=== PATIENT | female | born 1985 | race Caucasian/White ===

== ENCOUNTER 2023-08-01 20:43 | Outpatient (OUT) | payer OTHER, SELFPAY | END 2023-08-01 20:44 | disposition home or self-care (01) | LOC: SLEEP 20:43 | PROVIDERS: PCP Nurse Practitioner Family; Visit Provider Nurse Practitioner Family | DX: G47.33 Obstructive sleep apnea (adult) (pediatric) (principal) | CPT/HCPCS: 95810 ==

== ENCOUNTER 2023-09-03 19:52 | Outpatient (OUT) | payer OTHER, SELFPAY | END 2023-09-03 19:53 | disposition home or self-care (01) | LOC: SLEEP 19:52 | PROVIDERS: PCP Nurse Practitioner Family; Visit Provider Nurse Practitioner Family | DX: G47.33 Obstructive sleep apnea (adult) (pediatric) (principal) | CPT/HCPCS: 95811 ==

== ENCOUNTER 2024-02-16 07:45 | Emergency (ER) | payer OTHER, SELFPAY ==
[2024-02-16 07:53] VITALS: BP 163/98; PULSE 95; TEMP 36.7; O2SAT 97; BMI 65.2
--- OUTSIDE RECORDS SUMMARY | 2024-02-16 08:05 | XMS_ITS | CCD ---
Author Organization [facility] Care Team Providers Care Adult Education Manager Name Role Phone Unknown, Referring Provider Unavailable Unav ailable Unavailable Unavailable Emmie Lenz Unavailable EMMIE LENZ Primary Care Physician Didi Mendoza Unavailable FELY ECHEVARRIA Consulting Unavailab EMMIE Dugan Primary Care Unavailable JUMANA HORAN Attending Unavailable JUMANA HORAN Admitting Unavailable MD BRAD WALTER Attending Unavailable Ms. Emmie Lenz Referring Unavailable SHERI THEODORE Attending Unavailable SHERI THEODORE Attending Unavailable SHERI THEODORE Attending Unavailable Rahat DUCKWORTH Attending Unavailable SHERI THEODORE Attending Unavailable SHERI THEODORE Attending Unavailable Brad Walter Attending Unavailable Brad Walter Attending Unavailable Emmie Fernandez Primary Care Provider Allergies Allergy Classification Reported Allergen(s) Allergy Type Date of Onset Reaction(s) Facility Penicillins (antibiotic) (3 sources) Amoxicillin; Translations: [amoxicillin] Drug Allergy Anaphylaxis [facility]-Endocrinolog [facility] [address] Work Phone: Sulfonamides (antibiotic) (3 sources) Sulfonamides (Antibiotic); Translations: [Sulfa Drugs] Drug Allergy Other [facility]-Endocrinolog [facility] [address] Work Phone: Unclassified (12 sources) Nystatin POWD; Translations: [Nystatin POWD] Allergy to drug (finding) Other -Endocrinolog [facility] [address] [address] Work Phone: (11 sources) Amoxicillin; Translations: [amoxicillin] Drug Allergy 3 Anaphylaxis, Angioedema [facility] (9 sources) Sulfonamides (Antibiotic); Translations: [Sulfa Drugs] Allergy to drug (finding) Other MG-[facility] Work Phone: (2 sources) Substance with sulfonamide structure and antibacterial mechanism of action (substance) Drug allergy 3 Other, Unknown shopa Other (1 source) Amoxicillin Drug Allergy [address] [facility] (1 source) Sulfonamides (Antibiotic) Drug allergy (disorder) [address] [facility] (1 source) Nystatin Drug Allergy 3 Other [facility] Work Phone: Medications Current Medications Medication Drug Class(es) Dates Sig (Normalized) Sig (Original) ciprofloxacin 3 mg/ml ophthalmic solution (1 source) Quinolone Antimicrobial Start: 03-03-2023 take 1-2 drop(s) into the eye(s) every hour Ciprofloxacin HCl 0.3 % 1-2 drops into affected eye Ophthalmic every4 hours for 7 days Feb, Active clotrimazole 10 mg/ml topical cream (6 sources) Azole Antifungal Start: 05-11-2020 clotrimazole (Lotrimin) 1 % cream APPLY SPARINGLY TO AFFECTED AREA(S) TWICE DAILY as needed 0 05/11/2020 Active Start: 05-11-2020 Clotrimazole 1 % External Cream APPLY SPARINGLY TO AFFECTED AREA(S) TWICE DAILY as needed Quantity: 1 Refills: 1 Ordered: 20-Sep-2020 DO Start : 11-May-2020 Active sertraline 50 mg oral tablet (11 sources) Serotonin Reuptake Inhibitor Start: 06-02-2021 take 1 tablet by mouth once daily sertraline (Zoloft) 50 mg tablet Take 1 tablet (50 mg) by mouth once daily. 0 06/02/2021 Active Start: 06-02-2021 Zoloft 50 MG O ral Tablet Quantity: 0 Refills: 0 Ordered: 02-Jun-2021 DO Start : 02-Jun-2021 Active Zoloft Active Problems Active Problems Problem Classification Problem Date Documented Date Episodic/Chronic Adjustment disorders (10 sources) Adjustment disorder; Translations: [Adjustment disorder with other symptoms] Onset: 05-18-2022 Chronic Administrative/socia l admission (2 sources) Follow-up status; Translations: [Person consulting for explanation of examination or test findings] Onset: 08-13-2023 08-13-2023 Episodic Conditions associated with dizziness or vertigo (7 sources) Dizziness; Translations: [Dizziness and giddiness] Episodic Conduction disorders (8 sources) Incomplete left bundle branch block; Translations: [Left bundle branch hemiblock] Onset: 08-08-2023 08-08-2023 Chronic E Codes: Natural/environment (1 source) Exposure to other specified factors, initial encounter; Translations: [EXPOSURE OTHER SPEC FACTORS INITIAL] Onset: 03-21-2023 Episodic Inflammation; infection of eye (except that caused by tuberculosis or sexually transmitteddisease) (1 source) Unspecified acute conjunctivitis, left eye Episodic Mycoses (13 sources) Histoplasmosis; Translations: [Histoplasmosis, unspecified, without mention of manifestation] Onset: 08-08-2023 08-08-2023 Episodic Nonspecific chest pain (9 sources) Chest pain; Translations: [Chest pain, unspecified] Onset: 07-31-2023 08-08-2023 Episodic Other aftercare (1 source) Other mcfp (current) drug therapy; Translations: [OTH HALFWAY CURRENT DRUG THERAPY] Onset: 03-21-2023 Episodic Other diseases of veins and lymphatics (13 sources) Occlusion of superior vena cava; 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] Onset: 08-08-2023 08-08-2023 Episodic Other lower respiratory disease (13 sources) Nodule of lung; Translations: [Solitary pulmonary nodule] Onset: 08-08-2023 08-08-2023 Episodic Other lower respiratory disease (3 sources) Pleurodynia; Translations: [PLEURODYNIA] Onset: 03-19-2023 Episodic Other lower respiratory disease (7 sources) Dyspnea; Translations: [Shortness of breath] Episodic Other lower respiratory disease (1 source) Shortness of breath; Translations: [Shortness of breath] Onset: 07-31-2023 Episodic Other nutritional; endocrine; and metabolic disorders (7 sources) Morbid obesity; Translations: [Morbid obesity] Onset: 08-08-2023 08-13-2023 Chronic Other nutritional; endocrine; and metabolic disorders (7 sources) Body mass index 40+ - severely obese; Translations: [Morbid obesity] Chronic Other screening for suspected conditions (not mental disorders or infectious disease) (9 sources) Electrocardiogram abnormal; Translations: [Nonspecific abnormal electrocardiogram [ECG] [EKG]] Onset: 07-31-2023 08-08-2023 Episodic Other skin disorders (13 sources) Mass of thoracic structure; Translations: [Swelling, mass, or lump in chest] Onset: 08-08-2023 08-08-2023 Episodic Residual codes; unclassified (2 sources) Sleep apnea; Translations: [Sleep apnea, unspecified] Onset: 08-13-2023 08-13-2023 Chronic Screening and history of mental health and substance abuse codes (8 sources) Personal history of nicotine dependence; Translations: [Ex-smoker] Onset: 03-21-2023 Episodic Sprains and strains (1 source) Strain of muscle and tendon of front wall of thorax, initial encounter; Translations: [STRN MSC TENDON FRNT WALL THOR INIT] Onset: 03-21-2023 Episodic Unclassified (1 source) COUGH, UNSPECIFIED; Translations: [COUGH, UNSPECIFIED] Onset: 03-21-2023 Past or Other Problems Problem Classification Problem Date Documented Da te Episodic/Chronic Unclassified (7 sources) Patient status finding; Translations: [Patient new to provider] Unclassified (1 source) Onset: 08-13-2023 08-13-2023 Results Test Name Value Interpretation Reference Range Facility Cardiac Stress Teston 2022 Cardiac Stress Test [address], [address] [place] [address] Exercise Stress Test Patient Name: DINESH AVILALELLAN Ordering Physician: [id number] Brad Walter MD Study Date: 07/31/2023 Reading Physician: [id number] Galo MD, [facility] MRN/PID: [id number] Supervising Physician: [id number] Galo MD, [facility] Accession/Order#: [id number] Referring Physician: BRAD WALTER Date of : 1985 PCP: Gender: F Fellow: Height: 162.56 cm Nurse: Jhon Vaughn RN Weight: 171.01 kg Power Plant Technician: TJ BSA: 2.56 m2 Technologist: BMI: 64.71 kg/m2 Additional Staff: Age: 38 years cc report to: Patient Location: cc report to: [id number] Brad Walter MD Study Type: Cardiac Stress Test Diagnosis/ICD: R07.1-Chest pain on breathing (pleuritic chest pain); R06.02-Shortness of breath Indication: Chest Pain Procedure/CPT: Stress Test Interpretation-25558; Stress Test Supervision-[id number] Falls Risk: Low: Patient has low risk for sustaining a fall; environmental safety interventions in place. Study Details: Correct procedure and correct patient verified verbally. Patient Performance: The patient exercised to stage I on a Dominic protocol for 2 minutes and 41 seconds, achieving 4.60 METS. The peak heart rate achieved was 166 bpm, which was 92 % of the age predicted target heart rate of 181 bpm. The resting blood pressure was 118/80 mmHg with a heart rate of 84 bpm. The standing blood pressure was 116/82 mmHg with a heart rate of 91 bpm. The patient's functional capacity was below average. The patient developed shortness of breath during the stress exam. The symptoms resolved with rest. The blood pressure response was normal. The test was terminated due to: dyspnea. Baseline ECG: Resting ECG showed normal sinus rhythm. Stress Stage Data: + +--- +------+-------+ HR Sys BP Ackerman BP + +--- +------+-------+ Baseline Resting 84 118 80 + +--- +------+-------+ Baseline Standing 91 116 82 + +--- +------+-------+ Stage I 166 138 84 + +--- +------+-------+ Recovery ECG: The heart rate recovery was normal. + +---+---- --+-------+ HR Sys BP Ackerman BP + +---+---- --+-------+ Recovery I 164 128 84 + +---+---- --+-------+ Recovery II 151 128 86 + +---+---- --+-------+ Recovery III 111 124 82 + +---+---- --+-------+ Recovery IV 98 122 84 + +---+---- --+-------+ Summary: 1. 1_patient was exercised on a Dominic protocol for 2 minutes and 41 seconds achieving maximum heart rate of 166 bpm which represented 91% of predicted maximal heart rate and workload of 4.6 METS. Blood pressure payal to 128/86 mmHg. The test ended due to dyspnea 2_no ischemic EKG changes, chest pain or cardiac arrhythmias at a very low workload which could reduce the sensitivity of the treadmill stress test in detecting myocardial ischemia. 2. Submaximal level of stress achieved. [id number] Beltran Galo MD, [facility] Electronically signed on 08/01/2023 at 5:29:58 PM Final Normal [facility] Cardiac Stress Test Please click on the link to view the study images [facility] Work Phone: Cardiac Stress Test [facility] [place] [id number] DO Work Phone: Echocardiogramon 07-31-[address], [place] [address] TRANSTHORACIC ECHOCARDIOGRAM REPORT Patient Name: DINESH AVILALELLAN Jg Physician: [id number] Beltran Galo MD, FAC Study Date: 07/31/2023 Referring Physician: BRAD WALTER MRN/PID: [id number] PCP: [id number] Tay Lenz DO Accession/Order#: [id number] Department Location: [facility] Mónica Neil Date of : 1985 Fellow: Gender: F Nurse: Jhon Vaughn scratch finisher Date: Power Plant Technician: Kathy Quinones RDCS, RT(R), RDMS, RVT Height: 162.56 cm CC Report to: Weight: 171.01 kg Study Type: Echocardiogram BSA: 2.56 m2 Diagnosis/ICD: Z01.818-Encounter for other preprocedural examination; R07.9-Chest pain, unspecified; R94.31-Abnormal electrocardiogram [ECG] [EKG] Indication: INcomplete RBBB Chest pain SOB Pre-op for Bariatric Surgery Procedure/CPT: Echo Complete w Full Doppler-[id number] Patient History: Pertinent History: Histoplasmosis. Study Detail: The following Echo studies were performed: 2D, M-Mode, Doppler and color flow. Optison used as a contrast agent for endocardial border definition. Total contrast used for this procedure was 0.7 mL via IV push. PHYSICIAN INTERPRETATION: Left Ventricle: Left ventricular systolic function is normal, with an estimated ejection fraction of 60%. There are no regional wall motion abnormalities. The left ventricular cavity size is normal. Spectral Doppler shows a normal pattern of left ventricular diastolic filling. Left Atrium: The left atrium is normal in size. Right Ventricle: The right ventricle is normal in size. There is normal right ventricular global systolic function. Right Atrium: The right atrium is normal in size. Aortic Valve: The aortic valve was not well visualized. There is no evidence of aortic valve regurgitation. The peak instantaneous gradient of the aortic valve is 9.5 mmHg. The mean gradient of the aortic valve is 6.0 mmHg. Mitral Valve: The mitral valve was not well visualized. There is no evidence of mitral valve regurgitation. Tricuspid Valve: The tricuspid valve was not well visualized. No evidence of tricuspid regurgitation. Pulmonic Valve: The pulmonic valve is not well visualized. There is no indication of pulmonic valve regurgitation. Pericardium: There is no pericardial effusion noted. Aorta: The aortic root is normal. Systemic Veins: The inferior vena cava was not well visualized. CONCLUSIONS: 1. Left ventricular systolic function is normal with a 60% estimated ejection fraction. QUANTITATIVE DATA SUMMARY: 2D MEASUREMENTS: Normal Ranges: Ao Root d: 2.50 cm (2.0-3.7cm) LAs: 3.30 cm (2.7-4.0cm) RVIDd: 3.00 cm (0.9-3.6cm) IVSd: 0.90 cm (0.6-1.1cm) LVPWd: 1.30 cm (0.6-1.1cm) LVIDd: 4.70 cm (3.9-5.9cm) LVIDs: 3.50 cm LV Mass Index: 73.2 g/m2 LV % FS 25.5 % LA VOLUME: Normal Ranges: LA Volume Index: 14.0 ml/m2 AORTA MEASUREMENTS: Normal Ranges: Asc Ao, d: 2.70 cm (2.1-3.4cm) LV SYSTOLIC FUNCTION BY 2D PLANIMETRY (MOD): Normal Ranges: EF-A4C View: 63.9 % (>=55%) EF-A2C View: 74.4 % EF-Biplane: 70.1 % LV DIASTOLIC FUNCTION: Normal Ranges: MV Peak E: 1.24 m/s (0.7-1.2 m/s) MV Peak A: 0.99 m/s (0.42-0.7 m/s) E/A Ratio: 1.26 (1.0-2.2) MV lateral e' 0.14 m/s MV medial e' 0.14 m/s E/e' Ratio: 8.60 (<8.0) MITRAL VALVE: Normal Ranges: MV Vmax: 1.56 m/s (<=1.3m/s) MV peak P.7 mmHg (<5mmHg) MV mean P.0 mmHg (<48mmHg) MV DT: 127 msec (150-240msec) AORTIC VALVE: Normal Ranges: AoV Vmax: 1.54 m/s (<=1.7m/s) AoV Peak P.5 mmHg (<20mmHg) AoV Mean P.0 mmHg (1.7-11.5mmHg) LVOT Max Carlos: 1.26 m/s (<=1.1m/s) AoV VTI: 35.80 cm (18-25cm) LVOT VTI: 28.70 cm LVOT Diameter: 2.10 cm (1.8-2.4cm) AoV Area, VTI: 2.78 cm2 (2.5-5.5cm2) AoV Area,Vmax: 2.83 cm2 (2.5-4.5cm2) AoV Dimensionless Index: 0.80 PULMONIC VALVE: Normal Ranges: PV Max Carlos: 1.0 m/s (0.6-0.9m/s) PV Max P.7 mmHg [id number] Beltran Galo MD, [facility] Electronically signed on 08/01/2023 at 5:52:23 PM Final Normal [facility] Echocardiography Please click on the link to view the study images [facility] Work Phone: Consenton 05-21-2023 Consent [id number] 0CD:127 Normal [facility] Registrationon 05-21-2023 Registration [id number] 11 [id number] 0CD:127 [facility] Office Visit (Cardiology)on 05-07-2023 Follow-up visit Diagnoses/Problems Assessed Preoperative cardiovascular examination (V72.81) (Z01.810) Patient new to provider Morbid obesity with BMI of 60.0-69.9, adult (278.01,V85.44) (E66.01,Z68.44) Abnormal EKG (794.31) (R94.31) Chest pain (786.50) (R07.9) Shortness of breath (786.05) (R06.02) Incomplete left bundle branch block (426.2) (I44.7) Dizziness (780.4) (R42) Former smoker (V15.82) (Z87.891) Orders Abnormal EKG, Chest pain, Incomplete left bundle branch block, Preoperative cardiovascular examination, Shortness of breath Echocardiogram; Status:Hold For - Scheduling,Retrospecti ve By Protocol Authorization; Requested for:07May2023; NM Cardiac Stress/Rest Nuclear Med Order; Status:Hold For - Scheduling,Retrospecti ve By Protocol Authorization; Requested for:07May2023; Radiologist to Determine Optimal Study : Y What are the patient's signs and symptoms? : CHEST PAIN, SOB , POC Morbid obesity with BMI of 60.0-69.9, adult Healthy Weight Tips; Status:Complete - Retrospective Authorization; Done: 07May2023 Some eating tips that can help you lose weight.; Status:Complete - Retrospective Authorization; Done: 07May2023 Preoperative cardiovascular examination IO EKG Electrocardiogram- 12 Lead; Status:Complete; Done: 07May2023 Patient Instructions Please bring all medicines, vitamins, and herbal supplements with you when you come to the office. Prescriptions will not be filled unless you are compliant with your follow up appointments or have a follow up appointment scheduled as per instruction of your physician. Refills should be requested at the time of your visit. POC FOR DR. SONG PRUITT FOR GASTRIC BYPASS @ [facility], PENDING TESTING Follow up after testing Chief Complaint DINESH SELBY is being seen for pre-operative clearance. History of Present Illness 38-year-old without documented coronary artery disease or valvular heart disease is being seen in cardiology consultation at the request of Dr. Pruitt or for preoperative cardiac risk assessment prior to bariatric surgery, nature of surgery unclear at this time. 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 She does complain of chest discomfort a pressure sensation that lasts a few minutes, usually brought on by activity. She also has shortness of breath with activity her symptoms are not new and they are not accelerating. Does not have nocturnal chest discomfort, denies orthopnea PND lower extremity edema GERD symptoms palpitations lightheadedness presyncope syncope or falls. Her EKG is abnormal and that there is abnormal R wave progression. Rate is 91 MN interval 140 ms QRS duration 94 ms 2 pack/day smoker for 25 years quit 2 years ago. 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 She reports occasional lightheadedness, no presyncope or syncope. Blood pressure is at target. Laboratory data February 2022-hemoglobin 11.8 hematocrit 36 platelets 316, sodium 139 potassium 3.9 GFR greater than 90 Assessment: 1. Patient is here for preoperative cardiac risk assessment prior to bariatric surgery details of surgery not available procedure to be done at [facility] in [place] by Dr. Sagastume. 2. Chest discomfort-etiology unclear 3. Abnormal R wave progression on EKG no prior EKG for comparison 4. Shortness of breath with activity 5. Not clinically volume overloaded 6. Patient denies symptoms of obstructive sleep apnea or a diagnosis of that 7. Hilar adenopathy, underwent biopsy, patient reports that her diagnosis is histoplasmosis. 8. 19-fjek-xvdc history of smoking, quit 2020. 9. History of anxiety/panic attacks characterized by elevations in heart rate sweaty palms shortness of breath and chest discomfort-significant improvement on Zoloft. Recommendations: We talked about lifestyle modification. She says she is very frustrated, she gained weight after she quit smoking, she has had prior efforts at weight loss, and she had made progress but then she had setbacks, this is quite frustrating for her. She says she does not eat anything till late morning, I suggested intermittent fasting, which might work for her. Prior to completely assessing her cardiac risk for bariatric surgery, we will proceed with an echocardiogram and a treadmill perfusion imaging study. Patient says she can walk on a treadmill. If however treadmill stress test does not give us diagnostic information, it is okay to switch to [employer]. Follow-up after testing Patient is encouraged to abstain from cigarettes. Echocardiogram Thank you (more content not included)... Normal 2C2P Tobacco Screening.on 023 Adult depression screening assessment No [facility] 250 DO Work Phone: Fall risk assessment a) No falls within the last year [facility] 250 DO Work Phone: Tobacco use status [facility] b) No [facility] 250 DO Work Phone: Video Visit - Telehealtho n 08-04-2022 Video Visit - Telehealth Start Time 2pm Stop Time 2:54pm Patient Reported Issues No qualifying data available. CSSRS Risk Assessment No qualifying data available. CSSRS Frequent Screener No qualifying data available. CSSRS Screen No qualifying data available. Mini Mental State Examination No qualifying data available. Diagnosis/Assessment/T reatment Plan 1. Adjustment disorder with mixed emotional features (F43.29: Adjustment disorder with other symptoms) Assessment and Plan No qualifying data available. Follow-up No qualifying data available Other Information This visit was conducted via video communications from my office due to the restrictions of the COVID-19 pandemic. Video communication was performed with the patient located at [ Patient Address ], If it is determined that the patient should be evaluated in person, the patient will be directed to the appropriate clinic or venue. The patient or their guardian verbally consented to this visit. Video time was spent discussing health issues with counseling and coordination of care. PARTICIPANT(S) IN THERAPY SESSION: Patient Only MSE: ATTITUDE ABOUT THERAPY: Cooperative MOOD: Positive AFFECT: Full range, Congruent with topic., Upbeat THOUGHT CONTENT/PERCEPTIONS: Hallucinations: No hallucinations in any modality. Delusions: No delusions, paranoia. Compulsions: No obsessions, compulsions, or phobias. THOUGHT PROCESSES: Oriented x3 SUBSTANCE USE: No smoking since December 2021 RISK ASSESSMENT: Suicidality: No suicidal ideation/intent or plans. Homicidality: No homicidal ideation/intent or plans. INTERVENTIONS TECHNIQUES USED: Review patient's progress since last session. Educated about relationship issues Discussed Medical Issues Discussed work issues Monitored smoking cessation Explored family dynamics THEME OF SESSION/TOPIC/TREATMEN T GOALS: Exploration of Thoughts/Feelings Smoking cessation Medical Issues Relationship issues Work issues Family dynamics NOTES/SUMMARY OF SESSION: Patient reported that her yovcnc-nk-vec today. Her son was close to his grandmother and is taking the loss hard. She is trying to be supportive of her ex-, Otoniel. This is complicated by the fact that, though they lived together, he told her that he wants to talk to other people. In fact, he is interested in a woman named Terry. Initially hurt by this, the patient has come to terms with that and has been talking to a 33-year-old man online (also named Otoniel) who lives in [place]. This man has 6-year-old twin boys. They have not met in person, yet. She is taking things slowly. Patient remains smoke-free since December. She met with her dietitian and was encouraged to lose 15 to 20 pounds before her bariatric surgery. She has been trying to get more exercise. She continues to work at [employer] in [place], and will be promoted to [employer], with a pay increase up to $16 per hour. TREATMENT PLAN: GOAL: Patient will resolve past trauma issues, leading to less anxiety and depression, and greater self-esteem and confidence. OBJECTIVES: Patient will: > Learn to articulate and express feelings in a constructive manner. > Decrease feelings of guilt/shame by being able to verbally affirm self as not responsible for the trauma. > Learn and practice emotional regulation skills. > Learn and implement skills for managing relationships with friends, family, and others. > Identify, challenge, and replace fearful self-talk with reality based, positive self-talk. THERAPEUTIC INTERVENTIONS: Therapist will: > Teach patient the principles of CBT/RET as coping strategy for emotional regulation. > Help the patient to identify and articulate feelings and/or thoughts that contribute to poor self-esteem. > Educate the patient on the use of emotional regulation skills. > Teach the patient interpersonal communication skills such as assertive communication, problem solving, and conflict resolution skills. > Work with the patient toward the development of improved self-esteem_ HOMEWORK/ASSIGNMENT FOR NEXT SESSION: Maintain stability RESPONSE TO INTERVENTION: Level of Trust/Counseling Relationship: Good Level of Effort/Participation: Good Level of Overall Progress: Stable Please Note: Portions of this chart may have been created with voice recognition software. Occasionally wrong word or sound alike substitutions may have occurred due to limitations of the voice recognition software. Please read the chart carefully and recognize, using context, where the substitutions have occurred. Problem List/Past Medical History Ongoing Adjustment disorder with mixed emotional features Historical No qualifying data Medications No active medications Allergies No active allergies Normal [facility] Comment on above: Result Comment: Elec tronically Signed By[facility] Avendaño\.manisha\Date and Time Signed: 08/04/22 10:38 EDT Video Visit - Telehealtho n 07-13-2022 Video Visit - Telehealth Start Time 2pm Stop Time 2:54pm Patient Reported Issues No qualifying data available. CSSRS Risk Assessment No qualifying data available. CSSRS Frequent Screener No qualifying data available. CSSRS Screen No qualifying data available. Mini Mental State Examination No qualifying data available. Diagnosis/Assessment/T reatment Plan 1. Adjustment disorder with mixed emotional features (F43.29: Adjustment disorder with other symptoms) Assessment and Plan No qualifying data available. Follow-up No qualifying data available Other Information This visit was conducted via video communications from my office due to the restrictions of the COVID-19 pandemic. Video communication was performed with the patient located at [ Patient Address ], If it is determined that the patient should be evaluated in person, the patient will be directed to the appropriate clinic or venue. The patient or their guardian verbally consented to this visit. Video time was spent discussing health issues with counseling and coordination of care. PARTICIPANT(S) IN THERAPY SESSION: Patient Only MSE: ATTITUDE ABOUT THERAPY: Cooperative MOOD: Pleasant AFFECT: Full range, Congruent with topic., Positive THOUGHT CONTENT/PERCEPTIONS: Hallucinations: No hallucinations in any modality. Delusions: No delusions, paranoia. Compulsions: No obsessions, compulsions, or phobias. THOUGHT PROCESSES: Oriented x3 SUBSTANCE USE: No smoking since December 2021 RISK ASSESSMENT: Suicidality: No suicidal ideation/intent or plans. Homicidality: No homicidal ideation/intent or plans. INTERVENTIONS TECHNIQUES USED: Review patient's progress since last session. Monitored the patient's use of psychotropic medication Discussed Medical Issues Discussed work issues Monitored smoking cessation Explored family dynamics THEME OF SESSION/TOPIC/TREATMEN T GOALS: Exploration of Thoughts/Feelings Smoking cessation Gastric bypass surgery Medical Issues Psychotropic medication Work issues Family dynamics NOTES/SUMMARY OF SESSION: Patient received the results for her medical testing, and has been okayed for bariatric surgery. She will be expected to lose some weight before the surgery which will not take place until after the first of the year. She remains smoke-free since December. She continues to take 50 mg of Zoloft for anxiety, which seems to be effective. She continues to work at [employer] in [place]. She is being promoted to [employer], with a pay increase. Her 9-year-old son, Mohan, started the fourth grade and wants to play soccer. They continue to live with Kaushik's father. They are not in a relationship but do participate in family outings. Patient was encouraged to expand her social network of friends. TREATMENT PLAN: GOAL: Patient will resolve past trauma issues, leading to less anxiety and depression, and greater self-esteem and confidence. OBJECTIVES: Patient will: > Learn to articulate and express feelings in a constructive manner. > Decrease feelings of guilt/shame by being able to verbally affirm self as not responsible for the trauma. > Learn and practice emotional regulation skills. > Learn and implement skills for managing relationships with friends, family, and others. > Identify, challenge, and replace fearful self-talk with reality based, positive self-talk. THERAPEUTIC INTERVENTIONS: Therapist will: > Teach patient the principles of CBT/RET as coping strategy for emotional regulation. > Help the patient to identify and articulate feelings and/or thoughts that contribute to poor self-esteem. > Educate the patient on the use of emotional regulation skills. > Teach the patient interpersonal communication skills such as assertive communication, problem solving, and conflict resolution skills. > Work with the patient toward the development of improved self-esteem_ HOMEWORK/ASSIGNMENT FOR NEXT SESSION: Maintain stability RESPONSE TO INTERVENTION: Level of Trust/Counseling Relationship: Good Level of Effort/Participation: Good Level of Overall Progress: Stable Please Note: Portions of this chart may have been created with voice recognition software. Occasionally wrong word or sound alike substitutions may have occurred due to limitations of the voice recognition software. Please read the chart carefully and recognize, using context, where the substitutions have occurred. Problem List/Past Medical History Ongoing Adjustment disorder with mixed emotional features Historical No qualifying data Medications No active medications Allergies No active allergies Normal [facility] Comment on above: Result Comment: Elec tronically Signed By: [facility] Avendaño\.manisha\Date and Time Signed: 07/13/22 12:35 EDT Video Visit - Telehealtho n 06-20-2022 Video Visit - Telehealth Start Time 4pm Stop Time 4:40pm Patient Reported Issues No qualifying data available. CSSRS Risk Assessment No qualifying data available. CSSRS Frequent Screener No qualifying data available. CSSRS Screen No qualifying data available. Mini Mental State Examination No qualifying data available. Diagnosis/Assessment/T reatment Plan 1. Adjustment disorder with mixed emotional features (F43.29: Adjustment disorder with other symptoms) Assessment and Plan No qualifying data available. Follow-up No qualifying data available Other Information This visit was conducted via video communications from my office due to the restrictions of the COVID-19 pandemic. Video communication was performed with the patient located at [ Patient Address ], If it is determined that the patient should be evaluated in person, the patient will be directed to the appropriate clinic or venue. The patient or their guardian verbally consented to this visit. Video time was spent discussing health issues with counseling and coordination of care. PARTICIPANT(S) IN THERAPY SESSION: Patient Only MSE: ATTITUDE ABOUT THERAPY: Cooperative MOOD: Positive AFFECT: Full range, Congruent with topic., Hopeful THOUGHT CONTENT/PERCEPTIONS: Hallucinations: No hallucinations in any modality. Delusions: No delusions, paranoia. Compulsions: No obsessions, compulsions, or phobias. THOUGHT PROCESSES: Oriented x3 SUBSTANCE USE: No smoking since December 2021 RISK ASSESSMENT: Suicidality: No suicidal ideation/intent or plans. Homicidality: No homicidal ideation/intent or plans. INTERVENTIONS TECHNIQUES USED: Review patient's progress since last session. Monitored the patient's use of psychotropic medication Discussed Medical Issues Discussed work issues Monitored smoking cessation HEXACO Personality Inventory THEME OF SESSION/TOPIC/TREATMEN T GOALS: Exploration of Thoughts/Feelings Smoking cessation Gastric bypass surgery Medical Issues Psychotropic medication Work issues Personality assessment NOTES/SUMMARY OF SESSION: Patient continues to await the results of some medical testing. She remains smoke-free since December. She continues to take 50 mg of Zoloft for anxiety, which she feels is effective. She recently worked 8 days in a row at [employer] in [place]. She reported that she is being promoted to [employer], [employer]. Her 9-year-old son, Mohan, asked her about some sexual issues that he had heard about from friends. She felt glad that he was comfortable talking to her about such things. Patient took the online HEXACO Personality Inventory. We reviewed her personality profile and she felt it to be helpful and accurate. Patient talked about playing [employer] in the past for fun and socialization. TREATMENT PLAN: GOAL: Patient will resolve past trauma issues, leading to less anxiety and depression, and greater self-esteem and confidence. OBJECTIVES: Patient will: > Learn to articulate and express feelings in a constructive manner. > Decrease feelings of guilt/shame by being able to verbally affirm self as not responsible for the trauma. > Learn and practice emotional regulation skills. > Learn and implement skills for managing relationships with friends, family, and others. > Identify, challenge, and replace fearful self-talk with reality based, positive self-talk. THERAPEUTIC INTERVENTIONS: Therapist will: > Teach patient the principles of CBT/RET as coping strategy for emotional regulation. > Help the patient to identify and articulate feelings and/or thoughts that contribute to poor self-esteem. > Educate the patient on the use of emotional regulation skills. > Teach the patient interpersonal communication skills such as assertive communication, problem solving, and conflict resolution skills. > Work with the patient toward the development of improved self-esteem_ HOMEWORK/ASSIGNMENT FOR NEXT SESSION: Maintain stability RESPONSE TO INTERVENTION: Level of Trust/Counseling Relationship: Good Level of Effort/Participation: Good Level of Overall Progress: Stable Please Note: Portions of this chart may have been created with voice recognition software. Occasionally wrong word or sound alike substitutions may have occurred due to limitations of the voice recognition software. Please read the chart carefully and recognize, using context, where the substitutions have occurred. Problem List/Past Medical History Ongoing Adjustment disorder with mixed emotional features Historical No qualifying data Medications No active medications Allergies No active allergies Normal [facility] Comment on above: Result Comment: Elec tronically Signed By: [facility]-Veena, SHERI\.manisha\Date and Time Signed: 06/20/22 12:28 EDT Video Visit - Telehealtho n 06-02-2022 Video Visit - Telehealth Start Time 2pm Stop Time 2:40pm Patient Reported Issues No qualifying data available. CSSRS Risk Assessment No qualifying data available. CSSRS Frequent Screener No qualifying data available. CSSRS Screen No qualifying data available. Mini Mental State Examination No qualifying data available. Diagnosis/Assessment/T reatment Plan 1. Adjustment disorder with mixed emotional features (F43.29: Adjustment disorder with other symptoms) Assessment and Plan No qualifying data available. Follow-up No qualifying data available Other Information This visit was conducted via 2-way video communications due to the restrictions of the COVID-19 pandemic. All issues, below, were discussed and addressed but no physical exam was conducted other than those areas of the body visible to telecommunications. If it is deemed that the patient should be evaluated in the clinic, the patient will be directed to the appropriate clinic or venue. The patient and/or their guardian verbally consented to this visit. Video time spent with the patient [id number] was greater than 50%, in addition to counseling and coordination of care. PARTICIPANT(S) IN THERAPY SESSION: Patient Only MSE: ATTITUDE ABOUT THERAPY: Cooperative MOOD: Upbeat AFFECT: Full range, Congruent with topic., Positive THOUGHT CONTENT/PERCEPTIONS: Hallucinations: No hallucinations in any modality. Delusions: No delusions, paranoia. Compulsions: No obsessions, compulsions, or phobias. THOUGHT PROCESSES: Goal oriented SUBSTANCE USE: No smoking since December 2021 RISK ASSESSMENT: Suicidality: No suicidal ideation/intent or plans. Homicidality: No homicidal ideation/intent or plans. INTERVENTIONS TECHNIQUES USED: Review patient's progress since last session. Monitored the patient's use of psychotropic medication Discussed Medical Issues Monitored smoking cessation Explore family dynamics HEXACO Personality Inventory THEME OF SESSION/TOPIC/TREATMEN T GOALS: Exploration of Thoughts/Feelings Family dynamics Smoking cessation Gastric bypass surgery Medical Issues Psychotropic medication Personality assessment NOTES/SUMMARY OF SESSION: Patient recently underwent testing to make sure she is eligible for gastric bypass surgery (no results yet). She did report losing 8 pounds. Patient stopped smoking cigarettes in December, and remains smoke-free. She takes 50 mg of Zoloft for anxiety, which she feels is effective. She continues working at [employer] in [place]. She and her son, Mohan, continue to live with Mohan's father. When asked what she would like to work on in counseling last session, patient stated that she would like to know who I am. Patient agreed to take the online HEXACO Personality Inventory for discussion in our next session. TREATMENT PLAN: GOAL: Patient will resolve past trauma issues, leading to less anxiety and depression, and greater self-esteem and confidence. OBJECTIVES: Patient will: > Learn to articulate and express feelings in a constructive manner. > Decrease feelings of guilt/shame by being able to verbally affirm self as not responsible for the trauma. > Learn and practice emotional regulation skills. > Learn and implement skills for managing relationships with friends, family, and others. > Identify, challenge, and replace fearful self-talk with reality based, positive self-talk. THERAPEUTIC INTERVENTIONS: Therapist will: > Teach patient the principles of CBT/RET as coping strategy for emotional regulation. > Help the patient to identify and articulate feelings and/or thoughts that contribute to poor self-esteem. > Educate the patient on the use of emotional regulation skills. > Teach the patient interpersonal communication skills such as assertive communication, problem solving, and conflict resolution skills. > Work with the patient toward the development of improved self-esteem_ HOMEWORK/ASSIGNMENT FOR NEXT SESSION: Maintain stability RESPONSE TO INTERVENTION: Level of Trust/Counseling Relationship: Good Level of Effort/Participation: Good Level of Overall Progress: Stable Please Note: Portions of this chart may have been created with voice recognition software. Occasionally wrong word or sound alike substitutions may have occurred due to limitations of the voice recognition software. Please read the chart carefully and recognize, using context, where the substitutions have occurred. Problem List/Past Medical History Ongoing Adjustment disorder with mixed emotional features Historical No qualifying data Medications No active medications Allergies No active allergies Normal [facility] Comment on above: Result Comment: Elec tronically Signed By: [facility]-S, SHERI\.br\Date and Time Signed: 06/02/22 14:45 EDT Tobacco Screening.on 022 Fall risk assessment a) No falls within the last year [facility] Work Phone: Tobacco use status [facility] b) No [facility] Work Phone: Tobacco Screening. Adult [facility] Work Phone: Histoplasma Caps Abs CF+IDon 04-26-2021 Histoplasma Mycelia CF Ab. Negative Normal Neg:<1:2 [facility] Comment on above: Performed By: #### H ISTOPL GAL AG, HISTO ABS #### [facility] , Histoplasma Yeast CF Ab. 1:32 High Neg:<1:2 [facility] Comment on above: Result Comment: Perf ormed at: BN - [facility] [address] [id number] Seismic Engineer: Palomo Gutierrez MD, Phone: [phone] PERFORMED BY: [facility] [address] [place] [address] PATHOLOGIST HAIRSPRING I INSPECTOR SWETA SANDERS M.D. Performed By: #### H ISTOPL GAL AG, HISTO ABS #### [facility] , Histoplasma Galacto Ag EIAon 04-26-2021 Disclaimer: Normal . [facility] Comment on above: Result Comment: This test was developed and its performance characteristics determined by [facility]. It has not been cleared or approved by the Food and Drug Administration. Performed at: [address] [id number] Seismic Engineer: Palomo Gutierrez MD, Phone: [phone] Performed By: #### H ISTOPL GAL AG, HISTO ABS #### [facility] , Histoplasma Gal'hitchcock Ag, Ser <0.5 Normal <0.5 ng/mL [facility] Comment on above: Performed By: #### H ISTOPL GAL AG, HISTO ABS #### [facility] , Tobacco Screening.on Fall risk assessment a) No falls within the last year [facility] [address] Work Phone: Tobacco use status [facility] b) No [facility] [address] Work Phone: QuantiFERON TB Goldon 2020 QFTB Criteria Normal . [facility] Comment on above: Result Comment: The QuantiFERON-TB Gold Plus result is determined by subtracting the Nil value from either TB antigen (Ag) tube. The mitogen tube serves as a control for the test. Performed By: #### Q UANT TB #### [facility] , Quant TB Ag Value 0.[address] [facility] Comment on above: Performed By: #### Q UANT TB #### [facility] , Quant TB Gold Plus Negative Normal Negative [facility] Comment on above: Result Comment: The specimen received for QuantiFERON testing was incubated by the ordering institution. Specific procedures outlined in our Directory of Services and in the package insert for the QuantiFERON Gold (In Tube) test must be followed to enable for proper stimulation of cells for the production of interferon gamma. Chemiluminescence immunoassay methodology Performed at: [address] [id number] Seismic Engineer: Kaushik Aragon PhD, Phone: [phone] PERFORMED BY: [facility] [place] [id number] PATHOLOGIST HAIRSPRING I INSPECTOR SWETA SANDERS M.D. Performed By: #### Q UANT TB #### [facility] , Quant TB2 Ag Value 0.07 Normal . [facility] Comment on above: Performed By: #### Q UANT TB #### [facility] , Quantiferon Nil Value 0.04 Normal . [facility] Comment on above: Performed By: #### Q UANT TB #### [facility] , Quantiferon TB Mitogen >10.00 Normal . [facility] Comment on above: Performed By: #### Q UANT TB #### [facility] , [facility] echo transthoracicon [facility] echo transthoracic [facility] [address] [place] [id number] Echocardiogram Signed Patient: Dinesh Selby MR#: [id number] : 1985 Acct:[id number] Age/Sex: 35 / F ADM Date: 01/12/21 Loc: Room: Type: [facility] Attending Dr: George Roland MD Ordering Provider: George Roland MD Date of Service: 01/12/21 [facility] echo transthoracic: SUPERIOR VENA CAVA SYNDROME Copies to: MD Beltran Schultz MD, [facility] Weight: 336 lb Performed By: SEMAJ Valencia BSA: 2.4 m2 HR: 98 Reason For Study: SUPERIOR VENA CAVA SYNDROME History: Former smoker Interpretation Summary Ejection Fraction = 55-60%. The left ventricular size, thickness and function are normal The left ventricular wall motion is normal. There is no prior echocardiogram noted for this patient. Normal transthoracic echocardiogram. Procedure/Quality: A two-dimensional transthoracic echocardiogram with color flow and Doppler was performed. The study was technically fair in quality. There is no prior echocardiogram noted for this patient. Left Ventricle: The left ventricular size, thickness and function are normal. Ejection Fraction = 55-60%. The left ventricular wall motion is normal. Left Atrium: The left atrium appears normal in size. The atrial septum appears normal. Right Atrium: The right atrium appears normal in size. Right Ventricle: The right ventricular size, thickness and function are normal. Aortic Valve: The aortic valve is normal in structure and function. No aortic regurgitation is present. Mitral Valve: The mitral valve is normal in structure and function. There is no mitral regurgitation noted. Tricuspid Valve: The tricuspid valve is normal in structure and function. No tricuspid regurgitation. Pulmonic Valve: The pulmonic valve is normal in structure and function. Arteries: The aortic root is normal size. Pericardium/Pleura: No pericardial effusion seen. There is no pleural effusion. IVC/Hepatic Viens: The inferior vena cava is normal in size, with a normal collapsibility index. Miscellaneous: No thrombus, vegetation or mass is seen. Measurements with Normals IVSd: 1.1 cm (0.7-1.1 cm)LVIDd: 4.6 cm (3.7-5.4 cm) LVPWd: 1.0 cm (0.7-1.1 cm)LVIDs: 2.9 cm (2.3-3.6 cm) LA dimension: 3.9 cm(2.3-4.0 cm)Ao root diam: 3.1 cm(2.0-3.2 cm) Doppler with Normals MV E max carlos: 112.0 cm/sec(0.8-1.3m/s) MV A max carlos: 71.2 cm/sec (0.0-0.0m/s) MV E/A: 1.6 (<1.5) MMode/2D Measurements Calculations RVDd: 3.4 cm FS: 37.7 % Ao root area: 7.6 cm2 EDV(Teich): 99.2 ml ESV(Teich): 31.9 ml EF(Teich): 67.9 % Doppler Measurements Calculations MV dec time: 0.20 sec E/E' lat: 8.6 MV dec slope: 548.7 cm/sec2 E/E' med: 10.1 Transcribed By: LINDA 01/12/21 1402 Dictated By: Beltran Galo MD, [facility] 01/12/21 1320 Signed By: 01/12/21 1402 Normal [facility] Coagulation Profileon 2020 aPTT Coag (Bld) [Time] 32.9 s Normal 25.1-36.5 [facility] Comment on above: Result Comment: PERF ORMED BY: [place] [address] PATHOLOGIST HAIRSPRING I INSPECTOR SWETA SANDERS M.D. Performed By: #### U R HISTOPLAS, HISTO ABS #### [facility] , #### PP #### [facility] [address] [place] [address] INR Coag (PPP) [Relative time] 1.1 {INR} Normal [facility] Comment on above: Result Comment: INR Therapeutic Range A) Pre- and Peroperative OAT started two weeks before surgery. NOT HIP SURGERY: 1.5 - 2.5 HIP SURGERY: 2 - 3 B) Primary and secondary prevention of venous THROMBOSIS: 2 - 3 C) Active venous thrombosis, pulmonary embolism and prevention of recurrent venous thrombosis: 2 - 3 D) Prevention of arterial thromboembolism including patients with mechanical heart valves: 3 - 4.5 Performed By: #### U R HISTOPLAS, HISTO ABS #### [facility] , #### PP #### [facility] [address] [place] [address] PT Coag (PPP) [Time] 12.0 s Normal 9.0-12.9 [facility] Comment on above: Performed By: #### U R HISTOPLAS, HISTO ABS #### [facility] , #### PP #### [facility] [address] [place] [address] Histoplasma Caps Abs CF+IDon 01-11-2021 Histoplasma Mycelia CF Ab. Negative Normal Neg:<1:2 [facility] Comment on above: Performed By: #### U R HISTOPLAS, HISTO ABS #### [facility] , #### PP #### [address] Histoplasma Yeast CF Ab. 1:8 High Neg:<1:2 [facility] Comment on above: Result Comment: Perf ormed at: [address] [id number] Seismic Engineer: Palomo Gutierrez MD, Phone: [phone] PERFORMED BY: [place] [address] PATHOLOGIST HAIRSPRING I INSPECTOR SWETA SANDERS M.D. Performed By: #### U R HISTOPLAS, HISTO ABS #### [facility] , #### PP #### [address] Histoplasma Galacto Ag, Uron 01-11-2021 Histoplasma disclaimer Normal . [facility] Comment on above: Order Comment: SOURC E OF SPECIMEN: URINE Result Comment: This test was developed and its performance characteristics determined by [facility]. It has not been cleared or approved by the Food and Drug Administration. Performed at: [address] [id number] Seismic Engineer: Palomo Gutierrez MD, Phone: [phone] PERFORMED BY: [place] [address] PATHOLOGIST HAIRSPRING I INSPECTOR SWETA SANDERS M.D. Performed By: #### U R HISTOPLAS, HISTO ABS #### [facility] , #### PP #### [facility] [address] [place] [address] Histoplasma GALACTOMANNAN, UR <0.5 Normal <0.5 ng/mL [facility] Comment on above: Order Comment: SOURC E OF SPECIMEN: URINE Performed By: #### U R HISTOPLAS, HISTO ABS #### [facility] , #### PP #### [facility] [address] Vital Signs Date Time Vital Sign Value Performing Clinician Facility 08-13-2023 14:24-0400 Body height 162.6 cm Brad Walter MD Work Phone: [facility] 08-13-2023 14:24-0400 Body mass index (BMI) [Ratio] 64.03 kg/m2 Brad Walter MD Work Phone: [facility] 08-13-2023 14:24-0400 Body weight 169.19 kg Brad Walter MD Work Phone: [facility] 08-13-2023 14:24-0400 Diastolic blood pressure 88 mm[Hg] Brad Walter MD Work Phone: [facility] 08-13-2023 14:24-0400 Heart rate 82 /min Brad Walter MD Work Phone: [facility] 08-13-2023 14:24-0400 Systolic blood pressure 126 mm[Hg] Brad Walter MD Work Phone: [facility] 05-07-2023 11:28-0400 Diastolic blood pressure 80 mm[Hg] Emmie S Teresa Work Phone: [facility] 250 DO Work Phone: 05-07-2023 11:28-0400 Systolic blood pressure 122 mm[Hg] Emmie S Teresa Work Phone: [facility] 250 DO Work Phone: 05-07-2023 11:27-0400 Body height 162.56 cm Emmie S Teresa Work Phone: [facility] DO Work Phone: 05-07-2023 11:27-0400 Body mass index (BMI) [Ratio] 64.71 kg/m2 Emmie Herreramer Work Phone: [facility] DO Work Phone: 05-07-2023 11:27-0400 Body surface area Derived from formula 2.56 m2 Emmie Herreramer Work Phone: [facility] DO Work Phone: 05-07-2023 11:27-0400 Body weight 171.01 kg Emmie Herreramer Work Phone: [facility] DO Work Phone: 05-07-2023 11:27-0400 Diastolic blood pressure 80 mm[Hg] Emmie Herreramer Work Phone: [facility] DO Work Phone: 05-07-2023 11:27-0400 Heart rate 91 /min Emmie Lenz Work Phone: [facility] DO Work Phone: 05-07-2023 11:27-0400 Systolic blood pressure 118 mm[Hg] Emmie Lenz Work Phone: [facility] DO Work Phone: 03-03-2023 10:15-0400 Body height 162.56 cm Didi Mendoza Other [facility] Other 03-03-2023 10:15-0400 Body mass index (BMI) [Ratio] 63.5 kg/m2 Didi Mendoza Other [facility] Other 03-03-2023 10:15-0400 Body temperature 98 [degF] Didi Mendoza Other [facility] Other 03-03-2023 10:15-0400 Body weight 167.83 kg Didi Mendoza Other [facility] Other 03-03-2023 10:15-0400 Respiratory rate 18 /min Didi Mendoza Other [facility] Other 03-03-2023 10:15-0400 SaO2% (BldA) [Mass fraction] 99 % Didi Mendoza Other [facility] Other 02-09-2022 11:42-0400 Body height 161.11 cm Emmie Herreramer Work Phone: [facility] Work Phone: 02-09-2022 11:42-0400 Body mass index (BMI) [Ratio] 65.42 kg/m2 Emmie Herreramer Work Phone: [facility] Work Phone: 02-09-2022 11:42-0400 Body surface area Derived from formula 2.54 m2 Emmie Curiel Teresa Work Phone: [facility] Work Phone: 02-09-2022 11:42-0400 Body temperature 97.9 [degF] Emmie Herreramer Work Phone: [facility] Work Phone: 02-09-2022 11:42-0400 Body weight 169.82 kg Emmie Curiel Teresa Work Phone: [facility] Work Phone: 02-09-2022 11:42-0400 Diastolic blood pressure 80 mm[Hg] Emmie S Teresa Work Phone: [facility] Work Phone: 02-09-2022 11:42-0400 Heart rate 102 /min Emmie S Teresa Work Phone: [facility] Work Phone: 02-09-2022 11:42-0400 Respiratory rate 16 /min Emmie Herreramer Work Phone: [facility] Work Phone: 02-09-2022 11:42-0400 SaO2% (BldA) [Mass fraction] 98 % Emmie Herreramer Work Phone: [facility] Work Phone: 02-09-2022 11:42-0400 Systolic blood pressure 148 mm[Hg] Emmie Herreramer Work Phone: [facility] Work Phone: 02-09-2022 11:42-0400 0 1 Emmie Herreramer Work Phone: [facility] Work Phone: Comment on above: [facility] 04-22-2021 11:00-0400 Body height 162.56 cm Referring Provider Unknown GC-Hfodbenjegiej-JQY [facility] [place] [facility] Work Phone: 04-22-2021 11:00-0400 Body mass index (BMI) [Ratio] 60.94 kg/m2 Referring Provider Unknown DH-Jqxejzhqqiila-MLI [facility] [address] Work Phone: 04-22-2021 11:00-0400 Body surface area Derived from formula 2.5 m2 Referring Provider Unknown SA-Mrjyvrpunhfsd-SVW [facility] [address] Work Phone: 04-22-2021 11:00-0400 Body weight 161.03 kg Referring Provider Unknown NJ-Dpugiaggyjorj-UEB [facility] Work Phone: 04-22-2021 11:00-0400 Diastolic blood pressure 84 mm[Hg] Referring Provider Unknown TO-Tnlgkpusaascj-MGD [facility] Work Phone: 04-22-2021 11:00-0400 Heart rate 111 /min Referring Provider Unknown MK-Euraahchsguwb-IEO [facility] [address] Work Phone: 04-22-2021 11:00-0400 Systolic blood pressure 147 mm[Hg] Referring Provider Unknown TT-Wcnrefauchnwk-ZAC [facility] [address] Work Phone: 04-22-2021 11:00-0400 0 1 Referring Provider Unknown JL-Ybdqqofiupxry-QFG [facility] [address] Work Phone: Comment on above: [facility] Encounters Encounter Date Encounter Type Care Provider Facility Start: 08-13-2023 End: 08-13-2023 Office outpatient visit 15 minutes Brad Walter MD Work Phone: [facility] Comment on above: Obesity, morbid (CMS /HCC) (Primary Dx); Pre-operative clearance; Severe sleep apnea; Encounter to discuss test results Start: 08-13-2023 End: 08-13-2023 Preoperative state Brad Walter MD Work Phone: [facility] Work Phone: Start: 08-01-2023 Chart Update Emmie tyler Work Phone: [facility] DO Work Phone: Start: 07-31-2023 Encounter for other preprocedural examination Brad Walter [facility] Start: 07-31-2023 ambulatory Brad Walter Facility:[id number] Start: 06-29-2023 ambulatory Brad Walter Facility:[id number] Start: 06-25-2023 AUDIT Emmie tyler Work Phone: [facility] DO Work Phone: Start: 05-21-2023 End: 05-22-2023 ambulatory Rahat EL DORADO Facility:[facility] Start: 05-07-2023 Office consultation new/estab patient 60 min Emmie Lenz Work Phone: [facility] 250 DO Work Phone: Start: 05-07-2023 ambulatory MD BRAD WALTER Facilit [id number] Start: 03-19-2023 End: 03-19-2023 ambulatory FELY ECHEVARRIA Facility:[facility] Start: 03-03-2023 End: 03-03-2023 ambulatory Didi Mendoza Other [place] Other Start: 03-03-2023 Office outpatient ne w 20 minutes Didi Mendoza [facility] Start: 08-28-2022 ambulatory SHERI THEODORE Facility [facility] Start: 08-02-2022 End: 08-03-2022 ambulatory SHERI THEODORE Facility:[facility] Start: 08-02-2022 End: 08-02-2022 Patient encounter procedure SHERI THEODORE [facility] Start: 07-12-2022 End: 07-13-2022 ambulatory SHERI THEODORE Facility:[facility] Start: 07-12-2022 End: 07-12-2022 Patient encounter procedure SHERI THEODORE [facility] Start: 06-19-2022 End: 06-20-2022 ambulatory SHERI THEODORE Facility:[facility] Start: 06-19-2022 End: 06-19-2022 Patient encounter procedure SHERI THEODORE [facility] Start: 06-02-2022 End: 06-03-2022 ambulatory SHERI THEODORE Facility:[facility] Start: 06-02-2022 End: 06-02-2022 Patient encounter procedure SHERI THEODORE [facility] Start: 05-18-2022 End: 05-18-2022 Patient encounter procedure SHERI THEODORE [facility] Start: 02-09-2022 Office outpatient vi sit 40 minutes Emmie Lenz Work Phone: [facility] Work Phone: Start: 05-03-2021 Patient encounter procedure Referring Provider Unknown CS-Npeepuvzvy-Mudlmf Work Phone: Start: 04-22-2021 Office consultation new/estab patient 60 min Referring Provider Unknown [facility] [place] [facility] Work Phone: Start: 04-22-2021 Patient encounter procedure Referring Provider Unknown ZY-Cedtqmxvkiwgy-JNG [facility] [address] Work Phone: Start: 03-22-2021 Office outpatient ne w 60 minutes Emmie Lenz Work Phone: [facility] Work Phone: Patient encounter status Emmie Lenz Work Phone: [facility] 250 DO Work Phone: Procedures Date Procedure Procedure Detail Performing Clinician Start: 07-31-2023 Echocardiography Emmierosy Lenz Work Phone: Biopsy of lung Emmie Parker er Work Phone: Operative procedure on foot Emmie Lenz Work Phone: Plan of Treatment Date Care Activity Detail Author Start: 02-22-2034 Zoster Vaccines (1 of 2) Zoste r Vaccines (1 of 2) [facility] Start: 08-14-2024 End: 08-14-2024 Patient encounter procedure 08/14/2024 2:00 PM EDT Office Visit [facility] [address] [facility] [address] [place] [address] Brad Walter MD [address] [place] [address] [address] [place] [address] [facility] Start: 08-13-2023 FUV, Provider: Brad Walter, Status: Pen, Time: 2:15 PM FUV, Provider: Brad Walter, Status: Pen, Time: 2:15 PM [facility] 250 DO Work Phone: Start: 07-31-2023 ECHO, Provider: SAND USKY [facility] ULTRASOUND 01,[id number], Status: Pen, Time: 8:45 AM ECHO, Provider: JOLYNN [facility] ULTRASOUND 01,[id number], Status: Pen, Time: 8:45 AM [facility] 250 DO Work Phone: Start: 07-31-2023 STRESS NUC, Provider : JOLYNN [facility] NUCLEAR 01,[id number], Status: Pen, Time: 8:00 AM STRESS NUC, Provider: JOLYNN [facility] NUCLEAR 01,[id number], Status: Pen, Time: 8:00 AM [facility] 250 DO Work Phone: Start: 07-13-2023 Influenza vaccination Influenza Vacc ine (#1) [facility] Start: 06-25-2023 FUV, Provider: Brad Walter, Status: Pen, Time: 10:45 AM FUV, Provider: Brad Walter, Status: Pen, Time: 10:45 AM [facility] 250 DO Work Phone: Start: 06-21-2023 ECHO, Provider: AURELIA DUMONT [facility] ULTRASOUND 01,[id number], Status: Pen, Time: 12:30 PM ECHO, Provider: JOLYNN [facility] ULTRASOUND 01,[id number], Status: Pen, Time: 12:30 PM [facility] 250 DO Work Phone: Start: 06-21-2023 STRESS SRIKANTH, Provider : JOLYNN [facility] NUCLEAR 01,[id number], Status: Pen, Time: 11:30 AM STRESS SRIKANTH, Provider: JOLYNN [facility] NUCLEAR 01,[id number], Status: Pen, Time: 11:30 AM [facility] 250 DO Work Phone: Start: 05-03-2021 VIRFUVHOME, Provider : Dianna Acosta, Status: Pen, Time: 9:00 AM VIRFUVHOME, Provider: Dianna Acosta, Status: Pen, Time: 9:00 AM AP-Qhlprtdhlzcwe-DCY [facility] [address] Work Phone: Start: 02-22-2006 DTaP/Tdap/Td Vaccine s (1 - Tdap) DTaP/Tdap/Td Vaccines (1 - Tdap) [facility] Start: 02-22-2005 Screening for malign ant neoplasm of cervix [facility] Start: 02-22-2002 Diabetes mellitus screening Diabetes Screening [facility] Start: 02-22-2002 Hepatitis C screening Hepatitis C Sc reening [facility] Start: 02-22-1985 MMR Vaccines (1 of 1 - Standard series) MMR Vaccines (1 of 1 - Standard series) [facility] Start: 02-22-1985 Varicella vaccination Varicell a Vaccines (1 of 2 - 2-dose childhood series) [facility] Start: 1984 COVID-19 Vaccine (#1) COVID-19 Vacci ne (#1) [facility] Start: 1984 Hepatitis B Vaccines (1 of 3 - 3-dose series) Hepatitis B Vaccines (1 of 3 - 3-dose series) [facility] Start: 1984 HIV screening HIV Screening [facility] Start: 1984 Lipid panel Lipid Panel [facility] Start: 1984 Yearly Adult Physical Yearly Adult P hysical [facility] Payers Date Payer Category Payer Unknown [id number] 2018 Unknown 1984 Unknown [id number] 2.16.84 [id number] 1984 Unknown [id number] [id number] 1984 Unknown [id number] 2.16.8 [id number] 1984 Unknown [id number] 2.16.8 [id number] 1984 Unknown [id number] 2.16.8 [id number] 1984 Unknown [id number] 2.16.8 [id number] 1984 Unknown [id number] 2.16.8 [id number] 1984 Unknown [id number] 2.16.8 [id number] 1984 Unknown [id number] 2.16.8 [id number] 1959 Medicaid [id number] 2. [id number] Unknown [id number] Social History Date Type Detail Facility Start: 08-13-2023 Former smoker Former smoker [facility] Work Phone: Tobacco smoking status No Smokin g Status Entered [facility] Start: 08-13-2023 Sex Assigned At Female F [facility] Start: 08-13-2023 Tobacco smoking stat us NHIS Ex-smoker [facility] End: 11-12-2020 History of tobacco use Current smoker [facility] Work Phone: End: 11-12-2020 History of tobacco use Cigarette Smoker [facility] Work Phone: Start: 08-13-2023 Tobacco use and exposure Smokeless tobacco non-user [facility] Work Phone: Start: 08-13-2023 Alcohol intake Ex-drinker (finding) [facility] Work Phone: Start: 1985 [facility]: Start: 08-03-2023 End: 08-13-2023 Exposure to SARS-CoV-2 (event) Not sure [facility] Medical Equipment Procedure Code Equipment Code Equipment Original Text Equipment Identifier Dates [facility] 22g Case [id number] Start: 02-20-2022 Comment on above: Description: Convert ed from [facility]. Please see archived information for full log information. Additional Information:[facility] 03/10/2022 Clinical Notes 05-12-2020 to 08-13-2023 Brad Walter MD - 08/13/2023 2:15 PM EDTPatient Instructions Note Date & Type Note Facility 08-13-2023 History of Present illness Narrative Subjective Patient ID: Dinesh Sleby is a 38 y.o. female HPI Dinesh is in for follow-up after testing. She continues to have some exertional shortness of breath and decreased functional capacity related to her weight. She has to go through some psychological counseling and testing in anticipation of her bariatric surgery. Her blood pressure is at target. BMI 64. 2 pack/day smoker for 25 years quit 2 years ago. 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 Per most recent OV : 1. Patient is here for preoperative cardiac risk assessment prior to bariatric surgery details of surgery not available procedure to be done at [facility] in [place] by Dr. Sagastume. 2. Chest discomfort-etiology unclear 3. Abnormal R wave progression on EKG no prior EKG for comparison 4. Shortness of breath with activity 5. Not clinically volume overloaded 6. Patient denies symptoms of obstructive sleep apnea or a diagnosis of that 7. Hilar adenopathy, underwent biopsy, patient reports that her diagnosis is histoplasmosis. 8. [id number] history of smoking, quit 2020. 9. History of anxiety/panic attacks characterized by elevations in heart rate sweaty palms shortness of breath and chest discomfort-significant improvement on Zoloft. 10. Treadmill stress test-July 2023-4.6 METS, 91% age-predicted maximum heart rate, no ischemic EKG changes or cardiac symptoms or dysrhythmia, low workload. 11. Echocardiogram July 2023-LVEF 60% normal chamber dimensions, peak and mean gradients across aortic valve 9.5 and 6 respectively, no mitral or tricuspid regurgitation, normal aortic root size, left atrial diameter 3.3 cm LV end-systolic dimension 3.5 cm left atrial volume index 14 mL per metered square Objective GENERAL APPEARANCE: Well developed, well nourished, in no acute distress. CHEST: Symmetric and non-tender. NEURO/PSHCY: Alert and oriented x3; appropriate behavior and responses and responses, grossly normal cerebellar function with normal balance and coordination LUNGS: Clear to auscultation bilaterally; normal respiratory effort. HEART: Rate and rhythm regular with no evident murmur; no gallop appreciated. There are no rubs, clicks or heaves. PMI nondisplaced. ABDOMEN: Obese nontender, no palpable hepatosplenomegaly, no mases, no bruits. Abdominal aorta not noted to be enlarged. MUSCULOSKELETAL: Ambulatory with normal tandem gait. EXTREMITIES: Warm with good color, no clubbing or cyanois. There is no edema noted. Assessment/Plan Problem List Items Addressed This Visit ICD-10-CM Endocrine/Metabolic Obesity, morbid (CMS/HCC) - Primary E66.01 Health Encounters Pre-operative clearance Z01.818 Encounter to discuss test results Z71.2 Sleep Severe sleep apnea G47.30 Patient is cleared for surgery from a cardiac standpoint. documented in this encounter [facility] Work Phone: 08-13-2023 Instructions Sapphire Pickard LPN - 08/13/2023 2:15 PM EDT Please bring all medicines, vitamins, and herbal supplements with you when you come to the office. Prescriptions will not be filled unless you are compliant with your follow up appointments or have a follow up appointment scheduled as per instruction of your physician. Refills should be requested at the time of your visit. Patient is cleared for surgery from a cardiac standpoint. Follow up in one year. documented in this encounter [facility] Work Phone: 07-30-2023 History of Present illness Narrative 38-year-old without documented coronary artery disease or valvular heart disease is being seen in cardiology consultation at the request of Dr. 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 She does complain of chest discomfort a pressure sensation that lasts a few minutes, usually brought on by activity. She also has shortness of breath with activity her symptoms are not new and they are not accelerating. Does not have nocturnal chest discomfort, denies orthopnea PND lower extremity edema GERD symptoms palpitations lightheadedness presyncope syncope or falls.Her EKG is abnormal and that there is abnormal R wave progression. 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 Patient is here for preoperative cardiac risk assessment prior to bariatric surgery details of surgery not available procedure to be done at [facility] in [place] by Dr. Sagastume.2. Chest discomfort-etiology unclear3. Abnormal R wave progression on EKG no prior EKG for comparison4. Shortness of breath with activity5. Not clinically volume overloaded6. Patient denies symptoms of obstructive sleep apnea or a diagnosis of that7. Hilar adenopathy, underwent biopsy, patient reports that her diagnosis is histoplasmosis.8. 92-[id number] history of smoking, quit 2020.9. History of anxiety/panic attacks characterized by elevations in heart rate sweaty palms shortness of breath and chest discomfort-significant improvement on Zoloft.Recommendations:We talked about lifestyle modification. She says she is very frustrated, she gained weight after she quit smoking, she has had prior efforts at weight loss, and she had made progress but then she had setbacks, this is quite frustrating for her.She says she does not eat anything till late morning, I suggested intermittent fasting, which might work for her.Prior to completely assessing her cardiac risk for bariatric surgery, we will proceed with an echocardiogram and a treadmill perfusion imaging study. Patient says she can walk on a treadmill. If however treadmill stress test does not give us diagnostic information, it is okay to switch to [employer].Follow-up after testingPatient is encouraged to abstain from cigarettes.EchocardiogramThank you for allowing us to participate in Dinesh's care, please do not hesitate to call if further questions arise,Sincerely, [facility] Work Phone: 07-11-2023 History of Present illness Narrative 38-year-old without documented coronary artery disease or valvular heart disease is being seen in cardiology consultation at the request of Dr. 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 She does complain of chest discomfort a pressure sensation that lasts a few minutes, usually brought on by activity. She also has shortness of breath with activity her symptoms are not new and they are not accelerating. Does not have nocturnal chest discomfort, denies orthopnea PND lower extremity edema GERD symptoms palpitations lightheadedness presyncope syncope or falls.Her EKG is abnormal and that there is abnormal R wave progression. 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 Patient is here for preoperative cardiac risk assessment prior to bariatric surgery details of surgery not available procedure to be done at [facility] in [place] by Dr. Sagastume.2. Chest discomfort-etiology unclear3. Abnormal R wave progression on EKG no prior EKG for comparison4. Shortness of breath with activity5. Not clinically volume overloaded6. Patient denies symptoms of obstructive sleep apnea or a diagnosis of that7. Hilar adenopathy, underwent biopsy, patient reports that her diagnosis is histoplasmosis.8. 95-hmby-vqiy history of smoking, quit 2020.9. History of anxiety/panic attacks characterized by elevations in heart rate sweaty palms shortness of breath and chest discomfort-significant improvement on Zoloft.Recommendations:We talked about lifestyle modification. She says she is very frustrated, she gained weight after she quit smoking, she has had prior efforts at weight loss, and she had made progress but then she had setbacks, this is quite frustrating for her.She says she does not eat anything till late morning, I suggested intermittent fasting, which might work for her.Prior to completely assessing her cardiac risk for bariatric surgery, we will proceed with an echocardiogram and a treadmill perfusion imaging study. Patient says she can walk on a treadmill. If however treadmill stress test does not give us diagnostic information, it is okay to switch to [employer].Follow-up after testingPatient is encouraged to abstain from cigarettes.EchocardiogramThank you for allowing us to participate in Dinesh's care, please do not hesitate to call if further questions arise,Sincerely, [facility] Work Phone: 05-17-2023 History of Present illness Narrative 38-year-old without documented coronary artery disease or valvular heart disease is being seen in cardiology consultation at the request of Dr. 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 She does complain of chest discomfort a pressure sensation that lasts a few minutes, usually brought on by activity. She also has shortness of breath with activity her symptoms are not new and they are not accelerating. Does not have nocturnal chest discomfort, denies orthopnea PND lower extremity edema GERD symptoms palpitations lightheadedness presyncope syncope or falls.Her EKG is abnormal and that there is abnormal R wave progression. 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 Patient is here for preoperative cardiac risk assessment prior to bariatric surgery details of surgery not available procedure to be done at [facility] in [place] by Dr. Sagastume.2. Chest discomfort-etiology unclear3. Abnormal R wave progression on EKG no prior EKG for comparison4. Shortness of breath with activity5. Not clinically volume overloaded6. Patient denies symptoms of obstructive sleep apnea or a diagnosis of that7. Hilar adenopathy, underwent biopsy, patient reports that her diagnosis is histoplasmosis.8. [id number] history of smoking, quit 2020.9. History of anxiety/panic attacks characterized by elevations in heart rate sweaty palms shortness of breath and chest discomfort-significant improvement on Zoloft.Recommendations:We talked about lifestyle modification. She says she is very frustrated, she gained weight after she quit smoking, she has had prior efforts at weight loss, and she had made progress but then she had setbacks, this is quite frustrating for her.She says she does not eat anything till late morning, I suggested intermittent fasting, which might work for her.Prior to completely assessing her cardiac risk for bariatric surgery, we will proceed with an echocardiogram and a treadmill perfusion imaging study. Patient says she can walk on a treadmill. If however treadmill stress test does not give us diagnostic information, it is okay to switch to FoxyP2 Myoview.Follow-up after testingPatient is encouraged to abstain from cigarettes.EchocardiogramThank you for allowing us to participate in Dinesh's care, please do not hesitate to call if further questions arise,Sincerely, -[facility] DO Work Phone: 05-06-2023 History of Present illness Narrative 38-year-old without documented coronary artery disease or valvular heart disease is being seen in cardiology consultation at the request of Dr. 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 She does complain of chest discomfort a pressure sensation that lasts a few minutes, usually brought on by activity. She also has shortness of breath with activity her symptoms are not new and they are not accelerating. Does not have nocturnal chest discomfort, denies orthopnea PND lower extremity edema GERD symptoms palpitations lightheadedness presyncope syncope or falls.Her EKG is abnormal and that there is abnormal R wave progression. 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 Patient is here for preoperative cardiac risk assessment prior to bariatric surgery details of surgery not available procedure to be done at [facility] in [place] by Dr. Sagastume.2. Chest discomfort-etiology unclear3. Abnormal R wave progression on EKG no prior EKG for comparison4. Shortness of breath with activity5. Not clinically volume overloaded6. Patient denies symptoms of obstructive sleep apnea or a diagnosis of that7. Hilar adenopathy, underwent biopsy, patient reports that her diagnosis is histoplasmosis.8. 05-nues-oame history of smoking, quit 2020.9. History of anxiety/panic attacks characterized by elevations in heart rate sweaty palms shortness of breath and chest discomfort-significant improvement on Zoloft.Recommendations:We talked about lifestyle modification. She says she is very frustrated, she gained weight after she quit smoking, she has had prior efforts at weight loss, and she had made progress but then she had setbacks, this is quite frustrating for her.She says she does not eat anything till late morning, I suggested intermittent fasting, which might work for her.Prior to completely assessing her cardiac risk for bariatric surgery, we will proceed with an echocardiogram and a treadmill perfusion imaging study. Patient says she can walk on a treadmill. If however treadmill stress test does not give us diagnostic information, it is okay to switch to Lexiscan Myoview.Follow-up after testingPatient is encouraged to abstain from cigarettes.EchocardiogramThank you for allowing us to participate in Dinesh's care, please do not hesitate to call if further questions arise,Sincerely, [facility] [address] DO Work Phone: 03-03-2023 Evaluation note Encounter Date Diagnosis Assessment Notes Feb, Acute bacterial conjunctivitis of left eye (ICD-10 - H10.32) Monica diagnosis with patient. Advised patient to use eye drops as prescribed, discussed proper administration. Contagious until after 24 hours on antibiotic eye drops. Advised good hand hygiene and infection control, wash linens and bedding, do not touch eye directly with eye drop bottle, wipe off bottle after every use, do not share eye drop bottles. Apply cool compress to eye several times a day, clean eye with warm, most cloth from inner to outer canthus. Avoid eye makeup until sx resolve, discard all eye makeup that was used at time of infection. Eye symptoms should improve in 2-3 days with treatment, if no improvement follow up with PCP or eye doctor. Immediate eval if symptoms worsen, eye pain, vision changes, redness and swelling occur around the eye, headache, fever, N/V or any other concerning symptoms. Patient verbalizes understanding and is agreeable to treatment plan. [place] [facility] Other 07-01-2020 History of Present illness Narrative* Patient is a 36-year-old woman referred by Sridevi Poe MD from thoracic surgery for possiblehistoplasmosis. * Patient was undergoing preoperative evaluation for gastric bypass surgery at [place]. Preoperative chest x-ray showed a chest shadow with everything else being fine. This occurred in May 2020. She was seen by her primary care provider for evaluation and a chest CT was performed that reveale d a mass . This further addressed by PET CT scan at [facility] where she was what was not cancer . She underwent a follow-up CAT scan 3 months following that showed questionable growth in a soft tissue mass. The recommendation was to repeat a CT in 9 months but she was sent to a physician in [place] whom she saw once. 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 She was referred to the [facility] however they never replied to the consult so shewas sent them to Dr. Sonam Chu in vascular surgery. This was based on her CT chest findings that hurley ggested that the mass in her chest was compressing her superior vena cava. There was felt to be no need for vascular intervention at this time so she was referred to Dr. Poe of thoracic surgery. * History of the histoplasmosis reported, she was referred to infectious disease for further evaluation and management. * Patient states in 2011, she was diagnosed with histoplasmosis in both of her eyes. She states that the diagnosis was based on her eye findings. No formal testing was done. She states she was never treated. This occurred at the [facility]. She states that her vision changesbegan in 2012 after her son was born. She states that they began as floaters and then her centralvision began changing. She never noticed that she was unable to see well until she closed her left eye. She noted she had central vision . She was seen by an eye doctor in [facility]. She went to him for glasses after her symptoms have been ongoing for 2 to 3 years. She was not treated medically. She also has no history of having systemic steroids. He states the physician made a diagnosisbased on the appearance of the back of my eyes . * Images are unavailable for review however reports from her CAT scans are as follows. * A CT scan of her chest with contrast was performed on August 09, 2020. It was compared to imaging from June 21, 2016. It was done for lung nodule evaluation. She was found to have a right upper lobe irregularly-shaped soft tissue density measuring 9 x 1.3 cm with surrounding patchy and groundglass opacity. The opacity itself measured 4.9 x 2.5 cm with mammograms. Her left lung is completely clear. There is no hilar adenopathy noted. In the mediastinum they described soft tissue and calcific mass partially narrowing but not occluding the superior vena cava extending cranially from her great vessels to the hilum measuring 5.3 x 2.9 cm on axial views with 6.4 cm craniocaudal dimension. There was no pericardial thickening or calcification. Her heart was not enlarged. There was no chest wall masses or axillary lymphadenopathy. Limited images of the upper abdomen were negative. * A CAT scan done on December 15, 2020 in comparison with the above-mentioned film note that her rightupper lobe nodule that is noncalcified was stable at 1.9 x 1.4 cm shape and soft tissue density. There is surrounding groundglass attenuation with stable as well as the patchy infiltrate extending from the hilum to the pleura. Pulmonary nodules or masses noted. No however he had developed. Mediastinal mass was stable and partially calcified 0.4 x 6.6 cm in size. It again was narrowing the superior vena cava but not occluding it. Again there was no changes in the cardiac peritoneum. There is noted a slight increase in 0.0 x 1.8 cm soft tissue density lesion adjacent descending aorta that was measuring 31 Hounsfield units. This was not noted on prior CT but apparently was there. Again a negative upper abdomen was seen. * She states she has lived in [place] only. She was born in [facility] and then moved to [place]. Her only travel has been to [place]. 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 She is set [place] [employer] as well. She also helps with chores with the dyes and solids. Thus she has significant potential exposure to histoplasmosis. * On review systems, she denies fevers, chills, night sweats, weight loss. She indicates having morning cough with occasional phlegm. This is been ongoing since she smoked in the past. She was put in December 2020 when they found a mass on the chest x-ray. She states she can become very winded with excessive exertion. She denies pain in her chest. She denies pleuritis. She has had no hemoptysis. Activities of everyday living he has no problems with. * She had laboratory testing done at her local hospital in . Her urine histo antigen negativehowever the complement fixation antibody testing showed a negative mycelial phase but he stays withtiter of 1: 8. There is no further testing in the computer for comparison. -Infectious Disease-Admin [address] Work Phone: Evaluation + Plan note Future Appointments Appointment Date:06/02/2022 02:00:00 PM Scheduled Provider:SHERI MCLEOD Location:[facility] Appointment Type: Video Visit Therapy 60 [facility] evaluation + Plan note Future Appointments Appointment Date:08/02/2022 02:00:00 PM Scheduled Provider:SHERI MCLEOD Location:[facility] Appointment Type: Video Visit Therapy 60 [facility] evalblxzjw note* Diagnosis Obesity, morbid (CMS/HCC)- Primary Morbid obesity Pre-operative clearance Unspecified pre-operative examination Severe sleep apnea Encounter to discuss test results Other specified counseling documented in this encounter [facility] Work Phone: History general Narrative - Reported* Type Description Date Medical History restriction around superior vena cava shopa Other History of Present illness Narrative* Ms. Selby is following up - she has since had a visit with Dr. Poe and Dr. Tang - currently in midst of work up for chronic histoplasmosis - titers back and awaiting Dr. Tang recommendations but will likely need treatment for this chronic histo infection. [facility] but she was unable to get this done and she will f/u with Dr. Poe regarding this. No other acute issues. discussed signs and symptoms that should prompt eval for any UE dvt/acute changes. * All other systems have been reviewed and are negative for complaint * FROM CLINICAL NOTE 02-22-2021; * Ms. Selby is following up after I had a chance to review her imaging which was transferred to our system for review. 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 * All other systems have been reviewed and are negative for complaint * no interval changes. * FROM CLINICAL NOTE 01-27-2021; * 35 y/o female pedning surgery for gastric bypass surgery * here because per imaging there was concern for SVC occlusion/syndrome * Sundeep neil for imaging * midst of work up for bariatric surgery - tentative date in March 2021 * no h/o DVt no h/o catheters no dialysis needs * gets bronchitis - maybe once a year - previously treated with antibiotics never as an inpatient. * born full term without complications and no ICU stays. * does sleep flat and once in a while gasps for air - unclear if this is related to ROYCE - does snore; only happens occassionally * no facial or upper arm/body edema * no h/o chest surgery nor radiation. * All other systems have been reviewed and are negative for complaint * on exam * no distress * breathing comfortably * palpable radial pulses intact b/l without any change with TOS maneuvers. * has prominent veins in chest wall, shoulders and down epigastric vein distribution in abdominal wall * not tachycardic * abd soft, nt, nd, super obese * feet warm and well perfused. * gross neuro intact x 4 without focal deficits [facility] Work Phone: History of Present illness Narrative* Ms. Selby is a 36yoF who was initially undergoing a work up for bariatric surgery and was foundto have a calcified mediastinal mass. She also had a history of histoplasmosis to her bilateral eyes in 2011 requiring surgery. She had bronchitis multiple times as a child but does not recall prior imaging. She had a PET scan in Aug with no metabolic activity. * She denies cardiac history. She is fairly asymptomatic from her SVC compression. She does report vertigo with sudden postural changes. -CT Surgery-[facility] Work Phone: History of Present illness Narrative* Ms. DINESH SELBY is a 36 year-old woman who presents for evaluation of calcified mediastinal mass detected in the work-up of bariatric surgery. This patient has a diagnosis of histoplasmosis in 2011. More recently, the patient was undergoing a work-up for bariatric surgery received radiographicimaging which showed a calcified mass in the area of the superior vena cava and the right paratracheal area. Patient was evaluated by infectious disease who thought this may be histoplasmosis. She was referred here to consider surgical biopsy of this lesion. * Currently patient has minimal symptoms. She does report dizziness with postural changes, but denieschest pain, cough, hemoptysis, fevers or chills, nausea, vomiting, or weight loss. * Past medical history is notable for obesity, histoplasmosis,. * Social history is notable for being a non-smoker. * Family history is notable for no relatives with histoplasmosis MG-CT Surgery-[facility] Work Phone: Hospital course Narrative No data available for this section [facility] Hospital Discharge instructions No data available for this section [facility] progress note No data available for this section [facility] Chief Complaint Histplasmosis* The patient presents to the office today for a routine follow up exam. 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 * A telephone visit (audio only) between the patient (at the originating site) and the provider (at the distant site) was utilized to provide this telehealth service. * Verbal consent was requested and obtained from DINESH SELBY on this date, 05/03/2021 09:00 AM ,for a telehealth visit. HisotplasmosisNew patient visit.Mediastinal adenopathyNICOALLA SELBY is being seen for pre-operative clearance.DINESH SELBY is being seen for pre- operative clearance.DINESH SELBY is being seen for pre-operative clearance. DINESH SELBY is being seen for pre-operative clearance. Summary Purpose Family History Unknown Family Member Name Dates Details No pertinent family history: Mother(V49.89, Z78.9) Status:Active Unknown Family Member Name Dates Details No pertinent family history: Mother(V49.89, Z78.9) Status:Active Unknown Family Member Name Dates Details No pertinent family history: Mother(V49.89, Z78.9) Status:Active Unknown Family Member Name Dates Details No pertinent family history: Mother(V49.89, Z78.9) Status:Active Unknown Family Member Name Dates Details No pertinent family history: Mother(V49.89, Z78.9) Status:Active Unknown Family Member Name Dates Details No pertinent family history: Mother(V49.89, Z78.9) Status:Active Advance Directives No Advanced Directives Records FoundNo Advanced Directives Records FoundNo Advanced Directives Records FoundNo Advanced Directives Records FoundNo Advanced Directives Records FoundNo Advanced Directives Records Found Additional Source Comments INFORMATION SOURCE (unrecogn ized section and content) DATE CREATED AUTHOR 10/30/2021 [facility] DATE CREATED AUTHOR AUTHOR'S ORGANIZ ATION 03/22/2023 [facility] DATE CREATED AUTHOR AUTHOR'S ORGANIZ ATION 05/07/2023 [facility] DATE CREATED AUTHOR AUTHOR'S ORGANIZ ATION 05/08/2023 [facility] DATE CREATED AUTHOR AUTHOR'S ORGANIZ ATION 05/22/2023 [facility] DATE CREATED AUTHOR AUTHOR'S ORGANIZ ATION 08/03/2023 [facility] Care Team (unrecognized sect ion and content) Adult Education Manager Relationship Specialty Start Date End Date Emmie Lenz, CLAIM PROFESSIONAL-FORENSIC CHEMIST [address] [place] [address] PCP - General 05/07/23 REASON FOR VISIT (unrecogniz ed section and content) Reason Comments Results FOR RECORDS PERTAINING TO PATIENTS WHO ARE OR HAVE BEEN ENROLLED IN A CHEMICAL DEPENDENCY/SUBSTANCEABUSE PROGRAM, SOME INFORMATION MAY BE OMITTED. This clinical summary was aggregated from multiple sources. Caution should be exercised in using it in the provision of clinical care. This summary normalizes information from multiple sources, and as a consequence, information in this document may materially change the coding, format and clinical context of patient data. In addition, data may be omitted in some cases. CLINICAL DECISIONS SHOULD BE BASED ON THE PRIMARY CLINICAL RECORDS. [facility]. provides no warranty or guarantee of the accuracy or completeness of information in this document.
--- NOTE | 2024-02-16 08:20 | ED_ITS ---
HPI - Extremity Problem General Chief complaint: Extremity Problem, Nontraumatic Stated complaint: UPPER EXTREMITY PAIN Time Seen by Provider: 02/16/24 08:15 Source: patient Mode of arrival: walk-in Limitations: no limitations History of Present Illness HPI Narrative: This patient is here for evaluation of some mild discomfort in her right upper arm and discoloration of her arm. She thinks that she slept on her arm last night. She has not had previous vas disease. She does not use tobacco products. She does not describe any type of Raynaud's phenomenon. She has not noticed any difference in her strength or movement of the extremity. She has no pain in her neck. She has no history of diabetes or cardiovascular disease. Does not experience the symptoms in her other extremities. She still says that there is mild discoloration of her arm. Related Data Home Medications ?Medication ?Instructions ?Recorded ?Confirmed sertraline 50 mg tablet 50 mg PO Q24H 02/16/24 02/16/24 Allergies Allergy/AdvReac Type Severity Reaction Status Date / Time amoxicillin Allergy Severe Verified 02/16/24 07:53 Sulfa (Sulfonamide Allergy Severe Verified 02/16/24 07:53 Antibiotics) Exam Narrative Exam Narrative: Awake alert does not have severe pain vital signs are stable. Overall I do not see any facial swelling or swelling of the upper right extremity. She is a large woman. Clinical examination of her left arm appears essentially normal with a good strong radial pulse. Examining her right arm she has good capillary fill, good blanching of the skin but she has got a diminished pulse on the radial artery on her right side. There is very mild discoloration but no mottling. There is no evidence of cellulitis lymphangitis or venous edema on that right arm. Neurological examination cognition and mental status are all normal. Constitutional Vital Signs, click to edit/add: Last Vital Signs Temp 98.0 F 02/16/24 07:53 Pulse 95 H 02/16/24 07:53 Resp 18 02/16/24 07:53 BP 163/98 H 02/16/24 07:53 Pulse Ox 97 02/16/24 07:53 O2 Del Method Room Air 02/16/24 07:53 Course Vital Signs Vital signs: Vital Signs Temperature 98.0 F 02/16/24 07:53 Pulse Rate 95 H 04/06/24 07:53 Respiratory Rate 18 02/16/24 07:53 Blood Pressure 163/98 H 02/16/24 07:53 Pulse Oximetry 97 02/16/24 07:53 Oxygen Delivery Method Room Air 02/16/24 07:53 Temperature 98.0 F 02/16/24 07:53 Pulse Rate 95 H 02/16/24 07:53 Respiratory Rate 18 02/16/24 07:53 Blood Pressure 163/98 H 02/16/24 07:53 Pulse Oximetry 97 02/16/24 07:53 Oxygen Delivery Method Room Air 02/16/24 07:53 MDM - Extremity (Nontraumatic) MDM Narrative Medical decision making narrative: Based on examination I ordered an arterial study. I indicated to the tech that if the arterial study looked essentially normal to go ahead and do a venous study as well those results were then sent to the radiologist who made comments as noted on the report. While in imaging the patient mentioned to the automation control technician that she has been told that she had constriction of her superior vena cava. She never mentioned this to myself or the nurse. When I talked her about that she says that she was worked up at the [facility] and told that she had something wrong inside her lungs that was constricting her superior vena cava. She is not on any blood thinners for that. She has not had her gastric bypass surgery because they want her to see a computerized machine fabric cutter and get cleared first. The ultrasound reports were noted and the radiologist suggested getting a CT of the chest with IV contrast. That in fact was done and the studies were interpreted as showing no acute change in previous findings. Of significance there is a calcified right paratracheal mark mass which is unchanged and it results in partial obstruction of the innominate veins and superior vena cava similar to the previous examination these findings apparently are consistent with histoplasmosis. I spoke with the patient and we will give her a copy of this report. I do not see the need for immediate hospitalizations. Should she ever have extreme pain or pallor in her arm she should present to the nearest emergency room. Discharge Plan Discharge Stand Alone Forms: Portal Instructions Chief Complaint: Extremity Problem, Nontraumatic Clinical Impression: Arm pain, right Patient Disposition: Home, Self-Care Time of Disposition Decision: 13:32 Prescriptions / Home Meds: No Action sertraline 50 mg tablet 50 mg PO Q24H Print Language: Slovenian Referrals: ROGER LENZ [Primary Care Provider] - 1 week
--- NOTE | 2024-02-16 08:21 | US_ITS ---
The [address] [address] Patient Name: DINESH MIRANDA MRN: [id number] date: 1985 Sex: F Assigned Patient Location: ED.MAIN Current Patient Location: ER Accession/Order Number: [id number] Exam Date: 02/16/2024 08:37 Report Date: 02/16/2024 10:06 At the request of: MEL DORANTES Procedure: US arterial duplex UE RT EXAMINATION: US arterial duplex UE RT HISTORY: Discoloration right arm with decreased pulse COMPARISON: No relevant comparison available. TECHNIQUE: Color duplex Doppler ultrasound evaluation analysis was performed in the usual manner. FINDINGS: WAVE FORM: Abnormal biphasic waveform throughout right upper extremity. VESSEL LUMEN: No significant narrowing or atherosclerotic disease. FLOW VELOCITY: No significant decreased flow velocity. OTHER: Occluded or near completely occluded right jugular vein. US/US arterial duplex UE RT IMPRESSION: 1. 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 Patient reportedly has history of known superior vena cava thrombus raising concern for development of complete obstruction. 2. Abnormal biphasic arterial waveforms throughout right upper extremity likely due to poor venous return. 3. Consider CT chest with IV contrast administered through left upper extremity and with delayed images to evaluate for left superior vena cava obstruction. Electronically authenticated by: SUGEY DALEY Date: 02/16/2024 10:06
[2024-02-16 08:28] LABS: Glucometer 160 mg/dL (74-106)
[2024-02-16 09:35] VITALS: BP 165/89; PULSE 79; O2SAT 98
--- NOTE | 2024-02-16 10:31 | CT_ITS ---
The [address] [address] Patient Name: DINESH MIRANDA MRN: [id number] date: 1985 Sex: F Assigned Patient Location: Current Patient Location: Accession/Order Number: [id number] Exam Date: 02/16/2024 11:10 Report Date: 02/16/2024 13:49 At the request of: MEL DORANTES Procedure: CT chest w con EXAM: CT chest w con 02/16/2024 COMPARISON: CT of the chest with contrast 12/15/2020 and 08/09/2020 HISTORY: Abnormal arterial/venous ultrasound right upper ex TECHNIQUE: 3 mm sections were obtained from the thoracic inlet through the diaphragm following administration of intravenous contrast. Coronal and sagittal reconstructed images were obtained. FINDINGS: Patient appears morbidly obese. Stable hepatic morphology with atrophic changes involving medial segment left hepatic lobe partially visualized. Upper abdominal contents demonstrate no acute abnormality. There is contrast opacification of prominent left hemiazygos vein. There is contrast opacification of prominent left-sided superior intercostal vein extending into the left innominate vein. Contrast was injected via the left upper extremity. 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 The lesion measures approximately 3.7 x 5.4 x 6.2 cm. The right axillary, subclavian and jugular veins are suboptimally opacified with contrast. Right-sided veins were much better opacified on prior study as right upper extremity was injected on prior exam. Aorta is nonaneurysmal. The noncalcified lesion lateral to the right atrial appendage is stable measuring 1.8 x 5 x 3.5 cm. This has attenuation measurement of 30 Hounsfield units. Noncalcified subcarinal node with short axis measurement of 17 mm is unchanged. Azygoesophageal node caudal to this with short axis measurement of 13 mm unchanged. Heart size is similarly enlarged. Left lung is clear. The lobulated nodular focus along the mid right minor fissure with mild adjacent architectural distortion with transverse width of 18 mm is unchanged. Stable adjacent prominent vascular collaterals. There is stable underlying chronic fibrotic changes involving the right upper lobe which are stable. No new suspicious mass or nodule noted. Similar degenerative changes of the spine are noted. No acute osseous abnormality. Previously identified superficial subcutaneous varices about the chest are noted. CT/CT chest w con IMPRESSION: 1. 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 Right-sided veins are not well opacified as left upper extremity was injected. 2. Superficial subcutaneous collaterals as well as left superior intercostal and left hemiazygos collateral formation again noted. 3. The noncalcified right epicardial, subcarinal and azygoesophageal nodes are stable. 4. Noncalcified nodule along the right minor fissure with adjacent vascular collaterals is unchanged. No new suspicious pulmonary mass or nodule. 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 5. 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 6. Stable cardiac enlargement. Electronically authenticated by: MAX AMBRIZ Date: 02/16/2024 13:49
[2024-02-16 11:01] LABS: Basophils Absolute Auto 0.1 10^3/uL (0.0-0.1); Basophils Percent Auto 0.5 % (0.2-2.0); Eosinophils Absolute Auto 0.1 10^3/uL (0.0-0.7); Eosinophils Percent Auto 0.9 % (0.9-7.0); Hematocrit 39.3 % (36.0-48.0); Hemoglobin 12.1 g/dL (12.0-16.0); Immature Granulocytes Abs Auto 0.05 10^3/uL (0.00-0.03); Immature Granulocytes Pct Auto 0.4 % (0.0-0.5); Lymphocytes Absolute Auto 1.3 10^3/uL (1.2-3.8); Lymphocytes Percent Auto 10.4 % (20.5-60.0); Mean Corpuscular HGB Conc 30.8 g/dL (29.9-35.2); Mean Corpuscular Hemoglobin 27.5 pg (26.7-34.0); Mean Corpuscular Volume 89.3 fL (81.0-99.0); Mean Platelet Volume 9.4 fL (9.5-13.5); Monocytes Absolute Auto 0.7 10^3/uL (0.3-0.8); Monocytes Percent Auto 5.4 % (1.7-12.0); Neutrophils Absolute Auto 10.6 10^3/uL (1.4-6.5); Neutrophils Percent Auto 82.4 % (43.0-75.0); Platelet Count 288 10^3/uL (150-450); Red Cell Distribution Width 14.6 % (11.0-15.0); White Blood Count 12.8 10^3/uL (4.0-11.0)
[2024-02-16 11:15] LABS: INR 0.98; Prothrombin Time 10.4 sec (9.0-11.6)
[2024-02-16 11:26] LABS: Alanine Aminotransferase 17 U/L (14-59); Albumin Globulin Ratio 0.8; Albumin Level 3.4 g/dL (3.4-5.0); Alkaline Phosphatase 84 U/L (46-116); Anion Gap 11.9; Aspartate Amino Transferase 12 U/L (15-37); BUN Creatinine Ratio 11.8; Bilirubin Total 0.5 mg/dL (0.2-1.0); Calcium 9.4 mg/dL (8.5-10.1); Carbon Dioxide 27.1 mmol/L (21.0-32.0); Chloride 102 mmol/L (98-107); Estimated GFR (African America >60 (>=60); Estimated GFR (Non-African Ame >60 (>=60); Globulin 4.1 g/dL; Glucose 141 mg/dL (74-106); Sodium 137 mmol/L (136-145); Total Protein 7.5 g/dL (6.4-8.2)
[2024-02-16 13:40] VITALS: BP 156/82; PULSE 83; O2SAT 98
== END 2024-02-16 13:44 | disposition home or self-care (01) ==
PROVIDERS: Emergency Provider Emergency Medicine Emergency Medical Services; PCP Nurse Practitioner Family
DX: M79.621 Pain in right upper arm (principal); Z79.899 Other long term (current) drug therapy
CPT/HCPCS: 36415; 71260; 80053; 85025; 85610; 93931; 99285; Q9967

== ENCOUNTER 2024-08-21 18:49 | Outpatient (REF) | payer OTHER, SELFPAY ==
--- OUTSIDE RECORDS SUMMARY | 2024-08-21 18:55 | XMS_ITS | CCD ---
Author Organization [facility] Care Team Providers Care Dry Heat Room Attendant Name Role Phone Unknown, Referring Provider Unavailable Unav ailable Unavailable Unavailable Emmie Lenz Unavailable EMMIE LENZ Primary Care Physician Didi Mendoza Unavailable FELY ECHEVARRIA Consulting Unavailab EMMIE LENZ Primary Care Unavailable JUMANA HORAN Attending Unavailable JUMANA HORAN Admitting Unavailable MD BRAD WALTER Attending Unavailable Ms. Emmie Lenz Referring Unavailable SHERI THEODORE Attending Unavailable SHERI THEODORE Attending Unavailable SHERI THEODORE Attending Unavailable Rahat DUCKWORTH Attending Unavailable SHERI THEODORE Attending Unavailable SHERI THEODORE Attending Unavailable Brad Walter Attending Unavailable Brad Walter Attending Unavailable Emmie Fernandez Primary Care Provider AMY ALLEN Attending Unavailable Allergies Allergy Classification Reported Allergen(s) Allergy Type Date of Onset Reaction(s) Facility Penicillins (antibiotic) (3 sources) Amoxicillin; Translations: [amoxicillin] Drug Allergy Anaphylaxis [facility]inolog [facility] [employer] 1600 Work Phone: Sulfonamides (antibiotic) (3 sources) Sulfonamides (Antibiotic); Translations: [Sulfa Drugs] Drug Allergy Other MG-Endocrinolog [facility] [employer] 1600 Work Phone: Unclassified (12 sources) Nystatin POWD; Translations: [Nystatin POWD] Allergy to drug (finding) Other [facility]ocrinolog [facility] [employer] 1600 Work Phone: (11 sources) Amoxicillin; Translations: [amoxicillin] Drug Allergy 3 Anaphylaxis, Angioedema [facility] (9 sources) Sulfonamides (Antibiotic); Translations: [Sulfa Drugs] Allergy to drug (finding) Other MG-CT [facility] Work Phone: (2 sources) Substance with sulfonamide structure and antibacterial mechanism of action (substance) Drug allergy 3 Other, Unknown [employer] Other (1 source) Amoxicillin Drug Allergy 3 [facility] (1 source) Sulfonamides (Antibiotic) Drug allergy (disorder) 3 [facility] (1 source) Nystatin Drug Allergy 3 Other [facility] Work Phone: Medications Current Medications Medication [...] 08-08-2023 Episodic Other aftercare (1 source) 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; Translations: [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] Onset: 03-21-2023 Episodic Other [...] Cardiac Stress Teston 2022 Cardiac Stress Test [address], [address] [place] [address] Exercise Stress Test Patient Name: DINESH SELBY Ordering Physician: [id number] Brad Walter MD Study Date: 07/31/2023 Reading Physician: [id number] Galo MD, [facility] MRN/PID: [id number] Supervising Physician: [id number] Galo MD, [facility] Accession/Order#: [id number] Referring Physician: BRAD WALTER Date of : 1985 PCP: Gender: F Fellow: Height: 162.56 cm Nurse: Jhon Vaughn RN Weight: 171.01 kg Head Scorer: TJ BSA: 2.56 m2 Technologist: BMI: 64.71 kg/m2 Additional Staff: Age: 38 years cc report to: Patient Location: cc report to: [id number] Brad Walter MD Study Type: Cardiac Stress Test Diagnosis/ICD: R07.1-Chest pain on breathing (pleuritic chest pain); R06.02-Shortness of breath Indication: Chest Pain Procedure/CPT: Stress Test Interpretation-63913; Stress Test Supervision-[id number] Falls Risk: Low: Patient has low risk [...] ischemia. 2. Submaximal level of stress achieved. [id number] Beltran Galo MD, FACC Electronically signed on 08/01/2023 at 5:29:58 PM Final Normal [facility] Cardiac Stress Test Please click on the link to view the study images [facility] Work Phone: Cardiac Stress Test MP-No rth [facility] 250 DO Work Phone: Echocardiogramon 07-31-2023 Echocardiography [facility] [address] [place] [address], [place] [address] TRANSTHORACIC ECHOCARDIOGRAM REPORT Patient Name: DINESH Gregorio Physician: [id number] Beltran Galo MD, [facility] Study Date: 07/31/2023 Referring Physician: BRAD WALTER MRN/PID: [id number] PCP: Nilay Lenz DO Accession/Order#: [id number] Department Location: [facility] Mónica Neil Date of : 1985 Fellow: Gender: F Nurse: Jhon Vaughn RN Admit Date: Head Scorer: Kathy Quinones RDCS, RT(R), RDMS, RVT Height: 162.56 cm CC Report to: Weight: 171.01 kg Study Type: Echocardiogram BSA: 2.56 m2 Diagnosis/ICD: Z01.818-Encounter for other preprocedural examination; R07.9-Chest pain, unspecified; R94.31-Abnormal electrocardiogram [ECG] [EKG] Indication: INcomplete RBBB Chest pain SOB Pre-op for Bariatric Surgery Procedure/CPT: Echo Complete w Full Doppler-[id number] Patient History: Pertinent History: Histoplasmosis. Study Detail: [...] 1.0 m/s (0.6-0.9m/s) PV Max P.7 mmHg [id number] Beltran Galo MD, [facility] Electronically signed on 08/01/2023 at 5:52:23 PM Final Normal [facility] Echocardiography Please click on the link to view the study images [facility] Work Phone: Consenton 05-21-2023 Consent [id number] 0CD:127 Normal [facility] Registrationon 05-21-2023 Registration [id number] 11 [id number] 0CD:127 [facility] Office Visit (Cardiology)on 05-07-2023 Follow-up visit Diagnoses/Problems [...] Scheduling,Retrospecti ve By Protocol Authorization; Requested for:07May2023; [place] Cardiac Stress/Rest Nuclear Med Order; Status:Hold For [...] DR. SONG PRUITT FOR GASTRIC BYPASS @ [facility], PENDING TESTING Follow up after testing Chief [...] time. 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 Yesterday she [...] abnormal R wave progression. Rate is 91 CA interval 140 ms QRS duration 94 ms [...] not available procedure to be done at [facility] in [place] by Dr. Sagastume. 2. Chest discomfort-etiology unclear 3. Abnormal R wave progression on EKG no prior EKG for comparison 4. Shortness of breath with activity 5. Not clinically volume overloaded 6. Patient denies symptoms of obstructive sleep apnea or a diagnosis of that 7. Hilar adenopathy, underwent biopsy, patient reports that her diagnosis is histoplasmosis. 8. 91-gcxy-ivji history of smoking, quit 2020. 9. History [...] information, it is okay to switch to [employer]. Follow-up after testing Patient is encouraged to abstain from cigarettes. Echocardiogram Thank you (more content not included)... Normal [employer] Tobacco Screening.on 023 Adult depression screening assessment No [facility] 250 DO Work Phone: Fall risk assessment a) No falls within the last year [facility] 250 DO Work Phone: Tobacco use status CPHS b) No [facility] 250 DO Work Phone: Video Visit - [...] NOTES/SUMMARY OF SESSION: Patient reported that her vlbuqm-xw-kjh today. Her son was close to his [...] online (also named Otoniel) who lives in [place]. This man has 6-year-old twin boys. They have not met in person, yet. She is taking things slowly. Patient remains smoke-free since December. She met with her dietitian and was encouraged to lose 15 to 20 pounds before her bariatric surgery. She has been trying to get more exercise. She continues to work at [employer] in [place], and will be promoted to [employer], with a pay increase up [...] active medications Allergies No active allergies Normal [facility] Comment on above: Result Comment: Elec tronically Signed By: ARBEN [facility] NETWORKSHERI Mckenna\.manisha\Date and Time Signed: 08/04/22 10:38 EDT Video [...] be effective. She continues to work at [employer] in [place]. She is being promoted to [employer], with a pay increase. Her 9-year-old son, [...] active medications Allergies No active allergies Normal [facility] Comment on above: Result Comment: Elec tronically Signed By: ARBEN [facility], SHERI\.manisha\Date and Time Signed: 07/13/22 12:35 EDT Video [...] worked 8 days in a row at [employer] in [place]. She reported that she is being promoted to [employer] [facility]. Her 9-year-old son, Mohan, asked her about [...] active medications Allergies No active allergies Normal [facility] Comment on above: Result Comment: Elec tronically Signed By: ARBEN [facility] NETWORKDelmi-Veena, SHERI\.manisha\Date and Time Signed: 06/20/22 12:28 EDT [...] visit. Video time spent with the patient xtoi-ul-dvdz was greater than 50%, in addition to [...] feels is effective. She continues working at [employer] in [place]. She and her son, Mohan, continue to [...] active medications Allergies No active allergies Normal [facility] Comment on above: Result Comment: Elec tronically Signed By: ARBEN [facility] NETWORKDelmi-Veena, SHERI\.manisha\Date and Time Signed: 06/02/22 14:45 EDT Tobacco Screening.on Fall risk assessment a) No falls within the last year [facility] Work Phone: Tobacco use status CPHS b) No [facility] Work Phone: Tobacco Screening. Adult [facility]-CT Surgery-[facility] Work Phone: Histoplasma Caps Abs CF+IDon 04-26-2021 Histoplasma Mycelia CF Ab. Negative Normal Neg:<1:2 [facility] Comment on above: Performed By: #### H ISTOPL GAL AG, HISTO ABS #### [facility] , Histoplasma Yeast CF Ab. 1:32 High Neg:<1:2 [facility] Comment on above: Result Comment: Perf ormed at: BN - [facility] [place] [address] [place], [place] [id number] [employer] Head: Palomo Gutierrez MD, Phone: [phone] PERFORMED BY: [facility] [address] [place] [address] PATHOLOGIST PLUMBER SUPERVISOR SWETA SANDERS M.D. Performed By: #### H ISTOPL GAL AG, HISTO ABS #### [facility] , Histoplasma Galacto Ag EIAon 04-26-2021 Disclaimer: Normal . [facility] Comment on above: Result Comment: This test was developed and its performance characteristics determined by [employer]. It has not been cleared or approved by the Food and Drug Administration. Performed at: [address] [id number] [employer] Head: Palomo Gutierrez MD, Phone: [phone] Performed By: #### H ISTOPL GAL AG, HISTO ABS #### [facility] , Histoplasma Gal'hitchcock Ag, Ser <0.5 Normal <0.5 ng/mL [facility] Comment on above: Performed By: #### H ISTOPL GAL AG, HISTO ABS #### [facility] , Tobacco Screening.on 021 Fall risk assessment a) No falls within the last year [facility] [employer] 1600 Work Phone: Tobacco use status CPHS b) No [facility]ocrinolo [facility] [place] 1600 Work Phone: QuantiFERON TB Goldon 2020 QFTB Criteria Normal . [facility] Comment on above: Result Comment: The QuantiFERON-TB Gold Plus result is determined by subtracting the Nil value from either TB antigen (Ag) tube. The mitogen tube serves as a control for the test. Performed By: #### Q UANT TB #### [facility] , Quant TB Ag Value 0.06 Normal . [facility] Comment on above: Performed By: #### Q UANT TB #### [facility] , Quant TB Gold Plus Negative Normal Negative [facility] Comment on above: Result Comment: The specimen received for QuantiFERON testing was incubated by the ordering institution. Specific procedures outlined in our Directory of Services and in the package insert for the QuantiFERON Gold (In Tube) test must be followed to enable for proper stimulation of cells for the production of interferon gamma. Chemiluminescence immunoassay methodology Performed at: [address] [id number] [employer] Head: Kaushik Aragon PhD, Phone: [phone] PERFORMED BY: [place] [address] PATHOLOGIST PLUMBER SUPERVISOR SWETA SANDERS M.D. Performed By: #### Q UANT TB #### [facility] , Quant TB2 Ag Value 0.07 Normal . [facility] Comment on above: Performed By: #### Q UANT TB #### [facility] , Quantiferon Nil Value 0.04 Normal . [facility] Comment on above: Performed By: #### Q UANT TB #### [facility] , Quantiferon TB Mitogen >10.00 Normal . [facility] Comment on above: Performed By: #### Q UANT TB #### [facility] , [facility] echo transthoracicon [facility] echo transthoracic [facility] Main [place] [address] [place] [address] Echocardiogram Signed Patient: Dinesh Selby MR#: [id number] : 1985 Acct:[id number] Age/Sex: 35 / F ADM Date: 01/12/21 Loc: Room: Type: [facility] Attending Dr: George Roland MD Ordering Provider: George Roland MD Date of Service: 01/12/21 [facility] echo transthoracic: [employer] Copies to: MD Beltran Schultz MD, [facility] Weight: 336 lb Performed By: SEMAJ Valencia [...] 548.7 cm/sec2 E/E' med: 10.1 Transcribed By: SCV 01/12/21 1402 Dictated By: Beltran Galo MD, [facility] 01/12/21 1320 Signed By: 01/12/21 1402 Normal [facility] Coagulation Profileon 2020 aPTT Coag (Bld) [Time] 32.9 s Normal 25.1-36.5 [facility] Comment on above: Result Comment: PERF ORMED BY: [place] [address] PATHOLOGIST PLUMBER SUPERVISOR SWETA SANDERS M.D. Performed By: #### U R HISTOPLAS, HISTO ABS #### [facility] , #### PP #### [facility] [address] [place] [address] INR Coag (PPP) [Relative time] 1.1 {INR} Normal [facility] Comment on above: Result Comment: INR Therapeutic [...] [facility] , #### PP #### [facility] [address] PT Coag (PPP) [Time] 12.0 s Normal 9.0-12.9 [facility] Comment on above: Performed By: #### U R HISTOPLAS, HISTO ABS #### [facility] , #### PP #### [place] [address] [place] Histoplasma Caps Abs CF+IDon 01-11-2021 Histoplasma Mycelia CF Ab. Negative Normal Neg:<1:2 [facility] Comment on above: Performed By: #### U R HISTOPLAS, HISTO ABS #### [facility] , #### PP #### [address] Histoplasma Yeast CF Ab. 1:8 High Neg:<1:2 [facility] Comment on above: Result Comment: Perf ormed at: [address] [id number] [employer] Head: Palomo Gutierrez MD, Phone: [phone] PERFORMED BY: [place] [address] PATHOLOGIST PLUMBER SUPERVISOR SWETA SANDERS M.D. Performed By: #### U R HISTOPLAS, HISTO ABS #### [facility] , #### PP #### [address] Histoplasma Galacto Ag, Uron 01-11-2021 Histoplasma disclaimer Normal . [facility] Comment on above: Order Comment: SOURC E OF SPECIMEN: URINE Result Comment: This test was developed and its performance characteristics determined by [facility]. It has not been cleared or approved by the Food and Drug Administration. Performed at: [address] [id number] [employer] Head: Palomo Gutierrez MD, Phone: [phone] PERFORMED BY: [place] [address] PATHOLOGIST PLUMBER SUPERVISOR SWETA SANDERS M.D. Performed By: #### U R HISTOPLAS, HISTO ABS #### [facility] , #### PP #### [place] [address] [place] Histoplasma GALACTOMANNAN, UR <0.5 Normal <0.5 ng/mL [facility] Comment on above: Order Comment: SOURC E OF SPECIMEN: URINE Performed By: #### U R HISTDHARMESH HISTO ABS #### [facility] , #### PP #### [facility] [address] Vital Signs Date Time Vital Sign Value Performing Clinician Facility 08-13-2023 14:24-0400 Body height 162.6 cm Brad Walter MD Work Phone: [facility] 08-13-2023 14:24-0400 Body mass index (BMI) [Ratio] 64.03 kg/m2 Brad Walter MD Work Phone: [facility] 08-13-2023 14:24-0400 Body weight 169.19 kg Brad Walter MD Work Phone: [facility] 08-13-2023 14:24-0400 Diastolic blood pressure 88 mm[Hg] Brad Walter MD Work Phone: [facility] 08-13-2023 14:24-0400 Heart rate 82 /min Brad Walter MD Work Phone: [facility] 08-13-2023 14:24-0400 Systolic blood pressure 126 mm[Hg] Brad Walter MD Work Phone: [facility] 05-07-2023 11:28-0400 Diastolic blood pressure 80 mm[Hg] Emmie S Teresa Work Phone: [facility] 250 DO Work Phone: 05-07-2023 11:28-0400 Systolic blood pressure 122 mm[Hg] Emmie S Teresa Work Phone: [facility] 250 DO Work Phone: 05-07-2023 11:27-0400 Body height 162.56 cm Emmie S Teresa Work Phone: [facility] 250 DO Work Phone: 05-07-2023 11:27-0400 Body mass index (BMI) [Ratio] 64.71 kg/m2 Emmie Curiel Teresa Work Phone: [facility] 250 DO Work Phone: 05-07-2023 11:27-0400 Body surface area Derived from formula 2.56 m2 Emmie Curiel Teresa Work Phone: [facility] 250 DO Work Phone: 05-07-2023 11:27-0400 Body weight 171.01 kg Emmie Curiel Teresa Work Phone: [facility] Mónica-[place] 250 DO Work Phone: 05-07-2023 11:27-0400 Diastolic blood pressure 80 mm[Hg] Emmie Curiel Teresa Work Phone: [facility] 250 DO Work Phone: 05-07-2023 11:27-0400 Heart rate 91 /min Emmie S Teresa Work Phone: [facility] Mónica-[place] 250 DO Work Phone: 05-07-2023 11:27-0400 Systolic blood pressure 118 mm[Hg] Emmie Curiel Teresa Work Phone: [facility] [place] 250 DO Work Phone: 03-03-2023 10:15-0400 Body height 162.56 cm Didi Mnedoza Other [employer] Other 03-03-2023 10:15-0400 Body mass index (BMI) [Ratio] 63.5 kg/m2 Didi Mendoza Other [employer] Other 03-03-2023 10:15-0400 Body temperature 98 [degF] Didi Mendoza Other [employer] Other 03-03-2023 10:15-0400 Body weight 167.83 kg Didi Mendoza Other [employer] Other 03-03-2023 10:15-0400 Respiratory rate 18 /min Didi Mendoza Other [employer] Other 03-03-2023 10:15-0400 SaO2% (BldA) [Mass fraction] 99 % Didi Mendoza Other [employer] Other 02-09-2022 11:42-0400 Body height 161.11 cm Emmie Lenz Work Phone: [facility] Work Phone: 02-09-2022 11:42-0400 Body mass index (BMI) [Ratio] 65.42 kg/m2 Emmie Herreramer Work Phone: [facility] Work Phone: 02-09-2022 11:42-0400 Body surface area Derived from formula 2.54 m2 Emmie Herreramer Work Phone: [facility] Work Phone: 02-09-2022 11:42-0400 Body temperature 97.9 [degF] Emmie Lenz Work Phone: [facility] Work Phone: 02-09-2022 11:42-0400 Body weight 169.82 kg Emmie Lenz Work Phone: [facility] Work Phone: 02-09-2022 11:42-0400 Diastolic blood pressure 80 mm[Hg] Emmierosy Herreramer Work Phone: [facility] Work Phone: 02-09-2022 11:42-0400 Heart rate 102 /min Emmie Lenz Work Phone: [facility] Work Phone: 02-09-2022 11:42-0400 Respiratory rate 16 /min Emmie Lenz Work Phone: [facility] Work Phone: 02-09-2022 11:42-0400 SaO2% (BldA) [Mass fraction] 98 % Emmie Lenz Work Phone: [facility] Work Phone: 02-09-2022 11:42-0400 Systolic blood pressure 148 mm[Hg] Emmie Lenz Work Phone: [facility] Work Phone: 02-09-2022 11:42-0400 0 1 Emmie Lenz Work Phone: [facility] Work Phone: Comment on above: [employer] 04-22-2021 11:00-0400 Body height 162.56 cm Referring Provider Unknown FS-Onposnvwsoufg-HTF [place] 1600 Work Phone: 04-22-2021 11:00-0400 Body mass index (BMI) [Ratio] 60.94 kg/m2 Referring Provider Unknown HJ-Cempjqrydxcuv-LYT [place] [address] Work Phone: 04-22-2021 11:00-0400 Body surface area Derived from formula 2.5 m2 Referring Provider Unknown GY-Trucxypfdysfo-ZPJ [place] 1600 Work Phone: 04-22-2021 11:00-0400 Body weight 161.03 kg Referring Provider Unknown QC-Khlgxytddchdz-BFF [place] [address] Work Phone: 04-22-2021 11:00-0400 Diastolic blood pressure 84 mm[Hg] Referring Provider Unknown MQ-Xvudnrvvmcmeb-TBX [place] [address] Work Phone: 04-22-2021 11:00-0400 Heart rate 111 /min Referring Provider Unknown RJ-Tahgenlwierks-DVX [place] [address] Work Phone: 04-22-2021 11:00-0400 Systolic blood pressure 147 mm[Hg] Referring Provider Unknown HK-Scbwozqcsgduo-IQR [facility] 1600 Work Phone: 04-22-2021 11:00-0400 0 1 Referring Provider Unknown LB-Iyofstblslbrw-OOC [facility] 1600 Work Phone: Comment on above: [employer] Encounters Encounter Date Encounter Type Care Provider Facility Start: 07-09-2024 End: 07-09-2024 ambulatory AMY ALLEN Not Available Start: 08-13-2023 End: 08-13-2023 Office outpatient visit 15 minutes Brad Walter MD Work Phone: [facility] Comment on above: Obesity, morbid (CMS /HCC) (Primary Dx); Pre-operative clearance; Severe sleep apnea; Encounter to discuss test results Start: 08-13-2023 End: 08-13-2023 Preoperative state Brad Walter MD Work Phone: [facility] Work Phone: Start: 08-01-2023 Chart Update Emmie tyler Work Phone: [facility] 250 DO Work Phone: Start: 07-31-2023 Encounter for other preprocedural examination Brad Walter [facility] Start: 07-31-2023 ambulatory Brad Walter Facility:9 [id number] Start: 06-29-2023 ambulatory Brad Walter Facility:9 844 Start: 06-25-2023 AUDIT Emmie tyler Work Phone: [facility] 250 DO Work Phone: Start: 05-21-2023 End: 05-22-2023 ambulatory General acute hospital Facility:[facility] Start: 05-07-2023 Office consultation new/estab patient 60 min Emmie Lenz Work Phone: [facility] 250 DO Work Phone: Start: 05-07-2023 ambulatory MD BRAD WALTER Facilit y: Start: 03-19-2023 End: 03-19-2023 ambulatory FELYTJ ECHEVARRIA Facility:H1 Start: 03-03-2023 End: 03-03-2023 ambulatory Didi Mendoza Other [facility] [employer] Other Start: 03-03-2023 Office outpatient ne w 20 minutes Didi Mendoza [facility] Start: 08-28-2022 ambulatory SHERI THEODORE Facility :[facility] Start: 08-02-2022 End: 08-03-2022 ambulatory SHERI THEODORE Facility:[facility] Start: 08-02-2022 End: 08-02-2022 Patient encounter procedure SHERI THEODORE [facility] Start: 07-12-2022 End: 07-13-2022 ambulatory SHERI THEODORE Facility:[facility] Start: 07-12-2022 End: 07-12-2022 Patient encounter procedure SHERI THEODORE [facility] Start: 06-19-2022 End: 06-20-2022 ambulatory SHERI THEODORE Facility:[facility] Start: 06-19-2022 End: 06-19-2022 Patient encounter procedure SHERI THEODORE [facility] Start: 06-02-2022 End: 06-03-2022 ambulatory SHERI THEODORE Facility:[facility] Start: 06-02-2022 End: 06-02-2022 Patient encounter procedure SHERI THEODORE [facility] Start: 05-18-2022 End: 05-18-2022 Patient encounter procedure SHERI THEODORE [facility] Start: 02-09-2022 Office outpatient vi sit 40 minutes Emmie Herreramer Work Phone: [facility] Work Phone: Start: 05-03-2021 Patient encounter procedure Referring Provider Unknown IG-Hwxlufmcgy-Vkrjzx Work Phone: Start: 04-22-2021 Office consultation new/estab patient 60 min Referring Provider Unknown MG-Infectious Disease-Admin [place] [address] Work Phone: Start: 04-22-2021 Patient encounter procedure Referring Provider Unknown CO-Rmjfzqaqvfxrv-LRL [address] Work Phone: Start: 03-22-2021 Office outpatient ne w 60 minutes Emmie Lenz Work Phone: [facility] Work Phone: Patient encounter status Emmierosy Lenz Work Phone: [facility] 250 DO Work Phone: Procedures Date Procedure Procedure Detail Performing Clinician Start: 07-31-2023 Echocardiography Emmie Lenz Work Phone: Biopsy of lung Emmie Veena Parker er Work Phone: Operative procedure on foot Emmie Lenz Work Phone: Plan of Treatment Date Care Activity Detail Author Start: 02-22-2034 Zoster Vaccines (1 of 2) Zoste r Vaccines (1 of 2) [facility] Start: 08-14-2024 End: 08-14-2024 Patient encounter procedure 08/14/2024 2:00 PM EDT Office Visit [facility] [address] [facility] [address] [place] [address] Brad Walter MD [address] [place] [address] [address] [place] [address] [facility] Start: 08-13-2023 FUV, Provider: Brad Walter, Status: Pen, Time: 2:15 PM FUV, Provider: Brad Walter, Status: Pen, Time: 2:15 PM -[facility] 250 DO Work Phone: Start: 07-31-2023 ECHO, Provider: AURELIA DONNA [facility] ULTRASOUND 01,[id number], Status: Pen, Time: 8:45 AM ECHO, Provider: JOLYNN [facility] ULTRASOUND 01,[id number], Status: Pen, Time: 8:45 AM -[facility] 250 DO Work Phone: Start: 07-31-2023 STRESS NUC, Provider : JOLYNN HHVI NUCLEAR 01,[id number], Status: Pen, Time: 8:00 AM STRESS NUC, Provider: JOLYNN HHVI NUCLEAR 01,[id number], Status: Pen, Time: 8:00 AM -[facility] 250 DO Work Phone: Start: 07-13-2023 Influenza vaccination Influenza Vacc ine (#1) [facility] Start: 06-25-2023 FUV, Provider: Brad Walter, Status: Pen, Time: 10:45 AM FUV, Provider: Brad Walter, Status: Pen, Time: 10:45 AM -[facility] 250 DO Work Phone: Start: 06-21-2023 ECHO, Provider: AURELIA DUMONT [facility] ULTRASOUND 01,[id number], Status: Pen, Time: 12:30 PM ECHO, Provider: JOLYNN HHVI ULTRASOUND 01,[id number], Status: Pen, Time: 12:30 PM -[facility] 250 DO Work Phone: Start: 06-21-2023 STRESS SRIKANTH, Provider : JOLYNN [facility]VI NUCLEAR 01,[id number], Status: Pen, Time: 11:30 AM STRESS SRIKANTH, Provider: JOLYNN HHVI NUCLEAR 01,[id number], Status: Pen, Time: 11:30 AM -[facility] 250 DO Work Phone: Start: 05-03-2021 KATHARINE, Provider : Dianna Acosta, Status: Pen, Time: 9:00 AM VIRFUVHOME, Provider: Dianna Acosta, Status: Pen, Time: 9:00 AM [facility] [address] Work Phone: Start: 02-22-2006 DTaP/Tdap/Td Vaccine s (1 - Tdap) DTaP/Tdap/Td Vaccines (1 - Tdap) [facility] Start: 02-22-2005 Screening for malign ant neoplasm of cervix [facility] Start: 02-22-2002 Diabetes mellitus screening Diabetes Screening [facility] Start: 02-22-2002 Hepatitis C screening Hepatitis C Sc reening [facility] Start: 02-22-1985 MMR Vaccines (1 of 1 - Standard series) MMR Vaccines (1 of 1 - Standard series) [facility] Start: 02-22-1985 Varicella vaccination Varicell a Vaccines (1 of 2 - 2-dose childhood series) [facility] Start: 1984 COVID-19 Vaccine (#1) COVID-19 Vacci ne (#1) [facility] Start: 1984 Hepatitis B Vaccines (1 of 3 - 3-dose series) Hepatitis B Vaccines (1 of 3 - 3-dose series) [facility] Start: 1984 HIV screening HIV Screening [facility] Start: 1984 Lipid panel Lipid Panel [facility] Start: 1984 Yearly Adult Physical Yearly Adult P hysical [facility] Payers Date Payer Category Payer Unknown [id number] 2020 Unknown [id number] 2018 Unknown 1984 Unknown [id number] 2.16.84 [id number] 1984 Unknown [id number] 2.16. [id number] 1984 Unknown [id number] 2.16.8 [id number] 1984 Unknown [id number] 2.16.8 [id number] 1984 Unknown [id number] 2.16.8 [id number] 1984 Unknown [id number] 2.16.8 [id number] 1984 Unknown [id number] 2.16.8 [id number] 1984 Unknown [id number] 2.16.8 [id number] 1984 Unknown [id number] 2.16.8 [id number] 1984 Unknown [id number] 2.16.84 [id number] 1959 Medicaid [id number] 2. [id number] Unknown [id number] Social History Date Type Detail Facility Start: 08-13-2023 Former smoker Former smoker [facility] Work Phone: Tobacco smoking status No Smokin g Status Entered [facility] Start: 08-13-2023 Sex Assigned At Female F [facility] Start: 08-13-2023 Tobacco smoking stat us NHIS Ex-smoker [facility] End: 11-12-2020 History of tobacco use Current smoker [facility] Work Phone: End: 11-12-2020 History of tobacco use Cigarette Smoker [facility] Work Phone: Start: 08-13-2023 Tobacco use and exposure Smokeless tobacco non-user [facility] Work Phone: Start: 08-13-2023 Alcohol intake Ex-drinker (finding) [facility] Work Phone: Start: 1985 Sex Assigned At Not on file [facility] Work Phone: Start: 08-03-2023 End: 08-13-2023 Exposure to SARS-CoV-2 (event) Not sure [facility] Medical Equipment Procedure Code Equipment Code Equipment Original Text Equipment Identifier Dates [facility] 22g Case [id number] Start: 02-20-2022 Comment on above: Description: Convert ed from [facility]. Please see archived information for full log information. Additional Information:per brenda west 03/10/2022 Clinical Notes 05-12-2020 to 08-13-2023 Brad Walter MD - 08/13/2023 2:15 PM EDTPatient Instructions Note Date & Type Note Facility 08-13-2023 History of Present illness Narrative Subjective Patient ID: Dinesh Selby is a 38 y.o. female HPI Dinesh [...] not available procedure to be done at [facility] in [place] by Dr. Sagastume. 2. Chest discomfort-etiology unclear 3. Abnormal R wave progression on EKG no prior EKG for comparison 4. Shortness of breath with activity 5. Not clinically volume overloaded 6. Patient denies symptoms of obstructive sleep apnea or a diagnosis of that 7. Hilar adenopathy, underwent biopsy, patient reports that her diagnosis is histoplasmosis. 8. 63-[id number]-[id number] history of smoking, quit 2020. 9. History [...] a cardiac standpoint. documented in this encounter [facility] Work Phone: 08-13-2023 Instructions [place] [...] in one year. documented in this encounter [facility] Work Phone: 07-30-2023 History of Present illness Narrative 38-year-old without documented coronary artery disease or valvular heart disease is being seen in cardiology consultation at the request of Dr. 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 Yesterday she [...] abnormal R wave progression. Rate is 91 CA interval 140 ms QRS duration 94 ms2 [...] not available procedure to be done at [facility] in [place] by Dr. Sagastume.2. Chest discomfort-etiology unclear3. Abnormal R wave progression on EKG no prior EKG for comparison4. Shortness of breath with activity5. Not clinically volume overloaded6. Patient denies symptoms of obstructive sleep apnea or a diagnosis of that7. Hilar adenopathy, underwent biopsy, patient reports that her diagnosis is histoplasmosis.8. 42-bvaf-clki history of smoking, quit 2020.9. History of [...] information, it is okay to switch to [employer].Follow-up after testingPatient is encouraged to abstain from cigarettes.EchocardiogramThank you for allowing us to participate in Dinesh's care, please do not hesitate to call if further questions arise,Sincerely, [facility] Work Phone: 07-11-2023 History of Present illness Narrative 38-year-old without documented coronary artery disease or valvular heart disease is being seen in cardiology consultation at the request of Dr. 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 Yesterday she [...] abnormal R wave progression. Rate is 91 CA interval 140 ms QRS duration 94 ms2 [...] not available procedure to be done at [facility] in [place] by Dr. Sagastume.2. Chest discomfort-etiology unclear3. Abnormal R wave progression on EKG no prior EKG for comparison4. Shortness of breath with activity5. Not clinically volume overloaded6. Patient denies symptoms of obstructive sleep apnea or a diagnosis of that7. Hilar adenopathy, underwent biopsy, patient reports that her diagnosis is histoplasmosis.8. 63-lenv-xgtp history of smoking, quit 2020.9. History of [...] information, it is okay to switch to [employer].Follow-up after testingPatient is encouraged to abstain from cigarettes.EchocardiogramThank you for allowing us to participate in Dinesh's care, please do not hesitate to call if further questions arise,Sincerely, [facility] Work Phone: 05-17-2023 History of Present illness Narrative 38-year-old without documented coronary artery disease or valvular heart disease is being seen in cardiology consultation at the request of Dr. 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 Yesterday she [...] abnormal R wave progression. Rate is 91 CA interval 140 ms QRS duration 94 ms2 [...] not available procedure to be done at [facility] in [place] by Dr. Sagastume.2. Chest discomfort-etiology unclear3. Abnormal R wave progression on EKG no prior EKG for comparison4. Shortness of breath with activity5. Not clinically volume overloaded6. Patient denies symptoms of obstructive sleep apnea or a diagnosis of that7. Hilar adenopathy, underwent biopsy, patient reports that her diagnosis is histoplasmosis.8. 21-vtit-dahx history of smoking, quit 2020.9. History of [...] information, it is okay to switch to [employer].Follow-up after testingPatient is encouraged to abstain from cigarettes.EchocardiogramThank you for allowing us to participate in Dinesh's care, please do not hesitate to call if further questions arise,Sincerely, -[facility] Bowman DO Work Phone: 05-06-2023 History of Present illness Narrative 38-year-old without documented coronary artery disease or valvular heart disease is being seen in cardiology consultation at the request of Dr. 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 Yesterday she [...] abnormal R wave progression. Rate is 91 CA interval 140 ms QRS duration 94 ms2 [...] not available procedure to be done at [facility] in [place] by Dr. Sagastume.2. Chest discomfort-etiology unclear3. Abnormal R wave progression on EKG no prior EKG for comparison4. Shortness of breath with activity5. Not clinically volume overloaded6. Patient denies symptoms of obstructive sleep apnea or a diagnosis of that7. Hilar adenopathy, underwent biopsy, patient reports that her diagnosis is histoplasmosis.8. 00-wvhb-todp history of smoking, quit 2020.9. History of [...] information, it is okay to switch to [employer].Follow-up after testingPatient is encouraged to abstain from cigarettes.EchocardiogramThank you for allowing us to participate in Dinesh's care, please do not hesitate to call if further questions arise,Sincerely, [facility] 250 DO Work Phone: 03-03-2023 Evaluation note [...] understanding and is agreeable to treatment plan. [employer] Other 07-01-2020 History of Present illness Narrative* Patient is a 36-year-old woman referred by Sridevi Poe MD from thoracic surgery for possiblehistoplasmosis. * Patient was undergoing preoperative evaluation for gastric bypass surgery at [place]. Preoperative chest x-ray showed a chest shadow with everything else being fine. This occurred in May 2020. She was seen by her primary care provider for evaluation and a chest CT was performed that reveale d a mass . This further addressed by PET CT scan at [facility] where she was what was not cancer . She underwent a follow-up CAT scan 3 months following that showed questionable growth in a soft tissue mass. The recommendation was to repeat a CT in 9 months but she was sent to a physician in [place] whom she saw once. 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 She was referred to the [facility] however they never replied to the consult so karinawas sent them to Dr. Sonam Chu in [...] was never treated. This occurred [facility]. She states that her vision changesbegan in 2012 after her son was born. She states that they began as floaters and then her centralvision began changing. She never noticed that she was unable to see well until she closed her left eye. She noted she had central vision . She was seen by an eye doctor in [facility]. She went to him for glasses after [...] * She states she has lived in [place] only. She was born in [facility] and then moved to [place]. Her only travel has been to [place]. 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 She is set [place] [employer] as well. She also helps with [...] further testing in the computer for comparison. [facility]fect[facility] [place] [address] Work Phone: Evaluation + Plan note Future Appointments Appointment Date:06/02/2022 02:00:00 PM Scheduled Provider:SHERI MCLEOD Location:[facility] Appointment Type: Video Visit Therapy [facility] evaluation + Plan note Future Appointments Appointment Date:08/02/2022 02:00:00 PM Scheduled Provider:SHERI MCLEOD Location:[facility] Appointment Type: Video Visit Therapy [facility] evaluation note* Diagnosis Obesity, morbid (CMS/HCC)- Primary Morbid obesity Pre-operative clearance Unspecified pre-operative examination Severe sleep apnea Encounter to discuss test results Other specified counseling documented in this encounter [facility] Work Phone: History general Narrative - Reported* Type Description Date Medical History restriction around superior vena cava [employer] Other History of Present illness Narrative* Ms. Selby is following up - she has since had a visit with Dr. Poe and Dr. Tang - currently in midst of work up for chronic histoplasmosis - titers back and awaiting Dr. Tang recommendations but will likely need treatment for this chronic histo infection. Also awaiting an MRI of herchest but she was unable to get this [...] neuro intact x 4 without focal deficits [facility] Work Phone: History of Present illness Narrative* [...] report vertigo with sudden postural changes. -CT Surgery-[facility] Work Phone: History of Present illness Narrative* Ms. DINESH SELBY is a 36 year-old woman who presents for evaluation of calcified mediastinal mass detected in the work-up of bariatric surgery. This patient has a diagnosis of histoplasmosis in 2012. More recently, the patient was undergoing a [...] notable for no relatives with histoplasmosis MG-CT Surgery-[facility] Work Phone: Hospital course Narrative No data available for this section [facility] Hospital Discharge instructions No data available for this section [facility] progress note No data available for this section [facility] Chief Complaint Histplasmosis* The patient presents to [...] for pre-operative clearance. Summary Purpose Family History No Family History Records FoundUnknown Family Member Name Dates Details No pertinent [...] section and content) DATE CREATED AUTHOR 10/30/2021 [facility] DATE CREATED AUTHOR AUTHOR'S ORGANIZ ATION 03/22/[address] [facility] DATE CREATED AUTHOR AUTHOR'S ORGANIZ ATION 05/07/2023 [facility] DATE CREATED AUTHOR AUTHOR'S ORGANIZ ATION 05/08/2023 [employer] DATE CREATED AUTHOR AUTHOR'S ORGANIZ ATION 05/22/2023 [facility] DATE CREATED AUTHOR AUTHOR'S ORGANIZ ATION 08/03/2023 [facility] DATE CREATED AUTHOR AUTHOR'S ORGANIZ ATION 07/12/[address] [facility] d[facility] Specialists EPIC Care Team (unrecognized sect ion and content) Dry Heat Room Attendant Relationship Specialty Start Date End Date Emmie Lenz, PLANT MACHINIST-VOCATIONAL AUTO BODY INSTRUCTOR [address] [place] [address] PCP - General 05/07/23 REASON FOR VISIT [...] BE BASED ON THE PRIMARY CLINICAL RECORDS. [facility] [email or web address] [facility]. provides no warranty or guarantee of the accuracy or completeness of information in this document.
== END 2024-08-21 18:50 | disposition home or self-care (01) ==
LOC: LAB 18:49
PROVIDERS: PCP Nurse Practitioner Family; Visit Provider Physician Assistant
DX: N39.0 Urinary tract infection, site not specified (principal)
CPT/HCPCS: 87086; 87150

== ENCOUNTER 2025-01-04 10:31 | Emergency (ER) | payer OTHER, SELFPAY ==
[2025-01-04 10:38] VITALS: BP 144/83; PULSE 91; TEMP 36.7; O2SAT 96; BMI 65.2
--- OUTSIDE RECORDS SUMMARY | 2025-01-04 10:51 | XMS_ITS | CCD ---
Author Organization [facility] Care Team Providers Care Master Glazier Name Role Phone Unknown, Referring Provider Unavailable [...] Attending Unavailable Emmie Fernandez Primary Care Provider Unavailable Primary Care Provider UnavailBRAD Peguero Attending Unavailable EMMIE LENZ Primary Care Unavailable Kacey Edge Unavailable KACEY MONROE Attending Unavailable AMY GOLD Attending Unavailable KACEY MONROE Attending Unavailable KACEY MONROE Attending Unavailable KACEY MONROE Attending Unavailable Allergies Allergy Classification Reported Allergen(s) Allergy Type Date of Onset Reaction(s) Facility Penicillins (antibiotic) (3 sources) Amoxicillin; Translations: [amoxicillin] Drug Allergy Anaphylaxis [facility] [employer] [facility] Work Phone: Sulfonamides (antibiotic) (3 sources) Sulfonamides (Antibiotic); Translations: [Sulfa Drugs] Drug Allergy Other [facility] [employer] [address] Work Phone: Unclassified (12 sources) Nystatin POWD; Translations: [Nystatin POWD] Allergy to drug (finding) Other [facility] [place] [address] Work Phone: (20 sources) Amoxicillin; Translations: [amoxicillin] Drug Allergy 08-08-20 23 Anaphylaxis, Angioedema [facility] (9 sources) Sulfonamides (Antibiotic); Translations: [Sulfa Drugs] Allergy to drug (finding) Other [facility] Work Phone: (19 sources) Substance with sulfonamide structure and antibacterial mechanism of action (substance) Drug allergy 08-08-20 23 Other, Unknown [employer] Other (1 source) Amoxicillin Drug Allergy 09-28-20 13 [facility] Repository (1 source) Sulfonamides (Antibiotic) Drug allergy (disorder) 09-28-20 13 [facility] (3 sources) Nystatin; Translations: [NYSTATIN] Drug Allergy 08-08-20 23 Other [facility] Work Phone: (15 sources) metroNIDAZOLE; Translations: [METRONIDAZOLE] Drug Allergy 07-10-20 24 Anxiety [facility] (12 sources) Nystatin Drug Allergy 08-08-20 23 [facility] (12 sources) Penicillin G Drug Allergy 08-21-20 24 Anaphylaxis [facility] (1 source) Sulfonamides (Antibiotic); Translations: [SULFA (SULFONAMIDE ANTIBIOTICS)] Propensity to adverse reactions to drug (disorder) 08-08-[address] [facility] 3 Repository Medications Current Medications Medication Drug Class(es) Dates Sig (Normalized) Sig (Original) ciprofloxacin 3 mg/ml ophthalmic solution (1 source) Quinolone Antimicrobial Start: 03-03-2023 take 1-2 drop(s) into the eye(s) every hour Ciprofloxacin HCl 0.3 % 1-2 drops into affected eye Ophthalmic every4 hours for 7 days Feb, Active clotrimazole 10 mg/ml topical cream (7 sources) Azole Antifungal Start: 05-11-2020 clotrimazole (Lotrimin) 1 % cream APPLY SPARINGLY TO AFFECTED AREA(S) TWICE DAILY as needed 05/11/2020 Active Start: 05-11-2020 Clotrimazole 1 % External Cream APPLY SPARINGLY TO AFFECTED AREA(S) TWICE DAILY as needed Quantity: 1 Refills: 1 Ordered: 20-Sep-2020 DO Start : 11-May-2020 Active fluconazole 100 mg oral tablet (3 sources) Azole Antifungal Start: 07-09-2024 End: 07-19-2024 take 1 tablet by mouth once daily fluconazole (Diflucan) 100 MG tablet Indications: Vaginal irritation Take 1 tablet (100 mg) by mouth Daily for 10 days 10 tablet 07/09/2024 07/19/2024 Active sertraline 50 mg oral tablet (20 sources) Serotonin Reuptake Inhibitor Start: 06-02-2021 take 1 tablet by mouth once daily sertraline (Zoloft) 50 mg tablet Take 1 tablet (50 mg) by mouth once daily. 06/02/2021 Active Start: 06-02-2021 Zoloft 50 MG O ral Tablet Quantity: 0 Refills: 0 Ordered: 02-Jun-2021 DO Start : 02-Jun-2021 Active sertraline (Zolo ft) 50 MG tablet Take 75 mg by mouth 1 (one) time each day at the same time Active Zoloft Active terconazole 4 mg/ml vaginal cream (5 sources) Azole Antifungal Start: 08-21-2024 End: 08-28-2024 terconazole (Terazol 7) 0.4 % vaginal cream Indications: Yeast infection Insert 1 applicator into the vagina at bedtime for 7 days 45 g 08/21/2024 08/28/2024 Active Start: 07-09-2024 End: 07-16-2024 terconazole (Terazol 7) 0.4 % vaginal cream Indications: Vaginal irritation Insert 1 applicator into the vagina at bedtime for 7 days 45 g 07/09/2024 07/16/2024 Active tryptophan 500 mg oral tablet (3 sources) Start: 12-10-2024 End: 12-17-2024 take 2 g by mouth once daily L-Tryptophan 500 MG tablet Indications: Vaginitis due to Trichomonas Take 2 g by mouth Daily for 7 days 14 tablet 12/10/2024 12/17/2024 Active Start: 10-30-2024 End: 10-30-2024 take 4 tablets by mouth once L-Tryptophan 500 MG table t Indications: Trichomonas vaginalis (TV) infection Take 2,000 mg by mouth 1 (one) time for 1 dose 4 tablet 10/30/2024 10/30/2024 Active Completed/Discontinued Medications Medication Drug Class(es) Dates Sig (Normalized) Sig (Original) metroNIDAZOLE 0.0075 mg/mg vaginal gel (5 sources) Nitroimidazole Antimicrobial Start: 08-06-2024 End: 08-21-2024 metroNIDAZOLE (Metrogel) 0.75 % vaginal gel Indications: BV (bacterial vaginosis) Insert into the vagina Daily for 5 days 70 g 08/06/2024 08/21/2024 Discontinued (Therapy completed) Start: 07-09-2024 End: 07-16-2024 take 1 tablet by mouth in the morning metroNIDAZOLE (Flagyl) 500 MG tablet Indications: Exposure to STD Take 1 tablet (500 mg) by mouth in the morning and 1 tablet (500 mg) before bedtime. Do all this for 7 days. Do not drink alcohol while taking this medication. 14 tablet 07/09/2024 07/16/2024 Active Problems Active Problems Problem Classification Problem Date Documented Da te Episodic/Chronic Adjustment disorders (10 sources) Adjustment disorder; Translations: [Adjustment disorder with other symptoms] Onset: 05-18-2022 Chronic Conditions associated with dizziness or vertigo (7 sources) Dizziness; Translations: [Dizziness and giddiness] Episodic Conduction disorders (12 sources) Incomplete left bundle branch block; Translations: [Left bundle branch hemiblock] Onset: 08-08-2023 08-08-2023 Chronic E Codes: Natural/environment (1 source) Exposure to other specified factors, initial encounter; Translations: [EXPOSURE OTHER SPEC FACTORS INITIAL] Onset: 03-21-2023 Episodic Immunizations and screening for infectious disease (4 sources) Exposure to sexually transmissible disorder; Translations: [Contact with and (suspected) exposure to infections with a predominantly sexual mode of transmission] 07-09-2024 Episodic Inflammation; infection of eye (except that caused by tuberculosis or sexually transmitteddisease) (1 source) Unspecified acute conjunctivitis, left eye Episodic Other aftercare (1 source) Other usp (current) drug therapy; Translations: [OTH CONTRACTOR FIELD HAULING CURRENT DRUG THERAPY] Onset: 03-21-2023 Episodic Other diseases of veins and lymphatics (15 sources) Occlusion of superior vena cava; 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] Onset: 08-08-2023 08-08-2023 Episodic Other infections; including parasitic (6 sources) Infection by Trichomonas; Translations: [Trichomonal vulvovaginitis] 08-21-2024 Episodic Other infections; including parasitic (3 sources) Trichomonal vaginitis; Translations: [Trichomonal vulvovaginitis] 12-09-2024 Episodic Other lower respiratory disease (3 sources) Pleurodynia; Translations: [PLEURODYNIA] Onset: 03-19-2023 Episodic Other lower respiratory disease (7 sources) Dyspnea; Translations: [Shortness of breath] Episodic Other lower respiratory disease (1 source) Shortness of breath; Translations: [Shortness of breath] Onset: 07-31-2023 Episodic Other nutritional; endocrine; and metabolic disorders (10 sources) Morbid obesity; Translations: [Morbid obesity] Onset: 08-08-2023 08-13-2023 Chronic Other nutritional; endocrine; and metabolic disorders (7 sources) Body mass index 40+ - severely obese; Translations: [Morbid obesity] Chronic Other nutritional; endocrine; and metabolic disorders (2 sources) Body mass index (BMI) 60.0-69.9, adult; Translations: [Body mass index (BMI) 60.0-69.9, adult (Multi)] Onset: 10-03-2024 Chronic Phlebitis; thrombophlebitis and thromboembolism (2 sources) 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; Translations: [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 (Multi)] Onset: 08-08-2023 Episodic Residual codes; unclassified (4 sources) Sleep apnea; Translations: [Sleep apnea, unspecified] Onset: 08-13-2023 08-13-2023 Chronic Residual codes; unclassified (2 sources) Sleep apnea, unspecified; Translations: [Sleep apnea, unspecified] Onset: 08-13-2023 Chronic Screening and history of mental health and substance abuse codes (12 sources) Personal history of nicotine dependence; Translations: [Ex-smoker] Onset: 03-21-2023 10-03-2024 Episodic Sprains and strains (1 source) Strain of muscle and tendon of front wall of thorax, initial encounter; Translations: [STRN MSC TENDON FRNT WALL THOR INIT] Onset: 03-21-2023 Episodic Unclassified (1 source) COUGH, UNSPECIFIED; Translations: [COUGH, UNSPECIFIED] Onset: 03-21-2023 Urinary tract infections (2 sources) Urinary tract infectious disease; Translations: [Urinary tract infection, site not specified] 08-21-2024 Episodic Past or Other Problems Problem Classification Problem Date Documented Date Episodic/Chronic Administrative/socia l admission (3 sources) Follow-up status; Translations: [Person consulting for explanation of examination or test findings] Onset: 08-13-2023 08-13-2023 Episodic Mycoses (16 sources) Histoplasmosis; Translations: [Histoplasmosis, unspecified, without mention of manifestation] Onset: 08-08-2023 08-08-2023 Episodic Nonspecific chest pain (10 sources) Chest pain; Translations: [Chest pain, unspecified] Onset: 07-31-2023 08-08-2023 Episodic Other diseases of bladder and urethra (2 sources) Urethritis; Translations: [Other specified disorders of urethra] 07-09-2024 Episodic Other female genital disorders (2 sources) Vaginal irritation; Translations: [Other specified noninflammatory disorders of vagina] 07-09-2024 Episodic Other lower respiratory disease (14 sources) Nodule of lung; Translations: [Solitary pulmonary nodule] Onset: 08-08-2023 08-08-2023 Episodic Other screening for suspected conditions (not mental disorders or infectious disease) (10 sources) Electrocardiogram abnormal; Translations: [Nonspecific abnormal electrocardiogram [ECG] [EKG]] Onset: 07-31-2023 08-08-2023 Episodic Other skin disorders (14 sources) Mass of thoracic structure; Translations: [Swelling, mass, or lump in chest] Onset: 08-08-2023 08-08-2023 Episodic Unclassified (7 sources) Patient status finding; Translations: [Patient new to provider] Unclassified (2 sources) Onset: 08-13-2023 08-13-2023 Results Test Name Value Interpretation Reference Range Facility Urinalysis macro (dipstick) panel (U)on 09-22-2024 Bilirubin, UA Negative Negative - 4(70) +++ mg/dL [facility] Blood, UA Negative Negative - 50 Estrada/mcL [facility] Clarity, UA Clear [facility] Color, UA Yellow [facility] Glucose, UA Negative Negative - 2000(110) ++++ mg/dL [facility] Interpretation and review of laboratory results Abnormal [facility] Ketones, UA Negative Negative - 160(16) ++++ mg/dL [facility] Leukocytes, UA Trace Negative - 500+++ Natanael/mcL [facility] Nitrite, UA Negative Negative - Positive [facility] pH, UA 5.6 5 - 9 [facility] Protein, UA Many Negative - 1999(20) ++++ mg/dL [facility] Spec Grav, UA 1.025 1 - 1.03 [facility] Urobilinogen, UA 0.2 0.2 - 12 mg/dL [facility] Urinalysis macro (dipstick) panel (U)on 08-21-2024 Bilirubin, UA Negative Negative - 4(70) +++ mg/dL [facility] Blood, UA Positive Negative - 50 Estrada/mcL [facility] Comment on above: trace Clarity, UA Clear [facility] Color, UA Yellow [facility] Glucose, UA Negative Negative - 1999(110) ++++ mg/dL [facility] Interpretation and review of laboratory results Abnormal [facility] Ketones, UA Negative Negative - 160(16) ++++ mg/dL [facility] Leukocytes, UA Positive Negative - 500+++ Natanael/mcL [facility] Comment on above: large Nitrite, UA Negative Negative - Positive [facility] pH, UA 7.0 5 - 9 [facility] Protein, UA Trace Negative - 1999(20) ++++ mg/dL [facility] Spec Grav, UA 1.025 1 - 1.03 [facility] Urobilinogen, UA 0.2 0.2 - 12 mg/dL [facility] No Panel Informationon 07-10 STAPHYLOCOCCUS EPIDERMIDIS, HAEMOLYTICUS, LUGDUNENSIS, SAPROPHYTICUS (URINA 0.000 [facility] STAPHYLOCOCCUS EPIDERMIDIS, HAEMOLYTICUS, LUGDUNENSIS, SAPROPHYTICUS (URINA Not detected [facility] URINARY TRACT INFECTION (HTR X)on 07-10-2024 ACINETOBACTER BAUMANII 0.000 [facility] ACINETOBACTER BAUMANII Not detected [facility] ELVIRA ALBICANS, PARAPSILOSIS, TROPICALIS 0.000 [facility] ELVIRA ALBICANS, PARAPSILOSIS, TROPICALIS Not detected [facility] ELVIRA GLABRATA 0.000 [facility] ELVIRA GLABRATA Not detected [facility] ELVIRA KRUSEI 0.000 [facility] ELVIRA KRUSEI Not detected [facility] CITROBACTER FREUNDII 0.000 [facility] CITROBACTER FREUNDII Not detected [facility] ENTEROBACTER AEROGENES, CLOACAE 0.000 [facility] ENTEROBACTER AEROGENES, CLOACAE Not detected [facility] ENTEROCOCCUS FAECALIS, FAECIUM 0.000 [facility] ENTEROCOCCUS FAECALIS, FAECIUM Not detected [facility] ERMB, C; MEFA 20.660 Abnormal [facility] ERMB, C; MEFA Detected Abnormal [facility] ESCHERICHIA COLI 0.000 [facility] ESCHERICHIA COLI Not detected [facility] Interpretation and review of laboratory results Abnormal [facility] KLEBSIELLA PNEUMONIAE, OXYTOCA 0.000 [facility] KLEBSIELLA PNEUMONIAE, OXYTOCA Not detected [facility] MORGANELLA MORGANII 0.000 [facility] MORGANELLA MORGANII Not detected [facility] PROTEUS MIRABILIS, VULGARIS 0.000 [facility] PROTEUS MIRABILIS, VULGARIS Not detected [facility] PSEUDOMONAS AERUGINOSA 0.000 [facility] PSEUDOMONAS AERUGINOSA Not detected [facility] SERRATIA MARCESCENS 0.000 [facility] SERRATIA MARCESCENS Not detected [facility] STAPHYLOCOCCUS AUREUS 0.000 [facility] STAPHYLOCOCCUS AUREUS Not detected [facility] STREPTOCOCCUS AGALACTIAE (GROUP B STREP) 23.779 Abnormal [facility] STREPTOCOCCUS AGALACTIAE (GROUP B STREP) Detected Abnormal [facility] STREPTOCOCCUS PYOGENES (GROUP A STREP) 0.000 [facility] STREPTOCOCCUS PYOGENES (GROUP A STREP) Not detected [facility] TET B, TET M 25.402 Abnormal [facility] TET B, TET M Detected Abnormal [facility] Cardiac Stress Teston 2022 Cardiac Stress Test [address], [address] [place] [address] Exercise Stress Test Patient Name: DINESH SELBY Ordering Physician: [id number] Brad Walter MD Study Date: 07/31/2023 Reading Physician: [id number] Beltran Galo MD, [facility] MRN/PID: [id number] Supervising Physician: [id number] Beltran Galo MD, [facility] Accession/Order#: [id number] Referring Physician: BRAD WALTER Date of : 1985 PCP: Gender: F Fellow: Height: 162.56 cm Nurse: Jhon Vaughn RN Weight: 171.01 kg Medical Billing Instructor: TJ BSA: 2.56 m2 Technologist: BMI: 64.71 kg/m2 Additional Staff: Age: 38 years cc report to: Patient Location: cc report to: [id number] Brad Walter MD Study Type: Cardiac Stress Test Diagnosis/ICD: R07.1-Chest pain on breathing (pleuritic chest pain); R06.02-Shortness of breath Indication: Chest Pain Procedure/CPT: Stress Test Interpretation-[id number]; Stress Test Supervision-[id number] Falls Risk: Low: Patient has low risk [...] ischemia. 2. Submaximal level of stress achieved. [id number] Beltran Galo MD, [facility] Electronically signed on 08/01/2023 at 5:29:58 PM Final Normal [facility] Cardiac Stress Test Please click on the link to view the study images [facility] Work Phone: Cardiac Stress Test MP-No rth [facility] 250 DO Work Phone: Echocardiogramon 07-31-2023 Echocardiography [facility] [address] [place] [address], [place] [address] TRANSTHORACIC ECHOCARDIOGRAM REPORT Patient Name: DINESH RUBEN Reading Physician: [id number] Beltran Galo MD, [facility] Study Date: 07/31/2023 Referring Physician: BRAD WALTER MRN/PID: [id number] PCP: Nilay Lenz DO Accession/Order#: [id number] Department Location: [facility] Mónica Neil Date of : 1985 Fellow: Gender: F Nurse: Jhon Vaughn RN Admit Date: Medical Billing Instructor: Kathy Quinones RDCS, RT(R), RDMS, RVT Height: 162.56 cm CC Report to: Weight: 171.01 kg Study Type: Echocardiogram BSA: 2.56 m2 Diagnosis/ICD: Z01.818-Encounter for other preprocedural examination; R07.9-Chest pain, unspecified; R94.31-Abnormal electrocardiogram [ECG] [EKG] Indication: INcomplete RBBB Chest pain SOB Pre-op for Bariatric Surgery Procedure/CPT: Echo Complete w Full Doppler-[id number] Patient History: Pertinent History: Histoplasmosis. Study Detail: [...] 1.0 m/s (0.6-0.9m/s) PV Max P.7 mmHg [id number] Beltran Galo MD, [facility] Electronically signed on 08/01/2023 at 5:52:23 PM Final Normal [facility] Echocardiography Please click on the link to view the study images [facility] Work Phone: Consenton 05-21-2023 Consent [id number] 0CD:127 Normal [facility] Registrationon 05-21-2023 Registration [id number] 11 [id number] 0CD:127 [facility] Office Visit (Cardiology)on 05-07-2023 Follow-up visit Diagnoses/Problems [...] Scheduling,Retrospecti ve By Protocol Authorization; Requested for:07May2023; [place] Cardiac Stress/Rest Nuclear Med Order; Status:Hold For - Scheduling,Retrospecti ve By Protocol Authorization; Requested for:[id number]; Radiologist to Determine Optimal Study : Y [...] DR. 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 Yesterday she [...] abnormal R wave progression. Rate is 91 WA interval 140 ms QRS duration 94 ms [...] not available procedure to be done at [facility] in [place] by Dr. Sagastume. 2. Chest discomfort-etiology unclear 3. Abnormal R wave progression on EKG no prior EKG for comparison 4. Shortness of breath with activity 5. Not clinically volume overloaded 6. Patient denies symptoms of obstructive sleep apnea or a diagnosis of that 7. Hilar adenopathy, underwent biopsy, patient reports that her diagnosis is histoplasmosis. 8. [id number] history of smoking, quit 2020. 9. History [...] information, it is okay to switch to [employer]. Follow-up after testing Patient is encouraged to abstain from cigarettes. Echocardiogram Thank you (more content not included)... Normal [employer] Tobacco Screening.on 023 Adult depression screening assessment No [facility] 250 DO Work Phone: Fall risk assessment a) No falls within the last year [facility] 250 DO Work Phone: Tobacco use status [facility] b) No [facility] 250 DO Work Phone: Video [...] NOTES/SUMMARY OF SESSION: Patient reported that her [id number] today. Her son was close to his [...] online (also named Otoniel) who lives in [place]. This man has 6-year-old twin boys. They have not met in person, yet. She is taking things slowly. Patient remains smoke-free since December. She met with her dietitian and was encouraged to lose 15 to 20 pounds before her bariatric surgery. She has been trying to get more exercise. She continues to work at [employer] in [place], and will be promoted to [employer], with a pay increase up to $16 [...] active medications Allergies No active allergies Normal [facility] Comment on above: Result Comment: Elec tronically Signed By: ARBEN [facility]LAND HOSPITALSHERI Mckenna\.manisha\Date and Time Signed: 08/04/22 10:38 EDT [...] be effective. She continues to work at [employer] in [place]. She is being promoted to [employer], with a pay increase. Her 9-year-old son, [...] active medications Allergies No active allergies Normal [facility] Comment on above: Result Comment: Elec tronically Signed By: ARBEN [facility] HOSPITALClarisa, SHERI\.manisha\Date and Time Signed: 07/13/22 12:35 EDT [...] worked 8 days in a row at [employer] in [place]. She reported that she is being promoted to [email or web address]. Her 9-year-old son, Mohan, asked her about [...] active medications Allergies No active allergies Normal [facility] Comment on above: Result Comment: Elec tronically Signed By: ARBEN [facility] HOSPITALDelmi-S, SHERI\.br\Date and Time Signed: 06/20/22 12:28 EDT Video [...] visit. Video time spent with the patient [id number] was greater than 50%, in addition to [...] feels is effective. She continues working at [employer] in [place]. She and her son, Mohan, continue to [...] active medications Allergies No active allergies Normal [facility] Comment on above: Result Comment: Elec tronically Signed By: ARBEN [facility] HOSPITALDelmi-SHERI Curiel\.manisha\Date and Time Signed: 06/02/22 14:45 EDT Tobacco Screening.on 022 Fall risk assessment a) No falls within the last year [facility] Work Phone: Tobacco use status [facility] b) No [facility] Work Phone: Tobacco Screening. Adult [facility] Work Phone: Histoplasma Caps Abs CF+IDon 04-26-2021 Histoplasma Mycelia CF Ab. Negative Normal Neg:<1:2 [facility] Comment on above: Performed By: #### H ISTOPL GAL AG, HISTO ABS #### [facility] , Histoplasma Yeast CF Ab. 1:32 High Neg:<1:2 [facility] Comment on above: Result Comment: Perf ormed at: BN - [facility] [place] [address] [place], [place] [id number] Propulsion Systems Engineer: Palomo Gutierrez MD, Phone: [phone] PERFORMED BY: [facility] [address] [place] [address] PATHOLOGIST IMPORT AND EXPORT CLERK SWETA SANDERS M.D. Performed By: #### H ISTOPL GAL AG, HISTO ABS #### [facility] , Histoplasma Galacto Ag EIAon 04-26-2021 Disclaimer: Normal . [facility] Comment on above: Result Comment: This test was developed and its performance characteristics determined by [facility]. It has not been cleared or approved by the Food and Drug Administration. Performed at: [address] [id number] Propulsion Systems Engineer: Palomo Gutierrez MD, Phone: [phone] Performed By: #### H ISTOPL GAL AG, HISTO ABS #### [facility] , Histoplasma Gal[place]itchcock Ag, Ser <0.5 Normal <0.5 ng/mL [facility] Comment on above: Performed By: #### H ISTOPL GAL AG, HISTO ABS #### [facility] , Tobacco Screening.on 021 Fall risk assessment a) No falls within the last year [facility] [place] [address] Work Phone: Tobacco use status [facility] b) No [facility] [place] [address] Work Phone: QuantiFERON TB Goldon 2020 QFTB Criteria Normal . [facility] Comment on above: Result Comment: The QuantiFERON-TB Gold Plus result is determined by subtracting the Nil value from either TB antigen (Ag) tube. The mitogen tube serves as a control for the test. Performed By: #### Q UANT TB #### [facility] , Quant TB Ag Value 0.06 Normal . [facility] Comment on above: Performed By: #### Q UANT TB #### [facility] , Quant TB Gold Plus Negative Normal Negative [facility] Comment on above: Result Comment: The specimen received for QuantiFERON testing was incubated by the ordering institution. Specific procedures outlined in our Directory of Services and in the package insert for the QuantiFERON Gold (In Tube) test must be followed to enable for proper stimulation of cells for the production of interferon gamma. Chemiluminescence immunoassay methodology Performed at: [address] [id number] Propulsion Systems Engineer: Kaushik Aragon PhD, Phone: [phone] PERFORMED BY: [place] [address] PATHOLOGIST IMPORT AND EXPORT CLERK SWETA SANDERS M.D. Performed By: #### Q UANT TB #### [facility] , Quant TB2 Ag Value 0.07 Normal . [facility] Comment on above: Performed By: #### Q UANT TB #### [facility] , Quantiferon Nil Value 0.[address] [facility] Comment on above: Performed By: #### Q UANT TB #### [facility] , Quantiferon TB Mitogen >10.00 Normal . [facility] Comment on above: Performed By: #### Q UANT TB #### [facility] , [facility] echo transthoracicon [facility] echo transthoracic [facility] Main [place] [address] [place], [place] [id number] Echocardiogram Signed Patient: Dinesh Selby MR#: [id number] : 1985 Acct:[id number] Age/Sex: 35 / F ADM Date: 01/12/21 Loc: Room: Type: [facility] Attending Dr: George Roland MD Ordering Provider: George Roland MD Date of Service: 01/12/21 [facility] echo transthoracic: [employer] Copies to: MD Beltran Schultz MD, [facility] Weight: 336 lb Performed By: SEMAJ [...] 01/12/21 1402 Dictated By: Beltran Galo MD, [facility] 01/12/21 1320 Signed By: 01/12/21 1402 Normal [facility] Coagulation Profileon 2020 aPTT Coag (Bld) [Time] 32.9 s Normal 25.1-36.5 [facility] Comment on above: Result Comment: PERF ORMED BY: [place] [address] PATHOLOGIST IMPORT AND EXPORT CLERK SWETA SANDERS M.D. Performed By: #### U R HISTOPLAS, HISTO ABS #### [facility] , #### PP #### [facility] [address] [place] [address] INR Coag (PPP) [Relative time] 1.1 {INR} Normal [facility] Comment on above: Result Comment: INR Therapeutic [...] ABS #### [facility] , #### PP #### [facility] [address] [place] [address] PT Coag (PPP) [Time] 12.0 s Normal 9.0-12.9 [facility] Comment on above: Performed By: #### U R HISTOPLAS, HISTO ABS #### [facility] , #### PP #### [place] [address] [place] Histoplasma Caps Abs CF+IDon 01-11-2021 Histoplasma Mycelia CF Ab. Negative Normal Neg:<1:2 [facility] Comment on above: Performed By: #### U R HISTOPLAS, HISTO ABS #### [facility] , #### PP #### [address] Histoplasma Yeast CF Ab. 1:8 High Neg:<1:2 [facility] Comment on above: Result Comment: Perf ormed at: [address] [id number] Propulsion Systems Engineer: Palomo Gutierrez MD, Phone: [phone] PERFORMED BY: [place] [address] PATHOLOGIST IMPORT AND EXPORT CLERK SWETA SANDERS M.D. Performed By: #### U R HISTOPLAS, HISTO ABS #### [facility] , #### PP #### [address] Histoplasma Galacto Ag, Uron 01-11-2021 Histoplasma disclaimer Normal . [facility] Comment on above: Order Comment: SOURC E OF SPECIMEN: URINE Result Comment: This test was developed and its performance characteristics determined by [facility]. It has not been cleared or approved by the Food and Drug Administration. Performed at: [address] [id number] Propulsion Systems Engineer: Palomo Gutirerez MD, Phone: [phone] PERFORMED BY: [place] [address] PATHOLOGIST IMPORT AND EXPORT CLERK SWETA SANDERS M.D. Performed By: #### U R HISTOPLAS, HISTO ABS #### [facility] , #### PP #### [place] [address] [place] Histoplasma GALACTOMANNAN, UR <0.5 Normal <0.5 ng/mL [facility] Comment on above: Order Comment: SOURC E OF SPECIMEN: URINE Performed By: #### U R HISTOPLAS, HISTO ABS #### [facility] , #### PP #### [facility] [address] [id number] [facility] Vital Signs Date Time Vital Sign Value Performing Clinician Facility 12-09-2024 09:19-0500 Body mass index (BMI) [Ratio] 65.23 kg/m2 Kacey Startex PA Work Phone: [facility] 12-09-2024 09:19-0500 Body weight 172.37 kg Kacey Missy PA Work Phone: [facility] 12-09-2024 09:19-0500 Diastolic blood pressure 82 mm[Hg] Kacey Missy PA Work Phone: [facility] 12-09-2024 09:19-0500 Systolic blood pressure 132 mm[Hg] Kacey Startex PA Work Phone: [facility] 10-30-2024 15:21-0500 Body mass index (BMI) [Ratio] 64.54 kg/m2 Kacey Startex PA Work Phone: [facility] 10-30-2024 15:21-0500 Body weight 170.55 kg Kacey Startex PA Work Phone: [facility] 10-30-2024 15:21-0500 Diastolic blood pressure 80 mm[Hg] Akcey Missy PA Work Phone: [facility] 10-30-2024 15:21-0500 Systolic blood pressure 130 mm[Hg] Kacey Startex PA Work Phone: [facility] 10-03-2024 10:29-0500 Body height 162.6 cm Brad Walter MD Work Phone: [facility] 10-03-2024 10:29-0500 Body mass index (BMI) [Ratio] 64.54 kg/m2 Brad Walter MD Work Phone: [facility] 10-03-2024 10:29-0500 Body weight 170.55 kg Brad Walter MD Work Phone: [facility] 10-03-2024 10:29-0500 Diastolic blood pressure 78 mm[Hg] Brad Walter MD Work Phone: [facility] 10-03-2024 10:29-0500 Heart rate 88 /min Brad Walter MD Work Phone: [facility] 10-03-2024 10:29-0500 Systolic blood pressure 118 mm[Hg] Brad Walter MD Work Phone: [facility] 09-22-2024 11:43-0500 Body mass index (BMI) [Ratio] 63.87 kg/m2 Kacey Monroe PA Work Phone: [facility] 09-22-2024 11:43-0500 Body weight 168.79 kg Kacey Missy PA Work Phone: [facility] 09-22-2024 11:43-0500 Diastolic blood pressure 70 mm[Hg] Kacey Missy PA Work Phone: [facility] 09-22-2024 11:43-0500 Systolic blood pressure 112 mm[Hg] Kacey Startex PA Work Phone: [facility] 08-21-2024 16:16-0400 Body mass index (BMI) [Ratio] 63.51 kg/m2 Kacey Missy PA Work Phone: [facility] 08-21-2024 16:16-0400 Body weight 167.83 kg Kacey Startex PA Work Phone: [facility] 07-09-2024 14:54-0400 Body height 162.6 cm Amy Asif DO Work Phone: [facility] 07-09-2024 14:54-0400 Body mass index (BMI) [Ratio] 64.37 kg/m2 Amy Asif DO Work Phone: [facility] 07-09-2024 14:54-0400 Body weight 170.1 kg Amy Asif DO Work Phone: [facility] 07-09-2024 14:54-0400 Diastolic blood pressure 80 mm[Hg] Amy Asif DO Work Phone: [facility] 07-09-2024 14:54-0400 Systolic blood pressure 130 mm[Hg] Amy Asif DO Work Phone: [facility] 08-13-2023 14:24-0400 Body height 162.6 cm Brad Walter MD Work Phone: [facility] 08-13-2023 14:24-0400 Body mass index (BMI) [Ratio] 64.03 kg/m2 Brad Walter MD Work Phone: [facility] 08-13-2023 14:24-0400 Body weight 169.19 kg Brad Walter MD Work Phone: [facility] 08-13-2023 14:24-0400 Diastolic blood pressure 88 mm[Hg] Brad Walter MD Work Phone: [facility] 08-13-2023 14:24-0400 Heart rate 82 /min Brad Walter MD Work Phone: [facility] 08-13-2023 14:24-0400 Systolic blood pressure 126 mm[Hg] Brad Walter MD Work Phone: [facility] 05-07-2023 11:28-0400 Diastolic blood pressure 80 mm[Hg] Emmie S Teresa Work Phone: [facility] [address] DO Work Phone: 05-07-2023 11:28-0400 Systolic blood pressure 122 mm[Hg] Emmie S Teresa Work Phone: [facility] [address] DO Work Phone: 05-07-2023 11:27-0400 Body height 162.56 cm Emmie S Teresa Work Phone: [facility] [address] DO Work Phone: 05-07-2023 11:27-0400 Body mass index (BMI) [Ratio] 64.71 kg/m2 Emmie Curiel Teresa Work Phone: [facility] [address] DO Work Phone: 05-07-2023 11:27-0400 Body surface area Derived from formula 2.56 m2 Emmie Curiel Teresa Work Phone: [facility] [address] DO Work Phone: 05-07-2023 11:27-0400 Body weight 171.01 kg Emmie S Teresa Work Phone: [facility] [address] DO Work Phone: 05-07-2023 11:27-0400 Diastolic blood pressure 80 mm[Hg] Emmie S Teresa Work Phone: [facility] [address] DO Work Phone: 05-07-2023 11:27-0400 Heart rate 91 /min Emmie Curiel Teresa Work Phone: [facility] [address] DO Work Phone: 05-07-2023 11:27-0400 Systolic blood pressure 118 mm[Hg] Emmie Curiel Teresa Work Phone: [facility] [address] DO Work Phone: 03-03-2023 10:15-0400 Body height 162.56 cm Didi Mendoza Other [employer] Other 03-03-2023 10:15-0400 Body mass index (BMI) [Ratio] 63.5 kg/m2 Didi Mendoza Other [employer] Other 03-03-2023 10:15-0400 Body temperature 98 [degF] Didi Mendoza Other [employer] Other 03-03-2023 10:15-0400 Body weight 167.83 kg Didi Mendoza Other [employer] Other 03-03-2023 10:15-0400 Respiratory rate 18 /min Didi Mendoza Other [employer] Other 03-03-2023 10:15-0400 SaO2% (BldA) [Mass fraction] 99 % Didi Mendoza Other [employer] Other 02-09-2022 11:42-0400 Body height 161.11 cm Emmie Lenz Work Phone: [facility] Work Phone: 02-09-2022 11:42-0400 Body mass index (BMI) [Ratio] 65.42 kg/m2 Emmie Herreramer Work Phone: [facility] Work Phone: 02-09-2022 11:42-0400 Body surface area Derived from formula 2.54 m2 Emmie Herreramer Work Phone: [facility] Work Phone: 02-09-2022 11:42-0400 Body temperature 97.9 [degF] Emmie Lenz Work Phone: [facility] Work Phone: 02-09-2022 11:42-0400 Body weight 169.82 kg Emmierosy Herreramer Work Phone: [facility] Work Phone: 02-09-2022 11:42-0400 Diastolic blood pressure 80 mm[Hg] Emmie Veena Teresa Work Phone: [facility] Work Phone: 02-09-2022 11:42-0400 Heart rate 102 [...] 0 1 Emmie Lenz Work Phone: [facility] Work Phone: Comment on above: [employer] 04-22-2021 11:00-0400 Body height 162.56 cm Referring Provider Unknown MV-Dexruftnodjic-VHU [place] [address] Work Phone: 04-22-2021 11:00-0400 Body mass index (BMI) [Ratio] 60.94 kg/m2 Referring Provider Unknown PS-Ygbxticiqprsy-GLS [place] [address] Work Phone: 04-22-2021 11:00-0400 Body surface area Derived from formula 2.5 m2 Referring Provider Unknown SK-Mvtxtobzhizuw-COX [place] [address] Work Phone: 04-22-2021 11:00-0400 Body weight 161.03 kg Referring Provider Unknown YJ-Efixzjkklkoyr-LGV [place] [address] Work Phone: 04-22-2021 11:00-0400 Diastolic blood pressure 84 mm[Hg] Referring Provider Unknown XK-Bpwnwlqgtmiym-QPD [place] [address] Work Phone: 04-22-2021 11:00-0400 Heart rate 111 /min Referring Provider Unknown RL-Bvcktcwqkcewc-ZTP [place] [address] Work Phone: 04-22-2021 11:00-0400 Systolic blood pressure 147 mm[Hg] Referring Provider Unknown MC-Cfgukphyeivdy-DIP [place] [address] Work Phone: 04-22-2021 11:00-0400 0 1 Referring Provider Unknown PU-Cpgeemblyxgro-LOL [place] [address] Work Phone: Comment on above: [employer] Encounters Encounter Date Encounter Type Care Provider Facility Start: 12-10-2024 End: 12-10-2024 Telephone encounter Kacey CROSS Work Phone: [facility] Start: 12-09-2024 End: 12-09-2024 Bamboo flowsheet Kacey CROSS Work Phone: [facility] Start: 12-09-2024 End: 12-09-2024 Bamboo flowsheet Kacey CROSS Work Phone: [facility] Start: 12-09-2024 End: 12-09-2024 Office outpatient visit 15 minutes Kacey CROSS Work Phone: [facility] Comment on above: Exposure to STD; Vaginitis due to Trichomonas Start: 12-09-2024 End: 12-09-2024 ambulatory KACEY MONROE Not Available Start: 10-30-2024 End: 10-30-2024 Office outpatient visit 15 minutes Kacey CROSS Work Phone: [facility] Comment on above: Trichomonas vaginali s (TV) infection Start: 10-30-2024 End: 10-30-2024 ambulatory KACEY MONROE Not Available Start: 10-30-2024 End: 10-30-2024 Bamboo flowsheet Kacey CROSS Work Phone: [facility] Start: 10-30-2024 End: 10-30-2024 Bamboo flowsheet Kacey CROSS Work Phone: [facility] Start: 10-03-2024 End: 10-03-2024 Office outpatient visit 15 minutes Brad Walter MD Work Phone: [facility] Comment on above: Superior vena cava o cclusion (Multi); Severe sleep apnea; Incomplete left bundle branch block; BMI 60.0-69.9, adult (Multi); Former smoker; Obesity, morbid (Multi) Start: 10-03-2024 End: 10-03-2024 ambulatory [facility] Ambulatory Start: 09-22-2024 End: 09-22-2024 Bamboo flowsheet Kacey CROSS Work Phone: [facility] Start: 09-22-2024 End: 09-22-2024 Bamboo flowsheet Kacey CROSS Work Phone: [facility] Start: 09-22-2024 End: 09-22-2024 Office outpatient visit 15 minutes Kacey CROSS Work Phone: [facility] Comment on above: Trichomonas vaginali s (TV) infection Start: 09-22-2024 End: 09-22-2024 ambulatory KACEY MONROE Not Available Start: 08-21-2024 End: 08-21-2024 ambulatory KACEY MONROE Not Available Start: 08-21-2024 End: 08-21-2024 Office outpatient visit 15 minutes Kacey CROSS Work Phone: [facility] Comment on above: Trichomonas vaginali s (TV) infection; Urinary tract infection without hematuria, site unspecified; Yeast infection Start: 08-21-2024 End: 08-21-2024 Bamboo flowsheet Kacey CROSS Work Phone: [facility] Start: 08-21-2024 End: 08-21-2024 Bamboo flowsheet Kacey CROSS Work Phone: [facility] Start: 07-09-2024 End: 07-09-2024 Office outpatient visit 15 minutes Amy Asif DO Work Phone: [facility] Comment on above: Exposure to STD; Vaginal irritation; Urethral irritation Start: 07-09-2024 End: 07-09-2024 ambulatory AMY ASIF Not Available Start: 07-09-2024 End: 07-09-2024 Bamboo flowsheet Amy Asif DO Work Phone: [facility] Start: 07-09-2024 End: 07-10-2024 External Result Encounter May Asif DO Work Phone: [facility] Unsolicited Start: 07-09-2024 End: 07-10-2024 External Result Encounter Amy Asif DO Work Phone: [facility] Unsolicited Start: 08-13-2023 End: 08-13-2023 Office outpatient visit 15 minutes Brad Walter MD Work Phone: [facility] Comment on above: Obesity, morbid (CMS /HCC) (Primary Dx); Pre-operative clearance; Severe sleep apnea; Encounter to discuss test results Start: 08-13-2023 End: 08-13-2023 Preoperative state Brad Walter MD Work Phone: [facility] Work Phone: Start: 08-01-2023 Chart Update Emmie tyler Work Phone: [facility] [address] DO Work Phone: Start: 07-31-2023 Encounter for other preprocedural examination Brad Walter [facility] Start: 07-31-2023 ambulatory Brad Walter Facility:[id number] Start: 06-29-2023 ambulatory Brad Walter Facility:9 [id number] Start: 06-25-2023 AUDIT Emmie tyler Work Phone: [facility] [address] DO Work Phone: Start: 05-21-2023 End: 05-22-2023 ambulatory [facility] Facility:[facility] Start: 05-07-2023 Office consultation new/estab patient 60 min Emmie Lenz Work Phone: [facility] [address] DO Work Phone: Start: 05-07-2023 ambulatory MD BRAD WALTER Facilit y: Start: 03-19-2023 End: 03-19-2023 ambulatory FELY ECHEVARRIA Facility:H1 Start: 03-03-2023 End: 03-03-2023 ambulatory Didi Mendoza Other [facility] Other Start: 03-03-2023 Office outpatient ne w [...] 40 minutes Emmie Lenz Work Phone: [facility] Work Phone: Start: 05-03-2021 Patient encounter procedure Referring Provider Unknown GB-Qweozbxxlx-Emjkke Work Phone: Start: 04-22-2021 Office consultation new/estab patient 60 min Referring Provider Unknown [facility]Infectious Disease[facility] [place] [address] Work Phone: Start: 04-22-2021 Patient encounter procedure Referring Provider Unknown ZA-Muwjgbvobqouq-RDW [place] [address] Work Phone: Start: 03-22-2021 Office outpatient ne w 60 minutes Emmie Lenz Work Phone: [facility] Work Phone: Patient encounter status Emmie Lenz Work Phone: [facility] [address] DO Work Phone: Procedures Date Procedure Procedure Detail Performing Clinician Start: 09-22-2024 Urnls dip stick/tabl et rgnt non-auto w/o micrscp Kacey CROSS Work Phone: Start: 08-21-2024 Urnls dip stick/tabl et rgnt non-auto w/o micrscp Kacey CROSS Work Phone: Start: 07-09-2024 URINARY TRACT INFECT ION (HTRX) Amy Asif DO Work Phone: Start: 07-31-2023 Echocardiography Emmie Lenz Work Phone: Biopsy of lung Emmie Parker er Work Phone: Operative procedure on foot Emmie Lenz Work Phone: Plan of Treatment Date Care Activity Detail Author Start: 02-22-2034 Zoster Vaccines (1 o f 2) Zoster Vaccines (1 of 2) [facility] Start: 12-09-2024 End: 12-09-2024 Patient encounter procedure 12/09/2024 9:10 AM EST Office Visit [facility] [address] [place] [address] [place] [address] Kacey Monroe PA [address] [place] [place] [address] Arrived [facility] Comment on above: Arrived Start: 10-30-2024 End: 10-30-2024 Patient encounter procedure 10/30/2024 3:10 PM EST Office Visit [facility] [address] [place] [id number] Kacey Monroe PA [address] [place] [address] Arrived [facility] Comment on above: Arrived Start: 10-22-2024 End: 10-22-2024 Patient encounter procedure 10/22/2024 1:10 PM EST Office Visit [facility] [address] [place] [address] Amy Gold, [address] [place], [facility] Start: 08-14-2024 End: 08-14-2024 Patient encounter procedure 08/14/2024 2:00 PM EDT Office Visit [facility] [address] [facility] [address] [place] [address] Brad Walter MD [address] [facility] [address] [place] [address] [facility] Start: 07-23-2024 End: 07-23-2024 Patient encounter procedure 07/23/2024 2:30 PM EDT Office Visit [facility] [address] [place] [address] Amy Gold DO [address] [place] [address] [facility] Start: 07-13-2024 COVID-19 Vaccine ( season) COVID-19 Vaccine ( season) [facility] Start: 07-13-2024 Influenza vaccination Influenza Vacc ine (#1) [facility] Start: 07-09-2024 End: 07-09-2024 Patient encounter procedure 07/09/2024 3:00 PM EDT Office Visit [facility] [address] [place] [phone] Amy Gold, DO [address] [place] [address] Arrived [facility] Comment on above: Arrived Start: 2024 Screening for malign ant neoplasm of breast Mammogram [facility] Start: 08-13-2023 FUV, Provider: Brad Walter, Status: Pen, Time: 2:15 PM FUV, Provider: Brad Walter, Status: Pen, Time: 2:15 PM [facility] [employer] 250 DO Work Phone: Start: 07-31-2023 ECHO, Provider: JOLYNN ANDERSENI ULTRASOUND 01,[id number], Status: Pen, Time: 8:45 AM ECHO, Provider: JOLYNN HHVI ULTRASOUND 01,[id number], Status: Pen, Time: 8:45 AM [facility] [employer] [facility] 250 DO Work Phone: Start: 07-31-2023 STRESS NUC, Provider : JOLYNN HHVI NUCLEAR 01,[id number], Status: Pen, Time: 8:00 AM STRESS NUC, Provider: JOLYNN HHVI NUCLEAR 01,[id number], Status: Pen, Time: 8:00 AM [facility] [facility] [address] DO Work Phone: Start: 07-13-2023 Influenza vaccination Influenza Vacc ine (#1) [facility] Start: 06-25-2023 FUV, Provider: Brad Walter, Status: Pen, Time: 10:45 AM FUV, Provider: Brad Walter, Status: Pen, Time: 10:45 AM [facility] 250 DO Work Phone: Start: 06-21-2023 ECHO, Provider: JOLYNN HHVI ULTRASOUND 01,[id number], Status: Pen, Time: 12:30 PM ECHO, Provider: JOLYNN HHVI ULTRASOUND 01,[id number], Status: Pen, Time: 12:30 PM [facility] [address] DO Work Phone: Start: 06-21-2023 STRESS SRIKANTH, Provider : JOLYNN HHVI NUCLEAR 01,[id number], Status: Pen, Time: 11:30 AM STRESS SRIKANTH, Provider: JOLYNN HHVI NUCLEAR 01,[id number], Status: Pen, Time: 11:30 AM [facility] [address] DO Work Phone: Start: 05-03-2021 VIRFUVHOME, Provider : Dianna Acosta, Status: Pen, Time: 9:00 AM VIRFUVHOME, Provider: Dianna Acosta, Status: Pen, Time: 9:00 AM [facility]Xqobkhjahrqjs-ESG [place] [address] Work Phone: Start: 02-22-2014 Screening for malign ant neoplasm of cervix [facility] Start: 02-22-2006 DTaP/Tdap/Td Vaccine s (1 - Tdap) DTaP/Tdap/Td Vaccines (1 - Tdap) [facility] Start: 02-22-2005 Screening for malign ant neoplasm of cervix [facility] Start: 02-22-2003 Hepatitis B Vaccines (1 of 3 - 19+ 3-dose series) Hepatitis B Vaccines (1 of 3 - 19+ 3-dose series) [facility] Start: 02-22-2002 Diabetes mellitus screening Diabetes Screening [facility] Start: 02-22-2002 Hepatitis C screening Hepatitis C Sc [facility] Start: 02-22-1997 Varicella vaccination Varicell a Vaccines (1 of 2 - 13+ 2-dose series) [facility] Start: 02-22-1985 MMR Vaccines (1 of 1 - Standard series) MMR Vaccines (1 of 1 - Standard series) [facility] Start: 02-22-1985 Varicella vaccination Varicell a Vaccines (1 of 2 - 2-dose childhood series) [facility] Start: 1984 COVID-19 Vaccine (#1) COVID-19 Vacci ne (#1) [facility] Start: 1984 Hepatitis B Vaccines (1 of 3 - 3-dose series) Hepatitis B Vaccines (1 of 3 - 3-dose series) [facility] Start: 1984 HIV screening HIV Screening [facility] Start: 1984 Lipid panel Lipid Panel [facility] Start: 1984 Yearly Adult Physical Yearly Adult P hysical [facility] Bacteria identified in Urine by Culture Urine culture Microbiology Routine Urinary tract infection without hematuria, site unspecified Ordered: 08/21/2024 [facility] Work Phone: Comment on above: Ordered: 08/21/2024 CHLAMYDIA TRACHOMATI S (GENITO/STI) CHLAMYDIA TRACHOMATIS (GENITO/STI) Lab Routine Trichomonas vaginalis (TV) infection Ordered: 09/22/2024 [facility] Comment on above: Ordered: 09/22/2024 CHLAMYDIA TRACHOMATI S (GENITO/STI) CHLAMYDIA TRACHOMATIS (GENITO/STI) Lab Routine Exposure to STD Ordered: 07/09/2024 [facility] Comment on above: Ordered: 07/09/2024 CHLAMYDIA TRACHOMATI S (GENITO/STI) CHLAMYDIA TRACHOMATIS (GENITO/STI) Lab Routine Trichomonas vaginalis (TV) infection Ordered: 10/30/2024 [facility] Comment on above: Ordered: 10/30/2024 CHLAMYDIA TRACHOMATI S (GENITO/STI) CHLAMYDIA TRACHOMATIS (GENITO/STI) Lab Routine Exposure to STD Vaginitis due to Trichomonas Ordered: 12/09/2024 [facility] Comment on above: Ordered: 12/09/2024 Neisseria gonorrhoea e DNA [Presence] in Unspecified specimen by MARYCARMEN with probe detection Neisseria gonorrhea DNA probe, direct Lab Routine Trichomonas vaginalis (TV) infection Ordered: 09/22/2024 [facility] Comment on above: Ordered: 09/22/2024 Neisseria gonorrhoea e DNA [Presence] in Unspecified specimen by MARYCARMEN with probe detection Neisseria gonorrhea DNA probe, direct Lab Routine Exposure to STD Ordered: 07/09/2024 [facility] Comment on above: Ordered: 07/09/2024 Neisseria gonorrhoea e DNA [Presence] in Unspecified specimen by MARYCARMEN with probe detection Neisseria gonorrhea DNA probe, direct Lab Routine Trichomonas vaginalis (TV) infection Ordered: 10/30/2024 [facility] Comment on above: Ordered: 10/30/2024 Neisseria gonorrhoea e DNA [Presence] in Unspecified specimen by MARYCARMEN with probe detection Neisseria gonorrhea DNA probe, direct Lab Routine Exposure to STD Ordered: 12/09/2024 [facility] Comment on above: Ordered: 12/09/2024 SURESWAB(R) ADVANCED VAGINITIS PLUS, TMA SURESWAB(R) ADVANCED VAGINITIS PLUS, TMA Pathology and Cytology Routine Trichomonas vaginalis (TV) infection Ordered: 09/22/2024 [facility] Work Phone: Comment on above: Ordered: 09/22/2024 SURESWAB(R) ADVANCED VAGINITIS PLUS, TMA SURESWAB(R) ADVANCED VAGINITIS PLUS, TMA Pathology and Cytology Routine Exposure to STD Ordered: 07/09/2024 [facility] Work Phone: Comment on above: Ordered: 07/09/2024 SURESWAB(R) ADVANCED VAGINITIS PLUS, TMA SURESWAB(R) ADVANCED VAGINITIS PLUS, TMA Pathology and Cytology Routine Trichomonas vaginalis (TV) infection Ordered: 10/30/2024 [facility] Work Phone: Comment on above: Ordered: 10/30/2024 SURESWAB(R) ADVANCED VAGINITIS PLUS, TMA SURESWAB(R) ADVANCED VAGINITIS PLUS, TMA Pathology and Cytology Routine Exposure to STD Vaginitis due to Trichomonas Ordered: 12/09/2024 [facility] Work Phone: Comment on above: Ordered: 12/09/2024 Payers Date Payer Category Payer Medicaid [employer] [place] [id number] 2024-Present [address] [place] [address] [id number] 2023 Managed Care (Private) [facility] [id number] 2023 Private Health Insurance [id number] 2023 Unknown [id number] 2020 Unknown [id number] 2018 Medicaid (Managed Care) [facility] [id number] 2018 Unknown 1984 Unknown [id number]. 593 1984 Unknown [id number] 2.16840.1.580462.3.579.2. 356 1984 Unknown [id number] 2.16840.1.324099.3.579.2. 727 1984 Unknown [id number] 2.16.840.1.939865.3.579.2. 727 1984 Unknown [id number] 2.16840.1.908197.3.579.2. 727 1984 Unknown [id number] 2.16.840.1.794285.3.579.2. 727 1984 Unknown [id number] 2.16.840.1.187070.3.579.2. 727 1984 Unknown [id number] 2.16.840.1.984021.3.579.2. 8 1984 Unknown [id number] 2.16.840.1.670213.3.579.2. 1068 1984 Unknown [id number] 2.16.840.1.504174.3.579.2. 1244 1984 Unknown [id number] 2.16.840.1.124992.3.579.2. 9 1984 Unknown [id number] 2.16.840.1.946472.3.579.2. 9 1984 Unknown [id number] 2.16.840.1.418666.3.579.2. 9 1984 Unknown [id number] 2.16.840.1.704154.3.579.2. 9 1984 Unknown [id number] 2.16.840.1.309843.3.579.2. 1259 1959 Medicaid [id number] [id number] Unknown [id number] Social History Date Type Detail Facility Start: 08-13-2023 End: 10-03-2024 Former smoker Former smoker [facility] Work Phone: Tobacco smoking status No Smokin g Status Entered [facility] Start: 08-13-2023 Sex Assigned At Female [facility] Start: 08-13-2023 End: 10-03-2024 Tobacco smoking status NHIS Ex-smoker [facility] Start: 11-12-2000 End: 11-12-2020 History of tobacco use Current smoker [facility] Work Phone: Start: 11-12-2000 End: 11-12-2020 History of tobacco use Cigarette Smoker [facility] Work Phone: Start: 08-13-2023 End: 10-03-2024 Tobacco use and exposure Smokeless tobacco non-user [facility] Work Phone: Start: 08-13-2023 Alcohol intake Ex-drinker (finding) [facility] Work Phone: Start: 1985 Sex Assigned At Not on file [facility] Work Phone: Start: 08-03-2023 End: 10-03-2024 Exposure to SARS-CoV-2 (event) Not sure [facility] Start: 1985 Sex assigned at Female [facility] Start: 07-10-2024 Gender identity Identifies as female gender (finding) [facility] Start: 07-10-2024 Sexual orientation Heterosexual (finding) [facility] Start: 10-03-2024 Alcoholic beverage intake Lifetime non-drinker (finding) [facility] Work Phone: Medical Equipment Procedure Code Equipment Code Equipment Original Text Equipment Identifier Dates [facility] 22g Case [id number] Start: 02-20-2022 Comment on above: Description: Convert ed from [facility]. Please see archived information for full log information. Additional Information:[facility]10[facility]22 Clinical Notes 05-12-2020 to 12-10-2024 Telephone Encounter - AMERICA Donahue - 12/10/2024 10:52 AM ESTTelephone Encounter - AMERICA Donahue - 12/10/2024 10:52 AM AMERICA Neville - 12/09/2024 9:10 AM AMERICA Neville - 10/30/2024 3:10 PM EST Note Date & Type Note Facility 12-10-2024 Telephone encounter Note Patient notified of results. Patient not tolerating treatment of gel or oral flagyl previously. We will send in script for tinidazole 2g for 7 days [facility] 12-10-2024 Miscellaneous Notes Patient notified of results. Patient not tolerating treatment of gel or oral flagyl previously. We will send in script for tinidazole 2g for 7 days documented in this encounter [facility] 12-09-2024 History of Presen t illness Narrative Reason for Appointment: Patient ID: Dinesh Selby is a 39 y.o. female who presents for STI Screening (PT present for JOSE L. Pt tested +for BV/Trich.) Patient presents today for STD Check. MEDICATIONS Current Outpatient Medications Medication Instructions sertraline (ZOLOFT) 75 mg, Every 24 hours ALLERGIES Allergies Allergen Reactions Amoxicillin Anaphylaxis and Angioedema Penicillin G Anaphylaxis Nystatin Other Reaction(s): Other Adverse Reaction : skin infection Sulfa Antibiotics Other Reaction(s): Other, Unknown Flagyl [Metronidazole] Anxiety Had weird taste in mouth and blacked out PROBLEMS Active Ambulatory Problems Diagnosis Date Noted No Active Ambulatory Problems Resolved Ambulatory Problems Diagnosis Date Noted No Resolved Ambulatory Problems Past Medical History: Diagnosis Date Heart abnormality Urogenital trichomoniasis HISTORY PAST MEDICAL HISTORY SOCIAL HISTORY Past Medical History: Diagnosis Date Heart abnormality restriction of vena cava Urogenital trichomoniasis Social History Tobacco Use Smoking status: Not on file Smokeless tobacco: Not on file Substance Use Topics Alcohol use: Not on file Drug use: Not on file FAMILY HISTORY Family History Problem Relation Name Age of Onset Cancer Other Diabetes Other Heart disease Other SURGICAL HISTORY Past Surgical History: Procedure Laterality Date LUNG BIOPSY negative REVIEW OF SYSTEMS Review of Systems: Review of Systems All other systems reviewed and are negative. OBJECTIVE Objective: Physical Exam Constitutional: Appearance: Normal appearance. Genitourinary: Right Adnexa: not tender and no mass present. Left Adnexa: not tender and no mass present. No cervical discharge. Breasts: Breasts are soft. Right: Normal. Left: Normal. HENT: Head: Normocephalic. Nose: Nose normal. Mouth/Throat: Mouth: Mucous membranes are moist. Cardiovascular: Rate and Rhythm: Normal rate. Pulmonary: Effort: Pulmonary effort is normal. Abdominal: General: Bowel sounds are normal. Palpations: Abdomen is soft. Musculoskeletal: General: Normal range of motion. Cervical back: Normal range of motion. Neurological: General: No focal deficit present. Mental Status: She is alert. Skin: General: Skin is warm and dry. Psychiatric: Mood and Affect: Mood normal. Vitals and nursing note reviewed. Exam conducted with a real estate associate attorney present. Vitals: Estimated body mass index is 64.54 kg/m as calculated from the following: Height as of 07/09/24: 5' 4 . Weight as of 10/30/24: 376 lb. BP: No LMP recorded. ASSESSMENT & PLAN ICD-10-CM 1. Exposure to STD Z20.2 2. Vaginitis due to Trichomonas A59.01 Pt present for std visit. Pt tested positive for BV/Trichomonas on 10/30/2024. Pt to have cx's done at today's visit for JOSE L. Cx's were collected by Kacey Monroe and advised results may take up to 2 days to return. Pt verbally understood. Documented by Jenifer Kay MA on behalf of: AMERICA Donahue documented in this encounter [facility] 10-30-2024 History of Presen t illness Narrative Reason for Appointment: Patient ID: Dinesh Selby is a 39 y.o. female who presents for STI Screening Patient presents today for STD Check. MEDICATIONS Current Outpatient Medications Medication Instructions sertraline (ZOLOFT) 75 mg, Every 24 hours ALLERGIES Allergies Allergen Reactions Amoxicillin Anaphylaxis and Angioedema Penicillin G Anaphylaxis Nystatin Other Reaction(s): Other Adverse Reaction : skin infection Sulfa Antibiotics Other Reaction(s): Other, Unknown Flagyl [Metronidazole] Anxiety Had weird taste in mouth and blacked out PROBLEMS Active Ambulatory Problems Diagnosis Date Noted No Active Ambulatory Problems Resolved Ambulatory Problems Diagnosis Date Noted No Resolved Ambulatory Problems Past Medical History: Diagnosis Date Heart abnormality Urogenital trichomoniasis HISTORY PAST MEDICAL HISTORY SOCIAL HISTORY Past Medical History: Diagnosis Date Heart abnormality restriction of vena cava Urogenital trichomoniasis Social History Tobacco Use Smoking status: Not on file Smokeless tobacco: Not on file Substance Use Topics Alcohol use: Not on file Drug use: Not on file FAMILY HISTORY Family History Problem Relation Name Age of Onset Cancer Other Diabetes Other Heart disease Other SURGICAL HISTORY Past Surgical History: Procedure Laterality Date LUNG BIOPSY negative REVIEW OF SYSTEMS Review of Systems: Review of Systems Constitutional: Negative. HENT: Negative. Eyes: Negative. Respiratory: Negative. Cardiovascular: Negative. Gastrointestinal: Negative. Genitourinary: Negative. Musculoskeletal: Negative. Skin: Negative. Neurological: Negative. All other systems reviewed and are negative. Hematological: Negative. Endocrine: Negative. Allergic/Immunologic: Negative. OBJECTIVE Objective: Physical Exam Constitutional: Appearance: Normal appearance. She is well-developed. Cardiovascular: Rate and Rhythm: Normal rate and regular rhythm. Pulmonary: Effort: Pulmonary effort is normal. Breath sounds: Normal breath sounds. Abdominal: General: Bowel sounds are normal. There is no distension. Palpations: Abdomen is soft. Tenderness: There is no abdominal tenderness. There is no guarding or rebound. Musculoskeletal: General: No swelling. Normal range of motion. Right lower leg: No edema. Left lower leg: No edema. Neurological: Mental Status: She is alert and oriented to person, place, and time. Skin: General: Skin is warm and dry. Psychiatric: Mood and Affect: Mood normal. Behavior: Behavior normal. Vitals and nursing note reviewed. Exam conducted with a real estate associate attorney present. Vitals: Estimated body mass index is 64.54 kg/m as calculated from the following: Height as of 24: 5' 4 . Weight as of this encounter: 376 lb. BP: 130/80 Patient's last menstrual period was 10/27/2024 (within weeks). ASSESSMENT & PLAN ICD-10-CM 1. Trichomonas vaginalis (TV) infection A59.01 SURESWAB(R) ADVANCED VAGINITIS PLUS, TMA CHLAMYDIA TRACHOMATIS (GENITO/STI) Neisseria gonorrhea DNA probe, direct Patient presents today for STI JOSE L and cultures obtained without difficulty. Patient presents for persistent trichomonas, did not tolerate flagyl and gel does not seem to be working. We will send in alternative medication to see if it helps. Documented by Aury Graff LPN on behalf of: AMERICA Donahue documented in this encounter [facility] 10-03-2024 History of Presen t illness Narrative Patient was last seen by me in August 2023. Subjective : She previously saw me for preoperative cardiac risk assessment for bariatric surgery. Due to multiple situational stressors, she has put the surgery on hold. She has not been able to lose weight by other means, and some of the medications for weight loss are not covered by her insurance. Her BMI today is 64.5. She does have some shortness of breath associated with this. Today she also told me about some constriction around her vein right side of the neck. I reviewed prior notes by Dr. Chu.h, At 1 point there was concern for mediastinal lymphadenopathy, she had biopsy, proved to be granuloma. History so Far : 1. Patient is here for preoperative cardiac risk assessment prior to bariatric surgery details of surgery not available procedure to be done at [facility] in [place] by Dr. Sagastume. 2. Chest discomfort-etiology unclear 3. Abnormal R wave progression on EKG no prior EKG for comparison 4. Shortness of breath with activity 5. Not clinically volume overloaded 6. Patient denies symptoms of obstructive sleep apnea or a diagnosis of that 7. Hilar adenopathy, underwent biopsy, patient reports that her diagnosis is histoplasmosis. 8. [id number] history of smoking, quit 2020. 9. History [...] volume index 14 mL per metered square 12. 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 Objective Wt Readings from Last 3 Encounters: 10/03/24 (!) 171 kg (376 lb) 08/13/23 (!) 169 kg (373 lb) 05/07/23 (!) 171 kg (377 lb) Vitals: 10/03/24 1029 BP: 118/78 BP Location: Right arm Patient Position: Sitting Pulse: 88 Weight: (!) 171 kg (376 lb) Height: 1.626 m (5' 4 ) Physical Exam: GENERAL APPEARANCE: in no acute distress. CHEST: Symmetric and non-tender. INTEGUMENT: Skin warm and dry HEENT: No gross abnormalities identified.No pallor or scleral icterus. NECK: Supple, no JVD, no bruit. Within the limits of her body habitus jugular venous distention or venous hum or mass was not palpable NEURO/PSHCY: Alert and oriented x3; appropriate behavior and responses and responses LUNGS: Clear to auscultation bilaterally; normal respiratory effort. HEART: Rate and rhythm regular with no evident murmur; no gallop appreciated. ABDOMEN: Soft, non tender. Abdomen is obese. There are very prominent veins on the anterior abdominal wall MUSCULOSKELETAL: No gross deformities. EXTREMITIES: Warm There is no edema noted. Meds: Current Outpatient Medications Medication Instructions clotrimazole (Lotrimin) 1 % cream APPLY SPARINGLY TO AFFECTED AREA(S) TWICE DAILY as needed sertraline (ZOLOFT) 50 mg, Daily Allergies Allergen Reactions Amoxicillin Anaphylaxis and Angioedema Nystatin Other Adverse Reaction : skin infection Sulfa (Sulfonamide Antibiotics) Other and Unknown Metronidazole Anxiety Had weird taste in mouth and blacked out LABS: Lab Results Component Value Date WBC 10.2 02/17/2022 HGB 11.8 (L) 02/17/2022 HCT 36.2 02/17/2022 PLT 315 02/17/2022 NA 139 02/17/2022 K 3.9 02/17/2022 CL 105 02/17/2022 CREATININE 0.60 02/17/2022 BUN 12 02/17/2022 CO2 29 02/17/2022 INR 1.1 02/17/2022 Patient Active Problem List Diagnosis Date Noted Former smoker 10/03/2024 Severe sleep apnea 08/13/2023 Pre-operative clearance 08/13/2023 Encounter to discuss test results 08/13/2023 Chest mass 08/08/2023 Histoplasmosis 08/08/2023 Lung nodule 08/08/2023 Obesity, morbid (Multi) 08/08/2023 Superior vena cava occlusion (Multi) 08/08/2023 Abnormal EKG 08/08/2023 Chest pain 08/08/2023 Incomplete left bundle branch block 08/08/2023 Assessment: 1. Superior vena cava occlusion (Multi) 2. Severe sleep apnea 3. Incomplete left bundle branch block 4. BMI 60.0-69.9, adult (Multi) 5. Former smoker 6. Obesity, morbid (Multi) I think the risk-benefit ratio here favors her bariatric surgical procedure. I have encouraged her to see the bariatric surgeon again. Prior to the surgery, I would get input from Dr. Dianna Acosta as to whether the chronic SVC occlusion requires any particular precautions. She will come back if she needs additional POC. Follow up :prn Provider Attestation - Scribe documentation All medical record entries made by the Scribe were at my direction and personally dictated by me. I have reviewed the chart and agree that the record accurately reflects my personal performance of the history, physical exam, discussion and plan. Scribe Attestation By signing my name below, I, Sheri Good LPN attest that this documentation has been prepared under the direction and in the presence of Brad Walter MD. documented in this encounter [facility] Work Phone: 10-03-2024 Instructions Sapphire Pickard LPN - 10/03/2024 10:30 AM EST Please bring all medicines, vitamins, and herbal supplements with you when you come to the office. Prescriptions will not be filled unless you are compliant with your follow up appointments or have a follow up appointment scheduled as per instruction of your physician. Refills should be requested at the time of your visit. BMI was above normal measurement. Current weight: (!) 171 kg (376 lb) Weight change since last visit (-) denotes wt loss 3 lbs Weight loss needed to achieve BMI 25: 230.7 Lbs Weight loss needed to achieve BMI 30: 201.6 Lbs Provided instructions on dietary changes Provided instructions on exercise. Follow up ordered as needed only documented in this encounter [facility] Work Phone: 09-22-2024 History of Presen t illness Narrative Reason for Appointment: Patient ID: Dinesh Selby is a 39 y.o. female who presents for STI Screening Patient presents today for STD Check. MEDICATIONS Current Outpatient Medications Medication Instructions sertraline (ZOLOFT) 75 mg, Every 24 hours ALLERGIES Allergies Allergen Reactions Amoxicillin Anaphylaxis and Angioedema Penicillin G Anaphylaxis Nystatin Other Reaction(s): Other Adverse Reaction : skin infection Sulfa Antibiotics Other Reaction(s): Other, Unknown Flagyl [Metronidazole] Anxiety Had weird taste in mouth and blacked out PROBLEMS Active Ambulatory Problems Diagnosis Date Noted No Active Ambulatory Problems Resolved Ambulatory Problems Diagnosis Date Noted No Resolved Ambulatory Problems Past Medical History: Diagnosis Date Heart abnormality Urogenital trichomoniasis HISTORY PAST MEDICAL HISTORY SOCIAL HISTORY Past Medical History: Diagnosis Date Heart abnormality restriction of vena cava Urogenital trichomoniasis Social History Tobacco Use Smoking status: Not on file Smokeless tobacco: Not on file Substance Use Topics Alcohol use: Not on file Drug use: Not on file FAMILY HISTORY Family History Problem Relation Name Age of Onset Cancer Other Diabetes Other Heart disease Other SURGICAL HISTORY Past Surgical History: Procedure Laterality Date LUNG BIOPSY negative REVIEW OF SYSTEMS Review of Systems: Review of Systems Constitutional: Negative. HENT: Negative. Eyes: Negative. Respiratory: Negative. Cardiovascular: Negative. Gastrointestinal: Negative. Genitourinary: Negative. Musculoskeletal: Negative. Skin: Negative. Neurological: Negative. All other systems reviewed and are negative. Hematological: Negative. Endocrine: Negative. Allergic/Immunologic: Negative. OBJECTIVE Objective: Physical Exam Constitutional: Appearance: Normal appearance. She is well-developed. Cardiovascular: Rate and Rhythm: Normal rate and regular rhythm. Pulmonary: Effort: Pulmonary effort is normal. Breath sounds: Normal breath sounds. Abdominal: General: Bowel sounds are normal. There is no distension. Palpations: Abdomen is soft. Tenderness: There is no abdominal tenderness. There is no guarding or rebound. Musculoskeletal: General: No swelling. Normal range of motion. Right lower leg: No edema. Left lower leg: No edema. Neurological: Mental Status: She is alert and oriented to person, place, and time. Skin: General: Skin is warm and dry. Psychiatric: Mood and Affect: Mood normal. Behavior: Behavior normal. Vitals and nursing note reviewed. Exam conducted with a real estate associate attorney present. Vitals: Estimated body mass index is 63.87 kg/m as calculated from the following: Height as of 07/09/24: 5' 4 . Weight as of this encounter: 372 lb 1.9 oz. BP: 112/70 Patient's last menstrual period was 08/23/2024. ASSESSMENT & PLAN ICD-10-CM 1. Trichomonas vaginalis (TV) infection A59.01 SURESWAB(R) ADVANCED VAGINITIS PLUS, TMA CHLAMYDIA TRACHOMATIS (GENITO/STI) Neisseria gonorrhea DNA probe, direct POCT urinalysis dipstick manually resulted Patient returns for recheck for trichomonas infection. Pt states stopped medication part way through while on her menstral cycle and restarted when completed with vaginal inserts. JOSE L otained today. Patient presents today for a re-check. Cultures obtained without difficulty. Documented by Aury Graff LPN on behalf of: AMERICA Donahue documented in this encounter [facility] 08-21-2024 History of Presen t illness Narrative Reason for Appointment: Patient ID: Dinesh Selby is a 39 y.o. female who presents for STI Screening (Pt present today for JOSE L visit. Pt tested + for Trichomoniasis./) Patient presents today for STD Check. MEDICATIONS Current Outpatient Medications Medication Instructions sertraline (ZOLOFT) 75 mg, Oral, Every 24 hours terconazole (Terazol 7) 0.4 % vaginal cream 1 applicator, Vaginal, Nightly ALLERGIES Allergies Allergen Reactions Amoxicillin Anaphylaxis and Angioedema Penicillin G Anaphylaxis Nystatin Other Reaction(s): Other Adverse Reaction : skin infection Sulfa Antibiotics Other Reaction(s): Other, Unknown Flagyl [Metronidazole] Anxiety Had weird taste in mouth and blacked out PROBLEMS Active Ambulatory Problems Diagnosis Date Noted No Active Ambulatory Problems Resolved Ambulatory Problems Diagnosis Date Noted No Resolved Ambulatory Problems Past Medical History: Diagnosis Date Heart abnormality Urogenital trichomoniasis HISTORY PAST MEDICAL HISTORY SOCIAL HISTORY Past Medical History: Diagnosis Date Heart abnormality restriction of vena cava Urogenital trichomoniasis Social History Tobacco Use Smoking status: Not on file Smokeless tobacco: Not on file Substance Use Topics Alcohol use: Not on file Drug use: Not on file FAMILY HISTORY Family History Problem Relation Name Age of Onset Cancer Other Diabetes Other Heart disease Other SURGICAL HISTORY Past Surgical History: Procedure Laterality Date LUNG BIOPSY negative REVIEW OF SYSTEMS Review of Systems: Review of Systems Constitutional: Negative. HENT: Negative. Eyes: Negative. Respiratory: Negative. Cardiovascular: Negative. Gastrointestinal: Negative. Genitourinary: Negative. Musculoskeletal: Negative. Skin: Negative. Neurological: Negative. All other systems reviewed and are negative. Hematological: Negative. Endocrine: Negative. Allergic/Immunologic: Negative. OBJECTIVE Objective: Physical Exam Constitutional: Appearance: Normal appearance. She is normal weight. Genitourinary: Right Adnexa: not tender and no mass present. Left Adnexa: not tender and no mass present. No cervical discharge. Breasts: Breasts are soft. Right: Normal. Left: Normal. HENT: Head: Normocephalic. Nose: Nose normal. Mouth/Throat: Mouth: Mucous membranes are moist. Cardiovascular: Rate and Rhythm: Normal rate. Pulses: Normal pulses. Pulmonary: Effort: Pulmonary effort is normal. Breath sounds: Normal breath sounds. Abdominal: General: Bowel sounds are normal. Palpations: Abdomen is soft. Musculoskeletal: General: Normal range of motion. Cervical back: Normal range of motion. Neurological: General: No focal deficit present. Mental Status: She is alert and oriented to person, place, and time. Skin: General: Skin is warm and dry. Psychiatric: Mood and Affect: Mood normal. Behavior: Behavior normal. Thought Content: Thought content normal. Judgment: Judgment normal. Vitals and nursing note reviewed. Exam conducted with a real estate associate attorney present. Vitals: Estimated body mass index is 64.37 kg/m as calculated from the following: Height as of 07/09/24: 5' 4 . Weight as of 07/09/24: 375 lb. BP: No LMP recorded. ASSESSMENT & PLAN ICD-10-CM 1. Trichomonas vaginalis (TV) infection A59.01 2. Urinary tract infection without hematuria, site unspecified N39.0 POCT urinalysis dipstick manually resulted Urine culture 3. Yeast infection B37.9 terconazole (Terazol 7) 0.4 % vaginal cream Pt present today for JOSE L visit. Pt tested positive for Trichomoniasis on 07/10/2024. Pt complains of having vaginal itching since yesterday and used the Terconazole that was leftover from June and feels its not helping. Pt requests to have her urine checked to make sure her UTI is gone. Pt present to today to be retested and medication was taken as directed. Kacey Monroe preformed the cx on the patient and it was sent out to lab along with a urine sample. Documented by Jenifer Kay MA on behalf of: AMERICA Donahue documented in this encounter [facility] 07-09-2024 History of Presen t illness Narrative Reason for Appointment: Patient ID: Dinesh Selby is a 39 y.o. female who presents for vaginal issues Patient presents today for Acute Visit. and STD Check. MEDICATIONS Current Outpatient Medications Medication Instructions sertraline (ZOLOFT) 75 mg, Oral, Every 24 hours ALLERGIES Allergies Allergen Reactions Amoxicillin Sulfa Antibiotics PROBLEMS Active Ambulatory Problems Diagnosis Date Noted No Active Ambulatory Problems Resolved Ambulatory Problems Diagnosis Date Noted No Resolved Ambulatory Problems Past Medical History: Diagnosis Date Heart abnormality HISTORY PAST MEDICAL HISTORY SOCIAL HISTORY Past Medical History: Diagnosis Date Heart abnormality restriction of vena cava Social History Tobacco Use Smoking status: Not on file Smokeless tobacco: Not on file Substance Use Topics Alcohol use: Not on file Drug use: Not on file FAMILY HISTORY Family History Problem Relation Name Age of Onset Cancer Other Diabetes Other Heart disease Other SURGICAL HISTORY Past Surgical History: Procedure Laterality Date LUNG BIOPSY negative REVIEW OF SYSTEMS Review of Systems: Review of Systems Constitutional: Negative. HENT: Negative. Eyes: Negative. Respiratory: Negative. Cardiovascular: Negative. Gastrointestinal: Negative. Genitourinary: Positive for vaginal pain. Musculoskeletal: Negative. Skin: Negative. Neurological: Negative. All other systems reviewed and are negative. Hematological: Negative. Endocrine: Negative. Allergic/Immunologic: Negative. OBJECTIVE Objective: Physical Exam Constitutional: Appearance: Normal appearance. She is well-developed. Genitourinary: Vulva normal. Cardiovascular: Rate and Rhythm: Normal rate and regular rhythm. Pulmonary: Effort: Pulmonary effort is normal. Breath sounds: Normal breath sounds. Abdominal: General: Bowel sounds are normal. There is no distension. Palpations: Abdomen is soft. Tenderness: There is no abdominal tenderness. There is no guarding or rebound. Musculoskeletal: General: No swelling. Normal range of motion. Right lower leg: No edema. Left lower leg: No edema. Neurological: Mental Status: She is alert and oriented to person, place, and time. Skin: General: Skin is warm and dry. Psychiatric: Mood and Affect: Mood normal. Behavior: Behavior normal. Vitals and nursing note reviewed. Exam conducted with a real estate associate attorney present. Vitals: Estimated body mass index is 64.37 kg/m as calculated from the following: Height as of this encounter: 5' 4 . Weight as of this encounter: 375 lb. BP: 130/80 Patient's last menstrual period was 07/05/2024. ASSESSMENT & PLAN ICD-10-CM 1. Exposure to STD Z20.2 SURESWAB(R) ADVANCED VAGINITIS PLUS, TMA CHLAMYDIA TRACHOMATIS (GENITO/STI) Neisseria gonorrhea DNA probe, direct 2. Vaginal irritation N89.8 3. Urethral irritation N36.8 Pt presents as a follow up from Emmie- treated her with cefdinir, diflucan and pyridium. Cultures obtained, discharge noted upon pelvic exam. Labia irritated and red. Pt urine sent for culture. Pt to return for follow up. Rx for terazol 7 and diflucan faxed to pharmacy. Documented by Sonam Carrillo LPN on behalf of: Amy Gold DO documented in this encounter [facility] 08-13-2023 History of Presen t illness Narrative Subjective Patient ID: Dinesh Selby [...] not available procedure to be done at [facility] in [place] by Dr. Sagastume. 2. Chest discomfort-etiology unclear 3. Abnormal R wave progression on EKG no prior EKG for comparison 4. Shortness of breath with activity 5. Not clinically volume overloaded 6. Patient denies symptoms of obstructive sleep apnea or a diagnosis of that 7. Hilar adenopathy, underwent biopsy, patient reports that her diagnosis is histoplasmosis. 8. [id number] history of smoking, quit 2020. 9. History [...] a cardiac standpoint. documented in this encounter [facility] Work Phone: 08-13-2023 Instructions Sapphire Pickard LPN [...] in one year. documented in this encounter [facility] Work Phone: 07-30-2023 History of Presen t illness Narrative 38-year-old without documented coronary artery disease or valvular heart disease is being seen in cardiology consultation at the request of Dr. 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 Yesterday she [...] abnormal R wave progression. Rate is 91 WA interval 140 ms QRS duration 94 ms2 [...] not available procedure to be done at [facility] in [place] by Dr. Sagastume.2. Chest discomfort-etiology unclear3. Abnormal R wave progression on EKG no prior EKG for comparison4. Shortness of breath with activity5. Not clinically volume overloaded6. Patient denies symptoms of obstructive sleep apnea or a diagnosis of that7. Hilar adenopathy, underwent biopsy, patient reports that her diagnosis is histoplasmosis.8. [id number] history of smoking, quit 2020.9. History of [...] information, it is okay to switch to [employer].Follow-up after testingPatient is encouraged to abstain from cigarettes.EchocardiogramThank you for allowing us to participate in Dinesh's care, please do not hesitate to call if further questions arise,Sincerely, [facility] Work Phone: 07-11-2023 History of Presen t illness Narrative 38-year-old without documented coronary artery disease or valvular heart disease is being seen in cardiology consultation at the request of Dr. 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 Yesterday she [...] abnormal R wave progression. Rate is 91 WA interval 140 ms QRS duration 94 ms2 [...] not available procedure to be done at [facility] in [place] by Dr. Sagastume.2. Chest discomfort-etiology unclear3. Abnormal R wave progression on EKG no prior EKG for comparison4. Shortness of breath with activity5. Not clinically volume overloaded6. Patient denies symptoms of obstructive sleep apnea or a diagnosis of that7. Hilar adenopathy, underwent biopsy, patient reports that her diagnosis is histoplasmosis.8. [id number] history of smoking, quit 2020.9. History of [...] information, it is okay to switch to [employer].Follow-up after testingPatient is encouraged to abstain from cigarettes.EchocardiogramThank you for allowing us to participate in Dinesh's care, please do not hesitate to call if further questions arise,Sincerely, [facility] Work Phone: 05-17-2023 History of Presen t illness Narrative 38-year-old without documented coronary artery disease or valvular heart disease is being seen in cardiology consultation at the request of Dr. 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 Yesterday she [...] abnormal R wave progression. Rate is 91 WA interval 140 ms QRS duration 94 ms2 [...] not available procedure to be done at [facility] in [place] by Dr. Sagastume.2. Chest discomfort-etiology unclear3. Abnormal R wave progression on EKG no prior EKG for comparison4. Shortness of breath with activity5. Not clinically volume overloaded6. Patient denies symptoms of obstructive sleep apnea or a diagnosis of that7. Hilar adenopathy, underwent biopsy, patient reports that her diagnosis is histoplasmosis.8. [id number] history of smoking, quit 2020.9. History of [...] information, it is okay to switch to [employer].Follow-up after testingPatient is encouraged to abstain from cigarettes.EchocardiogramThank you for allowing us to participate in Dinesh's care, please do not hesitate to call if further questions arise,Sincerely, [facility] DO Work Phone: 05-06-2023 History of Presen t illness Narrative 38-year-old without documented coronary artery disease or valvular heart disease is being seen in cardiology consultation at the request of Dr. 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 Yesterday she [...] abnormal R wave progression. Rate is 91 WA interval 140 ms QRS duration 94 ms2 [...] not available procedure to be done at [facility] in [place] by Dr. Sagastume.2. Chest discomfort-etiology unclear3. Abnormal R wave progression on EKG no prior EKG for comparison4. Shortness of breath with activity5. Not clinically volume overloaded6. Patient denies symptoms of obstructive sleep apnea or a diagnosis of that7. Hilar adenopathy, underwent biopsy, patient reports that her diagnosis is histoplasmosis.8. [id number]-[id number] history of smoking, quit 2020.9. History of [...] information, it is okay to switch to [employer].Follow-up after testingPatient is encouraged to abstain from cigarettes.EchocardiogramThank you for allowing us to participate in Dinesh's care, please do not hesitate to call if further questions arise,Sincerely, -[facility] DO Work Phone: 03-03-2023 Evaluation note [...] understanding and is agreeable to treatment plan. [employer] Other 07-01-2020 History of Present illness Narrative* Patient is a 36-year-old woman referred by Sridevi Poe MD from thoracic surgery for possiblehistoplasmosis. * Patient was undergoing preoperative evaluation for gastric bypass surgery at [place]. Preoperative chest x-ray showed a chest shadow with everything else being fine. This occurred in May 2020. She was seen by her primary care provider for evaluation and a chest CT was performed that reveale d a mass . This further addressed by PET CT scan at [facility] where she was what was not cancer . She underwent a follow-up CAT scan 3 months following that showed questionable growth in a soft tissue mass. The recommendation was to repeat a CT in 9 months but she was sent to a physician in [place] whom she saw once. 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 She was referred to the [facility] however they never replied to the consult so shewas sent them to Dr. Sonam Chu in vascular surgery. This was based on her CT chest findings that zaman ggested that the mass in her chest [...] never treated. This occurred at the [facility] [place]. She states that her vision changesbegan in 2012 after her son was born. She states that they began as floaters and then her centralvision began changing. She never noticed that she was unable to see well until she closed her left eye. She noted she had central vision . She was seen by an eye doctor in [facility]. She went to him for glasses after [...] * She states she has lived in [place] only. She was born in [facility] and then moved to [place]. Her only travel has been to [place]. 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 She is set [employer] as well. She also helps with [...] the computer for comparison. [facility]-Infectious Disease-Admin [employer] Work Phone: Evaluation + Plan note Future Appointments Appointment Date:06/02/2022 02:00:00 PM Scheduled Provider:SHERI MCLEOD Location:[facility] Appointment Type: Video Visit Therapy 60 [facility] evaluation + Plan note Future Appointments Appointment Date:08/02/2022 02:00:00 PM Scheduled Provider:SHERI MCLEOD Location:[facility] Appointment Type: Video Visit Therapy 60 [facility] evaluation note* Diagnosis Obesity, morbid (CMS/HCC)- Primary Morbid obesity Pre-operative clearance Unspecified pre-operative examination Severe sleep apnea Encounter to discuss test results Other specified counseling documented in this encounter [facility] Work Phone: Evaluation note* Diagnosis Trichomonas vaginalis (TV) infection Urinary tract infection without hematuria, site unspecified Yeast infection documented in this encounter [facility] Healthcare[facility] note* Diagnosis Trichomonas vaginalis (TV) infection documented in this encounter [facility] HealthcareEvaluation note* Diagnosis Superior vena cava occlusion (Multi) Compression of vein Severe sleep apnea Incomplete left bundle branch block BMI 60.0-69.9, adult (Multi) Former smoker Personal history of tobacco use, presenting hazards to health Obesity, morbid (Multi) Morbid obesity documented in this encounter [facility] Work Phone: Evaluation note* Diagnosis Exposure to STD Vaginal irritation Pruritus of genital organs Urethral irritation documented in this encounter [facility] HealthcareEvaluation note* Diagnosis Trichomonas vaginalis (TV) infection documented in this encounter [facility] HealthcareEvaluation note* Diagnosis Exposure to STD Vaginitis due to Trichomonas documented in this encounter [facility] Healthcare[facility] note* Diagnosis Vaginitis due to Trichomonas- Primary documented in this encounter [facility] HealthcareHistory general Narrative - Reported* Type Description Date Medical History restriction around superior vena cava [employer] Other History of Present illness Narrative* Ms. Selby is following up - she has since had a visit with Dr. Poe and Dr. Tang - currently in midst of work up for chronic histoplasmosis - titers back and awaiting Dr. Tang recommendations but will likely need treatment for this chronic histo infection. Also awaiting an MRI of [facility] but she was unable to get this [...] neuro intact x 4 without focal deficits [facility] Work Phone: History of Present illness Narrative* [...] report vertigo with sudden postural changes. -CT Surgery-[facility] Work Phone: History of Present illness Narrative* [...] notable for no relatives with histoplasmosis MG-CT Surgery-[facility] Work Phone: Hospital course Narrative No data available for this section [facility] Hospital Discharge instructions No data available for this section [facility] progress note No data available for this section [facility] Chief Complaint Histplasmosis* The patient presents to [...] ,for a telehealth visit. HisotplasmosisNew patient visit.Mediastinal adenopathyNCANDIDO SELBY is being seen for pre-operative clearance.DINESH [...] section and content) DATE CREATED AUTHOR 10/30/2021 [facility] DATE CREATED AUTHOR AUTHOR'S ORGANIZ ATION 03/22/2023 [facility] DATE CREATED AUTHOR AUTHOR'S ORGANIZ ATION 05/07/2023 [facility] ical Center DATE CREATED AUTHOR AUTHOR'S ORGANIZ ATION 05/08/2023 [employer] DATE CREATED AUTHOR AUTHOR'S ORGANIZ ATION 05/22/2023 [facility] ical Center DATE CREATED AUTHOR AUTHOR'S ORGANIZ ATION 08/03/2023 [facility] DATE CREATED AUTHOR AUTHOR'S ORGANIZ ATION 10/06/2024 [facility] Ambulatory DATE CREATED AUTHOR AUTHOR'S ORGANIZ ATION 12/10/2024 [facility] dical Specialists EPIC Care Team (unrecognized sect ion and content) Master Glazier Relationship Specialty Start Date End Date Emmie Lenz APRN-CHEMISTRY TECHNICIAN [address] [place] [address] PCP - General 05/07/23 Master Glazier Relationship Specialty Start Date End Date Emmie Lenz APRN-CHEMISTRY TECHNICIAN [address] [facility] [place] [address] PCP - General 05/07/23 Master Glazier Relationship Specialty Start Date End Date Kacey Monroe PA [address] [place] [address] [place] [address] PCP - Medical [employer] 10/12/23 11/11/99 Master Glazier Relationship Specialty Start Date End Date Kacey Monroe PA [address] [place] [address] PCP - Medical [employer] 10/12/23 11/11/99 Master Glazier Relationship Specialty Start Date End Date Kacey Monroe PA [address] [place] [address] PCP - Medical [employer] 10/12/23 11/11/99 Master Glazier Relationship Specialty Start Date End Date Kacey Monroe PA [address] [place] [address] PCP - Medical [employer] 10/12/23 11/11/99 REASON FOR VISIT (unrecogniz ed section and content) Reason Comments Results Reason Comments STI Screening Pt present today for JOSE L visit. Pt tested + for Trichomoniasis. Reason Comments STI Screening Reason Comments Annual Exam Reason Comments vaginal issues Reason Comments STI Screening PT present for JOSE L. Pt tested +for BV/Trich. FOR RECORDS PERTAINING TO PATIENTS WHO ARE [...] BE BASED ON THE PRIMARY CLINICAL RECORDS. [employer] [facility]. provides no warranty or guarantee of the accuracy or completeness of information in this document.
--- NOTE | 2025-01-04 11:34 | ED_ITS ---
HPI - Skin/Abscess/Foreign Bdy General Chief complaint: Skin/Abscess/Foreign Body Stated complaint: skin issue Time Seen by Provider: 01/04/25 10:53 Source: patient Mode of arrival: walk-in History of Present Illness HPI narrative: cc - left leg redness Patient suddenly developed some stinging type pain in the anterior aspect of the left lower leg and noticed some erythema developing there. There is no proximal streaking but the area is rather sizable. Even though the amount of erythema is like, there is concern for acute cellulitis. No systemic symptoms such as fever or vomiting. No history of DVT. She does have a pending CT scan for lymphedema scheduled to evaluate her lower extremities sometime next week. Related Data Home Medications ?Medication ?Instructions ?Recorded ?Confirmed sertraline 50 mg tablet 50 mg PO Q24H 02/16/24 02/16/24 Previous Rx's ?Medication ?Instructions ?Recorded cephalexin 250 mg/5 mL oral 500 mg (10 mL) PO Q6H 7 days #280 01/04/25 suspension mL Allergies Allergy/AdvReac Type Severity Reaction Status Date / Time amoxicillin Allergy Severe Verified 02/16/24 07:53 Sulfa (Sulfonamide Allergy Severe Verified 02/16/24 07:53 Antibiotics) PFSH PFSH Social History Little interest or pleasure in doing things: not at all Feeling down, depressed, or hopeless: not at all Exam Narrative Exam Narrative: Nurses notes and vital signs reviewed and patient is not hypoxic. afebrile General: Morbidly obese female. Well-appearing and in no apparent distress. Skin: Warm, dry, no pallor noted. 4 cm x 5 cm patch of erythema noted to the anteromedial aspect of the left lower leg. There is no associated vesicle fo rmation, blistering, open wounds or purulence. The area is slightly warm on touch and is tender to touch as well. Eye: Pupils are equal, round and EOMI. No scleral icterus. Cardiovascular: Regular Rate and Rhythm without murmur, gallop or rub. Respiratory: No accessory muscle use or respiratory distress. Lungs are clear to auscultation, no wheezing, rales or rhonchi Musculoskeletal: normal ROM, no left calf or popliteal tenderness, no left lower extremity edema/swelling Neurological: A&O x4. No cranial nerve dysfunction observed. No truncal ataxia. Moves all extremities. Sensation intact. Psychiatric: Cooperative and interactive. Normal mood and affect. Constitutional Vital Signs, click to edit/add: Last Vital Signs Temp 98.0 F 01/04/25 10:38 Pulse 91 H 01/04/25 10:38 Resp 20 01/04/25 10:38 BP 144/83 H 01/04/25 10:38 Pulse Ox 96 01/04/25 10:38 O2 Del Method Room Air 01/04/25 10:38 Course Vital Signs Vital signs: Vital Signs Temperature 98.0 F 01/04/25 10:38 Pulse Rate 91 H 01/04/25 10:38 Respiratory Rate 20 01/04/25 10:38 Blood Pressure 144/83 H 01/04/25 10:38 Pulse Oximetry 96 01/04/25 10:38 Oxygen Delivery Method Room Air 01/04/25 10:38 Temperature 98.0 F 01/04/25 10:38 Pulse Rate 91 H 01/04/25 10:38 Respiratory Rate 20 01/04/25 10:38 Blood Pressure 144/83 H 01/04/25 10:38 Pulse Oximetry 96 01/04/25 10:38 Oxygen Delivery Method Room Air 01/04/25 10:38 MDM - Skin/Abscess/Foreign Bdy MDM Narrative Medical decision making narrative: This appears to be early cellulitis of the left lower leg. She will be discharged home with a prescription for cephalexin. She cannot swallow pills so this would be in a suspension form. She can follow-up with her PCP as needed or return to the ED if she worsens. Discharge Plan Discharge Chief Complaint: Skin/Abscess/Foreign Body Clinical Impression: Cellulitis Patient Disposition: Home, Self-Care Time of Disposition Decision: 11:37 Prescriptions / Home Meds: New cephalexin 250 mg/5 mL suspension for reconstitution 500 mg PO Q6H 7 Days Qty: 280 0RF No Action sertraline 50 mg tablet 50 mg PO Q24H Print Language: Citizen Of [place] Instructions: Cellulitis (ED) Referrals: ROGER LENZ [Primary Care Provider] - 1 week
== END 2025-01-04 12:03 | disposition home or self-care (01) ==
PROVIDERS: Emergency Provider Emergency Medicine; PCP Nurse Practitioner Family
DX: L03.116 Cellulitis of left lower limb (principal); M79.605 Pain in left leg; L53.9 Erythematous condition, unspecified
CPT/HCPCS: 99283

== ENCOUNTER 2025-01-05 17:40 | Emergency (ER) | payer OTHER, SELFPAY ==
[2025-01-05 17:43] VITALS: BP 169/82; PULSE 104; TEMP 37; O2SAT 98; BMI 65.2
[2025-01-05 18:51] VITALS: O2SAT 98
--- NOTE | 2025-01-05 18:53 | PC.NURSE ---
Left side red with an area that appears to be Eczema. Here yesterday for cellulitis on left calf on antibiotics
[2025-01-05 18:56] VITALS: BP 166/87; PULSE 85; TEMP 37.2; O2SAT 98
--- NOTE | 2025-01-05 19:19 | ED.GENADUL1 ---
HPI HPI - General Adult General Chief complaint: Skin/Abscess/Foreign Body Stated complaint: cellulitis Time Seen by Provider: 01/05/25 18:52 Source: patient Mode of arrival: walk-in Limitations: no limitations History of Present Illness HPI narrative: Patient is a 39-year-old female who returns to the emergency department for reevaluation of redness and itching to the left lateral abdomen. Patient was seen in this emergency department yesterday for burning and stinging rash to the left lower leg. She was placed on Keflex. She states today the area to the leg has completely resolved but she has noticed a red itchy area to the left lateral abdomen. No fevers or vomiting. No drainage from the area. She is noted to have a fungal rash under her skin folds that she states is not new or different. She is on ketoconazole topically for this. She was concerned she may be having a reaction to the Keflex. She has no concern for . Related Data Home Medications ?Medication ?Instructions ?Recorded ?Confirmed sertraline 50 mg tablet 50 mg PO Q24H 02/16/24 01/05/25 Previous Rx's ?Medication ?Instructions ?Recorded cephalexin 250 mg/5 mL oral 500 mg (10 mL) PO Q6H 7 days #280 01/04/25 suspension mL clindamycin HCl 150 mg capsule 300 mg (2 x 150 mg) PO Q6H 10 days 01/05/25 #80 caps hydroxyzine HCl 10 mg/5 mL oral 25 mg (12.5 mL) PO Q6H PRN 01/05/25 solution itching/rash #473 mL prednisolone 15 mg/5 mL oral 30 mg (10 mL) PO BID 3 days #60 mL 01/05/25 solution Allergies Allergy/AdvReac Type Severity Reaction Status Date / Time amoxicillin Allergy Severe Verified 02/16/24 07:53 Sulfa (Sulfonamide Allergy Severe Verified 02/16/24 07:53 Antibiotics) Opioid HPI Opioid Management Most Recent Opioid Data: Last Pain Scale 2 02/16/24 07:59 02/16/24 Review of Systems ROS Constitutional Denies: fever or chills Cardiovascular Denies: chest pain Respiratory Denies: shortness of breath Gastrointestinal Denies: nausea or vomiting Integumentary/Breast Reports: rash, itching and redness Hematologic/Lymphatic Denies: easy bruising or easy bleeding PFSH PFSH Social History Little interest or pleasure in doing things: not at all Feeling down, depressed, or hopeless: not at all Exam Narrative Exam Narrative: Gen.: Awake, alert, in no distress Head: Normocephalic, atraumatic ENT: Moist mucous membranes Respiratory: No respiratory distress, lungs clear bilaterally; erythematous rash noted under the left breast and skin folds. No drainage noted. 6 x 4 cm erythematous psoriatic patch to the left lateral abdomen with no open wounds or drainage. Large area of blanching erythema to the left lateral abdomen with no petechia or purpura. No open wounds or drainage. No induration or abscess Cardio: Regular rate and rhythm Gastrointestinal: Abdomen is soft, nondistended and nontender to palpation Extremities: Moves extremities equally Psych: Normal mood and affect Neuro: No focal neuro deficit Skin: Warm, dry, intact Constitutional Vital Signs, click to edit/add: Last Vital Signs Temp 98.9 F 01/05/25 18:56 Pulse 85 01/05/25 18:56 Resp 16 01/05/25 18:56 BP 166/87 H 01/05/25 18:56 Pulse Ox 98 01/05/25 18:56 O2 Del Method Room Air 01/05/25 18:56 Course Vital Signs Vital signs: Vital Signs Temperature 98.6 F 01/05/25 17:43 Pulse Rate 104 H 01/05/25 17:43 Respiratory Rate 20 01/05/25 17:43 Blood Pressure 169/82 H 01/05/25 17:43 Pulse Oximetry 98 01/05/25 17:43 Oxygen Delivery Method Room Air 01/05/25 17:43 Temperature 98.9 F 01/05/25 18:56 Pulse Rate 85 01/05/25 18:56 Respiratory Rate 16 01/05/25 18:56 Blood Pressure 166/87 H 01/05/25 18:56 Pulse Oximetry 98 01/05/25 18:56 Oxygen Delivery Method Room Air 01/05/25 18:56 Medical Decision Making MDM Narrative Medical decision making narrative: The area to the left leg has completely resolved today, suspect it may not have been cellulitis and the patient has areas of either contact dermatitis or urticaria. She was placed on clindamycin as a precaution, steroids and antihistamines given as well. Follow-up with PCP and return to the ER if symptoms change or worsen SUPERVISED APC VISIT, PHYSICIAN ATTESTATION: Based on the medical record the care appears appropriate. ? Medical Records Medical records reviewed: Yes I reviewed the patient's medical records Discharge Plan Discharge Chief Complaint: Skin/Abscess/Foreign Body Clinical Impression: Rash Patient Disposition: Home, Self-Care Time of Disposition Decision: 19:10 Condition: Good Prescriptions / Home Meds: New clindamycin HCl 150 mg capsule 300 mg PO Q6H 10 Days Qty: 80 0RF hydroxyzine HCl 10 mg/5 mL solution 25 mg PO Q6H PRN (Reason: itching/rash) Qty: 473 0RF prednisolone 15 mg/5 mL solution 30 mg PO BID 3 Days Qty: 60 0RF No Action sertraline 50 mg tablet 50 mg PO Q24H cephalexin 250 mg/5 mL suspension for reconstitution 500 mg PO Q6H 7 Days Qty: 280 0RF Print Language: [place] Instructions: Acute Rash (ED) Referrals: ROGER LENZ [Primary Care Provider] - 1 week
== END 2025-01-05 19:26 | disposition home or self-care (01) ==
PROVIDERS: Emergency Provider Emergency Medicine; PCP Nurse Practitioner Family
DX: R21 Rash and other nonspecific skin eruption (principal)
CPT/HCPCS: 99283

== ENCOUNTER 2025-01-29 07:16 | Outpatient (OUT) | payer OTHER, SELFPAY ==
--- OUTSIDE RECORDS SUMMARY | 2025-01-29 07:19 | XMS_ITS | CCD ---
Author Organization [facility] Care Team Providers Care Fashion Consultant Sales Name Role Phone Unknown, Referring Provider Unavailable Unav ailable Unavailable Unavailable Emmie Lenz Unavailable EMMIE LENZ Primary Care Physician [phone] Didi Mendoza Unavailable FELY ECHEVARRIA Consulting Unavailab [...] Kacey Edge Unavailable KACEY MONROE Attending Unavailable KACEY MONROE Attending Unavailable KACEY MONROE Attending Unavailable KACEY MONROE Attending Unavailable AMY GOLD Attending Unavailable KACEY MONROE Attending Unavailable Allergies Allergy Classification Reported Allergen(s) Allergy Type Date of Onset Reaction(s) Facility Penicillins (antibiotic) (3 sources) Amoxicillin; Translations: [amoxicillin] Drug Allergy Anaphylaxis MG-Endocrinolog -[facility] [employer] 1600 Work Phone: Sulfonamides (antibiotic) (3 sources) Sulfonamides (Antibiotic); Translations: [Sulfa Drugs] Drug Allergy Other MG-Endocrinolog [facility] [employer] [address] Work Phone: Unclassified (12 sources) Nystatin POWD; Translations: [Nystatin POWD] Allergy to drug (finding) Other [facility]-Endocrinolog y-[facility] [employer] 1600 Work Phone: (20 sources) Amoxicillin; Translations: [amoxicillin] Drug Allergy 08-08-20 23 Anaphylaxis, Angioedema [facility] (9 sources) Sulfonamides (Antibiotic); Translations: [Sulfa Drugs] Allergy to drug (finding) Other MG-[facility] Work Phone: (20 sources) Substance with sulfonamide structure and antibacterial mechanism of action (substance) Drug allergy 08-08-20 23 Other, Unknown @[employer] Other (1 source) Amoxicillin Drug Allergy 09-28-[address] [facility] Repository (1 source) Sulfonamides (Antibiotic) Drug allergy (disorder) 09-28-[address] [facility] Repository (3 sources) Nystatin; Translations: [NYSTATIN] Drug Allergy 08-08-20 23 Other [facility] Work Phone: (18 sources) metroNIDAZOLE; Translations: [METRONIDAZOLE] Drug Allergy 07-10-20 24 Anxiety [facility] (15 sources) Nystatin Drug Allergy 08-08-20 23 [facility] (15 sources) Penicillin G Drug Allergy 08-21-20 24 Anaphylaxis [facility] (1 source) Sulfonamides (Antibiotic); Translations: [SULFA (SULFONAMIDE ANTIBIOTICS)] Propensity to adverse reactions to drug (disorder) 08-08-20 23 [facility] 3 Repository Medications Current Medications Medication Drug [...] Episodic Immunizations and screening for infectious disease (6 sources) Exposure to sexually transmissible disorder; Translations: [Contact with and (suspected) exposure to infections with a predominantly sexual mode of transmission] 07-09-2024 Episodic Inflammation; infection of eye (except that caused by tuberculosis or sexually transmitteddisease) (1 source) Unspecified acute conjunctivitis, left eye Episodic Other aftercare (1 source) Other senior care (current) drug therapy; Translations: [OTH LONG-TERM CURRENT DRUG THERAPY] Onset: 03-21-2023 Episodic Other diseases of veins and lymphatics (15 sources) Occlusion of superior vena cava; 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] Onset: 08-08-2023 08-08-2023 Episodic Other female genital disorders (2 sources) Vaginal discharge; Translations: [Other specified noninflammatory disorders of vagina] 01-08-2025 Episodic Other infections; including parasitic (6 sources) Infection by Trichomonas; Translations: [Trichomonal vulvovaginitis] 08-21-2024 Episodic Other infections; including parasitic (5 sources) Trichomonal vaginitis; Translations: [Trichomonal vulvovaginitis] 12-09-2024 [...] UA Negative Negative - 4(70) +++ mg/dL [facility] Blood, UA Negative Negative - 50 Estrada/mcL [facility] Clarity, UA Clear [facility] Color, UA Yellow [facility] Glucose, UA Negative Negative - 1999(110) ++++ mg/dL [facility] Interpretation and review of laboratory results Abnormal [facility] Ketones, UA Negative Negative - 160(16) ++++ mg/dL [facility] Leukocytes, UA Trace Negative - 500+++ Natanael/mcL [facility] Nitrite, UA Negative Negative - Positive [facility] pH, UA 5.6 5 - 9 [facility] Protein, UA Many Negative - 1999(20) ++++ mg/dL [facility] Spec Grav, UA 1.025 1 - 1.03 [facility] Urobilinogen, UA 0.2 0.2 - 12 mg/dL [facility] Urinalysis macro (dipstick) panel (U)on 08-21-2024 Bilirubin, UA Negative Negative - 4(70) +++ mg/dL [facility] Blood, UA Positive Negative - 50 Estrada/mcL [facility] Comment on above: trace Clarity, UA Clear [facility] Color, UA Yellow [facility] Glucose, UA Negative Negative - 1999(110) ++++ mg/dL [facility] Interpretation and review of laboratory results Abnormal [facility] Ketones, UA Negative Negative - 160(16) ++++ mg/dL [facility] Leukocytes, UA Positive Negative - 500+++ Natanael/mcL [facility] Comment on above: large Nitrite, UA Negative Negative - Positive [facility] pH, UA 7.0 5 - 9 [facility] Protein, UA Trace Negative - 1999(20) ++++ mg/dL [facility] Spec Grav, UA 1.025 1 - 1.03 [facility] Urobilinogen, UA 0.2 0.2 - 12 mg/dL [facility] No Panel Informationon 07-10 STAPHYLOCOCCUS EPIDERMIDIS, HAEMOLYTICUS, LUGDUNENSIS, SAPROPHYTICUS (URINA 0.000 [facility] STAPHYLOCOCCUS EPIDERMIDIS, HAEMOLYTICUS, LUGDUNENSIS, SAPROPHYTICUS (URINA Not detected [facility] URINARY TRACT INFECTION (HTR X)on 07-10-2024 ACINETOBACTER BAUMANII 0.000 [facility] ACINETOBACTER BAUMANII Not detected [facility] ELVIRA ALBICANS, PARAPSILOSIS, TROPICALIS 0.000 [facility] ELVIRA ALBICANS, PARAPSILOSIS, TROPICALIS Not detected [facility] ELVIRA GLABRATA 0.000 [facility] ELVIRA GLABRATA Not detected [facility] ELVIRA [...] Cardiac Stress Teston 2022 Cardiac Stress Test [address], Suite [facility], [place] [address] Exercise Stress Test Patient Name: DINESH SELBY Ordering Physician: [id number] Brad Walter MD Study Date: 07/31/2023 Reading Physician: [id number] Beltran Galo MD, [facility] MRN/PID: [id number] Supervising Physician: [id number] Beltran Galo MD, [facility] Accession/Order#: [id number] Referring Physician: BRAD WALTER Date of : 1985 PCP: Gender: F Fellow: Height: 162.56 cm Nurse: Jhon Vaughn RN Weight: 171.01 kg A/C Technician: TJ BSA: 2.56 m2 Technologist: BMI: 64.71 kg/m2 Additional Staff: Age: 38 years cc report to: Patient Location: cc report to: [id number] Brad Walter MD Study Type: Cardiac Stress Test Diagnosis/ICD: R07.1-Chest pain on breathing (pleuritic chest pain); R06.02-Shortness of breath Indication: Chest Pain Procedure/CPT: Stress Test Interpretation-[id number]; Stress Test Supervision-[id number] Falls Risk: Low: Patient has low risk [...] ischemia. 2. Submaximal level of stress achieved. [id number] Beltran Galo MD, FACC Electronically signed on 08/01/2023 at 5:29:58 PM Final [facility] Cardiac Stress Test Please click on the link to view the study images [facility] Work Phone: Cardiac Stress Test [facility] [place] [address] DO Work Phone: Echocardiogramon 07-31-2023 Echocardiography [place] [address] TRANSTHORACIC ECHOCARDIOGRAM REPORT Patient Name: DINESH SELBY Reading Physician: [id number] Beltran Galo MD, [facility] Study Date: 07/31/2023 Referring Physician: BRAD WALTER MRN/PID: [id number] PCP: Nilay Lenz DO Accession/Order#: [id number] Department Location: [facility] [place] Date of : 1985 Fellow: Gender: F Nurse: Jhon Vaughn RN Admit Date: A/C Technician: Kathy Quinones RDCS, RT(R), RDMS, RVT Height: 162.56 cm CC Report to: Weight: 171.01 kg Study Type: Echocardiogram BSA: 2.56 m2 Diagnosis/ICD: Z01.818-Encounter for other preprocedural examination; R07.9-Chest pain, unspecified; R94.31-Abnormal electrocardiogram [ECG] [EKG] Indication: INcomplete RBBB Chest pain SOB Pre-op for Bariatric Surgery Procedure/CPT: Echo Complete w Full Doppler-[id number] Patient History: Pertinent History: Histoplasmosis. Study Detail: [...] 1.0 m/s (0.6-0.9m/s) PV Max P.7 mmHg [id number] Beltran Galo MD, [facility] Electronically signed on 08/01/2023 at 5:52:23 PM Final Normal [facility] Echocardiography Please click on the link to view the study images [facility] Work Phone: Consenton 05-21-2023 Consent [id number] 11 [id number] 0CD:127 [facility] Registrationon 05-21-2023 Registration [id number] 11 [id number] 0CD:127 [facility] Office Visit (Cardiology)on 05-07-2023 Follow-up visit [...] DR. SONG PRUITT FOR GASTRIC BYPASS @ [facility], PENDING TESTING Follow up after testing [...] time. 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 Yesterday she [...] abnormal R wave progression. Rate is 91 LA interval 140 ms QRS duration 94 ms [...] not available procedure to be done at [facility] in [place] by Dr. Sagastume. 2. Chest discomfort-etiology unclear 3. Abnormal R wave progression on EKG no prior EKG for comparison 4. Shortness of breath with activity 5. Not clinically volume overloaded 6. Patient denies symptoms of obstructive sleep apnea or a diagnosis of that 7. Hilar adenopathy, underwent biopsy, patient reports that her diagnosis is histoplasmosis. 8. 83-twsj-pzea history of smoking, quit 2020. 9. History [...] information, it is okay to switch to [employer]. Follow-up after testing Patient is encouraged to abstain from cigarettes. Echocardiogram Thank you (more content not included)... Normal [employer] Tobacco Screening.on 023 Adult depression screening assessment No [facility] [employer] [facility] 250 DO Work Phone: Fall risk assessment a) No falls within the last year [facility] 250 DO Work Phone: Tobacco use status CP b) No [facility] 250 DO Work Phone: Video Visit - Telehealtho n 09-23-2022 Video Visit - Telehealth Start Time 2pm [...] NOTES/SUMMARY OF SESSION: Patient reported that her tahtwb-zy-cww today. Her son was close to his [...] online (also named Otoniel) who lives in [place]. This man has 6-year-old twin boys. They have not met in person, yet. She is taking things slowly. Patient remains smoke-free since December. She met with her dietitian and was encouraged to lose 15 to 20 pounds before her bariatric surgery. She has been trying to get more exercise. She continues to work at [employer] in [place], and will be promoted to [employer], with a pay increase up to $16 [...] active medications Allergies No active allergies Normal [facility] Comment on above: Result Comment: Elec tronically Signed By: [facility] Mckenna\.manisha\Date and Time Signed: 08/04/22 10:38 [...] be effective. She continues to work at [employer] in [place]. She is being promoted to [employer], with a pay increase. Her 9-year-old son, [...] active medications Allergies No active allergies Normal [facility] Comment on above: Result Comment: Elec tronically Signed By: [facility] Mckenna\.manisha\Date and Time Signed: 07/13/22 12:35 EDT Video [...] worked 8 days in a row at [employer] in [place]. She reported that she is being promoted to [employer]. Her 9-year-old son, Mohan, asked her about [...] active medications Allergies No active allergies Normal [facility] Comment on above: Result Comment: Elec tronically Signed By: [facility] Curiel\.manisha\Date and Time Signed: 06/20/22 12:28 EDT Video [...] visit. Video time spent with the patient gtjv-ld-pacg was greater than 50%, in addition to [...] feels is effective. She continues working at [employer] in [place]. She and her son, Mohan, continue to [...] active medications Allergies No active allergies Normal [facility] Comment on above: Result Comment: Elec tronically Signed By: [facility] SH[facility]I\.br\Date and Time Signed: 06/02/22 14:45 EDT Tobacco Screening.on 022 Fall risk assessment a) No falls within the last year [facility] Work Phone: Tobacco use status [facility] b) No [facility] Work Phone: Tobacco Screening. Adult [facility] Work Phone: Histoplasma Caps Abs CF+IDon 04-26-2021 Histoplasma Mycelia CF Ab. Negative Normal Neg:<1:2 [facility] Comment on above: Performed By: #### H ISTOPL GAL AG, HISTO ABS #### [facility] , Histoplasma Yeast CF Ab. 1:32 High Neg:<1:2 [facility] Comment on above: Result Comment: Perf ormed at: BN - [facility] [address] [id number] Jewel Bearing Polisher: Palomo Gutierrez MD, Phone: [phone] PERFORMED BY: [facility] [address] [place] [address] PATHOLOGIST REFINERY OPERATOR HELPER CRUDE UNIT SWETA SANDERS M.D. Performed By: #### H ISTOPL GAL AG, HISTO ABS #### [facility] , Histoplasma Galacto Ag EIAon 04-26-2021 Disclaimer: Normal . [facility] Comment on above: Result Comment: This test was developed and its performance characteristics determined by [facility]. It has not been cleared or approved by the Food and Drug Administration. Performed at: [address] [id number] Jew[employer] B[employer] Polisher: Palomo Gutierrez MD, Phone: [phone] Performed By: #### H ISTOPL GAL AG, HISTO ABS #### [facility] , Histoplasma Gal'hitchcock Ag, Ser <0.5 Normal <0.5 ng/mL [facility] Comment on above: Performed By: #### H ISTOPL GAL AG, HISTO ABS #### [facility] , Tobacco Screening.on 021 Fall risk assessment a) No falls within the last year MG-Endocrinolo gy-[facility] [employer] [address] Work Phone: Tobacco use status [facility] b) No MG-Endocrinolo gy-[facility] [employer] [address] Work Phone: QuantiFERON TB Goldon 2020 QFTB Criteria Normal . [facility] Comment on above: Result Comment: The QuantiFERON-TB Gold Plus result is determined by subtracting the Nil value from either TB antigen (Ag) tube. The mitogen tube serves as a control for the test. Performed By: #### Q UANT TB #### [facility] , Quant TB Ag Value 0.06 Normal . [facility] Comment on above: Performed By: #### Q UANT TB #### [facility] , Quant TB Gold Plus Negative Normal Negative [facility] Comment on above: Result Comment: The specimen received for QuantiFERON testing was incubated by the ordering institution. Specific procedures outlined in our Directory of Services and in the package insert for the QuantiFERON Gold (In Tube) test must be followed to enable for proper stimulation of cells for the production of interferon gamma. Chemiluminescence immunoassay methodology Performed at: - [facility], [place], [place] [id number] Jewel Bearing Polisher: Kaushik Aragon PhD, Phone: [phone] PERFORMED BY: [place] [address] PATHOLOGIST REFINERY OPERATOR HELPER CRUDE UNIT SWETA SANDERS M.D. Performed By: #### Q UANT TB #### [facility] , Quant TB2 Ag Value 0.07 Normal . [facility] Comment on above: Performed By: #### Q UANT TB #### [facility] , Quantiferon Nil Value 0.04 Normal . [facility] Comment on above: Performed By: #### Q UANT TB #### [facility] , Quantiferon TB Mitogen >10.00 Normal . [facility] Comment on above: Performed By: #### Q UANT TB #### [facility] , ECH echo transthoracicon ECH echo transthoracic [facility] [place] [address] [place] [address] Echocardiogram Signed Patient: Dinesh Selby MR#: [id number] : 1985 Acct:[id number] Age/Sex: 35 / F ADM Date: 01/12/21 Loc: Room: Type: [facility] Attending Dr: George Roland MD Ordering Provider: George Roland MD Date of Service: 01/12/21 ECH/ECH echo transthoracic: [employer] Copies to: MD Beltran Schultz MD, [facility] Weight: 336 lb Performed By: SEMAJ Valencia [...] 01/12/21 1402 Dictated By: Beltran Galo MD, [facility] 01/12/21 1320 Signed By: 01/12/21 1402 Normal [facility] Coagulation Profileon 2020 aPTT Coag (Bld) [Time] 32.9 s Normal 25.1-36.5 [facility] Comment on above: Result Comment: PERF ORMED BY: [place] [address] PATHOLOGIST REFINERY OPERATOR HELPER CRUDE UNIT SWETA SANDERS M.D. Performed By: #### U R HISTOPLAS, HISTO ABS #### [facility] , #### PP #### [facility] [address] [place] [address] INR Coag (PPP) [Relative time] 1.1 {INR} Normal [facility] Comment on above: Result Comment: INR [...] ABS #### [facility] , #### PP #### [facility] [address] [place] [address] PT Coag (PPP) [Time] 12.0 s Normal 9.0-12.9 [facility] Comment on above: Performed By: #### U R HISTOPLAS, HISTO ABS #### [facility] , #### PP #### [address] Histoplasma Caps Abs CF+IDon 01-11-2021 Histoplasma Mycelia CF Ab. Negative Normal Neg:<1:2 [facility] Comment on above: Performed By: #### U R HISTOPLAS, HISTO ABS #### [facility] , #### PP #### [address] Histoplasma Yeast CF Ab. 1:8 High Neg:<1:2 [facility] Comment on above: Result Comment: Perf ormed at: [address] [id number] Jewel Bearing Polisher: Palomo Gutierrez MD, Phone: [phone] PERFORMED BY: [place] [address] PATHOLOGIST REFINERY OPERATOR HELPER CRUDE UNIT SWETA SANDERS M.D. Performed By: #### U R HISTOPLAS, HISTO ABS #### [facility] , #### PP #### [address] Histoplasma Galacto Ag, Uron 01-11-2021 Histoplasma disclaimer Normal . [facility] Comment on above: Order Comment: SOURC E OF SPECIMEN: URINE Result Comment: This test was developed and its performance characteristics determined by [facility]. It has not been cleared or approved by the Food and Drug Administration. Performed at: [address] [id number] Jew[employer] B[employer] Polisher: Palomo Gutierrez MD, Phone: [phone] PERFORMED BY: [place] [address] PATHOLOGIST REFINERY OPERATOR HELPER CRUDE UNIT SWETA SANDERS M.D. Performed By: #### U R HISTOPLAS, HISTO ABS #### [facility] , #### PP #### [facility] [address] Histoplasma GALACTOMANNAN, UR <0.5 Normal <0.5 ng/mL [facility] Comment on above: Order Comment: SOURC E OF SPECIMEN: URINE Performed By: #### U R HISTOPLAS, HISTO ABS #### [facility] , #### PP #### [facility] [address] Vital Signs Date Time Vital Sign Value Performing Clinician Facility 01-08-2025 15:10-0500 Body mass index (BMI) [Ratio] 65.59 kg/m2 Kacey Richwoods PA Work Phone: [facility] 01-08-2025 15:10-0500 Body weight 173.33 kg Kacey Richwoods PA Work Phone: [facility] 01-08-2025 15:10-0500 Diastolic blood pressure 90 mm[Hg] Kacey Richwoods PA Work Phone: [facility] 01-08-2025 15:10-0500 Systolic blood pressure 136 mm[Hg] Kacey Fer PA Work Phone: [facility] 12-09-2024 09:19-0500 Body mass index (BMI) [Ratio] 65.23 kg/m2 Kacey Fer PA Work Phone: [facility] 12-09-2024 09:19-0500 Body weight 172.37 kg Kacey Efr PA Work Phone: [facility] 12-09-2024 09:19-0500 Diastolic blood pressure 82 mm[Hg] Kacey Fer PA Work Phone: [facility] 12-09-2024 09:19-0500 Systolic blood pressure 132 mm[Hg] Kacey Richwoods PA Work Phone: [facility] 10-30-2024 15:21-0500 Body mass index (BMI) [Ratio] 64.54 kg/m2 Kacey Fer PA Work Phone: [facility] 10-30-2024 15:21-0500 Body weight 170.55 kg Kacey Fer PA Work Phone: [facility] 10-30-2024 15:21-0500 Diastolic blood pressure 80 mm[Hg] Kacey Monroe PA Work Phone: [facility] 10-30-2024 15:21-0500 Systolic blood pressure 130 mm[Hg] Kacey Monroe PA Work Phone: [facility] 10-03-2024 10:29-0500 Body height 162.6 cm Brad Walter MD Work Phone: [facility] 10-03-2024 10:29-0500 Body mass index (BMI) [Ratio] 64.54 kg/m2 Brad Walter MD Work Phone: [facility] 10-03-2024 10:29-0500 Body weight 170.55 kg Brad Walter MD Work Phone: [facility] 10-03-2024 10:29-0500 Diastolic blood pressure 78 mm[Hg] Brad Walter MD Work Phone: [facility] 10-03-2024 10:29-0500 Heart rate 88 /min Brad Walter MD Work Phone: [facility] 10-03-2024 10:29-0500 Systolic blood pressure 118 mm[Hg] Brad Walter MD Work Phone: [facility] 09-22-2024 11:43-0500 Body mass index (BMI) [Ratio] 63.87 kg/m2 Kacey CROSS Work Phone: [facility] 09-22-2024 11:43-0500 Body weight 168.79 kg Kacey CROSS Work Phone: [facility] 09-22-2024 11:43-0500 Diastolic blood pressure 70 mm[Hg] Kacey CROSS Work Phone: [facility] 09-22-2024 11:43-0500 Systolic blood pressure 112 mm[Hg] Kacey CROSS Work Phone: [facility] 08-21-2024 16:16-0400 Body mass index (BMI) [Ratio] 63.51 kg/m2 Kacey CROSS Work Phone: [facility] 08-21-2024 16:16-0400 Body weight 167.83 kg Kacey CROSS Work Phone: [facility] 07-09-2024 14:54-0400 Body height 162.6 cm Amy Asif DO Work Phone: [facility] 07-09-2024 14:54-0400 Body mass index (BMI) [Ratio] 64.37 kg/m2 Amy Asif DO Work Phone: [facility] 07-09-2024 14:54-0400 Body weight 170.1 kg Amy Asif DO Work Phone: [facility] 07-09-2024 14:54-0400 Diastolic blood pressure 80 mm[Hg] Amy Asif DO Work Phone: [facility] 07-09-2024 14:54-0400 Systolic blood pressure 130 mm[Hg] Amy Asif DO Work Phone: [facility] 08-13-2023 14:24-0400 Body height 162.6 cm Brad Walter MD Work Phone: [facility] 08-13-2023 14:24-0400 Body mass index (BMI) [Ratio] 64.03 kg/m2 Brad Walter MD Work Phone: [facility] 08-13-2023 14:24-0400 Body weight 169.19 kg Brad Walter MD Work Phone: [facility] 08-13-2023 14:24-0400 Diastolic blood pressure 88 mm[Hg] Brad Walter MD Work Phone: [facility] 08-13-2023 14:24-0400 Heart rate 82 /min Brad Walter MD Work Phone: [facility] 08-13-2023 14:24-0400 Systolic blood pressure 126 mm[Hg] Brad Walter MD Work Phone: [facility] 05-07-2023 11:28-0400 Diastolic blood pressure 80 mm[Hg] Emmie S Teresa Work Phone: [facility] 250 DO Work Phone: 05-07-2023 11:28-0400 Systolic blood pressure 122 mm[Hg] Emmie S Teresa Work Phone: [facility] 250 DO Work Phone: 05-07-2023 11:27-0400 Body height 162.56 cm Emmie S Teresa Work Phone: [facility] 250 DO Work Phone: 05-07-2023 11:27-0400 Body mass index (BMI) [Ratio] 64.71 kg/m2 Emmie S Teresa Work Phone: [facility] 250 DO Work Phone: 05-07-2023 11:27-0400 Body surface area Derived from formula 2.56 m2 Emmie S Teresa Work Phone: [facility] 250 DO Work Phone: 05-07-2023 11:27-0400 Body weight 171.01 kg Emmie S Teresa Work Phone: [facility] 250 DO Work Phone: 05-07-2023 11:27-0400 Diastolic blood pressure 80 mm[Hg] Emmie S Teresa Work Phone: [facility] 250 DO Work Phone: 05-07-2023 11:27-0400 Heart rate 91 /min Emmie S Teresa Work Phone: [facility] 250 DO Work Phone: 05-07-2023 11:27-0400 Systolic blood pressure 118 mm[Hg] Emmie Herreramer Work Phone: [facility] 250 DO Work Phone: 03-03-2023 10:15-0400 Body height 162.56 cm Didi Mendoza Other [place] [employer] Other 03-03-2023 10:15-0400 Body mass index (BMI) [Ratio] 63.5 kg/m2 Didi Mendoza Other [facility] [employer] Other 03-03-2023 10:15-0400 Body temperature 98 [degF] Didi Mendoza Other [place] [employer] Other 03-03-2023 10:15-0400 Body weight 167.83 kg Didi Mendoza Other [place] [employer] Other 03-03-2023 10:15-0400 Respiratory rate 18 /min Didi Mendoza Other [employer] Other 03-03-2023 10:15-0400 SaO2% (BldA) [Mass fraction] 99 % Didi Mendoza Other [place] [employer] Other 02-09-2022 11:42-0400 Body height 161.11 cm Emmie Herreramer Work Phone: [facility] Work Phone: 02-09-2022 11:42-0400 Body mass index (BMI) [Ratio] 65.42 kg/m2 Emmie Herreramer Work Phone: [facility] Work Phone: 02-09-2022 11:42-0400 Body surface area Derived from formula 2.54 m2 Emmie Herreramer Work Phone: [facility] Work Phone: 02-09-2022 11:42-0400 Body temperature 97.9 [degF] Emmie Curiel Teresa Work Phone: [facility] Work Phone: 02-09-2022 11:42-0400 Body weight 169.82 kg Emmie Curiel Teresa Work Phone: [facility] Work Phone: 02-09-2022 11:42-0400 Diastolic blood pressure 80 mm[Hg] Emmie S Teresa Work Phone: [facility] Work Phone: 02-09-2022 11:42-0400 Heart rate 102 /min Emmie S Teresa Work Phone: [facility] Work Phone: 02-09-2022 11:42-0400 Respiratory rate 16 /min Emmie Curiel Teresa Work Phone: [facility] Work Phone: 02-09-2022 11:42-0400 SaO2% (BldA) [Mass fraction] 98 % Emmie Curiel Teresa Work Phone: [facility] Work Phone: 02-09-2022 11:42-0400 Systolic blood pressure 148 mm[Hg] Emmie S Teresa Work Phone: [facility] Work Phone: 02-09-2022 11:42-0400 0 1 Emmie S Teresa Work Phone: [facility] Work Phone: Comment on above: [employer] 04-22-2021 11:00-0400 Body height 162.56 cm Referring Provider Unknown SG-Dmvybtrrqatta-LSQ [place] 1600 Work Phone: 04-22-2021 11:00-0400 Body mass index (BMI) [Ratio] 60.94 kg/m2 Referring Provider Unknown FW-Ftmiwnwzotzrq-OFZ [place] 1600 Work Phone: 04-22-2021 11:00-0400 Body surface area Derived from formula 2.5 m2 Referring Provider Unknown DD-Uglroifuwfqbr-HQP [place] 1600 Work Phone: 04-22-2021 11:00-0400 Body weight 161.03 kg Referring Provider Unknown LI-Mtqpfkkkiamiz-KWX [place] 1600 Work Phone: 04-22-2021 11:00-0400 Diastolic blood pressure 84 mm[Hg] Referring Provider Unknown VK-Wdafvbfskwoul-WEQ [place] 1600 Work Phone: 04-22-2021 11:00-0400 Heart rate 111 /min Referring Provider Unknown WR-Qgvdcvfgfulqy-LGI [place] 1600 Work Phone: 04-22-2021 11:00-0400 Systolic blood pressure 147 mm[Hg] Referring Provider Unknown DQ-Artafubpslozk-TUR [place] 1600 Work Phone: 04-22-2021 11:00-0400 0 1 Referring Provider Unknown SC-Mblkmtvwchmwm-JQX [place] 1600 Work Phone: Comment on above: [employer] Encounters Encounter Date Encounter Type Care Provider Facility Start: 01-08-2025 End: 01-08-2025 ambulatory KACEY MONROE Not Available Start: 01-08-2025 End: 01-08-2025 Office outpatient visit 15 minutes Kacey CROSS Work Phone: [facility] Comment on above: Vaginal discharge; STD exposure; Vaginitis due to Trichomonas Start: 01-08-2025 End: 01-08-2025 Bamboo flowsheet Kacey CROSS Work Phone: [facility] Start: 01-08-2025 End: 01-08-2025 Bamboo flowsheet Kacey CROSS Work Phone: [facility] Start: 12-10-2024 End: 12-10-2024 Telephone encounter Kacey CROSS Work Phone: [facility] Start: 12-09-2024 End: 12-09-2024 Bamboo flowsheet Kacey CROSS Work Phone: [facility] Start: 12-09-2024 End: 12-09-2024 Bamboo flowsheet Kacey CROSS Work Phone: [facility] Start: 12-09-2024 End: 12-09-2024 Office outpatient visit 15 minutes Kacey CROSS Work Phone: [facility] Comment on above: Exposure to STD; Vaginitis due to Trichomonas Start: 12-09-2024 End: 12-09-2024 ambulatory KACEY MONROE Not Available Start: 10-30-2024 End: 10-30-2024 Office outpatient visit 15 minutes Kacey CROSS Work Phone: [facility] Comment on above: Trichomonas vaginali s (TV) infection Start: 10-30-2024 End: 10-30-2024 ambulatory KACEY MONROE Not Available Start: 10-30-2024 End: 10-30-2024 Bamboo flowsheet Kacey CROSS Work Phone: [facility] Start: 10-30-2024 End: 10-30-2024 Bamboo flowsheet Kacey CROSS Work Phone: [facility] Start: 10-03-2024 End: 10-03-2024 Office outpatient visit 15 minutes Brad Walter MD Work Phone: [facility] Comment on above: Superior vena cava o cclusion (Multi); Severe sleep apnea; Incomplete left bundle branch block; BMI 60.0-69.9, adult (Multi); Former smoker; Obesity, morbid (Multi) Start: 10-03-2024 End: 10-03-2024 ambulatory [facility] Start: 09-22-2024 End: 09-22-2024 Bamboo flowsheet Kacey CROSS Work Phone: [facility] Start: 09-22-2024 End: 09-22-2024 Bamboo flowsheet Kacey CROSS Work Phone: [facility] Start: 09-22-2024 End: 09-22-2024 Office outpatient visit 15 minutes Kacey Fer PA Work Phone: [facility] Comment on above: Trichomonas vaginali s (TV) infection Start: 09-22-2024 End: 09-22-2024 ambulatory KACEY FER Not Available Start: 08-21-2024 End: 08-21-2024 ambulatory KACEY KNUTSONEY Not Available Start: 08-21-2024 End: 08-21-2024 Office outpatient visit 15 minutes Kacey Fer [place] Work Phone: [facility] Comment on above: Trichomonas vaginali s (TV) infection; Urinary tract infection without hematuria, site unspecified; Yeast infection Start: 08-21-2024 End: 08-21-2024 Bamboo flowsheet Kacey Fer [place] Work Phone: [facility] Start: 08-21-2024 End: 08-21-2024 Bamboo flowsheet Kacey Monroe [place] Work Phone: [facility] Start: 07-09-2024 End: 07-09-2024 Office outpatient visit 15 minutes Amy Asif DO Work Phone: [facility] Comment on above: Exposure to STD; Vaginal irritation; Urethral irritation Start: 07-09-2024 End: 07-09-2024 ambulatory AMY ASIF Not Available Start: 07-09-2024 End: 07-09-2024 Bamboo flowsheet Amy Asif DO Work Phone: [facility] Start: 07-09-2024 End: 07-10-2024 External Result Encounter Amy Asif DO Work Phone: [facility] External Department Unsolicited Start: 07-09-2024 End: 07-10-2024 External Result Encounter Amy Asif DO Work Phone: [facility] External Department Unsolicited Start: 08-13-2023 End: 08-13-2023 Office outpatient visit 15 minutes Brad Walter MD Work Phone: [facility] Comment on above: Obesity, morbid (CMS /HCC) (Primary Dx); Pre-operative clearance; Severe sleep apnea; Encounter to discuss test results Start: 08-13-2023 End: 08-13-2023 Preoperative state Brad Walter MD Work Phone: [facility] Work Phone: Start: 08-01-2023 Chart Update Emmie tyler Work Phone: [facility] 250 DO Work Phone: Start: 07-31-2023 Encounter for other preprocedural examination Brad Walter [facility] Start: 07-31-2023 ambulatory Brad Walter Facility:[id number] Start: 06-29-2023 ambulatory Brad Walter Facility:9 [id number] Start: 06-25-2023 AUDIT Emmie tyler Work Phone: [facility] 250 DO Work Phone: Start: 05-21-2023 End: 05-22-2023 ambulatory [facility] Facility:[facility] Start: 05-07-2023 Office consultation new/estab patient 60 min Emmie Lenz Work Phone: [facility] 250 DO Work Phone: Start: 05-07-2023 ambulatory MD BRAD WALTER Facilit y: Start: 03-19-2023 End: 03-19-2023 ambulatory FELY ECHEVARRIA Facility:H1 Start: 03-03-2023 End: 03-03-2023 ambulatory Didi Mendoza Other [employer] Other Start: 03-03-2023 Office outpatient ne w 20 minutes Didi Mendoza [facility] Start: 08-28-2022 ambulatory SHERI THEODORE Facility [facility] Start: 08-02-2022 End: 08-03-2022 ambulatory SHERI THEODORE Facility:[facility] Start: 08-02-2022 End: 08-02-2022 Patient encounter procedure SHERI THEODORE [facility] Start: 07-12-2022 End: 07-13-2022 ambulatory SHERI THEODORE Facility:[facility] Start: 07-12-2022 End: 07-12-2022 Patient encounter procedure SHERI THEODORE [facility] Start: 06-19-2022 End: 06-20-2022 ambulatory SHERI THEODORE Facility:[facility] Start: 06-19-2022 End: 06-19-2022 Patient encounter procedure SHERI THEODORE [facility] Start: 06-02-2022 End: 06-03-2022 ambulatory SHERI THEODORE Facility:[facility] Start: 06-02-2022 End: 06-02-2022 Patient encounter procedure SHERI THEODORE [facility] Start: 05-18-2022 End: 05-18-2022 Patient encounter procedure SHERI THEODORE [facility] Start: 02-09-2022 Office outpatient vi sit 40 minutes Emmie Lenz Work Phone: [facility] Work Phone: Start: 05-03-2021 Patient encounter procedure Referring Provider Unknown RH-Cznpwpujbk-Bzqhdz Work Phone: Start: 04-22-2021 Office consultation new/estab patient 60 min Referring Provider Unknown MG-Infectious Disease-[facility] [place] [address] Work Phone: Start: 04-22-2021 Patient encounter procedure Referring Provider Unknown ZZ-Xocuqupxlrams-XLG [place] [address] Work Phone: Start: 03-22-2021 Office outpatient ne w 60 minutes Emmie Lenz Work Phone: [facility] Work Phone: Patient encounter status Emmie Lenz Work Phone: -[facility] 250 DO Work Phone: Procedures Date Procedure Procedure Detail Performing Clinician Start: 09-22-2024 Urnls dip stick/tabl et rgnt non-auto w/o micrscp Kacey CROSS Work Phone: Start: 08-21-2024 Urnls dip stick/tabl et rgnt non-auto w/o micrscp Kacey CROSS Work Phone: Start: 07-09-2024 URINARY TRACT INFECT ION (HTRX) Amy Gold DO Work Phone: Start: 07-31-2023 Echocardiography Emmie Lenz Work Phone: Biopsy of lung Emmie Parker er Work Phone: Operative procedure on foot Emmie Lenz Work Phone: Plan of Treatment Date Care Activity Detail Author Start: 02-22-2034 Zoster Vaccines (1 o f 2) Zoster Vaccines (1 of 2) [facility] Start: 02-11-2025 End: 02-11-2025 Patient encounter procedure 02/11/2025 9:00 AM EDT Office Visit [facility] [address] [place] [address] Kacey Monroe PA [address] [place] [address] [facility] Start: 12-09-2024 End: 12-09-2024 Patient encounter procedure 12/09/2024 9:10 AM EST Office Visit [facility] [address] [place] [id number] Kacey Monroe, PA [address] [place], [place] [id number] Arrived [facility] Comment on above: Arrived Start: 10-30-2024 End: 10-30-2024 Patient encounter procedure 10/30/2024 3:10 PM EST Office Visit [facility] [address] [place] [phone] Kacey Monroe PA [address] [place], [place] [id number] Arrived [facility] Comment on above: Arrived Start: 10-22-2024 End: 10-22-2024 Patient encounter procedure 10/22/2024 1:10 PM EST Office Visit [facility] [address] [place] [address] Amy Gold, DO [address] [place], [place] [id number] [facility] Start: 08-14-2024 End: 08-14-2024 Patient encounter procedure 08/14/2024 2:00 PM EDT Office Visit [facility] [address] [facility] [address] [place] [address] Brad Walter MD [address] [place] [address] [address] [place] [address] [facility] Start: 07-23-2024 End: 07-23-2024 Patient encounter procedure 07/23/2024 2:30 PM EDT Office Visit [facility] [address] [place] [address] Amy Gold, DO [address] [place], [place] [id number] [facility] Start: 07-13-2024 COVID-19 Vaccine ( season) COVID-19 Vaccine ( season) [facility] Start: 07-13-2024 Influenza vaccination Influenza Vacc ine (#1) [facility] Start: 07-09-2024 End: 07-09-2024 Patient encounter procedure 07/09/2024 3:00 PM EDT Office Visit [facility] [address] [place] [address] Amy Gold, DO [address] [facility] [address] [place] [address] Arrived [facility] Comment on above: Arrived Start: 2024 Screening for malign ant neoplasm of breast Mammogram [facility] Start: 08-13-2023 FUV, Provider: Brad Walter, Status: Pen, Time: 2:15 PM FUV, Provider: Brad Walter, Status: Pen, Time: 2:15 PM -[facility] 250 DO Work Phone: Start: 07-31-2023 ECHO, Provider: JOLYNN [facility] ULTRASOUND 01,[id number], Status: Pen, Time: 8:45 AM ECHO, Provider: JOLYNN [facility] ULTRASOUND 01,[id number], Status: Pen, Time: 8:45 AM MP-[facility] 250 DO Work Phone: Start: 07-31-2023 STRESS NUC, Provider : JOLYNN [facility] NUCLEAR 01,[id number], Status: Pen, Time: 8:00 AM STRESS NUC, Provider: JOLYNN [facility] NUCLEAR 01,[id number], Status: Pen, Time: 8:00 AM -[facility] 250 DO Work Phone: Start: 07-13-2023 Influenza vaccination Influenza Vacc ine (#1) [facility] Start: 06-25-2023 FUV, Provider: Brad Walter, Status: Pen, Time: 10:45 AM FUV, Provider: Brad Walter, Status: Pen, Time: 10:45 AM MP-[facility] 250 DO Work Phone: Start: 06-21-2023 ECHO, Provider: JOLYNN [facility] ULTRASOUND 01,[id number], Status: Pen, Time: 12:30 PM ECHO, Provider: JOLYNN [facility] ULTRASOUND 01,[id number], Status: Pen, Time: 12:30 PM -[facility] 250 DO Work Phone: Start: 06-21-2023 STRESS SRIKANTH, Provider : JOLYNN [facility] NUCLEAR 01,[id number], Status: Pen, Time: 11:30 AM STRESS SRIKANTH, Provider: JOLYNN [facility] NUCLEAR 01,[id number], Status: Pen, Time: 11:30 AM -[facility] 250 DO Work Phone: Start: 05-03-2021 VIRFUVHOME, Provider : Dianna Acosta, Status: Pen, Time: 9:00 AM VIRFUVHOME, Provider: Dianna Acosta, Status: Pen, Time: 9:00 AM HR-Bjrehiscmpwrp-KTV [place] 1600 Work Phone: Start: 02-22-2014 Screening for malign ant neoplasm of cervix [facility] Start: 02-22-2006 DTaP/Tdap/Td Vaccine s (1 - Tdap) DTaP/Tdap/Td Vaccines (1 - Tdap) [facility] Start: 02-22-2005 Screening for malign ant neoplasm of cervix [facility] Start: 02-22-2003 Hepatitis B Vaccines (1 of 3 - 19+ 3-dose series) Hepatitis B Vaccines (1 of 3 - 19+ 3-dose series) [facility] Start: 02-22-2002 Diabetes mellitus screening Diabetes Screening [facility] Start: 02-22-2002 Hepatitis C screening Hepatitis C Sc reening [facility] Start: 02-22-1997 Varicella vaccination Varicell a Vaccines (1 of 2 - 13+ 2-dose series) [facility] Start: 02-22-1985 MMR Vaccines (1 of 1 - Standard series) MMR Vaccines (1 of 1 - Standard series) [facility] Start: 02-22-1985 Varicella vaccination Varicell a Vaccines (1 of 2 - 2-dose childhood series) [facility] Start: 1984 COVID-19 Vaccine (#1) COVID-19 Vacci ne (#1) [facility] Start: 1984 Hepatitis B Vaccines (1 of 3 - 3-dose series) Hepatitis B Vaccines (1 of 3 - 3-dose series) [facility] Start: 1984 HIV screening HIV Screening [facility] Start: 1984 Lipid panel Lipid Panel [facility] Start: 1984 Yearly Adult Physical Yearly Adult [facility] Bacteria identified in Urine by Culture Urine culture Microbiology Routine Urinary tract infection without hematuria, site unspecified Ordered: 08/21/2024 [facility] Work Phone: Comment on above: Ordered: 08/21/2024 CHLAMYDIA TRACHOMATI S (GENITO/STI) CHLAMYDIA TRACHOMATIS (GENITO/STI) Lab Routine Trichomonas vaginalis (TV) infection Ordered: 09/22/2024 [facility] Comment on above: Ordered: 09/22/2024 CHLAMYDIA TRACHOMATI S (GENITO/STI) CHLAMYDIA TRACHOMATIS (GENITO/STI) Lab Routine Exposure to STD Ordered: 07/09/2024 [facility] Comment on above: Ordered: 07/09/2024 CHLAMYDIA TRACHOMATI S (GENITO/STI) CHLAMYDIA TRACHOMATIS (GENITO/STI) Lab Routine Trichomonas vaginalis (TV) infection Ordered: 10/30/2024 [facility] Comment on above: Ordered: 10/30/2024 CHLAMYDIA TRACHOMATI S (GENITO/STI) CHLAMYDIA TRACHOMATIS (GENITO/STI) Lab Routine Exposure to STD Vaginitis due to Trichomonas Ordered: 12/09/2024 [facility] Comment on above: Ordered: 12/09/2024 CHLAMYDIA TRACHOMATI S (GENITO/STI) CHLAMYDIA TRACHOMATIS (GENITO/STI) Lab Routine Vaginal discharge Ordered: 01/08/2025 [facility] Comment on above: Ordered: 01/08/2025 Neisseria gonorrhoea e DNA [Presence] in Unspecified specimen by MARYCARMEN with probe detection Neisseria gonorrhea DNA probe, direct Lab Routine Trichomonas vaginalis (TV) infection Ordered: 09/22/2024 [facility] Comment on above: Ordered: 09/22/2024 Neisseria gonorrhoea e DNA [Presence] in Unspecified specimen by MARYCARMEN with probe detection Neisseria gonorrhea DNA probe, direct Lab Routine Exposure to STD Ordered: 07/09/2024 [facility] Comment on above: Ordered: 07/09/2024 Neisseria gonorrhoea e DNA [Presence] in Unspecified specimen by MARYCARMEN with probe detection Neisseria gonorrhea DNA probe, direct Lab Routine Trichomonas vaginalis (TV) infection Ordered: 10/30/2024 [facility] Comment on above: Ordered: 10/30/2024 Neisseria gonorrhoea e DNA [Presence] in Unspecified specimen by MARYCARMEN with probe detection Neisseria gonorrhea DNA probe, direct Lab Routine Exposure to STD Ordered: 12/09/2024 [facility] Comment on above: Ordered: 12/09/2024 Neisseria gonorrhoea e DNA [Presence] in Unspecified specimen by MARYCARMEN with probe detection Neisseria gonorrhea DNA probe, direct Lab Routine Vaginal discharge Ordered: 01/08/2025 [facility] Comment on above: Ordered: 01/08/2025 SURESWAB(R) ADVANCED VAGINITIS PLUS, TMA SURESWAB(R) ADVANCED VAGINITIS PLUS, TMA Pathology and Cytology Routine Trichomonas vaginalis (TV) infection Ordered: 09/22/2024 [facility] Work Phone: Comment on above: Ordered: 09/22/2024 SURESWAB(R) ADVANCED VAGINITIS PLUS, TMA SURESWAB(R) ADVANCED VAGINITIS PLUS, TMA Pathology and Cytology Routine Exposure to STD Ordered: 07/09/2024 [facility] Work Phone: Comment on above: Ordered: 07/09/2024 SURESWAB(R) ADVANCED VAGINITIS PLUS, TMA SURESWAB(R) ADVANCED VAGINITIS PLUS, TMA Pathology and Cytology Routine Trichomonas vaginalis (TV) infection Ordered: 10/30/2024 [facility] [employer] Work Phone: Comment on above: Ordered: 10/30/2024 SURESWAB(R) ADVANCED VAGINITIS PLUS, TMA SURESWAB(R) ADVANCED VAGINITIS PLUS, TMA Pathology and Cytology Routine Exposure to STD Vaginitis due to Trichomonas Ordered: 12/09/2024 [facility] Work Phone: Comment on above: Ordered: 12/09/2024 SURESWAB(R) ADVANCED VAGINITIS PLUS, TMA SURESWAB(R) ADVANCED VAGINITIS PLUS, TMA Pathology and Cytology Routine Vaginal discharge Ordered: 01/08/2025 [facility] Work Phone: Comment on above: Ordered: 01/08/2025 Payers Date Payer Category Payer Medicaid [employer] [place] [id number] 2024-Present [address] [place] [address] [id number] 2023 Managed Care (Private) [facility] [id number] 2023 Private Health Insurance [id number] 2023 Unknown [id number] 2020 Unknown [id number] 2018 Medicaid (Managed Care) [facility] [id number] 2018 Unknown 1984 Unknown [id number] [id number]. 593 1984 Unknown [id number] 2.16.840.1.244350.3.579.2. 356 1984 Unknown [id number] 2.16.840.1.048162.3.579.2. 727 1984 Unknown [id number] 2.16.840.1.637769.3.579.2. 727 1984 Unknown [id number] 2.16.840.1.296089.3.579.2. 727 1984 Unknown [id number] 2.16.840.1.950532.3.579.2. 727 1984 Unknown [id number] 2.16.840.1.716641.3.579.2. 727 1984 Unknown [id number] 2.16.840.1.184493.3.579.2. 1068 1984 Unknown [id number] 2.16.840.1.121469.3.579.2. 1068 1984 Unknown [id number] 2.16.840.1.500484.3.579.2. 1244 1984 Unknown [id number] 2.16.840.1.269974.3.579.2. 1259 1984 Unknown [id number] 2.16.840.1.643697.3.579.2. 1259 1984 Unknown [id number] 2.16.840.1.585439.3.579.2. 1259 1984 Unknown [id number] 2.16.840.1.533246.3.579.2. 1259 1984 Unknown [id number] 2.16.840.1.388656.3.579.2. 1259 1984 Unknown [id number] 2.16.840.1.676325.3.579.2. 1259 1959 Medicaid [id number] [id number] Unknown [id number] Social History Date Type Detail Facility Start: 08-13-2023 End: 10-03-2024 Former smoker Former smoker [facility] Work Phone: Tobacco smoking status No Smokin g Status Entered [facility] Start: 08-13-2023 Sex Assigned At Female [facility] Start: 08-13-2023 End: 10-03-2024 Tobacco smoking status NHIS Ex-smoker [facility] Start: 11-12-2000 End: 11-12-2020 History of tobacco use Current smoker [facility] Work Phone: Start: 11-12-2000 End: 11-12-2020 History of tobacco use Cigarette Smoker [facility] Work Phone: Start: 08-13-2023 End: 10-03-2024 Tobacco use and exposure Smokeless tobacco non-user [facility] Work Phone: Start: 08-13-2023 Alcohol intake Ex-drinker (finding) [facility] Work Phone: Start: 1985 Sex Assigned At Not on file [facility] Work Phone: Start: 08-03-2023 End: 10-03-2024 Exposure to SARS-CoV-2 (event) Not sure [facility] Tobacco smoking stat us RIIS Tobacco smoking consumption unknown [facility] Start: 1985 Sex assigned at Female [facility] Start: 07-10-2024 Gender identity Identifies as female gender (finding) [facility] Start: 07-10-2024 Sexual orientation Heterosexual (finding) [facility] Start: 10-03-2024 Alcoholic beverage intake Lifetime non-drinker (finding) [facility] Work Phone: Medical Equipment Procedure Code Equipment Code Equipment Original Text Equipment Identifier Dates [facility] 22g Case [id number] Start: 02-20-2022 Comment on above: Description: Convert ed from [facility]. Please see archived information for full log information. Additional Information:per brenda west 03/10/2022 Clinical Notes 05-12-2020 to 01-08-2025 AMERICA Donahue - 01/08/2025 3:00 PM ESTTelephone Encounter - AMERICA Donahue - 12/10/2024 10:52 AM ESTTelephone Encounter - [facility] Donahue - 12/10/2024 10:52 AM AMERICA Neville - 12/09/2024 9:10 AM EST Note Date & Type Note Facility 01-08-2025 History of Presen t illness Narrative Answers submitted by the patient for this visit: Female Genital Questionnaire (Submitted on 01/07/2025) Chief Complaint: Female genitourinary complaint genital itching: No genital lesions: No genital odor: No genital rash: No missed menses: No vaginal bleeding: No Chronicity: chronic Onset: more than 1 month ago Frequency: rarely Progression since onset: rapidly improving Pain severity: no pain Affected side: both now?: No anorexia: Yes discolored urine: No joint pain: No joint swelling: No painful intercourse: No Aggravated by: nothing Sexual activity: sexually active Partner with STD symptoms: possible control: condoms Menstrual history: irregular Reason for Appointment: Patient ID: Dinesh Selby is a 39 y.o. female who presents for JOSE L Patient presents today for Consult appointment. MEDICATIONS Current Outpatient Medications Medication Instructions sertraline [...] Review of Systems: Review of Systems Constitutional: Negative for chills and fever. HENT: Negative for sore throat. Gastrointestinal: Positive for diarrhea. Negative for abdominal pain, constipation, nausea and vomiting. Genitourinary: Positive for flank pain and frequency. Negative for dysuria, hematuria, pelvic pain, urgency and vaginal discharge. Musculoskeletal: Negative for back pain. Skin: Positive for rash. Neurological: Negative for headaches. All other systems reviewed and are negative. [...] nursing note reviewed. Exam conducted with a timber packer present. Vitals: Estimated body mass index is 65.59 kg/m as calculated from the following: Height as of 07/09/24: 5' 4 . Weight as of this encounter: 382 lb 1.9 oz. BP: 136/90 Patient's last menstrual period was 11/06/2024 (approximate). ASSESSMENT & PLAN ICD-10-CM 1. Vaginal discharge N89.8 SURESWAB(R) ADVANCED VAGINITIS PLUS, TMA CHLAMYDIA TRACHOMATIS (GENITO/STI) Neisseria gonorrhea DNA probe, direct 2. STD exposure Z20.2 3. Vaginitis due to Trichomonas A59.01 Patient presents today for follow up test of cure for trichomonas. Patient voiced that she feels as though symptoms have improved from last visit. Patient stated that pharmacy was only able to give her 5 days worth of antibiotic instead of a week long therapy. Vaginal cultures obtained without difficulty and patient to return to clinic for annual appointment and PRN. Documented by Kandice Shah LPN on behalf of: AMERICA Donahue documented in this encounter [facility] 12-10-2024 Telephone encounter Note Patient notified of results. Patient not tolerating treatment of gel or oral flagyl previously. We will send in script for tinidazole 2g for 7 days [facility] 12-10-2024 Miscellaneous Notes Patient notified of results. Patient not tolerating treatment of gel or oral flagyl previously. We will send in script for tinidazole 2g for 7 days documented in this encounter [facility] 12-09-2024 History of Presen t illness Narrative [...] nursing note reviewed. Exam conducted with a timber packer present. Vitals: Estimated body mass index is [...] of: AMERICA Donahue documented in this encounter [facility] 10-30-2024 History of Presen t illness Narrative [...] nursing note reviewed. Exam conducted with a timber packer present. Vitals: Estimated body mass index is [...] of: AMERICA Donahue documented in this encounter [facility] 10-03-2024 History of Presen t illness Narrative [...] not available procedure to be done at [facility] in [place] by Dr. Sagastume. 2. Chest discomfort-etiology unclear 3. Abnormal R wave progression on EKG no prior EKG for comparison 4. Shortness of breath with activity 5. Not clinically volume overloaded 6. Patient denies symptoms of obstructive sleep apnea or a diagnosis of that 7. Hilar adenopathy, underwent biopsy, patient reports that her diagnosis is histoplasmosis. 8. 09-nsxa-tvar history of smoking, quit 2020. 9. History [...] Brad Walter MD. documented in this encounter [facility] Work Phone: 10-03-2024 Instructions Sapphire Pickard LPN [...] as needed only documented in this encounter [facility] Work Phone: 09-22-2024 History of Presen t [...] nursing note reviewed. Exam conducted with a timber packer present. Vitals: Estimated body mass index is [...] of: AMERICA Donahue documented in this encounter [facility] 08-21-2024 History of Presen t illness Narrative [...] nursing note reviewed. Exam conducted with a timber packer present. Vitals: Estimated body mass index is [...] of: AMERICA Donahue documented in this encounter [facility] 07-09-2024 History of Presen t illness Narrative [...] nursing note reviewed. Exam conducted with a timber packer present. Vitals: Estimated body mass index is [...] Amy Gold DO documented in this encounter [facility] 08-13-2023 History of Presen t illness Narrative [...] not available procedure to be done at [facility] in [place] by Dr. Sagastume. 2. Chest discomfort-etiology unclear 3. Abnormal R wave progression on EKG no prior EKG for comparison 4. Shortness of breath with activity 5. Not clinically volume overloaded 6. Patient denies symptoms of obstructive sleep apnea or a diagnosis of that 7. Hilar adenopathy, underwent biopsy, patient reports that her diagnosis is histoplasmosis. 8. 17-[id number]-[id number] history of smoking, quit 2020. 9. History [...] a cardiac standpoint. documented in this encounter [facility] Work Phone: 08-13-2023 Instructions Sapphire Pickard [...] in one year. documented in this encounter [facility] Work Phone: 07-30-2023 History of Presen t illness Narrative 38-year-old without documented coronary artery disease or valvular heart disease is being seen in cardiology consultation at the request of Dr. 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 Yesterday she [...] abnormal R wave progression. Rate is 91 LA interval 140 ms QRS duration 94 ms2 [...] not available procedure to be done at [facility] in [place] by Dr. Sagastume.2. Chest discomfort-etiology unclear3. Abnormal R wave progression on EKG no prior EKG for comparison4. Shortness of breath with activity5. Not clinically volume overloaded6. Patient denies symptoms of obstructive sleep apnea or a diagnosis of that7. Hilar adenopathy, underwent biopsy, patient reports that her diagnosis is histoplasmosis.8. 84-iotz-txxy history of smoking, quit 2020.9. History of [...] information, it is okay to switch to [employer].Follow-up after testingPatient is encouraged to abstain from cigarettes.EchocardiogramThank you for allowing us to participate in Dinesh's care, please do not hesitate to call if further questions arise,Sincerely, [facility] Work Phone: 07-11-2023 History of Presen t illness Narrative 38-year-old without documented coronary artery disease or valvular heart disease is being seen in cardiology consultation at the request of Dr. 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 Yesterday she [...] abnormal R wave progression. Rate is 91 LA interval 140 ms QRS duration 94 ms2 [...] not available procedure to be done at [facility] in [place] by Dr. Sagastume.2. Chest discomfort-etiology unclear3. Abnormal R wave progression on EKG no prior EKG for comparison4. Shortness of breath with activity5. Not clinically volume overloaded6. Patient denies symptoms of obstructive sleep apnea or a diagnosis of that7. Hilar adenopathy, underwent biopsy, patient reports that her diagnosis is histoplasmosis.8. 29-smgx-qnkb history of smoking, quit 2020.9. History of [...] information, it is okay to switch to [employer].Follow-up after testingPatient is encouraged to abstain from cigarettes.EchocardiogramThank you for allowing us to participate in Dinesh's care, please do not hesitate to call if further questions arise,Sincerely, [facility] Work Phone: 05-17-2023 History of Presen t illness Narrative 38-year-old without documented coronary artery disease or valvular heart disease is being seen in cardiology consultation at the request of Dr. 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 Yesterday she [...] abnormal R wave progression. Rate is 91 LA interval 140 ms QRS duration 94 ms2 [...] not available procedure to be done at [facility] in [place] by Dr. Sagastume.2. Chest discomfort-etiology unclear3. Abnormal R wave progression on EKG no prior EKG for comparison4. Shortness of breath with activity5. Not clinically volume overloaded6. Patient denies symptoms of obstructive sleep apnea or a diagnosis of that7. Hilar adenopathy, underwent biopsy, patient reports that her diagnosis is histoplasmosis.8. 28-xpxq-wbij history of smoking, quit 2020.9. History of [...] information, it is okay to switch to [employer].Follow-up after testingPatient is encouraged to abstain from cigarettes.EchocardiogramThank you for allowing us to participate in Dinesh's care, please do not hesitate to call if further questions arise,Sincerely, [facility] 250 DO Work Phone: 05-06-2023 History of Presen t illness Narrative 38-year-old without documented coronary artery disease or valvular heart disease is being seen in cardiology consultation at the request of Dr. 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 Yesterday she [...] abnormal R wave progression. Rate is 91 LA interval 140 ms QRS duration 94 ms2 [...] not available procedure to be done at [facility] in [place] by Dr. Sagastume.2. Chest discomfort-etiology unclear3. Abnormal R wave progression on EKG no prior EKG for comparison4. Shortness of breath with activity5. Not clinically volume overloaded6. Patient denies symptoms of obstructive sleep apnea or a diagnosis of that7. Hilar adenopathy, underwent biopsy, patient reports that her diagnosis is histoplasmosis.8. 45-efyx-nejq history of smoking, quit 2020.9. History of [...] information, it is okay to switch to [employer].Follow-up after testingPatient is encouraged to abstain from cigarettes.EchocardiogramThank you for allowing us to participate in Dinesh's care, please do not hesitate to call if further questions arise,Sincerely, [facility] Mónica-Jolynn Bowman DO Work Phone: 03-03-2023 Evaluation note Encounter [...] understanding and is agreeable to treatment plan. [facility] Other 07-01-2020 History of Present illness Narrative* Patient is a 36-year-old woman referred by Sridevi Poe MD from thoracic surgery for possiblehistoplasmosis. * Patient was undergoing preoperative evaluation for gastric bypass surgery at [place]. Preoperative chest x-ray showed a chest shadow with everything else being fine. This occurred in May 2020. She was seen by her primary care provider for evaluation and a chest CT was performed that reveale d a mass . This further addressed by PET CT scan at [facility] where she was what was not cancer . She underwent a follow-up CAT scan 3 months following that showed questionable growth in a soft tissue mass. The recommendation was to repeat a CT in 9 months but she was sent to a physician in [place] whom she saw once. 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 She was referred to the [place] [facility] however they never replied to the [...] was never treated. This occurred at the [facility] in [facility]. She states that her vision changesbegan in 2012 after her son was born. She states that they began as floaters and then her centralvision began changing. She never noticed that she was unable to see well until she closed her left eye. She noted she had central vision . She was seen by an eye doctor in [facility]. She went to him for [...] * She states she has lived in [place] only. She was born in [facility] and then moved to [place]. Her only travel has been to [place]. 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 She is set [employer] as well. She also helps with [...] Appointment Date:06/02/2022 02:00:00 PM Scheduled Provider:SHERI MCLEOD Location:[facility] Appointment Type: Video Visit Therapy [address] [facility] evaluation + Plan note Future Appointments Appointment Date:08/02/2022 02:00:00 PM Scheduled Provider:SHERI MCLEOD Location[facility] Appointment Type: Video Visit Therapy [address] [facility] evaluation note* Diagnosis Obesity, morbid (CMS/HCC)- Primary Morbid obesity Pre-operative clearance Unspecified pre-operative examination Severe sleep apnea Encounter to discuss test results Other specified counseling documented in this encounter [facility] Work Phone: Evaluation note* Diagnosis Trichomonas vaginalis (TV) infection Urinary tract infection without hematuria, site unspecified Yeast infection [facility] Diagnosis Trichomonas vaginalis (TV) infection [facility] Diagnosis Superior vena cava occlusion (Multi) Compression of vein Severe sleep apnea Incomplete left bundle branch block BMI 60.0-69.9, adult (Multi) Former smoker Personal history of tobacco use, presenting hazards to health Obesity, morbid (Multi) Morbid obesity documented in this encounter [facility] Work Phone: Evaluation note* Diagnosis Exposure to STD Vaginal irritation Pruritus of genital organs Urethral irritation [facility] Diagnosis Trichomonas vaginalis (TV) infection [facility] Diagnosis Exposure to STD Vaginitis due to Trichomonas documented [facility]* Diagnosis Vaginitis due to Trichomonas- Primary documented in this [facility]* Diagnosis Vaginal discharge Leukorrhea, not specified as infective STD exposure Vaginitis due to Trichomonas [facility] general Narrative - Reported* Type Description Date Medical History restriction around superior vena cava @Pay Other History of Present illness Narrative* Ms. [...] was concern for SVC occlusion/syndrome * Sundeep mcgowan for imaging * midst of work up [...] neuro intact x 4 without focal deficits [facility] Work Phone: History of Present illness Narrative* [...] report vertigo with sudden postural changes. -CT [facility] Work Phone: History of Present illness Narrative* [...] is notable for no relatives with histoplasmosis -CT Surgery-[facility] Work Phone: Hospital course Narrative No data available for this section [facility] Hospital Discharge instructions No data available for this section [facility] progress note No data available for this section [facility] Chief Complaint Histplasmosis* The patient presents [...] section and content) DATE CREATED AUTHOR 10/30/2021 [facility] DATE CREATED AUTHOR AUTHOR'S ORGANIZ ATION 03/22/2023 [facility] DATE CREATED AUTHOR AUTHOR'S ORGANIZ ATION 05/07/2023 [facility] DATE CREATED AUTHOR AUTHOR'S ORGANIZ ATION 05/08/2023 [facility] DATE CREATED AUTHOR AUTHOR'S ORGANIZ ATION 05/22/2023 [facility] DATE CREATED AUTHOR AUTHOR'S ORGANIZ ATION 08/03/2023 [facility] DATE CREATED AUTHOR AUTHOR'S ORGANIZ ATION 10/06/2024 [facility] DATE CREATED AUTHOR AUTHOR'S ORGANIZ ATION 01/10/2025 [facility] EPIC Care Team (unrecognized sect ion and content) Fashion Consultant Sales Relationship Specialty Start Date End Date Emmie Lenz APRN-CNP [address] [place] [address] PCP - General 05/07/23 Fashion Consultant Sales Relationship Specialty Start Date End Date Emmie Lenz APRN-CNP [address] [place] [address] PCP - General 05/07/23 Fashion Consultant Sales Relationship Specialty Start Date End Date Kacey Monroe PA [address] [place] [address] PCP - Medical [employer] 10/12/23 11/11/99 Fashion Consultant Sales Relationship Specialty Start Date End Date Kacey Monroe PA [address] [place] [address] PCP - Medical [employer] 10/12/23 11/11/99 Fashion Consultant Sales Relationship Specialty Start Date End Date Kacey Monroe PA [address] [place] [address] PCP - Medical [employer] 10/12/23 11/11/99 Fashion Consultant Sales Relationship Specialty Start Date End Date Kacey Monroe PA [address] [place] [address] PCP - Medical [employer] 10/12/23 11/11/99 Fashion Consultant Sales Relationship Specialty Start Date End Date Kacey Monroe PA [address] [place] [address] PCP - Medical [employer] 10/12/23 11/11/99 Fashion Consultant Sales Relationship Specialty Start Date End Date Kacey Monroe PA [address] [place] [address] PCP - Medical [employer] 10/12/23 11/11/99 REASON FOR VISIT (unrecogniz ed section and content) Reason Comments Results Reason Comments STI Screening Pt present today for JOSE L visit. Pt tested + for Trichomoniasis. Reason Comments STI Screening Reason Comments Annual Exam Reason Comments vaginal issues Reason Comments STI Screening PT present for JOSE L. Pt tested +for BV/Trich. Reason Comments JOSE L FOR RECORDS PERTAINING TO PATIENTS WHO ARE [...] BE BASED ON THE PRIMARY CLINICAL RECORDS. [facility] [employer] [facility]. provides no warranty or guarantee of the accuracy or completeness of information in this document.
[2025-01-29 07:33] LABS: Basophils Absolute Auto 0.1 10^3/uL (0.0-0.1); Basophils Percent Auto 0.8 % (0.2-2.0); Eosinophils Absolute Auto 0.2 10^3/uL (0.0-0.7); Eosinophils Percent Auto 2.1 % (0.9-7.0); Hematocrit 38.5 % (36.0-48.0); Hemoglobin 12.7 g/dL (12.0-16.0); Immature Granulocytes Abs Auto 0.04 10^3/uL (0.00-0.03); Immature Granulocytes Pct Auto 0.4 % (0.0-0.5); Lymphocytes Absolute Auto 1.6 10^3/uL (1.2-3.8); Lymphocytes Percent Auto 15.3 % (20.5-60.0); Mean Corpuscular Hemoglobin 28.7 pg (26.7-34.0); Mean Corpuscular Volume 87.1 fL (81.0-99.0); Mean Platelet Volume 9.6 fL (9.5-13.5); Monocytes Absolute Auto 0.7 10^3/uL (0.3-0.8); Monocytes Percent Auto 6.7 % (1.7-12.0); Neutrophils Absolute Auto 7.7 10^3/uL (1.4-6.5); Neutrophils Percent Auto 74.7 % (43.0-75.0); Platelet Count 319 10^3/uL (150-450); Red Blood Count 4.42 10^6/uL (4.20-5.40); Red Cell Distribution Width 14.4 % (11.0-15.0); White Blood Count 10.3 10^3/uL (4.0-11.0)
[2025-01-29 08:14] LABS: Estimated Average Glucose 143 mg/dL; Glycohemoglobin A1C 6.6 % (4.5-6.2)
[2025-01-29 08:30] LABS: Alanine Aminotransferase 25 U/L (14-59); Albumin Globulin Ratio 0.9; Albumin Level 3.5 g/dL (3.4-5.0); Alkaline Phosphatase 78 U/L (46-116); Anion Gap 12.3; Aspartate Amino Transferase 14 U/L (15-37); BUN Creatinine Ratio 14.9; Bilirubin Total 0.4 mg/dL (0.2-1.0); Calcium 9.2 mg/dL (8.5-10.1); Carbon Dioxide 27.4 mmol/L (21.0-32.0); Chloride 104 mmol/L (98-107); Cholesterol 173 mg/dL (<=200); Estimated GFR (African America >60 (>=60 mL/min/1.73m^2); Estimated GFR (Non-African Ame >60 (>=60 mL/min/1.73m^2); Free T3 2.58 pg/mL (2.18-3.98); Globulin 3.7 g/dL; Glucose 156 mg/dL (74-106); HDL Cholesterol 57 mg/dL (40-60); LDL Cholesterol Calculated 90.4 mg/dL; Potassium 3.7 mmol/L (3.5-5.1); Sodium 140 mmol/L (136-145); Thyroid Stimulating Hormone 2.288 uIU/mL (0.358-3.740); Total Protein 7.2 g/dL (6.4-8.2); Triglycerides 128 mg/dL (<=150); VLDL CHOLESTEROL 25.6 mg/dL
--- NOTE | 2025-01-29 08:59 | CT_ITS ---
The [address] [address] Patient Name: DINESH MIRANDA MRN: [id number] date: 1985 Sex: F Assigned Patient Location: LAB Current Patient Location: LAB Accession/Order Number: [id number] Exam Date: 01/29/2025 10:59 Report Date: 01/29/2025 11:01 At the request of: ROGER LENZ Procedure: CT abdomen pelvis w con CT ABDOMEN AND PELVIS WITH INTRAVENOUS CONTRAST: CLINICAL HISTORY: Lymphedema right lower abdomen. COMPARISON: None TECHNIQUE: Spiral images were obtained through the abdomen and pelvis following the administration of intravenous contrast. This CT exam was performed using one or more following dose reduction techniques: Automated exposure control, adjustment of the mA and/or kV according to patient size, or use of iterative reconstruction technique. FINDINGS: Lung Bases: [No acute findings.] Organs:Hepatic steatosis. Gallbladder spleen pancreas and adrenal glands appear unremarkable. No enhancing renal mass or hydronephrosis. Abdominal aorta appears normal in caliber.[ GI: Stomach is grossly unremarkable. Small bowel appears nondilated. Appendix is normal. No acute colonic abnormality.[ Pelvis:[Urinary bladder and uterus appear unremarkable. No adnexal mass.] Peritoneum/Retroperitoneum:No free air or free fluid or lymphadenopathy.[ Abd wall/Bones:Abdominal wall demonstrate varicosities are noted. Skin thickening is seen involving the patient's pannus. No fluid collection. Fat-containing umbilical hernia. Osseous structures demonstrate degenerative change.[ CT/CT abdomen pelvis w con IMPRESSION: No acute process. Impression dictated by: Jarred Tillman Jr., DAshliOAshli01/29/2025 11:01 AM Dictation Location: [employer] Electronically authenticated by: [id number] Y Date: 01/29/2025 11:01
[2025-01-30 06:08] LABS: Insulin 49.3 uIU/mL (2.6-24.9)
== END 2025-01-29 07:17 | disposition home or self-care (01) ==
LOC: LAB 07:16
PROVIDERS: PCP Nurse Practitioner Family; Visit Provider Nurse Practitioner Family
DX: Z00.00 Encounter for general adult medical examination without abnormal findings (principal); R60.9 Edema, unspecified
CPT/HCPCS: 36415; 74177; 80053; 80061; 82306; 83036; 83525; 83540; 84436; 84443; 84481; 85025; Q9967

== ENCOUNTER 2025-02-11 15:00 | Outpatient (REF) | payer OTHER, SELFPAY ==
--- OUTSIDE RECORDS SUMMARY | 2025-02-11 15:09 | XMS_ITS | CCD ---
Author Organization [facility] Care Team Providers Care Paper Bag Maker Name Role Phone Unknown, Referring Provider Unavailable Unav ailable Unavailable Unavailable Emmie Lenz Unavailable EMMIE LENZ Primary Care Physician [phone] Didi Mendoza Unavailable FELY ECHEVARRAI Consulting Unavailab EMMIE Dugan Primary Care Unavailable JUMANA HORAN Attending Unavailable JUMANA HORAN Admitting Unavailable MD ZEINA WALTER Attending Unavailable Ms. Emmie Lenz Referring Unavailable SHERI THEODORE Attending Unavailable SHERI THEODORE Attending Unavailable SHERI THEODORE Attending Unavailable Rahat DUCKWORTH Attending Unavailable SHERI THEODORE Attending Unavailable SHERI THEODORE Attending Unavailable Zeina Walter Attending Unavailable Zeina Walter Attending Unavailable Emmie Fernandez Primary Care Provider Unavailable Primary Care Provider UnavailZEINA Peguero Attending Unavailable EMMIE LENZ Primary Care Unavailable Kacey Edge Unavailable KACEY MONROE Attending Unavailable KACEY MONROE Attending Unavailable KACEY MONROE Attending Unavailable KACEY MONROE Attending Unavailable JULIAN GOLD Attending Unavailable KACEY MONROE Attending Unavailable Allergies Allergy Classification Reported Allergen(s) Allergy Type Date of Onset Reaction(s) Facility Penicillins (antibiotic) (3 sources) Amoxicillin; Translations: [amoxicillin] Drug Allergy Anaphylaxis [facility] [address] Work Phone: Sulfonamides (antibiotic) (3 sources) Sulfonamides (Antibiotic); Translations: [Sulfa Drugs] Drug Allergy Other [facility]Endocrinolog [facility] [address] Work Phone: Unclassified (12 sources) Nystatin POWD; Translations: [Nystatin POWD] Allergy to drug (finding) Other [facility] Keith 1600 Work Phone: (20 sources) Amoxicillin; Translations: [amoxicillin] Drug Allergy 08-08-20 23 Anaphylaxis, Angioedema [facility] (9 sources) Sulfonamides (Antibiotic); Translations: [Sulfa Drugs] Allergy to drug (finding) Other [facility] Work Phone: (20 sources) Substance with sulfonamide structure and antibacterial mechanism of action (substance) Drug allergy 08-08-20 23 Other, Unknown [employer] Other (1 source) Amoxicillin Drug Allergy 09-28-20 13 [facility] (1 source) Sulfonamides (Antibiotic) Drug allergy (disorder) 09-28-20 13 [facility] (3 sources) Nystatin; Translations: [NYSTATIN] Drug Allergy 08-08-20 23 Other [facility] Work Phone: (20 sources) metroNIDAZOLE; Translations: [METRONIDAZOLE] Drug Allergy 07-10-20 24 Anxiety [facility] (18 sources) Nystatin Drug Allergy 08-08-[address] [facility] (18 sources) Penicillin G Drug Allergy 08-21-20 24 Anaphylaxis [facility] (1 source) Sulfonamides (Antibiotic); Translations: [SULFA (SULFONAMIDE ANTIBIOTICS)] Propensity to adverse reactions to drug (disorder) 08-08-20 23 [facility] 3 Repository Medications Current Medications Medication [...] Translations: [Adjustment disorder with other symptoms] Onset: 2 Chronic Conditions associated with dizziness or vertigo (7 sources) Dizziness; Translations: [Dizziness and giddiness] Episodic Conduction disorders (12 sources) Incomplete left bundle branch block; Translations: [Left bundle branch hemiblock] Onset: 3 08-08-2023 Chronic E Codes: Natural/environment (1 source) Exposure to other specified factors, initial encounter; Translations: [EXPOSURE OTHER SPEC FACTORS INITIAL] Onset: 3 Episodic Immunizations and screening for infectious disease (6 sources) Exposure to sexually transmissible disorder; Translations: [Contact with and (suspected) exposure to infections with a predominantly sexual mode of transmission] 07-09-2024 Episodic Inflammation; infection of eye (except that caused by tuberculosis or sexually transmitteddisease) (1 source) Unspecified acute conjunctivitis, left eye Episodic Other aftercare (1 source) Other jail (current) drug therapy; Translations: [OTH SNF CURRENT DRUG THERAPY] Onset: 3 Episodic Other diseases of veins and lymphatics (15 sources) Occlusion of superior vena cava; 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] Onset: 3 08-08-2023 Episodic Other female genital disorders (2 sources) Vaginal discharge; Translations: [Other specified noninflammatory disorders of vagina] 01-08-2025 Episodic Other infections; including parasitic (6 sources) Infection by Trichomonas; Translations: [Trichomonal vulvovaginitis] 08-21-2024 Episodic Other infections; including parasitic (5 sources) Trichomonal vaginitis; Translations: [Trichomonal vulvovaginitis] 12-09-2024 Episodic Other lower respiratory disease (3 sources) Pleurodynia; Translations: [PLEURODYNIA] Onset: Episodic Other lower respiratory disease (7 sources) Dyspnea; Translations: [Shortness of breath] Episodic Other lower respiratory disease (1 source) Shortness of breath; Translations: [Shortness of breath] Onset: 3 Episodic Other nutritional; endocrine; and metabolic disorders (10 sources) Morbid obesity; Translations: [Morbid obesity] Onset: 3 08-13-2023 Chronic Other nutritional; endocrine; and metabolic disorders (7 sources) Body mass index 40+ - severely obese; Translations: [Morbid obesity] Chronic Other nutritional; endocrine; and metabolic disorders (2 sources) Body mass index (BMI) 60.0-69.9, adult; Translations: [Body mass index (BMI) 60.0-69.9, adult (Multi)] Onset: 4 Chronic Other screening for suspected conditions (not mental disorders or infectious disease) (12 sources) Electrocardiogram abnormal; Translations: [Nonspecific abnormal electrocardiogram [ECG] [EKG]] Onset: 3 08-08-2023 Episodic Phlebitis; thrombophlebitis and thromboembolism (2 sources) 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; Translations: [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 (Multi)] Onset: 3 Episodic Residual codes; unclassified (4 sources) Sleep apnea; Translations: [Sleep apnea, unspecified] Onset: 3 08-13-2023 Chronic Residual codes; unclassified (2 sources) Sleep apnea, unspecified; Translations: [Sleep apnea, unspecified] Onset: 3 Chronic Screening and history of mental health and substance abuse codes (12 sources) Personal history of nicotine dependence; Translations: [Ex-smoker] Onset: 3 10-03-2024 Episodic Sprains and strains (1 source) Strain of muscle and tendon of front wall of thorax, initial encounter; Translations: [STRN MSC TENDON FRNT WALL THOR INIT] Onset: 3 Episodic Unclassified (1 source) COUGH, UNSPECIFIED; Translations: [COUGH, UNSPECIFIED] Onset: 3 Urinary tract infections (2 sources) Urinary tract infectious disease; Translations: [Urinary tract infection, site not specified] 08-21-2024 Episodic Past or Other Problems Problem Classification Problem Date Documented Date Episodic/Chronic Administrative/social admission (3 sources) Follow-up status; Translations: [Person [...] pulmonary nodule] Onset: 08-08-2023 08-08-2023 Episodic Other skin disorders (14 sources) Mass of thoracic structure; Translations: [Swelling, mass, or lump in chest] Onset: 08-08-2023 08-08-2023 Episodic Unclassified (7 sources) Patient status finding; Translations: [Patient new to provider] Unclassified (2 sources) Onset: 08-13-2023 08-13-2023 Results Test Name Value Interpretation Reference Range Facility HCG ( test) Ql (U)o n 02-11-2025 Interpretation and review of laboratory results Normal [facility] Preg Test, Ur Negative Negative [facility] Urinalysis macro (dipstick) panel (U)on 02-11-2025 Bilirubin, UA Negative Negative - 4(70) +++ mg/dL [facility] Blood, UA Positive Negative - 50 Estrada/mcL [facility] Comment on above: trace Clarity, UA Clear [facility] Color, UA Didi [facility] Glucose, UA Negative Negative - 1999(110) ++++ mg/dL [facility] Interpretation and review of laboratory results Normal [facility] Ketones, UA Negative Negative - 160(16) ++++ mg/dL [facility] Leukocytes, UA Negative Negative - 500+++ Natanael/mcL [facility] Nitrite, UA Negative Negative - Positive [facility] pH, UA 5 5 - 9 [facility] Protein, UA Negative Negative - 1999(20) ++++ mg/dL [facility] Spec Grav, UA 1.03 1 - 1.03 [facility] Urobilinogen, UA 0.2 0.2 - 12 mg/dL [facility] Urinalysis macro (dipstick) panel (U)on 09-22-2024 Bilirubin, UA Negative Negative - 4(70) +++ mg/dL [facility] Blood, UA Negative Negative - 50 Estrada/mcL [facility] Clarity, UA Clear [facility] Color, UA Yellow [facility] Glucose, UA Negative Negative - 1999(110) ++++ mg/dL [facility] Interpretation and review of laboratory results Abnormal [facility] Ketones, UA Negative Negative - 160(16) ++++ mg/dL [facility] Leukocytes, UA Trace Negative - 500+++ Natanael/mcL [facility] Nitrite, UA Negative Negative - Positive [facility] pH, UA 5.6 5 - 9 [facility] Protein, UA Many Negative - 1999(20) ++++ mg/dL [facility] Spec Grav, UA 1.025 1 - 1.03 [facility] Urobilinogen, UA 0.2 0.2 - 12 mg/dL [facility] Urinalysis macro (dipstick) panel (U)on 08-21-2024 Bilirubin, UA Negative Negative - 4(70) +++ mg/dL [facility] Blood, UA Positive Negative - 50 Estrada/mcL [facility] Comment on above: trace Clarity, UA Clear [facility] Color, UA Yellow [facility] Glucose, UA Negative Negative - 1999(110) ++++ mg/dL [facility] Interpretation and review of laboratory results Abnormal [facility] Ketones, UA Negative Negative - 160(16) ++++ mg/dL [facility] Leukocytes, UA Positive Negative - 500+++ Natanael/mcL [facility] Comment on above: large Nitrite, UA Negative Negative - Positive [facility] pH, UA 7.0 5 - 9 [facility] Protein, UA Trace Negative - 1999(20) ++++ mg/dL [facility] Spec Grav, UA 1.025 1 - 1.03 [facility] Urobilinogen, UA 0.2 0.2 - 12 mg/dL [facility] No Panel Informationon 07-10 STAPHYLOCOCCUS EPIDERMIDIS, HAEMOLYTICUS, LUGDUNENSIS, SAPROPHYTICUS (URINA 0.000 [facility] STAPHYLOCOCCUS EPIDERMIDIS, HAEMOLYTICUS, LUGDUNENSIS, SAPROPHYTICUS (URINA Not detected [facility] URINARY TRACT INFECTION (HTR X)on 07-10-2024 ACINETOBACTER BAUMANII 0.000 [facility] ACINETOBACTER BAUMANII Not detected [facility] ELVIRA ALBICANS, PARAPSILOSIS, TROPICALIS 0.000 [facility] ELVIRA ALBICANS, PARAPSILOSIS, TROPICALIS Not detected [facility] ELVIRA GLABRATA 0.000 [facility] ELVIRA GLABRATA Not detected [facility] ELVIRA KRUSEI 0.000 [facility] ELVIRA KRUSEI Not detected [facility] CITROBACTER FREUNDII 0.000 [facility] CITROBACTER FREUNDII Not detected NO [facility] ENTEROBACTER AEROGENES, CLOACAE 0.000 [facility] ENTEROBACTER AEROGENES, CLOACAE Not detected [facility] ENTEROCOCCUS FAECALIS, FAECIUM 0.000 [facility] ENTEROCOCCUS FAECALIS, FAECIUM Not detected [facility] ERMB, C; MEFA 20.660 Abnormal [facility] ERMB, C; MEFA Detected Abnormal [facility] ESCHERICHIA COLI 0.000 [facility] ESCHERICHIA COLI Not detected [facility] Interpretation and review of laboratory results Abnormal [facility] KLEBSIELLA PNEUMONIAE, OXYTOCA 0.000 [facility] KLEBSIELLA PNEUMONIAE, OXYTOCA Not detected [facility] MORGANELLA MORGANII 0.000 [facility] MORGANELLA MORGANII Not detected [facility] PROTEUS MIRABILIS, VULGARIS 0.000 [facility] PROTEUS MIRABILIS, VULGARIS Not detected [facility] PSEUDOMONAS AERUGINOSA 0.000 [facility] PSEUDOMONAS AERUGINOSA [...] Cardiac Stress Teston 2022 Cardiac Stress Test [address], Suite [facility], [place] [address] Exercise Stress Test Patient Name: DINESH SELBY Ordering Physician: [id number] Zeina Walter MD Study Date: 07/31/2023 Reading Physician: [id number] Emma Galo MD, [facility] MRN/PID: [id number] Supervising Physician: [id number] Emma Galo MD, [facility] Accession/Order#: [id number] Referring Physician: ZEINA WALTER Date of : 1985 PCP: Gender: F Fellow: Height: 162.56 cm Nurse: Jhon Vaughn RN Weight: 171.01 kg Human Resources Intern: TJ BSA: 2.56 m2 Technologist: BMI: 64.71 kg/m2 Additional Staff: Age: 38 years cc report to: Patient Location: cc report to: [id number] Zeina Walter MD Study Type: Cardiac Stress Test Diagnosis/ICD: R07.1-Chest pain on breathing (pleuritic chest pain); R06.02-Shortness of breath Indication: Chest Pain Procedure/CPT: Stress Test Interpretation-55024; Stress Test Supervision-[id number] Falls Risk: Low: Patient has low risk [...] ischemia. 2. Submaximal level of stress achieved. [id number] Emma Galo MD, [facility] Electronically signed on 08/01/2023 at 5:29:58 PM Final Normal [facility] Cardiac Stress Test Please click on the link to view the study images [facility] Work Phone: Cardiac Stress Test [facility] [place] [address] DO Work Phone: Echocardiogramon 07-31-[address], [place] [address] TRANSTHORACIC ECHOCARDIOGRAM REPORT Patient Name: DINESH Gregorio Physician: [id number] Emma Galo MD, [facility] Study Date: 07/31/2023 Referring Physician: ZEINA WALTER MRN/PID: [id number] PCP: Nilay Lenz DO Accession/Order#: [id number] Department Location: [employer] Date of : 1985 Fellow: Gender: F Nurse: Jhon Vaughn RN Admit Date: Human Resources Intern: Kathy Quinones RDCS, RT(R), RDMS, RVT Height: 162.56 cm CC Report to: Weight: 171.01 kg Study Type: Echocardiogram BSA: 2.56 m2 Diagnosis/ICD: Z01.818-Encounter for other preprocedural examination; R07.9-Chest pain, unspecified; R94.31-Abnormal electrocardiogram [ECG] [EKG] Indication: INcomplete RBBB Chest pain SOB Pre-op for Bariatric Surgery Procedure/CPT: Echo Complete w Full Doppler-[id number] Patient History: Pertinent History: Histoplasmosis. Study Detail: [...] AoV Mean P.0 mmHg (1.7-11.5mmHg) LVOT Max Hay: 1.26 m/s (<=1.1m/s) AoV VTI: 35.80 cm (18-25cm) LVOT VTI: 28.70 cm LVOT Diameter: 2.10 cm (1.8-2.4cm) AoV Area, VTI: 2.78 cm2 (2.5-5.5cm2) AoV Area,Vmax: 2.83 cm2 (2.5-4.5cm2) AoV Dimensionless Index: 0.80 PULMONIC VALVE: Normal Ranges: PV Max Ahy: 1.0 m/s (0.6-0.9m/s) PV Max P.7 mmHg [id number] [facility] MD, [facility] Electronically signed on 08/01/2023 at 5:52:23 PM Final Normal [facility] Echocardiography Please click on the link to view the study images [facility] Work Phone: Consenton 05-21-2023 Consent [id number] 0CD:127 Normal [facility] Registrationon 05-21-2023 Registration [id number] 11 [id number] 0CD:127 Normal [facility] Office Visit (Cardiology)on 05-07-2023 Follow-up visit [...] SONG PRUITT FOR GASTRIC BYPASS @ [facility], PENDING TESTING Follow up after testing [...] time. 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 Yesterday she [...] abnormal R wave progression. Rate is 91 ND interval 140 ms QRS duration 94 ms [...] not available procedure to be done at [facility] in [place] by Dr. Sagastume. 2. Chest discomfort-etiology unclear 3. Abnormal R wave progression on EKG no prior EKG for comparison 4. Shortness of breath with activity 5. Not clinically volume overloaded 6. Patient denies symptoms of obstructive sleep apnea or a diagnosis of that 7. Hilar adenopathy, underwent biopsy, patient reports that her diagnosis is histoplasmosis. 8. 91-shug-ubca history of smoking, quit 2020. 9. History [...] information, it is okay to switch to [employer]. Follow-up after testing Patient is encouraged to abstain from cigarettes. Echocardiogram Thank you (more content not included)... Normal [facility] Tobacco Screening.on 023 Adult depression screening assessment No [facility] Dil[employer] [facility] 250 DO Work Phone: Fall risk assessment a) No falls within the last year [facility] [employer] 250 DO Work Phone: Tobacco use status CP b) No [facility] 250 DO Work Phone: Video Visit - [...] NOTES/SUMMARY OF SESSION: Patient reported that her dsqajv-nc-nlr today. Her son was close to his [...] online (also named Otoniel) who lives in [place]. This man has 6-year-old twin boys. They have not met in person, yet. She is taking things slowly. Patient remains smoke-free since December. She met with her dietitian and was encouraged to lose 15 to 20 pounds before her bariatric surgery. She has been trying to get more exercise. She continues to work at [employer], in [place], and will be promoted to [employer], with a pay increase up [...] active medications Allergies No active allergies Normal [facility] Comment on above: Result Comment: Elec tronically Signed By: ARBEN DUMONT, SHERI\.manisha\Date and Time Signed: 08/04/22 10:38 EDT Video [...] be effective. She continues to work at [employer] in [place]. She is being promoted to [employer], with a pay increase. Her 9-year-old son, [...] active medications Allergies No active allergies Normal [facility] Comment on above: Result Comment: Elec tronically Signed By: ARBEN DUMONT, SHERI\.manisha\Date and Time Signed: 07/13/22 12:35 EDT [...] worked 8 days in a row at [employer] in [place]. She reported that she is being promoted to [employer]. Her 9-year-old son, Mohan, asked her about [...] active medications Allergies No active allergies Normal [facility] Comment on above: Result Comment: Elec tronically Signed By: ARBEN IZAGUIRRE-SHERI Curiel\.manisha\Date and Time Signed: 06/20/22 12:28 EDT [...] visit. Video time spent with the patient [id number] was greater than 50%, in addition to [...] feels is effective. She continues working at [employer] in [place]. She and her son, Mohan, continue to [...] active medications Allergies No active allergies Normal [facility] Comment on above: Result Comment: Elec tronically Signed By: ARBEN [facility] CEN[facility]AL HOSPITALClarisa, SHERI\.manisha\Date and Time Signed: 06/02/22 14:45 EDT [...] Histoplasma Mycelia CF Ab. Negative Normal Neg:<1:2 [facility] Comment on above: Performed By: #### H ISTOPL GAL AG, HISTO ABS #### [facility] , Histoplasma Yeast CF Ab. 1:32 High Neg:<1:2 [facility] Comment on above: Result Comment: Perf ormed at: [address] [id number] Linotype Machinist: Palomo Gutierrez MD, Phone: [phone] PERFORMED BY: [address] [place] [address] PATHOLOGIST COMMISSARY PRODUCTION SUPERVISOR SWETA SANDERS M.D. Performed By: #### H ISTOPL GAL AG, HISTO ABS #### [facility] , Histoplasma Galacto Ag EIAon 04-26-2021 Disclaimer: Normal . [facility] Comment on above: Result Comment: This test was developed and its performance characteristics determined by [employer]. It has not been cleared or approved by the Food and Drug Administration. Performed at: [address] [id number] Linotype Machinist: Palomo Gutierrez MD, Phone: [phone] Performed By: #### H ISTOPL GAL AG, HISTO ABS #### [facility] , Histoplasma [place] Ag, Ser <0.5 Normal <0.5 ng/mL [facility] Comment on above: Performed By: #### H ISTOPL GAL AG, HISTO ABS #### [facility] , Tobacco Screening.on Fall risk assessment a) No falls within the last year [facility] Work Phone: Tobacco use status [facility] b) No [facility] Work Phone: QuantiFERON TB Goldon 2020 QFTB Criteria Normal . [facility] Comment on above: Result Comment: The QuantiFERON-TB Gold Plus result is determined by subtracting the Nil value from either TB antigen (Ag) tube. The mitogen tube serves as a control for the test. Performed By: #### Q UANT TB #### [facility] , Quant TB Ag Value 0.06 Normal . [facility] Comment on above: Performed By: #### Q UANT TB #### [facility] , Quant TB Gold Plus Negative Normal Negative [facility] Comment on above: Result Comment: The specimen received for QuantiFERON testing was incubated by the ordering institution. Specific procedures outlined in our Directory of Services and in the package insert for the QuantiFERON Gold (In Tube) test must be followed to enable for proper stimulation of cells for the production of interferon gamma. Chemiluminescence immunoassay methodology Performed at: [facility] [employer] [id number] Linotype Machinist: Kaushik Aragon PhD, Phone: [phone] PERFORMED BY: [address] [address] PATHOLOGIST COMMISSARY PRODUCTION SUPERVISOR SWETA SANDERS M.D. Performed By: #### Q UANT TB #### [facility] , Quant TB2 Ag Value 0.07 Normal . [facility] Comment on above: Performed By: #### Q UANT TB #### [facility] , Quantiferon Nil Value 0.04 Normal . [facility] Comment on above: Performed By: #### Q UANT TB #### [facility] , Quantiferon TB Mitogen >10.00 Normal . [facility] Comment on above: Performed By: #### Q UANT TB #### [facility] , [facility] echo transthoracicon [facility] echo transthoracic [facility] Main [place] [address] [place] [address] Echocardiogram Signed Patient: Dinesh Selby MR#: [id number] : 1985 Acct:[id number] Age/Sex: 35 / F ADM Date: 01/12/21 Loc: Room: Type: [facility] Attending Dr: George Roland MD Ordering Provider: George Roland MD Date of Service: 01/12/21 [facility] echo transthoracic: [employer] Copies to: MD Emma Schultz MD, [facility] Weight: 336 lb Performed By: SEMAJ [...] cm) Doppler with Normals MV E max hay: 112.0 cm/sec(0.8-1.3m/s) MV A max hay: 71.2 cm/sec (0.0-0.0m/s) MV E/A: 1.6 (<1.5) MMode/2D Measurements Calculations RVDd: 3.4 cm FS: 37.7 % Ao root area: 7.6 cm2 EDV(Teich): 99.2 ml ESV(Teich): 31.9 ml EF(Teich): 67.9 % Doppler Measurements Calculations MV dec time: 0.20 sec E/E' lat: 8.6 MV dec slope: 548.7 cm/sec2 E/E' med: 10.1 Transcribed By: LINDA 01/12/21 1402 Dictated By: Emma Galo MD, [facility] 01/12/21 1320 Signed By: 01/12/21 1402 Normal [facility] Coagulation Profileon 2020 aPTT Coag (Bld) [Time] 32.9 s Normal 25.1-36.5 [facility] Comment on above: Result Comment: PERF ORMED BY: [facility] [address] [place] [address] PATHOLOGIST COMMISSARY PRODUCTION SUPERVISOR SWETA SANDERS M.D. Performed By: #### U R HISTOPLAS, HISTO ABS #### [facility] , #### PP #### [facility] [address] [place] [address] INR Coag (PPP) [Relative time] 1.1 {INR} Normal [facility] Comment on above: Result Comment: INR Therapeutic [...] ABS #### [facility] , #### PP #### [facility] [address] [place] [address] PT Coag (PPP) [Time] 12.0 s Normal 9.0-12.9 [facility] Comment on above: Performed By: #### U R HISTOPLAS, HISTO ABS #### [facility] , #### PP #### [facility] [address] [place] [address] Histoplasma Caps Abs CF+IDon 01-11-2021 Histoplasma Mycelia CF Ab. Negative Normal Neg:<1:2 [facility] Comment on above: Performed By: #### U R HISTOPLAS, HISTO ABS #### [facility] , #### PP #### [facility] [address] [place] [address] Histoplasma Yeast CF Ab. 1:8 High Neg:<1:2 [facility] Comment on above: Result Comment: Perf ormed at: BN - [facility] [address] [id number] Linotype Machinist: Palomo Gutierrez MD, Phone: [phone] PERFORMED BY: [place] [address] PATHOLOGIST COMMISSARY PRODUCTION SUPERVISOR SWETA SANDERS M.D. Performed By: #### U R HISTOPLAS, HISTO ABS #### [facility] , #### PP #### [facility] [address] [place] [address] Histoplasma Galacto Ag, Uron 01-11-2021 Histoplasma disclaimer Normal . [facility] Comment on above: Order Comment: SOURC E OF SPECIMEN: URINE Result Comment: This test was developed and its performance characteristics determined by [facility]. It has not been cleared or approved by the Food and Drug Administration. Performed at: [address] [id number] Linotype Machinist: Palomo Gutierrez MD, Phone: [phone] PERFORMED BY: [place] [address] PATHOLOGIST COMMISSARY PRODUCTION SUPERVISOR SWETA SANDERS M.D. Performed By: #### U R HISTOPLAS, HISTO ABS #### [facility] , #### PP #### [address] Histoplasma GALACTOMANNAN, UR <0.5 Normal <0.5 ng/mL [facility] Comment on above: Order Comment: SOURC E OF SPECIMEN: URINE Performed By: #### U R HISTOPLAS, HISTO ABS #### [facility] , #### PP #### [address] Vital Signs Date Time Vital Sign Value Performing Clinician Facility 02-11-2025 08:57-0400 Body mass index (BMI) [Ratio] 64.2 kg/m2 Kacey CROSS Work Phone: [facility] 02-11-2025 08:57-0400 Body weight 169.65 kg Kacey CROSS Work Phone: [facility] 02-11-2025 08:57-0400 Diastolic blood pressure 80 mm[Hg] Kacey CROSS Work Phone: [facility] 02-11-2025 08:57-0400 Systolic blood pressure 138 mm[Hg] Kacey Missy PA Work Phone: [facility] 01-08-2025 15:10-0500 Body mass index (BMI) [Ratio] 65.59 kg/m2 Kacey Missy PA Work Phone: [facility] 01-08-2025 15:10-0500 Body weight 173.33 kg Kacey Missy PA Work Phone: [facility] 01-08-2025 15:10-0500 Diastolic blood pressure 90 mm[Hg] Kacey Spokane PA Work Phone: [facility] 01-08-2025 15:10-0500 Systolic blood pressure 136 mm[Hg] Kacey Spokane PA Work Phone: [facility] 12-09-2024 09:19-0500 Body mass index (BMI) [Ratio] 65.23 kg/m2 Kacey Missy PA Work Phone: [facility] 12-09-2024 09:19-0500 Body weight 172.37 kg Kacey Missy PA Work Phone: [facility] 12-09-2024 09:19-0500 Diastolic blood pressure 82 mm[Hg] Kacey Spokane PA Work Phone: [facility] 12-09-2024 09:19-0500 Systolic blood pressure 132 mm[Hg] Kacey Spokane PA Work Phone: [facility] 10-30-2024 15:21-0500 Body mass index (BMI) [Ratio] 64.54 kg/m2 Kacey Missy PA Work Phone: [facility] 10-30-2024 15:21-0500 Body weight 170.55 kg Kacey Missy PA Work Phone: [facility] 10-30-2024 15:21-0500 Diastolic blood pressure 80 mm[Hg] Kacey Spokane PA Work Phone: [facility] 10-30-2024 15:21-0500 Systolic blood pressure 130 mm[Hg] Kacey Missy PA Work Phone: [facility] 10-03-2024 10:29-0500 Body height 162.6 cm Zeina Walter MD Work Phone: [facility] 10-03-2024 10:29-0500 Body mass index (BMI) [Ratio] 64.54 kg/m2 Zeina Walter MD Work Phone: [facility] 10-03-2024 10:29-0500 Body weight 170.55 kg Zeina Walter MD Work Phone: [facility] 10-03-2024 10:29-0500 Diastolic blood pressure 78 mm[Hg] Zeina Walter MD Work Phone: [facility] 10-03-2024 10:29-0500 Heart rate 88 /min Zeina Walter MD Work Phone: [facility] 10-03-2024 10:29-0500 Systolic blood pressure 118 mm[Hg] Zeina Walter MD Work Phone: [facility] 09-22-2024 11:43-0500 Body mass index (BMI) [Ratio] 63.87 kg/m2 Kacey Missy PA Work Phone: [facility] 09-22-2024 11:43-0500 Body weight 168.79 kg Kacey Missy PA Work Phone: [facility] 09-22-2024 11:43-0500 Diastolic blood pressure 70 mm[Hg] Kacey Spokane PA Work Phone: [facility] 09-22-2024 11:43-0500 Systolic blood pressure 112 mm[Hg] Kacey Spokane PA Work Phone: [facility] 08-21-2024 16:16-0400 Body mass index (BMI) [Ratio] 63.51 kg/m2 Kacey Spokane PA Work Phone: [facility] 08-21-2024 16:16-0400 Body weight 167.83 kg Kacey Spokane PA Work Phone: [facility] 07-09-2024 14:54-0400 Body height 162.6 cm Julian Asif DO Work Phone: [facility] 07-09-2024 14:54-0400 Body mass index (BMI) [Ratio] 64.37 kg/m2 Julian Asif DO Work Phone: [facility] 07-09-2024 14:54-0400 Body weight 170.1 kg Julian Asif DO Work Phone: [facility] 07-09-2024 14:54-0400 Diastolic blood pressure 80 mm[Hg] Julian Asif DO Work Phone: [facility] 07-09-2024 14:54-0400 Systolic blood pressure 130 mm[Hg] Julian Asif DO Work Phone: [facility] 08-13-2023 14:24-0400 Body height 162.6 cm Zeina Walter MD Work Phone: [facility] 08-13-2023 14:24-0400 Body mass index (BMI) [Ratio] 64.03 kg/m2 Zeina Walter MD Work Phone: [facility] 08-13-2023 14:24-0400 Body weight 169.19 kg Zeina Walter MD Work Phone: [facility] 08-13-2023 14:24-0400 Diastolic blood pressure 88 mm[Hg] Zeina Waltre MD Work Phone: [facility] 08-13-2023 14:24-0400 Heart rate 82 /min Zeina Walter MD Work Phone: [facility] 08-13-2023 14:24-0400 Systolic blood pressure 126 mm[Hg] Zeina Walter MD Work Phone: [facility] 05-07-2023 11:28-0400 Diastolic blood pressure 80 mm[Hg] Emmie Herreramer Work Phone: [facility] 250 DO Work Phone: 05-07-2023 11:28-0400 Systolic blood pressure 122 mm[Hg] Emmie S Teresa Work Phone: [facility] 250 DO Work Phone: 05-07-2023 11:27-0400 Body height 162.56 cm Emmie S Teresa Work Phone: [facility] 250 DO Work Phone: 05-07-2023 11:27-0400 Body mass index (BMI) [Ratio] 64.71 kg/m2 Emmie S Teresa Work Phone: [facility] 250 DO Work Phone: 05-07-2023 11:27-0400 Body surface area Derived from formula 2.56 m2 Emmie S Teresa Work Phone: [facility] 250 DO Work Phone: 05-07-2023 11:27-0400 Body weight 171.01 kg Emmie S Teresa Work Phone: [facility] 250 DO Work Phone: 05-07-2023 11:27-0400 Diastolic blood pressure 80 mm[Hg] Emmie S Teresa Work Phone: [facility] 250 DO Work Phone: 05-07-2023 11:27-0400 Heart rate 91 /min Emmie S Teresa Work Phone: [facility] 250 DO Work Phone: 05-07-2023 11:27-0400 Systolic blood pressure 118 mm[Hg] Emmie S Teresa Work Phone: [facility] 250 DO Work Phone: 03-03-2023 10:15-0400 Body height 162.56 cm Didi Mendoza Other [employer] Other 03-03-2023 10:15-0400 Body mass index (BMI) [Ratio] 63.5 kg/m2 Didi Mendoza Other [employer] Other 03-03-2023 10:15-0400 Body temperature 98 [degF] Didi Mendoza Other [employer] Other 03-03-2023 10:15-0400 Body weight 167.83 kg Didi Mendoza Other [employer] Other 03-03-2023 10:15-0400 Respiratory rate 18 /min Didi Mendoza Other [employer] Other 03-03-2023 10:15-0400 SaO2% (BldA) [Mass fraction] 99 % Didi Mendoza Other [employer] Other 02-09-2022 11:42-0400 Body height 161.11 cm Emmierosy Lenz Work Phone: [facility] Work Phone: 02-09-2022 11:42-0400 Body mass index (BMI) [Ratio] 65.42 kg/m2 Emmie Veena Teresa Work Phone: [facility] Work Phone: 02-09-2022 11:42-0400 Body surface area Derived from formula 2.54 m2 Emmie Herreramer Work Phone: [facility] Work Phone: 02-09-2022 11:42-0400 Body temperature 97.9 [degF] Emmie Lenz Work Phone: [facility] Work Phone: 02-09-2022 11:42-0400 Body weight 169.82 kg Emmie Herreramer Work Phone: [facility] Work Phone: 02-09-2022 11:42-0400 Diastolic blood pressure 80 mm[Hg] Emmie Herreramer Work Phone: [facility] Work Phone: 02-09-2022 11:42-0400 Heart rate 102 /min Emmie Herreramer Work Phone: [facility] Work Phone: 02-09-2022 11:42-0400 Respiratory rate 16 /min Emmie Lenz Work Phone: [facility] Work Phone: 02-09-2022 11:42-0400 SaO2% (BldA) [Mass fraction] 98 % Emmie Lenz Work Phone: [facility] Work Phone: 02-09-2022 11:42-0400 Systolic blood pressure 148 mm[Hg] Emmie Lenz Work Phone: [facility] Work Phone: 02-09-2022 11:42-0400 0 1 Emmie Lenz Work Phone: [facility] Work Phone: Comment on above: [employer] 04-22-2021 11:00-0400 Body height 162.56 cm Referring Provider Unknown CO-Tutgqkbkkajiv-AGK [place] 1600 Work Phone: 04-22-2021 11:00-0400 Body mass index (BMI) [Ratio] 60.94 kg/m2 Referring Provider Unknown LX-Nidgdfclmyfxu-TZM [place] 1600 Work Phone: 04-22-2021 11:00-0400 Body surface area Derived from formula 2.5 m2 Referring Provider Unknown YQ-Fuldarqwnionf-ATP Keith 1600 Work Phone: 04-22-2021 11:00-0400 Body weight 161.03 kg Referring Provider Unknown ZK-Tdvcnzjuavgyj-ZUD Keith 1600 Work Phone: 04-22-2021 11:00-0400 Diastolic blood pressure 84 mm[Hg] Referring Provider Unknown JA-Gtojvmjetvsoc-WPP Keith 1600 Work Phone: 04-22-2021 11:00-0400 Heart rate 111 /min Referring Provider Unknown EE-Tcgllyrdwqzrn-QVI [place] 1600 Work Phone: 04-22-2021 11:00-0400 Systolic blood pressure 147 mm[Hg] Referring Provider Unknown BM-Dekuumpwxpkyg-FXB Keith 1600 Work Phone: 04-22-2021 11:00-0400 0 1 Referring Provider Unknown JV-Flesnudxzfeqn-IBQ [place] 1600 Work Phone: Comment on above: [employer] Encounters Encounter Date Encounter Type Care Provider Facility Start: 02-11-2025 End: 02-11-2025 Bamboo flowsheet Kacey CROSS Work Phone: [facility] Start: 02-11-2025 End: 02-11-2025 Bamboo flowsheet Kacey CROSS Work Phone: [facility] Start: 02-11-2025 End: 02-11-2025 Patient encounter procedure Kacey CROSS Work Phone: [facility] Start: 02-11-2025 End: 02-11-2025 Periodic preventive med est patient 40-64yrs Kacey CROSS Work Phone: [facility] Comment on above: Well woman exam with routine gynecological exam; Breast cancer screening by mammogram Start: 01-08-2025 End: 01-08-2025 ambulatory KACEY MONROE Not Available Start: 01-08-2025 End: 01-08-2025 Office outpatient visit 15 minutes Kacey CROSS Work Phone: [facility] Comment on above: Vaginal discharge; STD exposure; Vaginitis due to Trichomonas Start: 01-08-2025 End: 01-08-2025 Bamboo flowsheet Kacey Monroe PA Work Phone: [facility] Start: 01-08-2025 End: 01-08-2025 Bamboo flowsheet Kacey Monroe PA Work Phone: [facility] Start: 12-10-2024 End: 12-10-2024 Telephone encounter Kacey CROSS Work Phone: [facility] Start: 12-09-2024 End: 12-09-2024 Bamboo flowsheet Kacey Monroe PA Work Phone: [facility] Start: 12-09-2024 End: 12-09-2024 Bamboo flowsheet Kacey Monroe PA Work Phone: [facility] Start: 12-09-2024 End: 12-09-2024 Office outpatient visit 15 minutes Kacey CROSS Work Phone: [facility] Comment on above: Exposure to STD; Vaginitis due to Trichomonas Start: 12-09-2024 End: 12-09-2024 ambulatory KACEY MONROE Not Available Start: 10-30-2024 End: 10-30-2024 Office outpatient visit 15 minutes Kacey CROSS Work Phone: [facility] Comment on above: Trichomonas vaginali s (TV) infection Start: 10-30-2024 End: 10-30-2024 ambulatory KACEY MONROE Not Available Start: 10-30-2024 End: 10-30-2024 Bamboo flowsheet Kacey Monroe PA Work Phone: [facility] Start: 10-30-2024 End: 10-30-2024 Bamboo flowsheet Kacey Monroe PA Work Phone: [facility] Start: 10-03-2024 End: 10-03-2024 Office outpatient visit 15 minutes Zeina Walter MD Work Phone: [facility] Comment on above: Superior vena cava o cclusion (Multi); Severe sleep apnea; Incomplete left bundle branch block; BMI 60.0-69.9, adult (Multi); Former smoker; Obesity, morbid (Multi) Start: 10-03-2024 End: 10-03-2024 ambulatory [facility] Start: 09-22-2024 End: 09-22-2024 Bamboo flowsheet Kacey CROSS Work Phone: [facility] Start: 09-22-2024 End: 09-22-2024 Bamboo flowsheet Kacey CROSS Work Phone: [facility] Start: 09-22-2024 End: 09-22-2024 Office outpatient visit 15 minutes Kacey CROSS Work Phone: [facility] Comment on above: Trichomonas vaginali s (TV) infection Start: 09-22-2024 End: 09-22-2024 ambulatory KACEY MONROE Not Available Start: 08-21-2024 End: 08-21-2024 ambulatory KACEY MONROE Not Available Start: 08-21-2024 End: 08-21-2024 Office outpatient visit 15 minutes Kacey CROSS Work Phone: [facility] Comment on above: Trichomonas vaginali s (TV) infection; Urinary tract infection without hematuria, site unspecified; Yeast infection Start: 08-21-2024 End: 08-21-2024 Bamboo flowsheet Kacey CROSS Work Phone: [facility] Start: 08-21-2024 End: 08-21-2024 Bamboo flowsheet Kacey CROSS Work Phone: [facility] Start: 07-09-2024 End: 07-09-2024 Office outpatient visit 15 minutes Julian Asif DO Work Phone: [facility] Comment on above: Exposure to STD; Vaginal irritation; Urethral irritation Start: 07-09-2024 End: 07-09-2024 ambulatory JULIAN ASIF Not Available Start: 07-09-2024 End: 07-09-2024 Bamboo flowsheet Julian Asif DO Work Phone: [facility] Start: 07-09-2024 End: 07-10-2024 External Result Encounter Julian Asif DO Work Phone: [facility] Unsolicited Start: 07-09-2024 End: 07-10-2024 External Result Encounter Julian Godl DO Work Phone: [facility] Unsolicited Start: 08-13-2023 End: 08-13-2023 Office outpatient visit 15 minutes Zeina Walter MD Work Phone: [facility] Comment on above: Obesity, morbid (CMS /HCC) (Primary Dx); Pre-operative clearance; Severe sleep apnea; Encounter to discuss test results Start: 08-13-2023 End: 08-13-2023 Preoperative state Zeina Walter MD Work Phone: [facility] Work Phone: Start: 08-01-2023 Chart Update Emmie tyler Work Phone: [facility] 250 DO Work Phone: Start: 07-31-2023 Encounter for other preprocedural examination Zeina Walter [facility] Start: 07-31-2023 ambulatory Zeina Walter Facility:[id number] Start: 06-29-2023 ambulatory Zeina Walter Facility:[id number] Start: 06-25-2023 AUDIT Emmie tyler Work Phone: [facility] 250 DO Work Phone: Start: 05-21-2023 End: 05-22-2023 ambulatory Rahat GRESHAM Facility:[facility] Start: 05-07-2023 Office consultation new/estab patient 60 min Emmie Lenz Work Phone: [facility] 250 DO Work Phone: Start: 05-07-2023 ambulatory MD ZEINA WLATER Facilit y: Start: 03-19-2023 End: 03-19-2023 ambulatory FELY ECHEVARRIA Facility:[facility] Start: 03-03-2023 End: 03-03-2023 ambulatory Didi Mendoza Other [facility] [employer] Other Start: 03-03-2023 Office outpatient ne w 20 minutes Didi [facility] Start: 08-28-2022 ambulatory SHERI THEODORE Facility [facility] Start: 08-02-2022 End: 08-03-2022 ambulatory SHERI THEODORE Facility[facility] Start: 08-02-2022 End: 08-02-2022 Patient encounter procedure SHERI THEODORE [facility] Start: 07-12-2022 End: 07-13-2022 ambulatory SHERI THEODORE Facility:[facility] Start: 07-12-2022 End: 07-12-2022 Patient encounter procedure SHERI THEODORE [facility] Start: 06-19-2022 End: 06-20-2022 ambulatory SHERI THEODORE Facility:[facility] Start: 06-19-2022 End: 06-19-2022 Patient encounter procedure SHERI THEODORE [facility] Start: 06-02-2022 End: 06-03-2022 ambulatory SHERI THEODORE Facility:[facility] Start: 06-02-2022 End: 06-02-2022 Patient encounter procedure SHERI THEODORE [facility] Start: 05-18-2022 End: 05-18-2022 Patient encounter procedure SHERI THEODORE [facility] Start: 02-09-2022 Office outpatient vi sit 40 minutes Emmie Lenz Work Phone: [facility] Work Phone: Start: 05-03-2021 Patient encounter procedure Referring Provider Unknown BS-Fkucgqiwuh-Hlrlfx Work Phone: Start: 04-22-2021 Office consultation new/estab patient 60 min Referring Provider Unknown [facility] [place] [address] Work Phone: Start: 04-22-2021 Patient encounter procedure Referring Provider Unknown [place] Keith 1600 Work Phone: Start: 03-22-2021 Office outpatient ne w 60 minutes Emmie Lenz Work Phone: [facility] Work Phone: Patient encounter status Emmie Lenz Work Phone: -[facility] 250 DO Work Phone: Procedures Date Procedure Procedure Detail Performing Clinician Start: 02-11-2025 End: 02-11-2025 Urnls dip stick/tablet rgnt non-auto w/o micrscp Kacey CROSS Work Phone: Start: 09-22-2024 Urnls dip stick/tabl et rgnt non-auto w/o micrscp Kacey CROSS Work Phone: Start: 08-21-2024 Urnls dip stick/tabl et rgnt non-auto w/o micrscp Kacey CROSS Work Phone: Start: 07-09-2024 URINARY TRACT INFECT ION (HTRX) Julian Gold DO Work Phone: Start: 07-31-2023 Echocardiography Emmie Lenz Work Phone: Biopsy of lung Emmie Parker er Work Phone: Operative procedure on foot Emmie Lenz Work Phone: Plan of Treatment Date Care Activity Detail Author Start: 02-22-2034 Zoster Vaccines (1 o f 2) Zoster Vaccines (1 of 2) [facility] Start: 07-13-2025 Influenza vaccination Influenz a Vaccine (Season Ended) [facility] Start: 02-11-2025 End: 04-13-2026 MG Breast - bilateral Screening Bilateral screening mammogram Imaging Routine Breast cancer screening by mammogram Expected: 02/11/2025 (Approximate), Expires: 04/13/2026 [facility] Work Phone: Comment on above: Expected: 02/11/2025 (Approximate), Expires: 04/13/2026 Start: 02-11-2025 End: 02-11-2025 Patient encounter procedure [facility] Comment on above: Arrived Start: 12-09-2024 End: 12-09-2024 Patient encounter procedure 12/09/2024 9:10 AM EST Office Visit [facility] [address] [place] [id number] Kacey Monroe, PA [address] [place], [id number] Arrived [facility] Comment on above: Arrived Start: 10-30-2024 End: 10-30-2024 Patient encounter procedure 10/30/2024 3:10 PM EST Office Visit [facility] [address] [place] [address] Kacey Monroe, PA [address] [place], [id number] Arrived [facility] Comment on above: Arrived Start: 10-22-2024 End: 10-22-2024 Patient encounter procedure 10/22/2024 1:10 PM EST Office Visit [facility] [address] [place] [address] Julian Gold DO [address] [place], [place] [id number] [facility] Start: 08-14-2024 End: 08-14-2024 Patient encounter procedure 08/14/2024 2:00 PM EDT Office Visit [facility] [address] [place] [address] Zeina Walter MD [address] [place], [place] [id number] [facility] Start: 07-23-2024 End: 07-23-2024 Patient encounter procedure 07/23/2024 2:30 PM EDT Office Visit [facility] [address] [place] [phone] Julian Gold, DO [address] [place], [place] [address] [place], [place] [id number] [facility] Start: 07-13-2024 COVID-19 Vaccine ( season) COVID-19 Vaccine ( season) [facility] Start: 07-13-2024 Influenza vaccination Influenza Vacc ine (#1) [facility] Start: 07-09-2024 End: 07-09-2024 Patient encounter procedure 07/09/2024 3:00 PM EDT Office Visit [facility] [address] [place] [phone] Julian Gold, DO [address] [place] [address] [place] [address] Arrived [facility] Comment on above: Arrived Start: 2024 Screening for malignant neoplasm of breast Mammogram [facility] Start: 08-13-2023 FUV, Provider: Zeina Walter, Status: Pen, Time: 2:15 PM FUV, Provider: Zeina Walter, Status: Pen, Time: 2:15 PM [facility] Work Phone: Start: 07-31-2023 ECHO, Provider: VASYL FOSTER ULTRASOUND 01,[id number], Status: Pen, Time: 8:45 AM ECHO, Provider: VASYL FOSTER ULTRASOUND 01,[id number], Status: Pen, Time: 8:45 AM [facility] 250 DO Work Phone: Start: 07-31-2023 STRESS NUC, Provider : VASYL FOSTER NUCLEAR 01,[id number], Status: Pen, Time: 8:00 AM STRESS NUC, Provider: VASYL HHVI NUCLEAR 01,[id number], Status: Pen, Time: 8:00 AM [facility] 250 DO Work Phone: Start: 07-13-2023 Influenza vaccination Influenza Vacc ine (#1) [facility] Start: 06-25-2023 FUV, Provider: Zeina Walter, Status: Pen, Time: 10:45 AM FUV, Provider: Zeina Walter, Status: Pen, Time: 10:45 AM [facility] 250 DO Work Phone: Start: 06-21-2023 ECHO, Provider: VASYL HHVI ULTRASOUND 01,[id number], Status: Pen, Time: 12:30 PM ECHO, Provider: VASYL GANESHI ULTRASOUND 01,[id number], Status: Pen, Time: 12:30 PM [facility] Work Phone: Start: 06-21-2023 STRESS SRIKANTH, Provider : VASYL HHVI NUCLEAR 01,[id number], Status: Pen, Time: 11:30 AM STRESS SRIKANTH, Provider: VASYL HHVI NUCLEAR 01,[id number], Status: Pen, Time: 11:30 AM [facility] 250 DO Work Phone: Start: 05-03-2021 VIRFUVHOME, Provider : Dianna Acosta, Status: Pen, Time: 9:00 AM [facility], Provider: Dianna Acosta, Status: Pen, Time: 9:00 AM QU-Vvkkwxlqmgswn-YXZ Keith 1600 Work Phone: Start: 02-22-2014 Screening for malignant neoplasm of cervix [facility] Start: 02-22-2006 DTaP/Tdap/Td Vaccine s (1 - Tdap) DTaP/Tdap/Td Vaccines (1 - Tdap) [facility] Start: 02-22-2005 Screening for malignant neoplasm of cervix [facility] Start: 02-22-2003 Hepatitis B Vaccines (1 of 3 - 19+ 3-dose series) Hepatitis B Vaccines (1 of 3 - 19+ 3-dose series) [facility] Start: 02-22-2002 Diabetes mellitus screening Diabetes Screening [facility] Start: 02-22-2002 Hepatitis C screening Hepatitis C Sc reening [facility] Start: 02-22-1997 Varicella vaccination Varicell a Vaccines (1 of 2 - 13+ 2-dose series) [facility] Start: 02-22-1985 MMR Vaccines (1 of 1 - Standard series) MMR Vaccines (1 of 1 - Standard series) [facility] Start: 02-22-1985 Varicella vaccination Varicell a Vaccines (1 of 2 - 2-dose childhood series) [facility] Start: 1984 COVID-19 Vaccine (#1) COVID-19 Vacci ne (#1) [facility] Start: 1984 Hepatitis B Vaccines (1 of 3 - 3-dose series) Hepatitis B Vaccines (1 of 3 - 3-dose series) [facility] Start: 1984 HIV screening HIV Screening [facility] Start: 1984 Lipid panel Lipid Panel [facility] Start: 1984 Yearly Adult Physical Yearly Adult P hysical [facility] Bacteria identified in Urine by Culture Urine culture Microbiology Routine Urinary tract infection without hematuria, site unspecified Ordered: 08/21/2024 [facility] Healthcare Work Phone: Comment on above: Ordered: 08/21/2024 CHLAMYDIA TRACHOMATI S (GENITO/STI) CHLAMYDIA TRACHOMATIS (GENITO/STI) Lab Routine Trichomonas vaginalis (TV) infection Ordered: 09/22/2024 [facility] Comment on above: Ordered: 09/22/2024 CHLAMYDIA TRACHOMATI S (GENITO/STI) CHLAMYDIA TRACHOMATIS (GENITO/STI) Lab Routine Exposure to STD Ordered: 07/09/2024 [facility] Comment on above: Ordered: 07/09/2024 CHLAMYDIA TRACHOMATI S (GENITO/STI) CHLAMYDIA TRACHOMATIS (GENITO/STI) Lab Routine Trichomonas vaginalis (TV) infection Ordered: 10/30/2024 [facility] Comment on above: Ordered: 10/30/2024 CHLAMYDIA TRACHOMATI S (GENITO/STI) CHLAMYDIA TRACHOMATIS (GENITO/STI) Lab Routine Exposure to STD Vaginitis due to Trichomonas Ordered: 12/09/2024 [facility] Comment on above: Ordered: 12/09/2024 CHLAMYDIA TRACHOMATI S (GENITO/STI) CHLAMYDIA TRACHOMATIS (GENITO/STI) Lab Routine Vaginal discharge Ordered: 01/08/2025 [facility] Comment on above: Ordered: 01/08/2025 Neisseria gonorrhoea e DNA [Presence] in Unspecified specimen by MARYCARMEN with probe detection Neisseria gonorrhea DNA probe, direct Lab Routine Trichomonas vaginalis (TV) infection Ordered: 09/22/2024 [facility] Comment on above: Ordered: 09/22/2024 Neisseria gonorrhoea e DNA [Presence] in Unspecified specimen by MARYCARMEN with probe detection Neisseria gonorrhea DNA probe, direct Lab Routine Exposure to STD Ordered: 07/09/2024 [facility] Comment on above: Ordered: 07/09/2024 Neisseria gonorrhoea e DNA [Presence] in Unspecified specimen by MARYCARMEN with probe detection Neisseria gonorrhea DNA probe, direct Lab Routine Trichomonas vaginalis (TV) infection Ordered: 10/30/2024 [facility] Comment on above: Ordered: 10/30/2024 Neisseria gonorrhoea e DNA [Presence] in Unspecified specimen by MARYCARMEN with probe detection Neisseria gonorrhea DNA probe, direct Lab Routine Exposure to STD Ordered: 12/09/2024 [facility] Comment on above: Ordered: 12/09/2024 Neisseria gonorrhoea e DNA [Presence] in Unspecified specimen by MARYCARMEN with probe detection Neisseria gonorrhea DNA probe, direct Lab Routine Vaginal discharge Ordered: 01/08/2025 [facility] Comment on above: Ordered: 01/08/2025 SURESWAB(R) ADVANCED VAGINITIS PLUS, TMA SURESWAB(R) ADVANCED VAGINITIS PLUS, TMA Pathology and Cytology Routine Trichomonas vaginalis (TV) infection Ordered: 09/22/2024 [facility] Work Phone: Comment on above: Ordered: 09/22/2024 SURESWAB(R) ADVANCED VAGINITIS PLUS, TMA SURESWAB(R) ADVANCED VAGINITIS PLUS, TMA Pathology and Cytology Routine Exposure to STD Ordered: 07/09/2024 [facility] Work Phone: Comment on above: Ordered: 07/09/2024 SURESWAB(R) ADVANCED VAGINITIS PLUS, TMA SURESWAB(R) ADVANCED VAGINITIS PLUS, TMA Pathology and Cytology Routine Trichomonas vaginalis (TV) infection Ordered: 10/30/2024 [facility] As Seen on TV Work Phone: Comment on above: Ordered: 10/30/2024 SURESWAB(R) ADVANCED VAGINITIS PLUS, TMA SURESWAB(R) ADVANCED VAGINITIS PLUS, TMA Pathology and Cytology Routine Exposure to STD Vaginitis due to Trichomonas Ordered: 12/09/2024 [facility] Work Phone: Comment on above: Ordered: 12/09/2024 SURESWAB(R) ADVANCED VAGINITIS PLUS, TMA SURESWAB(R) ADVANCED VAGINITIS PLUS, TMA Pathology and Cytology Routine Vaginal discharge Ordered: 01/08/2025 [facility] Work Phone: Comment on above: Ordered: 01/08/2025 THIN PREP TIS PAP AN D HR HPV DNA THIN PREP TIS PAP AND HR HPV DNA Pathology and Cytology Routine Well woman exam with routine gynecological exam Ordered: 02/11/2025 [facility] As Seen on TV Comment on above: Ordered: 02/11/2025 Payers Date Payer Category Payer Medicaid [employer] [place] [id number] 2024-Present [address] [place] [address] [id number] 2023 [facility] (Private) [facility] [id number] 2023 Private Health Insurance [id number] 2023 Unknown [id number] 2020 Unknown [id number] 2018 Medicaid (Managed Care) [employer] [id number] 2018 Unknown 1984 Unknown [id number] 2.16.840.1.948285.3.579.2. 593 1984 Unknown [id number] 2.16.840.1.916630.3.579.2. 356 1984 Unknown [id number] 2.16.840.1.557793.3.579.2. 727 1984 Unknown [id number] 2.16.840.1.364476.3.579.2. 727 1984 Unknown [id number] 2.16840.1.391358.3.579.2. 727 1984 Unknown [id number] 2.16.840.1.073735.3.579.2. 727 1984 Unknown [id number] 2.16.840.1.598442.3.579.2. 727 1984 Unknown [id number] 2.16.840.1.538668.3.579.2. 1068 1984 Unknown [id number] 2.16.840.1.933452.3.579.2. 1068 1984 Unknown [id number] 2.16.840.1.493475.3.579.2. 1244 1984 Unknown [id number] 2.16.840.1.007721.3.579.2. 9 1984 Unknown [id number] 2.16.840.1.438470.3.579.2. 9 1984 Unknown [id number] 2.16.840.1.890172.3.579.2. 1258 1984 Unknown [id number] 2.16.840.1.784750.3.579.2. 9 1984 Unknown [id number] 2.16.840.1.418538.3.579.2. 9 1984 Unknown [id number] 2.16.840.1.085576.3.579.2. 1259 1959 Medicaid [id number] [id number] Unknown [id number] Social History Date Type Detail Facility Start: 08-13-2023 End: 10-03-2024 Former smoker Former smoker [facility] Work Phone: Tobacco smoking status No Smokin g Status Entered [facility] Start: 08-13-2023 Sex Assigned At Female [facility] Start: 08-13-2023 End: 10-03-2024 Tobacco smoking status NHIS Ex-smoker [facility] Start: 11-12-2000 End: 11-12-2020 History of tobacco use Current smoker [facility] Work Phone: Start: 11-12-2000 End: 11-12-2020 History of tobacco use Cigarette Smoker [facility] Work Phone: Start: 08-13-2023 End: 10-03-2024 Tobacco use and exposure Smokeless tobacco non-user [facility] Work Phone: Start: 08-13-2023 Alcohol intake Ex-drinker (finding) [facility] Work Phone: Start: 1985 Sex Assigned At Not on file [facility] Work Phone: Start: 08-03-2023 End: 10-03-2024 Exposure to SARS-CoV-2 (event) Not sure [facility] unknown [facility] Start: 1984 Sex assigned at Female [facility] Start: 07-10-2024 Gender identity Identifies as female gender (finding) [facility] Start: 07-10-2024 Sexual orientation Heterosexual (finding) [facility] Start: 10-03-2024 Alcoholic beverage intake Lifetime non-drinker (finding) [facility] Work Phone: Medical Equipment Procedure Code Equipment Code Equipment Original Text Equipment Identifier Dates [facility] 22g Case [id number] Start: 02-20-2022 Comment on above: Description: Convert ed from [facility]. Please see archived information for full log information. Additional Information:per brenda campbell 03/10/2022 Clinical Notes 05-12-2020 to 02-11-2025 AMERICA Donahue - 02/11/2025 9:00 AM AMERICA Cobb - 01/08/2025 3:00 PM ESTTelephone Encounter - AMERICA Donahue - 12/10/2024 10:52 AM ESTTelephone Encounter - AMERICA Donahue - 12/10/2024 10:52 AM EST Note Date & Type Note Facility 02-11-2025 History of Presen t illness Narrative Reason for Appointment: Patient ID: Dinesh Selby is a 39 y.o. female who presents for Gynecologic Exam Patient presents today for Annual Exam. MEDICATIONS Current Outpatient Medications Medication Instructions sertraline [...] nursing note reviewed. Exam conducted with a reimbursement specialist present. Vitals: Estimated body mass index is 64.2 kg/m as calculated from the following: Height as of 07/09/24: 5' 4 . Weight as of this encounter: 374 lb. BP: 138/80 No LMP recorded. ASSESSMENT & PLAN ICD-10-CM 1. Well woman exam with routine gynecological exam Z01.419 THIN PREP TIS PAP AND HR HPV DNA POCT urinalysis dipstick manually resulted POCT , urine manually resulted 2. Breast cancer screening by mammogram Z12.31 Bilateral screening mammogram Bilateral screening mammogram Annual: Patient presents today for an annual exam. Patient states she is doing well and has no complaints. Pap was obtained without difficulty and patient given mammogram order to have scheduled/obtained. Orders Placed This Encounter Procedures Bilateral screening mammogram POCT urinalysis dipstick manually resulted POCT , urine manually resulted Follow Up: Patient is to return in one year for annual unless needed otherwise. Documented by Jenifer Kay MA on behalf of: AMERICA Donahue documented in this encounter [facility] 01-08-2025 History of Presen t illness Narrative [...] nursing note reviewed. Exam conducted with a reimbursement specialist present. Vitals: Estimated body mass index is [...] of: AMERICA Donahue documented in this encounter [facility] 12-10-2024 Telephone encounter Note Patient notified of results. Patient not tolerating treatment of gel or oral flagyl previously. We will send in script for tinidazole 2g for 7 days [facility] 12-10-2024 Miscellaneous Notes Patient notified of results. Patient not tolerating treatment of gel or oral flagyl previously. We will send in script for tinidazole 2g for 7 days documented in this encounter [facility] 12-09-2024 History of Presen t illness Narrative [...] nursing note reviewed. Exam conducted with a reimbursement specialist present. Vitals: Estimated body mass index is [...] of: AMERICA Donahue documented in this encounter [facility] 10-30-2024 History of Presen t illness Narrative [...] nursing note reviewed. Exam conducted with a reimbursement specialist present. Vitals: Estimated body mass index is [...] of: AMERICA Donahue documented in this encounter [facility] 10-03-2024 History of Presen t illness Narrative [...] not available procedure to be done at [facility] in [place] by Dr. Sagastume. 2. Chest discomfort-etiology unclear 3. Abnormal R wave progression on EKG no prior EKG for comparison 4. Shortness of breath with activity 5. Not clinically volume overloaded 6. Patient denies symptoms of obstructive sleep apnea or a diagnosis of that 7. Hilar adenopathy, underwent biopsy, patient reports that her diagnosis is histoplasmosis. 8. 02-dlsq-pyip history of smoking, quit 2020. 9. History [...] the direction and in the presence of Zeina Walter MD. documented in this encounter [facility] Work Phone: 10-03-2024 Instructions Sapphire Pickard LPN [...] as needed only documented in this encounter [facility] Work Phone: 09-22-2024 History of Presen t [...] nursing note reviewed. Exam conducted with a reimbursement specialist present. Vitals: Estimated body mass index is [...] of: AMERICA Donahue documented in this encounter [facility] 08-21-2024 History of Presen t illness Narrative [...] nursing note reviewed. Exam conducted with a reimbursement specialist present. Vitals: Estimated body mass index is [...] of: AMERICA Donahue documented in this encounter [facility] 07-09-2024 History of Presen t illness Narrative [...] nursing note reviewed. Exam conducted with a reimbursement specialist present. Vitals: Estimated body mass index is [...] by Sonam Carrillo LPN on behalf of: Julian Gold DO documented in this encounter [facility] 08-13-2023 History of Presen t illness Narrative [...] not available procedure to be done at [facility] in [place] by Dr. Sagastume. 2. Chest discomfort-etiology unclear 3. Abnormal R wave progression on EKG no prior EKG for comparison 4. Shortness of breath with activity 5. Not clinically volume overloaded 6. Patient denies symptoms of obstructive sleep apnea or a diagnosis of that 7. Hilar adenopathy, underwent biopsy, patient reports that her diagnosis is histoplasmosis. 8. 13-fcxl-zylr history of smoking, quit 2020. 9. History [...] a cardiac standpoint. documented in this encounter [facility] Work Phone: 08-13-2023 Instructions Sapphire Pickard LPN [...] in one year. documented in this encounter [facility] Work Phone: 07-30-2023 History of Presen t illness Narrative 38-year-old without documented coronary artery disease or valvular heart disease is being seen in cardiology consultation at the request of Dr. 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 Yesterday she [...] abnormal R wave progression. Rate is 91 ND interval 140 ms QRS duration 94 ms2 [...] not available procedure to be done at [facility] in [place] by Dr. Sagastume.2. Chest discomfort-etiology unclear3. Abnormal R wave progression on EKG no prior EKG for comparison4. Shortness of breath with activity5. Not clinically volume overloaded6. Patient denies symptoms of obstructive sleep apnea or a diagnosis of that7. Hilar adenopathy, underwent biopsy, patient reports that her diagnosis is histoplasmosis.8. 04-uwbj-pthy history of smoking, quit 2020.9. History of [...] information, it is okay to switch to [employer].Follow-up after testingPatient is encouraged to abstain from cigarettes.EchocardiogramThank you for allowing us to participate in Dinesh's care, please do not hesitate to call if further questions arise,Sincerely, [employer] Work Phone: 07-11-2023 History of Presen t illness Narrative 38-year-old without documented coronary artery disease or valvular heart disease is being seen in cardiology consultation at the request of Dr. 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 Yesterday she [...] abnormal R wave progression. Rate is 91 ND interval 140 ms QRS duration 94 ms2 [...] not available procedure to be done at [facility] in [place] by Dr. Sagastume.2. Chest discomfort-etiology unclear3. Abnormal R wave progression on EKG no prior EKG for comparison4. Shortness of breath with activity5. Not clinically volume overloaded6. Patient denies symptoms of obstructive sleep apnea or a diagnosis of that7. Hilar adenopathy, underwent biopsy, patient reports that her diagnosis is histoplasmosis.8. 16-ppyt-rgcj history of smoking, quit 2020.9. History of [...] if further questions arise,Sincerely, [facility] Work Phone: 05-17-2023 History of Presen t illness Narrative 38-year-old without documented coronary artery disease or valvular heart disease is being seen in cardiology consultation at the request of Dr. 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 Yesterday she [...] abnormal R wave progression. Rate is 91 ND interval 140 ms QRS duration 94 ms2 [...] not available procedure to be done at [facility] in [place] by Dr. Sagastume.2. Chest discomfort-etiology unclear3. Abnormal R wave progression on EKG no prior EKG for comparison4. Shortness of breath with activity5. Not clinically volume overloaded6. Patient denies symptoms of obstructive sleep apnea or a diagnosis of that7. Hilar adenopathy, underwent biopsy, patient reports that her diagnosis is histoplasmosis.8. 63-jmbz-udlr history of smoking, quit 2020.9. History of [...] information, it is okay to switch to Confovisview.Follow-up after testingPatient is encouraged to abstain from cigarettes.EchocardiogramThank you for allowing us to participate in Dinesh's care, please do not hesitate to call if further questions arise,Sincerely, [facility]yl 250 DO Work Phone: 05-06-2023 History of Presen t illness Narrative 38-year-old without documented coronary artery disease or valvular heart disease is being seen in cardiology consultation at the request of Dr. 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 Yesterday she [...] abnormal R wave progression. Rate is 91 ND interval 140 ms QRS duration 94 ms2 [...] not available procedure to be done at [facility] in [place] by Dr. Sagastume.2. Chest discomfort-etiology unclear3. Abnormal R wave progression on EKG no prior EKG for comparison4. Shortness of breath with activity5. Not clinically volume overloaded6. Patient denies symptoms of obstructive sleep apnea or a diagnosis of that7. Hilar adenopathy, underwent biopsy, patient reports that her diagnosis is histoplasmosis.8. 21-bfds-xnjc history of smoking, quit 2020.9. History of [...] information, it is okay to switch to Confovisview.Follow-up after testingPatient is encouraged to abstain from cigarettes.EchocardiogramThank you for allowing us to participate in Dinesh's care, please do not hesitate to call if further questions arise,Sincerely, [facility] Mónica-Vasyl Bowman DO Work Phone: 03-03-2023 Evaluation note [...] understanding and is agreeable to treatment plan. [facility] [employer] Other 07-01-2020 History of Present illness Narrative* Patient is a 36-year-old woman referred by Sridevi Poe MD from thoracic surgery for possiblehistoplasmosis. * Patient was undergoing preoperative evaluation for gastric bypass surgery at [place]. Preoperative chest x-ray showed a chest shadow with everything else being fine. This occurred in May 2020. She was seen by her primary care provider for evaluation and a chest CT was performed that reveale d a mass . This further addressed by PET CT scan at [facility] where she was what was not cancer . She underwent a follow-up CAT scan 3 months following that showed questionable growth in a soft tissue mass. The recommendation was to repeat a CT in 9 months but she was sent to a physician in [place] whom she saw once. 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 She was referred to the [facility] however they never replied to the consult [...] was never treated. [facility]. She states that her vision changesbegan in 2012 after her son was born. She states that they began as floaters and then her centralvision began changing. She never noticed that she was unable to see well until she closed her left eye. She noted she had central vision . She was seen by an eye doctor in [facility]. She went to him for glasses [...] * She states she has lived in [place] only. She was born in [place] [facility] and then moved to [place]. Her only travel has been to [place]. 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 She is set [place] [employer] as well. She also helps with [...] Appointment Date:06/02/2022 02:00:00 PM Scheduled Provider:SHERI MCLEOD [facility] Appointment Type: Video Visit Therapy 60 [facility] evaluation + Plan note Future Appointments Appointment Date:08/02/2022 02:00:00 PM Scheduled Provider:SHERI MCLEOD [facility] Appointment Type: Video Visit Therapy 60 [facility] evaluation note* Diagnosis Obesity, morbid (CMS/HCC)- Primary Morbid obesity Pre-operative clearance Unspecified pre-operative examination Severe sleep apnea Encounter to discuss test results Other specified counseling documented in this encounter [facility] Work Phone: Evaluation note* Diagnosis Trichomonas vaginalis (TV) infection Urinary tract infection without hematuria, site unspecified Yeast infection documented in this encounter [facility] Healthcare[facility]* Diagnosis Trichomonas vaginalis (TV) infection [facility]* Diagnosis Superior vena cava occlusion (Multi) Compression of vein Severe sleep apnea Incomplete left bundle branch block BMI 60.0-69.9, adult (Multi) Former smoker Personal history of tobacco use, presenting hazards to health Obesity, morbid (Multi) Morbid obesity documented in this encounter [facility] Work Phone: Evaluation note* Diagnosis Exposure to STD Vaginal irritation Pruritus of genital organs Urethral irritation documented in this encounter [facility]* Diagnosis Trichomonas vaginalis (TV) infection documented in this encounter [facility]* Diagnosis Exposure to STD Vaginitis due to Trichomonas documented in this encounter [facility]* Diagnosis Vaginitis due to Trichomonas- Primary documented in this encounter [facility]* Diagnosis Vaginal discharge Leukorrhea, not specified as infective STD exposure Vaginitis due to Trichomonas documented in this encounter [facility] note* Diagnosis Well woman exam with routine gynecological exam Routine gynecological examination Breast cancer screening by mammogram documented in this encounter [facility] HealthcareHistory general Narrative - Reported* Type Description Date Medical History restriction around superior vena cava [employer] Other History of Present illness Narrative* Ms. [...] done and she will f/u with Dr. Lui regarding this. No other acute issues. discussed [...] neuro intact x 4 without focal deficits [facility] Work Phone: History of Present illness Narrative* [...] notable for no relatives with histoplasmosis -CT Surgery-[facility] Work Phone: Hospital course Narrative No data available for this section [facility] Hospital Discharge instructions No data available for this section [facility] Health progress note No data available for this section [facility] Chief Complaint Histplasmosis* [...] section and content) DATE CREATED AUTHOR 10/30/2021 [facility] DATE CREATED AUTHOR AUTHOR'S ORGANIZ ATION 03/22/2023 [facility] DATE CREATED AUTHOR AUTHOR'S ORGANIZ ATION 05/07/2023 [facility] DATE CREATED AUTHOR AUTHOR'S ORGANIZ ATION 05/08/2023 [employer] DATE CREATED AUTHOR AUTHOR'S ORGANIZ ATION 05/22/2023 [facility] DATE CREATED AUTHOR AUTHOR'S ORGANIZ ATION 08/03/2023 [facility] DATE CREATED AUTHOR AUTHOR'S ORGANIZ ATION 10/06/2024 [facility] tals Ambulatory DATE CREATED AUTHOR AUTHOR'S ORGANIZ ATION 01/10/2025 [facility] dical Specialists EPIC Care Team (unrecognized sect ion and content) Paper Bag Maker Relationship Specialty Start Date End Date Emmie Lenz APRN-CNP [address] [place] [address] PCP - General 05/07/23 Paper Bag Maker Relationship Specialty Start Date End Date Emmie Lenz APRN-CNP [address] [facility] [place] [address] PCP - General 05/07/23 Paper Bag Maker Relationship Specialty Start Date End Date Kacey Monroe PA [address] Natalie Vidal, [place] [address] PCP - [facility] [employer] 10/12/23 11/11/99 Paper Bag Maker Relationship Specialty Start Date End Date Kacey Monroe PA [address] [place] [address] PCP - [facility] [employer] 10/12/23 11/11/99 Paper Bag Maker Relationship Specialty Start Date End Date Kacey Monroe PA [address] [place] [address] PCP - [facility] [employer] 10/12/23 11/11/99 Paper Bag Maker Relationship Specialty Start Date End Date Kacey Monroe PA [address] [place] [address] PCP - [facility] [employer] 10/12/23 11/11/99 Paper Bag Maker Relationship Specialty Start Date End Date Kacey Monroe PA [address] [place] [address] PCP - [facility] [employer] 10/12/23 11/11/99 Paper Bag Maker Relationship Specialty Start Date End Date Kacey Monroe PA [address] [place] [address] PCP - [facility] [employer] 10/12/23 11/11/99 REASON FOR VISIT (unrecogniz ed section and content) Reason Comments Results Reason Comments STI Screening Pt present today for JOSE L visit. Pt tested + for Trichomoniasis. Reason Comments STI Screening Reason Comments Annual Exam Reason Comments vaginal issues Reason Comments STI Screening PT present for JOSE L. Pt tested +for BV/Trich. Reason Comments JOSE L Reason Comments Gynecologic Exam FOR RECORDS PERTAINING TO PATIENTS WHO ARE [...] BE BASED ON THE PRIMARY CLINICAL RECORDS. [facility] [employer] [facility]. provides no warranty or guarantee of the accuracy or completeness of information in this document.
[2025-02-16 19:07] LABS: Age Gdln ACOG Testing Note (.); HPV Aptima Positive (Negative); HPV Genotype 16 Negative (Negative); HPV Genotype 18,45 Negative (Negative); IGP, Aptima HPV, rfx 16/18,45 Note (.)
== END 2025-02-11 15:01 | disposition home or self-care (01) ==
LOC: LAB 15:00
PROVIDERS: PCP Nurse Practitioner Family; Visit Provider Physician Assistant
DX: Z01.419 Encounter for gynecological examination (general) (routine) without abnormal findings (principal)
CPT/HCPCS: 87624; 88175

== ENCOUNTER 2025-03-18 11:27 | Outpatient (RCR) | payer OTHER, SELFPAY | END 2025-05-26 06:56 | disposition home or self-care (01) | LOC: OT 11:27 | PROVIDERS: PCP Nurse Practitioner Family; Visit Provider Nurse Practitioner Family | DX: I89.0 Lymphedema, not elsewhere classified (principal) | CPT/HCPCS: 97140; 97166; 97535 ==

== ENCOUNTER 2025-04-01 21:57 | Emergency (ER) | payer OTHER, SELFPAY ==
--- OUTSIDE RECORDS SUMMARY | 2025-02-18 05:06 | XMS_ITS ---
Author Organization [facility] in [place] Address [address] [place] [address] Care Team Providers Care Entry Level Accountant Name Role Phone Emmie Moore Primary Care Provider REASON FOR VISIT Ozempic Encounters Encounter Location Date Provider Diagnosis [address] [address] 02/18/2025 Emmie Moore Plan Of Treatment Next Appt Details Provider Name:Emmie tyler, 06/30/2025 04:00:00 PM, [address] [place], [address], Progress Notes * Kinga MIRANDA LDOB:[birth year] (39 yo F)Acc No.[id number]:02/18/2025 Patient: Kinga GAONA :1985 A ge:39 Y S ex:Female Address:[address] [place] [id number] * true * Date: Generated for Printi ng/Fagerag/eTransmitting on: 0 04/01/2025 10:01 PM EDT
--- OUTSIDE RECORDS SUMMARY | 2025-03-02 11:45 | XMS_ITS ---
Author Organization [facility] in [place] Address [address] [place] [address] Care Team Providers Care Employee Communications Coordinator Name Role Phone Emmie Moore Primary Care Provider Allergies Allergen (clinical drug ingredient) Drug/Non Drug Allergy documented on EMR Reaction Allergy Type Onset Date Status Substance with sulfonamide structure and antibacterial mechanism of action (substance) Sulfa Antibiotics unknown Drug Allergy Active Penicillin anaphylaxis Drug Allergy Acti ve Reason For Referral Reason lymphedema abdominal wall Diagnosis 1 Lymphedema (I89.0) Referral Organization [facility] Referring Provider First Name Emmie Referring Provider Last Name Teresa Referring Provider Speciality Family Med icine Referred Provider [facility], Physical Therap y Referred Provider Specialty Physical The rapist Referral Priority Routine REASON FOR VISIT Lymphedema Medications Medication SIG (Take, Route, Frequency, Duration) Notes Start Date End Date Status Ketoconazole 2 % 1 application Externally Once a day for 14 days 12/30/2024 Active Zepbound 2.5 MG/0.5ML 0.5 mL Subcutaneou s for 30 days call for next dose 03/02/2025 Active Ozempic (0.25 or 0.5 MG/DOSE) 2 MG/3ML 0.25 mg Subcutaneous weekly for 28 days call for next dose 02/02/2025 Not-Taking Sertraline HCl 50 MG 1 tablet Orally Once a day for 30 days Active Vitamin D3 50 MCG (1999 UT) 1 capsule Orally Once a day for 30 days 02/02/2025 Active Cyclobenzaprine HCl 5 MG 1 -2 tablets at bedtime as needed Orally Once a day for 14 days 02/21/2024 Active Fluconazole 150 MG 1 tablet Orally weekly for 28 days 12/30/2024 Active Social History Tobacco Use: Social History Observation Description Date Details (start date - stop date) Former Smoker NA - 11/12/2020 Tobacco Use/Smoking Question Answer Notes Patient is a former smoker When did you stop smoking? 11/12/2020 Problems Problem Type SNOMED Code ICD Code Onset Dates Problem Status W/U Status Risk Notes Problem Lymphedema (82622143) Lymphedema (I89.0) Active confirmed Vital Signs Blood pressure systolic 138 mm Hg 03/02/20 25 Blood pressure diastolic 80 mm Hg 025 Height 64 in 03/02/2025 Weight 387 lbs 03/02/2025 BMI 66.42 kg/m2 03/02/2025 Encounters Encounter Location Date Provider Diagnosis [facility] [address] [place] [address] 03/02/2025 Emmie Moore Obstructive sleep apnea (adult) (pediatric) G47.33 and Lymphedema I89.0 Assessments Encounter Date Diagnosis (ICD Code) Assessment Notes Treatment Notes Treatment Clinical Notes Section Notes 03/02/2025 Obstructive sleep apnea (adult) (pediatric) (ICD-10 - G47.33) compliant with CPAP samples of tirzepatide given fu 1 m 03/02/2025 Lymphedema (ICD-10 - I89.0) Plan Of Treatment Medication Medication Name Sig Start Date Stop Date Notes Zepbound 2.5 MG/0.5ML 0.5 mL Subcutaneou s for 30 days 03/02/2025 call for next dose Treatment Notes Assessment Notes Obstructive sleep apnea (adult) (pediatr ic) compliant with CPAP samples of tirzepatide given fu 1 m Referrals Referral Date Details 03/02/2025 03/02/2025, lymphede ma abdominal wall, Physical Therapy TB Next Appt Details Follow Up: prn,4 Weeks, Reas on: Provider Name:Emmie tyler, 06/30/2025 04:00:00 PM, [address] [place], [address], Progress Notes * Kinga MIRANDA LDOB:[birth year] (40 yo F)Acc No.[id number]:03/02/2025 Progress Note Patient: Kinga GAONA Provider: Tony Moore ([facility]), FUR STRETCHER :1985 A ge:40 Y S ex:Female Date:03/02/2025 Address:[address] [place] [address], [id number] Check In:03:34 PM ESTCheck O ut:04:02 PM EST Subjective: * Chief Complaints: * 1 . Lymphedema. * HPI: G eneral: abdominal wall swelling, firm right side pannus lost little wt on ozempic when on it would like to continue GLP 1 if can sleep apnea, compliant with CPAP. * ROS: G eneral/Constitutional: Patient complaining of u nable to lose wt on own. F ever d enies. H eadache d enies. W eight loss d enies. O phthalmologic: Discharge d enies. E ye Pain d enies. I tching and redness d enies. E NT: Nasal discharge d enies. N cheri congestion d enies.?Sore throat d enies. C ardiovascular: Chest tightness/ heavy pressure d enies. R apid heart rate d enies. S welling of extremities d enies. C hest pain d enies. ? R espiratory: Productive cough d enies. C hest pain d enies. C ough d enies. S hortness of breath d enies. W heezing d enies. ? G astrointestinal: Abdominal pain d iscomfort area of pannus thats swollen.?Constipation d enies. D ecreased appetite d enies. D iarrhea d enies. N ausea d enies. V omiting d enies. G enitourinary: Urinary incontinence d enies. P ainful urination d enies. M usculoskeletal: Back pain d enies. N garrett pain d enies. M uscle aches d enies. S kin: ... r ight side pannus firm tissue, pitting edema . ?Rash d enies. S kin lesion(s) d enies. * Active Problem List B39.3 Disseminated histopl asmosis capsulati Modified On:03/21/2023 Status:confirmed E66.3 Overweight Modified On:03/21/2023 Status:confirmed L04.8 Acute lymphadenitis of other sites Modified On:03/21/2023 Status:confirmed Z20.828 Contact with and (zaman spected) exposure to other viral communicable diseases Modified On:03/21/2023 Status:confirmed Z76.89 Persons encountering health services in other specified circumstances Modified On:03/21/2023 Status:confirmed R53.83 Fatigue Modified On:03/21/2023 Status:confirmed E78.5 Dyslipidemia Modified On:03/21/2023 Status:confirmed F41.9 Anxiety Modified On:03/21/2023 Status:confirmed F17.200 Smoker Modified On:03/21/2023 Status:confirmed R42 Dizziness Modified On:03/21/2023 Status:confirmed J18.9 Pneumonia, organism unspecified Modified On:03/21/2023 Status:confirmed J32.9 Sinusitis Modified On:03/21/2023 Status:confirmed J01.90 Acute sinusitis Modified On:03/21/2023 Status:confirmed J02.9 Pharyngitis Modified On:03/21/2023 Status:confirmed R19.7 Diarrhea Modified On:03/21/2023 Status:confirmed R11.2 Nausea and vomiting Modified On:03/21/2023 Status:confirmed Z01.818 Pre-op exam Modified On:03/21/2023 Status:confirmed R07.89 Chest pressure Modified On:03/21/2023 Status:confirmed J02.9 Sore throat Modified On:03/21/2023 Status:confirmed E28.2 Polycystic ovary syn drome Modified On:03/21/2023 Status:confirmed M72.2 Plantar fasciitis Modified On:03/21/2023 Status:confirmed H92.01 Ear pain, right Modified On:03/21/2023 Status:confirmed R91.8 Lung nodules Modified On:03/21/2023 Status:confirmed L30.4 Intertrigo Modified On:03/21/2023 Status:confirmed K52.9 Gastroenteritis Modified On:03/21/2023 Status:confirmed J11.1 Influenza Modified On:03/21/2023 Status:confirmed R60.0 Ankle edema Modified On:03/21/2023 Status:confirmed Z68.43 BMI 50.0-59.9, adult Modified On:03/21/2023 Status:confirmed Z00.00 Wellness examination Modified On:03/21/2023 Status:confirmed B37.2 Candidiasis of skin and nails Modified On:03/21/2023 Status:confirmed I87.1 Superior vena cava s yndrome Modified On:03/21/2023 Status:confirmed F17.200 Chain smoker Modified On:03/21/2023 Status:confirmed R05.8 Other cough Modified On:03/21/2023 Status:confirmed K21.9 Gastro-esophageal re flux disease without esophagitis Modified On:07/03/2023 Status:confirmed G47.33 Obstructive sleep ap veronica (adult) (pediatric) Modified On:08/08/2023 Status:confirmed Z68.44 Body mass index [BMI ] 60.0-69.9, adult Modified On:10/03/2023 Status:confirmed E66.01 Class 3 obesity Modified On:12/30/2024 Status:confirmed R73.09 Pre-diabetes Modified On:02/02/2025 Status:confirmed 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 Modified On:02/17/2025 Status:confirmed I89.0 Lymphedema Modified On:03/02/2025 Status:confirmed * Medical History: G astroenteritis, Persons encountering health services in other specified circumstances, Overweight, Pre-op exam, Nausea and vomiting, Wellness examination, Dizziness, Anxiety, Superior vena cava syndrome, Ear pain, right, Pharyngitis, Contact with and (suspected) exposure to other viral communicable diseases, Chest pressure, Diarrhea, Other cough, Lung nodules, Ankle edema, Acute sinusitis, Plantar fasciitis, Intertrigo, Chain smoker, Smoker, BMI 50.0-59.9, adult, Sore throat, Influenza, Acute lymphadenitis of other sites, Disseminated histoplasmosis capsulati, Polycystic ovary syndrome, Pneumonia, organism unspecified, Dyslipidemia, Fatigue, Morbid obesity, Candidiasis of skin and nails, Sinusitis. * Surgical History: A chillies repair right , Biopsy lung, Rt . * Hospitalization/Major Diagno stic Procedure: D enies Past Hospitalization. * Family History: F ather: alive. M other: , Stomach and bowel CA- Passed at 37. S on(s): alive, ADHD. 1 son(s) . . * Social History: T obacco Use: T obacco Use/Smoking P atient is a f ormer smoker W hen did you stop smoking? 0 11/12/2020 * Medications: T aking Cyclobenzaprine HCl 5 MG Tablet 1 -2 tablets at bedtime as needed Orally Once a day , Taking Fluconazole 150 MG Tablet 1 tablet Orally weekly , Taking Ketoconazole 2 % Cream 1 application Externally Once a day , Taking Sertraline HCl 50 MG Tablet 1 tablet Orally Once a day , Taking Vitamin D3 50 MCG (1999 UT) Capsule 1 capsule Orally Once a day , Not-Taking/PRN Ozempic (0.25 or 0.5 MG/DOSE)(Semaglutide(0.25 or 0.5MG/DOS)) 2 MG/3ML Solution Pen-injector 0.25 mg Subcutaneous weekly , Notes to Pharmacist: call for next dose, Medication List reviewed and reconciled with the patient * Allergies: P enicillin: anaphylaxis, Sulfa Antibiotics: unknown. Objective: * Vitals: W t:387lbs, Ht: 64 in, BP:138/80mm Hg, BMI:66.42Index, Ht-cm: 162.56 cm, Wt-k.54 kg. * Examination: G eneral Examinations: GENERAL APPEARANCE: a lert and oriented, in no acute distress, obese. EYES: c onjunctiva normal, sclera non-icteric. NOSE: n ormal external appearance. LUNGS: c lear to auscultation bilaterally. CARDIO: r egular rate and rhythm, S1, S2 normal. ABDOMEN: o bese, large pannus right side underside firm tissue, pitting edema noted with palpation. MUSCULOSKELETAL: d ecreased ROM due to body habitus. SKIN: w arm and dry. Assessment: * Assessment: 1. O bstructive sleep apnea (adult) (pediatric) - G47.33 (Primary) 2 . L ymphedema - I89.0 Plan: * Treatment: 2. L ymphedema Referral To:Physical Therapy TB Physical Therapist Reason:lymphedema abdominal wall * Preventive Medicine: Screenings/Counseling: B NE ACTION PLAN Above Normal BMI Follow-up D ietary management education, guidance, and counseling * Follow Up: p rn,4 Weeks * * Electronically signed by Nadine Moore , CUSTOMER FACILITIES SUPERVISOR, INTELLIGENCE APPLICATIONS.FUR [email or web address] on 03/03/2025 at 11:55 AM EDT Sign off status: Completed Visit Status: C HK (Check Out) true * Provider: Tony Moore ([facility]), FUR STRETCHER Date: 0 03/02/2025 Generated for Bandari arlyn/Dahlia/eTransmitting on: 0 04/01/2025 10:01 PM EDT History and Physical Notes * HPI (History of Present Illness) Category Sub-Category Detail Notes Category Not es General abdominal wall swelling, firm right side pannus lost little wt on ozempic when on it would like to continue GLP 1 if can sleep apnea, compliant with CPAP Examination Category Sub-Category Detail Notes Category Not es General Examinations GENERAL APPEARANCE: alert a nd oriented, in no acute distress, obese EYES: conjunctiva normal, sclera non-icteric EARS: NOSE: normal external appe arance THROAT: CARDIO: regular rate and rhy thm, S1, S2 normal LUNGS: clear to auscultatio n bilaterally ABDOMEN: obese, large pannus right side underside firm tissue, pitting edema noted with palpation SKIN: warm and dry BACK: MUSCULOSKELETAL: decreased ROM due to body habitus LYMPH NODES: Consultation Request Notes Referral Date Referring Provider Referred Provider Not es 03/02/2025 Emmie Moore [facility], Physical Therapy lymp hedema abdominal wall
--- OUTSIDE RECORDS SUMMARY | 2025-03-31 11:45 | XMS_ITS ---
Author Organization [facility] in [place] Address [address] [place] [address] Care Team Providers Care Payable Processor Name Role Phone Emmie Moore Primary Care Provider Allergies Allergen (clinical drug ingredient) Drug/Non Drug Allergy documented on EMR Reaction Allergy Type Onset Date Status Substance with sulfonamide structure and antibacterial mechanism of action (substance) Sulfa Antibiotics unknown Drug Allergy Active Penicillin anaphylaxis Drug Allergy Acti ve REASON FOR VISIT diet check for Zepbound Medications Medication SIG (Take, Route, Frequency, Duration) Notes Start Date End Date Status Fluconazole 150 MG 1 tablet Orally weekly for 28 days 12/30/2024 Active Zepbound 2.5 MG/0.5ML 0.5 mL Subcutaneou s for 30 days call for next dose 03/02/2025 Active Vitamin D3 50 MCG (2000 UT) 1 capsule Orally Once a day for 30 days 02/02/2025 Active Sertraline HCl 50 MG 1 tablet Orally Onc e a day for 30 days Active Ketoconazole 2 % 1 application Externally Once a day for 14 days 12/30/2024 Active Cyclobenzaprine HCl 5 MG 1 -2 tablets at bedtime as needed Orally Once a day for 14 days 02/21/2024 Active Social History Tobacco Use: Social History Observation Description Date Details (start date - stop date) Former Smoker NA - 11/12/2020 Tobacco Use/Smoking Question Answer Notes Patient is a former smoker When did you stop smoking? 11/12/2020 Vital Signs Blood pressure systolic 136 mm Hg 03/31/20 25 Blood pressure diastolic 84 mm Hg 025 Height 64 in 03/31/2025 Weight 380.2 lbs 03/31/2025 BMI 65.25 kg/m2 03/31/2025 Encounters Encounter Location Date Provider Diagnosis [facility] [address] [place] [address] 03/31/2025 Emmie Moore Acute lymphadenitis of other sites L04.8 and Obstructive sleep apnea (adult) (pediatric) G47.33 Assessments Encounter Date Diagnosis (ICD Code) Assessment Notes Treatment Notes Treatment Clinical Notes Section Notes 03/31/2025 Acute lymphadenitis of other sites (ICD-10 - L04.8) PT for tx improved some 03/31/2025 Obstructive sleep apnea (adult) (pediatric) (ICD-10 - G47.33) continue zepbound fu me 3 months call for increased doses monthly Plan Of Treatment Treatment Notes Assessment Notes Acute lymphadenitis of other sites PT for tx improved some Obstructive sleep apnea (adult) (pediatr ic) continue zepbound fu me 3 months call for increased doses monthly Next Appt Details Follow Up: 3 Months,pedronSadie son: Provider Name:Emmie Simons r, 06/30/2025 04:00:00 PM, [address] [place], [address], Progress Notes * Kinga MIRANDA LDOB:[birth year] (40 yo F)Acc No.[id number]:03/31/2025 UNLOCKED PROGRESS NOTE Progress Note Patient: Stacey BERKLEY Kinga Becker Provider: Tony Moore ([facility]), CLASSIFICATION ANALYST :1985 A ge:40 Y S ex:Female Date:03/31/2025 Address:[address] [place], [place] [id number] Check In:03:39 PM ESTCheck O ut:04:01 PM EST Subjective: * Chief Complaints: * 1 . diet check for Zepbound. * HPI: G eneral: approved for ROYCE lost 7 lbs on sample from last month tolerating ok little GI discomfort, worse with over eating cravings less therapy for lymphedema going well, area on abdomen smaller, less firm. * ROS: G eneral/Constitutional: Patient admits e ncouraged by little wt loss and improved lymphedema. F ever d enies. H eadache d enies. W eight loss d enies. ? O phthalmologic: Discharge d enies. E ye [...] enies. ? G astrointestinal: Abdominal pain d enies. C onstipation d enies. D ecreased appetite d enies. D iarrhea d enies. N ausea d enies. V omiting?denies. G enitourinary: Urinary incontinence d enies. P ainful urination d enies. M usculoskeletal: Back pain d enies. N garrett pain d enies. M uscle aches d enies. S kin: Rash d enies. S kin lesion(s) d enies. ? r ight pannus with firm skin, improving. * Medical History: G astroenteritis, Persons encountering [...] 1 capsule Orally Once a day , Taking Zepbound(Tirzepatide-Weight Management) 2.5 MG/0.5ML Solution Auto-injector 0.5 mL Subcutaneous , Notes to Pharmacist: call for next dose, Discontinued Ozempic (0.25 or 0.5 MG/DOSE)(Semaglutide(0.25 or 0.5MG/DOS)) 2 MG/3ML Solution Pen-injector 0.25 mg Subcutaneous weekly , Notes to Pharmacist: call for next dose, Medication List reviewed and reconciled with the patient * Allergies: P enicillin: anaphylaxis, Sulfa Antibiotics: unknown. Objective: * Vitals: W t:380.2lbs, Ht: 64 in, BP:136/84mm Hg, BMI:65.25Index, Ht-cm: 162.56 cm, Wt-k.46 kg. * Examination: G eneral Examinations: GENERAL APPEARANCE: a lert and oriented, i n no acute distress. EYES: c onjunctiva normal, sclera non-icteric. NOSE: n ormal external appearance. LUNGS: d iminished breath sounds in the bases. CARDIO: r egular rate and rhythm, S1, S2 normal. MUSCULOSKELETAL: d ecreased ROM due to body habitus. SKIN: R ight lower pannus of abdomen, firm area. Assessment: * Assessment: 1. O bstructive sleep apnea (adult) (pediatric) - G47.33 (Primary) 2 . A cute lymphadenitis of other sites - L04.8 Plan: * Treatment: 2. A cute lymphadenitis of other sites Notes: PT for tx improved some * Preventive Medicine: Screenings/Counseling: B SC ACTION PLAN Above Normal BMI Follow-up D ietary management education, guidance, and counseling * Follow Up: 3 Months,prn * * Electronic signature of Korin Guaman NP, INDUSTRIAL RELATIONS COMMISSIONER.CLASSIFICATION [id number] on 04/01/2025 at 10:01 PM EDT Sign off status: Pending Visit Status: C HK (Check Out) * Provider: Tony Moore ([facility]), CLASSIFICATION ANALYST Date: 03/31/2025 Generated for Printi ng/Faxing/eTransmitting on: 04/01/2025 10:01 PM EDT History and Physical Notes * HPI (History of Present Illness) Category Sub-Category Detail Notes Category Not es General approved for ROYCE lost 7 lbs on sample from last month tolerating ok little GI discomfort, worse with over eating cravings less therapy for lymphedema going well, area on abdomen smaller, less firm Examination Category Sub-Category Detail Notes Category Not es General Examinations GENERAL APPEARANCE: alert a nd oriented, in no acute distress EYES: conjunctiva normal, sclera non-icteric EARS: NOSE: normal external appe arance THROAT: CARDIO: regular rate and rhy thm, S1, S2 normal LUNGS: diminished breath so unds in the bases ABDOMEN: SKIN: Right lower pannus o f abdomen, firm area BACK: MUSCULOSKELETAL: decreased ROM due to body habitus LYMPH NODES:
--- OUTSIDE RECORDS SUMMARY | 2025-04-01 22:01 | XMS_ITS | Patient Health Record ---
Author Organization [facility] in [place] Address [address] [place] [address] Care Team Providers Care Side Gluer Name Role Phone Emmie Moore Primary Care Provider [phone] EMMIE MOORE Unavailable [phone] Allergies Allergen (clinical drug ingredient) Drug/Non Drug Allergy documented on EMR Reaction Allergy Type Onset Date Status Substance with sulfonamide structure and antibacterial mechanism of action (substance) Sulfa Antibiotics unknown Drug Allergy Active Penicillin anaphylaxis Drug Allergy Acti ve Results Component Value Reference Range Notes UA DIP NONAUTO WO MICRO (810 02) - IN OFFICE (Not yet reviewed by provider) Interpretation: Performing Lab: Notes/Report: COLOR yellow CLARITY cloudy GLUCOSE neg BILIRUBIN neg KETONE neg SPECIFIC GRAVITY 1.020 BLOOD neg PH 7 PROTEIN neg UROBILINOGEN neg NITRITE neg LEUKOCYTE ESTERASE large Urine Culture, Routine Reviewed date:08/25/2024 11:54:34 AM Interpretation: Performing Lab: Notes/Report: [facility] , Urine Culture, Routine See Below For Report Urine Culture, Routine Organism: Beta hemolytic Strep group B : O:BETAGB Isolated Urine Culture, Routine *ABNORMAL* Urine Culture, Routine Organism: Beta hemolytic Strep group B : O:BETAGB Isolated Urine Culture, Routine 10,000-25,000 col arie forming units per mL Urine Culture, Routine Organism: Beta hemolytic Strep group B : O:BETAGB Isolated Urine Culture, Routine Penicillin and ampicillin are drugs of choice for Urine Culture, Routine Organism: Beta hemolytic Strep group B : O:BETAGB Isolated Urine Culture, Routine treatment of beta-hemolytic streptococcal infections. Urine Culture, Routine Organism: Beta hemolytic Strep group B : O:BETAGB Isolated Urine Culture, Routine Susceptibility te sting of penicillins and other beta- Urine Culture, Routine Organism: Beta hemolytic Strep group B : O:BETAGB Isolated Urine Culture, Routine lactam agents omid roved by the FDA for treatment of Urine Culture, Routine Organism: Beta hemolytic Strep group B : O:BETAGB Isolated Urine Culture, Routine beta-hemolytic streptococcal infections need not be Urine Culture, Routine Organism: Beta hemolytic Strep group B : O:BETAGB Isolated Urine Culture, Routine performed routine ly because nonsusceptible isolates Urine Culture, Routine Organism: Beta hemolytic Strep group B : O:BETAGB Isolated Urine Culture, Routine are extremely rar e in any beta-hemolytic streptococcus Urine Culture, Routine Organism: Beta hemolytic Strep group B : O:BETAGB Isolated Urine Culture, Routine and have not been reported for Streptococcus pyogenes Urine Culture, Routine Organism: Beta hemolytic Strep group B : O:BETAGB Isolated Urine Culture, Routine (group A). (CLSI) Urine Culture, Routine Organism: Beta hemolytic Strep group B : O:BETAGB Isolated Urine Culture, Routine Urine Culture, Routine Organism: Beta hemolytic Strep group B : O:BETAGB Isolated Urine Culture, Routine Mixed urogenital meseret Urine Culture, Routine Organism: Beta hemolytic Strep group B : O:BETAGB Isolated Urine Culture, Routine Less than 10,000 colonies/mL Urine Culture, Routine Organism: Beta hemolytic Strep group B : O:BETAGB Isolated Urine Culture, Routine Beta hemolytic St rep group B Urine Culture, Routine Organism: Beta hemolytic Strep group B : O:BETAGB Isolated Urine Culture, Routine See Below For Report Urine Culture, Routine Organism: Beta hemolytic Strep group B : O:BETAGB Isolated Urine Culture, Routine Performed at: CB - [facility] [place] Urine Culture, Routine Organism: Beta hemolytic Strep group B : O:BETAGB Isolated Urine Culture, Routine [address] [place], [place] [phone] Urine Culture, Routine Organism: Beta hemolytic Strep group B : O:BETAGB Isolated Urine Culture, Routine Assistant Office Manager: Kit Aragon PhD, Phone: [phone] Urine Culture, Routine Organism: Beta hemolytic Strep group B : O:BETAGB Isolated Performing Lab: see note LC - [facility] LB SEE REPORT - 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 Id information not found for OBX-specific van loader legend CBC AUTO DIFF Reviewed date:02/02/2025 11:35:37 AM Interpretation: Performing Lab: Notes/Report: [facility] , White Blood Count 10.3 4.0-11.0 10 3/uL Red Blood Count 4.42 4.20-5.40 10 6/uL Hemoglobin 12.7 12.0-16.0 g/dL Hematocrit 38.5 36.0-48.0 % Mean Corpuscular Volume 87.1 81.0-99.0 fL Mean Corpuscular Hemoglobin 28.7 26.7-34.0 pg Mean Corpuscular HGB Conc 33.0 29.9-35.2 g/dL Red Cell Distribution Width 14.4 11.0-15.0 % Platelet Count 319 150-450 10 3/uL Mean Platelet Volume 9.6 9.5-13.5 fL Neutrophils Percent Auto 74.7 43.0-75.0 % Lymphocytes Percent Auto 15.3 20.5-60.0 % Monocytes Percent Auto 6.7 1.7-12.0 % Eosinophils Percent Auto 2.1 0.9-7.0 % Basophils Percent Auto 0.8 0.2-2.0 % Immature Granulocytes Pct Auto 0.4 0.0-0.5 % Neutrophils Absolute Auto 7.7 1.4-6.5 10 3/uL Lymphocytes Absolute Auto 1.6 1.2-3.8 10 3/uL Monocytes Absolute Auto 0.7 0.3-0.8 10 3/uL Eosinophils Absolute Auto 0.2 0.0-0.7 10 3/uL Basophils Absolute Auto 0.1 0.0-0.1 10 3/uL Immature Granulocytes Abs Auto 0.04 0.00-0.03 10 3/uL Performing Lab: see note ML - [facility] LB FREE T3 Reviewed date:02/02/2025 11:35:37 AM Interpretation: Performing Lab: Notes/Report: [facility] , Free T3 2.58 2.18-3.98 pg/mL Performing Lab: see note - [facility] LB GLYCOHEMOGLOBIN A1C Reviewed date:02/02/2025 11:35:37 AM Interpretation: Performing Lab: Notes/Report: [facility] , Glycohemoglobin A1C 6.6 4.5-6.2 % ADA RECOMMENDED LIMIT 4.0 - 6.0 ADA THERAPEUTIC TARGET < 7.0 ACTION SUGGESTED > 7.0 Estimated Average Glucose 143 Performing Lab: see note ML - [facility] LB INSULIN Reviewed date:02/02/2025 11:35:37 AM Interpretation: Performing Lab: Notes/Report: [facility] , Insulin 49.3 2.6-24.9 uIU/mL Performed at: [facility] [id number] Assistant Office Manager: Kaushik Aragon PhD, Phone: [phone] Performing Lab: see note - [facility] LB IRON Reviewed date:02/02/2025 11:35:37 AM Interpretation: Performing Lab: Notes/Report: [facility] , Iron 54.0 50.0-170.0 ug/dL Performing Lab: see note ML - [facility] LB LIPID PROFILE Reviewed date:02/02/2025 11:35:37 AM Interpretation: Performing Lab: Notes/Report: [facility] , Triglycerides 128 <=150 mg/dL Cholesterol 173 <=200 mg/dL HDL Cholesterol 57 40-60 mg/dL > or =60 mg/dl - LOW CARDIOVASCULAR RISK <40 mg/dl - HIGH CARDIOVASCULAR RISK LDL Cholesterol Calculated 90.4 <100 mg/dl OPTIMAL 100-129 mg/dl NEAR OR ABOVE OPTIMAL 130-159 mg/dl BORDERLINE HIGH 160-189 mg/dl HIGH >190 mg/dl VERY HIGH VLDL CHOLESTEROL 25.6 Chol HDL Ratio 3.0 3.3 - 4.4 LOW RISK 4.4 - 7.1 AVERAGE RISK 7.1 - 11.0 MODERATE RISK >11.0 HIGH RISK Performing Lab: see note ML - [facility] LB T4 Reviewed date:02/02/2025 11:35:37 AM Interpretation: Performing Lab: Notes/Report: [facility] , T4 Thyroxine 6.20 4.80-13.90 ug/dL Performing Lab: see note - [facility] LB TSH Reviewed date:02/02/2025 11:35:37 AM Interpretation: Performing Lab: Notes/Report: [facility] , Thyroid Stimulating Hormone 2.288 0.358-3.740 uIU/mL Performing Lab: see note - [facility] LB VITAMIN D 25 [place] Reviewed date:02/02/2025 11:35:37 AM Interpretation: Performing Lab: Notes/Report: [facility] , Vitamin D 9.0 <20 ng/mL Vit D deficient 20-<30 ng/mL Vit D insufficient 30-100 ng/mL Vit D sufficient >100 ng/mL Potential Toxicity Performing Lab: see note ML - [facility] LB IGP,Aptima HPV,Age Gdln Reviewed date:02/17/2025 03:07:35 PM Interpretation: Performing Lab: Notes/Report: BRUSH-SPATULA CERVIX ENDOCERVIX [facility] , Age Gdln ACOG Testing Note . TESTS RESULT FLAG UNITS REF RANGE LAB Clinician Provided Cytology Information Source.............Cerv ix;Endocervix No. of containers..01 ThinPrep Vial Age Algo ACOG Rafaela... 01 FLAG LEGEND: L-Low Normal,H-High Normal,LL-Alert Low,HH-Alert High <-Panic Low,>-Panic High,A-Abnormal,AA-Crit ical Abnormal Performed at: 01 =G [facility] [address] [place] [address] Alyssa Bah MD, IGP, Aptima HPV, rfx 16/18,45 Note . TESTS RESULT FLAG UNITS REF RANGE LAB DIAGNOSIS: 02 NEGATIVE FOR INTRAEPITHELIAL LESION OR MALIGNANCY. Specimen adequacy: 02 Satisfactory for evaluation. Endocervical and/or squamous metaplastic cells (endocervical component) are present. Performed by: 02 Shanthi Griffin, Tower Climber ([facility]) . 02 Note: Note 03 The Pap smear is a screening test designed to aid in the detection of premalignant and malignant conditions of the uterine cervix. It is not a diagnostic procedure and should not be used as the sole means of detecting cervical cancer. Both false-positive and false-negative reports do occur. Test Methodology: Note 03 This liquid based ThinPrep(R) pap test was screened with the use of an image guided system. HPV Genotype Reflex Note 02 Criteria met, see HPV Genotype results. FLAG LEGEND: L-Low Normal,H-High Normal,LL-Alert Low,HH-Alert High <-Panic Low,>-Panic High,A-Abnormal,AA-Crit ical Abnormal Performed at: 02 [facility] [address] [place] [address] Maikel Alexander MD, 03 WB [facility] [address] [address] Alyssa Bah MD, HPV Aptima Positive Negative This nucleic acid amplification test detects fourteen high- risk HPV types (16,18,31,33,35,39,45,5 1,52,56,58,59,66,68) without differentiation. HPV Genotype 16 Negative Negative HPV Genotype 18,45 Negative Negative Performed at: =G - [facility] [address] [id number] Assistant Office Manager: Alyssa Bah MD, Phone: [phone] Performed at: [facility] [address] [place] [id number] Assistant Office Manager: Maikel Alexander MD, Phone: [phone] Performing Lab: see note LC - [facility] LB PROF 14(COMP METB) Reviewed date:02/02/2025 11:35:37 AM Interpretation: Performing Lab: Notes/Report: [facility] , Sodium 140 136-145 mmol/L Potassium 3.7 3.5-5.1 mmol/L Chloride 104 98-107 mmol/L Carbon Dioxide 27.4 21.0-32.0 mmol/L Anion Gap 12.3 Glucose 156 74-106 mg/dL Blood Urea Nitrogen 11.0 7.0-18.0 mg/dL Creatinine 0.74 0.55-1.02 mg/dL Estimated GFR ( Aylin >60 >=60 mL/min/1.73m 2 Estimated GFR (Non- Jenny >60 >=60 mL/min/1.73m 2 BUN Creatinine Ratio 14.9 Calcium 9.2 8.5-10.1 mg/dL Bilirubin Total 0.4 0.2-1.0 mg/dL Aspartate Amino Transferase 14 15-37 U/L Alanine Aminotransferase 25 14-59 U/L Alkaline Phosphatase 78 46-116 U/L Total Protein 7.2 6.4-8.2 g/dL Albumin Level 3.5 3.4-5.0 g/dL Globulin 3.7 Albumin Globulin Ratio 0.9 Performing Lab: see note ML - [facility] LB CT abdomen pelvis w con Reviewed date:02/02/2025 11:01:12 AM Interpretation: Performing Lab: Notes/Report: Source Facility: [facility]-[address] [place] [address] [place] [address] CT Scan Report Signed Patient: DINESH MIRANDA MR#: [id number] : 1985 Acct:[id number] Age/Sex: 39 / F ADM Date: 01/29/25 Loc: LAB Attending Dr: EMMIE MOORE Ordering Physician: EMMIE MOORE Date of Service: 01/29/25 Procedure(s): CT abdomen pelvis w con Accession Number(s): [id number] cc: EMMIE MOORE [place] [id number] Patient Name: DINESH MIRANDA MRN: [id number] date: 1985 Sex: F Assigned Patient Location: LAB Current Patient Location: LAB Accession/Order Number: [id number] Exam Date: 01/29/2025 10:59 Report Date: 01/29/2025 11:01 At the request of: EMMIE MOORE Procedure: CT abdomen pelvis w con CT ABDOMEN AND PELVIS WITH INTRAVENOUS CONTRAST: CLINICAL HISTORY: Lymphedema right lower abdomen. COMPARISON: None TECHNIQUE: Spiral images were obtained through the abdomen and pelvis following the administration of intravenous contrast. This CT exam was performed using one or more following dose reduction techniques: Automated exposure control, adjustment of the mA and/or kV according to patient size, or use of iterative reconstruction technique. FINDINGS: Lung Bases: [No acute findings.] Organs:Hepatic steatosis. Gallbladder spleen pancreas and adrenal glands appear unremarkable. No enhancing renal mass or hydronephrosis. Abdominal aorta appears normal in caliber.[ GI: Stomach is grossly unremarkable. Small bowel appears nondilated. Appendix is normal. No acute colonic abnormality.[ Pelvis:[Urinary bladder and uterus appear unremarkable. No adnexal mass.] Peritoneum/Retroperitoneum:No free air or free fluid or lymphadenopathy.[ Abd wall/Bones:Abdominal wall demonstrate varicosities are noted. Skin thickening is seen involving the patient's pannus. No fluid collection. Fat-containing umbilical hernia. Osseous structures demonstrate degenerative change.[ CT/CT abdomen pelvis w con IMPRESSION: No acute process. Impression dictated by: Jarred Tillman Jr., D.O.01/29/2025 11:01 AM Dictation Location: [place] [address] Electronically authenticated by: [id number] Y Date: 01/29/2025 11:01 Dictated By: Jarred Tillman M.D. 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: The [address] [id number] [address] Scan Report Signed Patient: DINESH MIRANDA MR#: [id number] : 1985 Acct:[id number] Age/Sex: 39 / F ADM Date: 01/29/25 Loc: LAB Attending Dr: EMMIE MOORE Ordering Physician: EMMIE MOORE Date of Service: 01/29/25 Procedure(s): CT abdomen pelvis w con Accession Number(s): [id number] cc: EMMIE MOORE [place] [id number] Patient Name: DINESH MIRANDA MRN: [id number] date: 1985 Sex: F Assigned Patient Location: LAB Current Patient Location: LAB Accession/Order Number: [id number] Exam Date: 01/29/2025 10:59 Report Date: 01/29/2025 11:01 At the request of: EMMIE MOORE Procedure: CT abdome n pelvis w con CT ABDOMEN AND PELVI S WITH INTRAVENOUS CONTRAST: CLINICAL HISTORY: Lymphedema right lower abdomen. COMPARISON: None TECHNIQUE: Spiral images were obtained through the abdomen and pelvis following the administration of intravenous contrast. This CT exam was performed using one or more following dose reduction techniques: Automated exposure control, adjustment of the mA and/or kV according to patient size, or use of iterative reconstruction technique. FINDINGS: Lung Bases: [No acut e findings.] Organs:Hepatic steatosis. Gallbladder spleen pancreas and adrenal glands appear unremarkable. No enhancing renal mass or hydronephrosis. Abdominal aorta appears normal in caliber.[ GI: Stomach is gross ly unremarkable. Small bowel appears nondilated. Appendix is normal. No acute colonic abnormality.[ Pelvis:[Urinary bladder and uterus appear unremarkable. No adnexal mass.] Peritoneum/Retroperi to neum:No free air or free fluid or lymphadenopathy.[ Abd wall/Bones:Abdominal wall demonstrate varicosities are noted. Skin thickening is seen involving the patient's pannus. No fluid collection. Fat-containing umbilical hernia. Osseous structures demonstrate degenerative change.[ CT/CT abdomen pelvis w con IMPRESSION: No acute process. Impression dictated by: Jarred Tillman Jr., D.O.01/29/2025 11:01 AM Dictation Location: [id number] Electronically authenticated by: [id number] Y Date: 01/29/2025 11:01 Dictated By: Jarred Tillman M.D. 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 Casting Machine Operator: Reason For Referral Reason lymphedema abdominal wall Diagnosis 1 Lymphedema (I89.0) Referral Organization [facility] Referring Provider First Name Emmie Referring Provider Last Name Teresa Referring Provider Speciality Family Med icine Referred Provider [facility], Physical Therap y Referred Provider Specialty Physical The rapist Referral Priority Routine Medications Medication SIG (Take, Route, Frequency, Duration) Notes Start Date End Date Status Fluconazole 150 MG 1 tablet Orally weekly for 28 days 12/30/2024 Active Cyclobenzaprine HCl 5 MG 1 -2 tablets at bedtime as needed Orally Once a day for 14 days 02/21/2024 Active Zepbound 2.5 MG/0.5ML 0.5 mL Subcutaneou s for 30 days call for next dose 03/02/2025 Active Vitamin D3 50 MCG (2000 UT) 1 capsule Orally Once a day for 30 days 02/02/2025 Active Sertraline HCl 50 MG 1 tablet Orally Onc e a day for 30 days Active Ketoconazole 2 % 1 application Externally Once a day for 14 days 12/30/2024 Active Social History Tobacco Use: Social History Observation Description Date Details (start date - stop date) Former Smoker NA - 11/12/2020 Tobacco Use/Smoking Question Answer Notes Patient is a former smoker When did you stop smoking? 11/12/2020 Alcohol Screen (Audit-C) Question Answer Notes Did you have a drink containing alcohol in the p ast year? No Points 0 Interpretation Negative AUDIT-C (Standard) Question Answer Notes Did you have a drink containing alcohol in the p ast year? 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.3) Active confirmed Problem Overweight (834587668) Overweight (E66.3) Active confirmed Problem Acute lymphadenitis (43054157) Acute lymphadenitis of other sites (L04.8) Active confirmed Problem Exposure to communicable disease (205474192) Contact with and (suspected) exposure to other viral communicable diseases (Z20.828) Active confirmed Problem Counseling requested (068166679) Persons encountering health services in other specified circumstances (Z76.89) Active confirmed Problem Fatigue (86678781) Fatigue (R53.83) Active conf irmed Problem Dyslipidemia (210456855) Dyslipidemia (E78.5) Active confirmed Problem Anxiety (27297310) Anxiety (F41.9) Active confi rmed Problem Lymphedema (25992413) Lymphedema (I89.0) Active confirmed Problem Smoker (75113068) Smoker (F17.200) Active confi rmed Problem Dizziness (498276582) Dizziness (R42) Active confirmed Problem Pneumonia (856091416) Pneumonia, organism unspecified (J18.9) Active confirmed Problem Sinusitis (32890274) Sinusitis (J32.9) Active confirmed Problem Acute sinusitis (07050539) Acute sinusitis (J01.90) Active confirmed Problem Pharyngitis (456996401) Pharyngitis (J02.9) Active confirmed Problem Diarrhea (91074840) Diarrhea (R19.7) Active confirmed Problem Nausea and vomiting (46757234) Nausea and vomiting (R11.2) Active confirmed Problem Pre-surgery evaluation (769726725) Pre-op exam (Z01.818) Active confirmed Problem Prediabetes (289830653) Pre-diabetes (R73.09) Active confirmed Problem Pressure in Chest (55953029) Chest pressure (R07.89) Active confirmed Problem Sore throat (563088999) Sore throat (J02.9) Active confirmed Problem Polycystic ovary syndrome (589738941) Polycystic ovary syndrome (E28.2) Active confirmed Problem Plantar fasciitis (857356279) Plantar fasciitis (M72.2) Active confirmed Problem Ear pain, right (H92.01) Active confirmed Problem Multiple nodules of lung (788790916) Lung nodules (R91.8) Active confirmed Problem Intertrigo (01259482) Intertrigo (L30.4) Active confirmed Problem Gastroenteritis (73826748) Gastroenteritis (K52.9) Active confirmed Problem Influenza (3335638) Influenza (J11.1) Active confirmed Problem Ankle edema (47276704) Ankle edema (R60.0) Active confirmed Problem Body mass index 40+ - severely obese (775300115) BMI 50.0-59.9, adult (Z68.43) Active confirmed Problem Annual wellness visit (829875819747960) Wellness examination (Z00.00) Active confirmed Problem Candidiasis of skin and nails (B37.2) Active confirmed Problem Superior vena cava syndrome (38292616) Superior vena cava syndrome (I87.1) Active confirmed Problem Chain smoker (827956971) Chain smoker (F17.200) Active confirmed Problem Human papillomavirus infection (687673623) HPV (human papilloma virus) infection (B97.7) Active confirmed Problem 329910424 Body mass index [BMI] 60.0-69.9, adult (Z68.44) Active confirmed Problem Cough (finding) (28964913) Other cough (R05.8) Active confirmed Problem Morbid obesity (196382040) Class 3 obesity (E66.01) Active confirmed Vital Signs Blood pressure diastolic 84 mm Hg 03/31/2025 Height 64 in 03/31/2025 Blood pressure systolic 136 mm Hg 03/31/2025 Weight 380.2 lbs 03/31/2025 BMI 65.25 kg/m2 03/31/2025 Encounters Encounter Location Date Provider Diagnosis [facility] [address] [place] [address] 05/07/[address] [facility] [address] [place] [address] 11/06/[address] [facility] [address] [place] [address] 01/01/[address] [facility] [address] [place] [address] 02/02/2025 Emmie Moore Pre-diabetes R73.03 [facility] [address] [place] [address] 02/04/[address] [facility] [address] [place] [address] 02/18/[address] [facility] [address] [place] [address] 06/19/2024 Emmie Moore Dysuria R30.0 [facility] [address] [place] [address] 12/30/2024 Emmie Moore Edema R60.9 ; Intertrigo L30.4 ; Class 3 obesity E66.01 ; Wellness examination Z00.00 and Hip pain M25.559 [facility] [address] [place] [address] 03/02/2025 Emmie Moore Obstructive sleep ap veronica (adult) (pediatric) G47.33 and Lymphedema I89.0 [place] [address] [place] [address] 03/31/2025 Emmie Moore Acute lymphadenitis of other sites L04.8 and Obstructive sleep apnea (adult) (pediatric) G47.33 Assessments Encounter Date Diagnosis (ICD Code) Assessment Notes Treatment Notes Treatment Clinical Notes Section Notes 06/19/2024 Dysuria (ICD-10 - R30.0) defers UA CS at this time if sx dont improve notify office 12/30/2024 Edema (ICD-10 - R60.9) what imaging? 12/30/2024 Intertrigo (ICD-10 - L30.4) 03/02/2025 Obstructive sleep apnea (adult) (pediatric) (ICD-10 - G47.33) compliant with CPAP samples of tirzepatide given fu 1 m 03/02/2025 Lymphedema (ICD-10 - I89.0) 03/31/2025 Acute lymphadenitis of other sites (ICD-10 - L04.8) PT for tx improved some 03/31/2025 Obstructive sleep apnea (adult) (pediatric) (ICD-10 - G47.33) continue zepbound fu me 3 months call for increased doses monthly 02/02/2025 Pre-diabetes (ICD-10 - R73.03) 12/30/2024 Class 3 obesity (ICD-10 - E66.01) checking labs no gastric bypass due to cardiology not confident ok to procede with sx per patient ozempic sample given, discussed administration, possible SE fu 1 m 12/30/2024 Wellness examination (ICD-10 - Z00.00) 12/30/2024 Hip pain (ICD-10 - M25.559) Plan Of Treatment Pending Test Test Name Order Date HEMOGLOBIN A1C (GLYCO) 12/30/2024 IRON, TOTAL 12/30/2024 LIPID PANEL (CHOL/TRIG/HDL/LDL) 12/30/19 25 CBC WITH DIFF 12/30/2024 VITAMIN D, 25 LEVEL (TOTAL) 12/30/2024 CT Abdomen and Pelvis w/contrast * 12/30 UA DIP NONAUTO WO MICRO (28190) - IN OFF ICE 06/19/2024 Insulin Level 12/30/2024 THYROID PANEL (T4/TSH/FREE T3) 5 CMP (COMP MET WEAVER) w/eGFR CKD-EPI 2024 Next Appt Details Provider Name:Emmie tyler, 06/30/2025 04:00:00 PM, [address] [place], [address], Insurance Providers Payer Name Payer Address Payer Phone Subscriber Number Group Number Insured Name Patient Relationship to Insured Coverage Start Date Coverage End Date O [address] [place], [place] [id number] Dinesh Harrison Self - patient is the insured [employer] [place] [employer] [address] [place] [address] [id number] Dinesh Harrison Self - patient is the insured Medical (General) History Medical History History ICD Code Gastroenteritis K52.9 Persons encountering health services in other specified circumstances Z76.89 Overweight E66.3 Pre-op exam Z01.818 Nausea and vomiting R11.2 Wellness examination Z00.00 Dizziness R42 Anxiety F41.9 Superior vena cava syndrome I87.1 Ear pain, right H92.01 Pharyngitis J02.9 Contact with and (suspected) exposure to other viral communicable diseases Z20.828 Chest pressure R07.89 Diarrhea R19.7 Other cough R05.8 Lung nodules R91.8 Ankle edema R60.0 Acute sinusitis J01.90 Plantar fasciitis M72.2 Intertrigo L30.4 Chain smoker F17.200 Smoker F17.200 BMI 50.0-59.9, adult Z68.43 Sore throat J02.9 Influenza J11.1 Acute lymphadenitis of other sites L04.8 Disseminated histoplasmosis capsulati B3 9.3 Polycystic ovary syndrome E28.2 Pneumonia, organism unspecified J18.9 Dyslipidemia E78.5 Fatigue R53.83 Morbid obesity E66.01 Candidiasis of skin and nails B37.2 Sinusitis J32.9 Surgical History Surgery Date(Month/Year) Achillies repair right Biopsy lung, Rt
--- OUTSIDE RECORDS SUMMARY | 2025-04-01 22:01 | XMS_ITS | Encounter Summary ---
Author Organization [facility] Address [address] [place] [address] Care Team Providers Care Sales Agent Trading Stamps Name Role Phone Kacey Louis Unavailable Encounter Details Date Type Department Care Team (Late st Contact Info) Description 08/26/2024 Abstract [facility] [address] [id number] Kacey Louis PA [address] [place], [id number] Social History Tobacco Use Types Packs/Day Years Used Date Smoking Tobacco: Never Assessed Comments No Sex and Gender Information Value Date Recorded Sex Assigned at Female 07/10/2024 9:26 AM EDT Legal Sex Female 6:52 PM EDT Gender Identity Female 07/10/2024 9:26 AM EDT Sexual Orientation Straight 07/10/2024 9: 26 AM EDT documented as of this encounter Plan of Treatment Not on file documented as of this encounter Visit Diagnoses Not on filedocumented in this encounter Care Teams Sales Agent Trading Stamps Relationship Specialty Start Date End Date Kacey Louis PA [address] [place], [id number] PCP - Medical [place] [employer] 10/12/23 11/11/99 documented as of this encounter
--- OUTSIDE RECORDS SUMMARY | 2025-04-01 22:01 | XMS_ITS | Encounter Summary ---
Author Organization [facility] Address [address] [place] [address] Phone Care Team Providers Care Migratory Worker Name Role Phone Emmie Moore Primary Care Provider Encounter Details Date Type Department Care Team (Late st Contact Info) Description 04/26/2021 Orders Only [facility] [address] [place] [address] Conversion, Onbase Social History Tobacco Use Types Packs/Day Years Used Date Smoking Tobacco: Never Assessed Comments Unknown Sex and Gender Information Value Date Recorded Sex Assigned at Not on file Legal Sex Female 3:52 AM EST Gender Identity Not on file Sexual Orientation Not on file documented as of this encounter Plan of Treatment Scheduled Orders Name Type Priority Associated Diagnoses Orde r Schedule OUTSIDE LAB SCAN Lab Ordered: 04/26/2021 documented as of this encounter Visit Diagnoses Not on filedocumented in this encounter Care Teams Migratory Worker Relationship Specialty Start Date End Date Emmie Moore APRN-CNP [address] [phone] PCP - General 05/07/23 documented as of this encounter
--- OUTSIDE RECORDS SUMMARY | 2025-04-01 22:01 | XMS_ITS | Encounter Summary ---
Author Organization [facility] Address [address] [place] [address] Phone Care Team Providers Care Boom Man Name Role Phone Emmie Moore APRN-TYLER Primary Care Provider Encounter Details Date Type Department Care Team (Late st Contact Info) Description 07/31/2023 Scanned Document [facility] [address] [place] [address] Conversion, Onbase Social History Tobacco Use Types Packs/Day Years Used Date Smoking Tobacco: Never Assessed Comments Unknown Sex and Gender Information Value Date Recorded Sex Assigned at Not on file Legal Sex Female 3:52 AM EST Gender Identity Not on file Sexual Orientation Not on file documented as of this encounter Plan of Treatment Not on file documented as of this encounter Procedures Procedure Name Priority Date/Time Associated Diagnosis Comments ECHOCARDIOGRAM 07/31/2023 CARDIAC STRESS TEST 07/31/2023 documented in this encounter Results * ECHOCARDIOGRAM (07/31/2023) Narrative 07/31/2023 Ordered by an unspecified provider. us Onbase Conversion CV ECHO PROCEDURES Final Resul t * CARDIAC STRESS TEST (07/31/2023) Narrative 07/31/2023 Ordered by an unspecified provider. us Onbase Conversion CV STRESS PROCEDURES Final Res ult documented in this encounter Visit Diagnoses Not on filedocumented in this encounter Care Teams Boom Man Relationship Specialty Start Date End Date Emmie Moore, GAS CHECK PAD MAKER-EXPORT SPECIALIST [address] [phone] PCP - General 05/07/23 documented as of this encounter
--- OUTSIDE RECORDS SUMMARY | 2025-04-01 22:01 | XMS_ITS | Clinical Summary ---
Author Organization [facility] Address [address] [place] [address] Care Team Providers Care Photo Stylist Name Role Phone Unavailable Primary Care Provider Unavailabl e Social History Tobacco Use Types Packs/Day Years Used Date Smoking Tobacco: Never Assessed Comments Unknown Sex and Gender Information Value Date Recorded Sex Assigned at Not on file Legal Sex Female 4:48 PM EDT Gender Identity Not on file Sexual Orientation Not on file Plan of Treatment Not on file
--- OUTSIDE RECORDS SUMMARY | 2025-04-01 22:01 | XMS_ITS | CCD ---
Author Organization [facility] Care Team Providers Care Belt Splicer Name Role Phone Unknown, Referring Provider Unavailable [...] Amoxicillin; Translations: [amoxicillin] Drug Allergy Anaphylaxis [facility] [employer] [facility] 1600 Work Phone: Sulfonamides (antibiotic) (3 sources) Sulfonamides (Antibiotic); Translations: [Sulfa Drugs] Drug Allergy Other -[facility] [employer] [facility] 1600 Work Phone: Unclassified (12 sources) Nystatin POWD; Translations: [Nystatin POWD] Allergy to drug (finding) Other [facility]inolog [facility] [place] 1600 Work Phone: (20 sources) Amoxicillin; Translations: [amoxicillin] Drug Allergy 08-08-20 23 Anaphylaxis, Angioedema [facility] (9 sources) Sulfonamides (Antibiotic); Translations: [Sulfa Drugs] Allergy to drug (finding) Other MG-CT Surgery-[facility] Work Phone: (20 sources) Substance with sulfonamide structure and antibacterial mechanism of action (substance) Drug allergy 08-08-20 23 Other, Unknown [facility] Other (1 source) Amoxicillin Drug Allergy 09-28-20 13 [facility] (1 source) Sulfonamides (Antibiotic) Drug allergy (disorder) 09-28-20 13 [facility] (3 sources) Nystatin; Translations: [NYSTATIN] Drug Allergy 08-08-20 23 Other [facility] Work Phone: (20 sources) metroNIDAZOLE; Translations: [METRONIDAZOLE] Drug Allergy 07-10-20 24 Anxiety [facility] (19 sources) Nystatin Drug Allergy 08-08-20 23 [facility] (19 sources) Penicillin G Drug Allergy 08-21-20 24 Anaphylaxis [facility] (1 source) Sulfonamides (Antibiotic); Translations: [SULFA (SULFONAMIDE ANTIBIOTICS)] Propensity to adverse reactions to drug (disorder) 08-08-20 23 [facility] 3 Repository Medications Current Medications Medication [...] eye Episodic Other aftercare (1 source) 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 [facility] Comment on above: TESTS RESULT FLAG UN ITS REF RANGE LAB Clinician Provided Cytology Information Source.............Cervix;Endocervix No. of containers..01 ThinPrep Vial Age Algo ACOG Rafaela... FLAG LEGEND: L-Low Normal,H-High Normal,LL-Alert Low,HH-Alert High <-Panic Low,>-Panic High,A-Abnormal,AA-Critical Abnormal Performed at: 01 =G [address] [id number] Alyssa Bah MD, HPV APTIMA Positive Abnormal Negative [facility] Comment on above: This nucleic acid am plification test detects fourteen high- risk HPV types (16,18,31,33,35,39,45,51,52,56,58,59,66,68) without differentiation. HPV GENOTYPE 16 Negative Negative [facility] Healthcare HPV GENOTYPE 18,45 Negative Negative [facility] Comment on above: Performed at: =G - L [facility] [address] [id number] Maintenance Aide: Alyssa Bah MD, Phone: [phone] Performed at: [facility] [address] [place], [place] [id number] Maintenance Aide: Maikel Alexander MD, Phone: [phone] IGP, APTIMA HPV, RFX 16/18,45 Note . [facility] Comment on above: TESTS RESULT FLAG UN ITS REF RANGE LAB DIAGNOSIS: 02 NEGATIVE FOR INTRAEPITHELIAL LESION OR MALIGNANCY. Specimen adequacy: 02 Satisfactory for evaluation. Endocervical and/or squamous metaplastic cells (endocervical component) are present. Performed by: 02 Shanthi Griffin, [employer] [facility] . 02 Note: Note 03 The Pap [...] L-Low Normal,H-High Normal,LL-Alert Low,HH-Alert High <-Panic Low,>-Panic High,A-Abnormal,AA-Critical Abnormal Performed at: 02 KWCYT [facility] [place] [facility] [id number] [place] [phone] Maikel Alexander MD, 03 WB [facility] [address] [phone] Alyssa Bah MD, Interpretation and review of laboratory results Abnormal [facility] BRUSH-SPATULA CERVIX ENDOCERVIX CLINIS[facility] HCG ( test) Ql (U)o n 02-11-2025 Interpretation and review of laboratory results Normal [facility] Preg Test, Ur Negative Negative [facility] Urinalysis macro (dipstick) panel (U)on 02-11-2025 Bilirubin, UA Negative Negative - 4(70) +++ mg/dL [facility] Blood, UA Positive Negative - 50 Estrada/mcL [facility] Comment on above: trace Clarity, UA Clear [facility] Color, UA Didi [facility] Glucose, UA Negative Negative - 1999(110) ++++ mg/dL [facility] Interpretation and review of laboratory results Normal [facility] Ketones, UA Negative Negative - 160(16) ++++ mg/dL [facility] Leukocytes, UA Negative Negative - 500+++ Natanael/mcL [facility] Nitrite, UA Negative Negative - Positive [facility] pH, UA 5 5 - 9 [facility] Protein, UA Negative Negative - 1999(20) ++++ mg/dL [facility] Spec Grav, UA 1.03 1 - 1.03 [facility] Urobilinogen, UA 0.2 0.2 - 12 mg/dL [facility] Urinalysis macro (dipstick) panel (U)on 09-22-2024 Bilirubin, UA Negative Negative - 4(70) +++ mg/dL [facility] Blood, UA Negative Negative - 50 Estrada/mcL [facility] Clarity, UA Clear [facility] Color, UA Yellow [facility] Glucose, UA Negative Negative - 1999(110) ++++ mg/dL [facility] Interpretation and review of laboratory results Abnormal [facility] Ketones, UA Negative Negative - 160(16) ++++ mg/dL [facility] Leukocytes, UA Trace Negative - 500+++ Natanael/mcL [facility] Nitrite, UA Negative Negative - Positive [facility] pH, UA 5.6 5 - 9 [facility] Protein, UA Many Negative - 1999(20) ++++ mg/dL [facility] Spec Grav, UA 1.025 1 - 1.03 [facility] Urobilinogen, UA 0.2 0.2 - 12 mg/dL [facility] Urinalysis macro (dipstick) panel (U)on 08-21-2024 Bilirubin, UA Negative Negative - 4(70) +++ mg/dL [facility] Blood, UA Positive Negative - 50 Estrada/mcL [facility] Comment on above: trace Clarity, UA Clear [facility] Color, UA Yellow [facility] Glucose, UA Negative Negative - 1999(110) ++++ mg/dL [facility] Interpretation and review of laboratory results Abnormal [facility] Ketones, UA Negative Negative - 160(16) ++++ mg/dL [facility] Leukocytes, UA Positive Negative - 500+++ Natanael/mcL [facility] Comment on above: large Nitrite, UA Negative Negative - Positive [facility] pH, UA 7.0 5 - 9 [facility] Protein, UA Trace Negative - 1999(20) ++++ mg/dL [facility] Spec Grav, UA 1.025 1 - 1.03 [facility] Urobilinogen, UA 0.2 0.2 - 12 mg/dL [facility] No Panel Informationon 07-10 STAPHYLOCOCCUS EPIDERMIDIS, HAEMOLYTICUS, LUGDUNENSIS, SAPROPHYTICUS (URINA 0.000 [facility] STAPHYLOCOCCUS EPIDERMIDIS, HAEMOLYTICUS, LUGDUNENSIS, SAPROPHYTICUS (URINA Not detected [facility] URINARY TRACT INFECTION (HTR X)on 07-10-2024 ACINETOBACTER BAUMANII 0.000 [facility] ACINETOBACTER BAUMANII Not detected [facility] ELVIRA ALBICANS, PARAPSILOSIS, TROPICALIS 0.000 [facility] ELVIRA ALBICANS, PARAPSILOSIS, TROPICALIS Not detected [facility] ELVIRA GLABRATA 0.000 [facility] ELVIRA GLABRATA Not detected [facility] ELVIRA KRUSEI 0.000 [facility] EL[facility] KRUSEI Not detected [facility] CITROBACTER FREUNDII 0.000 [facility] CITROBACTER FREUNDII Not detected [facility] ENTEROBACTER AEROGENES, CLOACAE 0.000 [facility] ENTEROBACTER AEROGENES, CLOACAE Not detected [facility] ENTEROCOCCUS FAECALIS, FAECIUM 0.000 [facility] ENTEROCOCCUS FAECALIS, FAECIUM Not detected [facility] ERMB, C; MEFA 20.660 Abnormal [facility] ERMB, C; MEFA Detected Abnormal [facility] ESCHERICHIA COLI 0.000 [facility] ESCHERICHIA COLI Not detected [facility] Interpretation and review of laboratory results Abnormal [facility] KLEBSIELLA PNEUMONIAE, OXYTOCA 0.000 [facility] KLEBSIELLA PNEUMONIAE, OXYTOCA Not detected [facility] MORGANELLA MORGANII 0.000 [facility] MORGANELLA MORGANII Not detected [facility] [...] Cardiac Stress Teston 2022 Cardiac Stress Test [address], [place] [address] Exercise Stress Test Patient Name: DINESH SELBY Ordering Physician: [id number] Zeina Walter MD Study Date: 07/31/2023 Reading Physician: [id number] Emma Galo MD, [facility] MRN/PID: [id number] Supervising Physician: [id number] Emma Galo MD, [facility] Accession/Order#: [id number] Referring Physician: ZEINA WALTER Date of : 1985 PCP: Gender: F Fellow: Height: 162.56 cm Nurse: Jhon Vaughn RN Weight: 171.01 kg Sales And Marketing Professional: TJ BSA: 2.56 m2 Technologist: BMI: 64.71 kg/m2 Additional Staff: Age: 38 years cc report to: Patient Location: cc report to: [id number] Zeina Walter MD Study Type: Cardiac Stress Test Diagnosis/ICD: R07.1-Chest pain on breathing (pleuritic chest pain); R06.02-Shortness of breath Indication: Chest Pain Procedure/CPT: Stress Test Interpretation-[id number]; Stress Test Supervision-[id number] Falls Risk: Low: Patient has low risk [...] ischemia. 2. Submaximal level of stress achieved. [id number] Emma Galo MD, [facility] Electronically signed on 08/01/2023 at 5:29:58 PM Final Normal [facility] Cardiac Stress Test Please click on the link to view the study images [facility] Work Phone: Cardiac Stress Test MP-No rth [place] [address] DO Work Phone: Echocardiogramon 07-31-[address], [place] [address] TRANSTHORACIC ECHOCARDIOGRAM REPORT Patient Name: DINESH RUBEN Gregorio Physician: [id number] Emma Galo MD, FAC Study Date: 07/31/2023 Referring Physician: ZEINA WALTER MRN/PID: [id number] PCP: [id number] Lenz DO Accession/Order#: [id number] Department Location: [facility] Date of : 1985 Fellow: Gender: F Nurse: Jhon Vaughn RN Admit Date: Sales And Marketing Professional: Kathy Quinones RDCS, RT(R), RDMS, RVT Height: 162.56 cm CC Report to: Weight: 171.01 kg Study Type: Echocardiogram BSA: 2.56 m2 Diagnosis/ICD: Z01.818-Encounter for other preprocedural examination; R07.9-Chest pain, unspecified; R94.31-Abnormal electrocardiogram [ECG] [EKG] Indication: INcomplete RBBB Chest pain SOB Pre-op for Bariatric Surgery Procedure/CPT: Echo Complete w Full Doppler-88079 Patient History: Pertinent History: Histoplasmosis. Study Detail: [...] 0.80 PULMONIC VALVE: Normal Ranges: PV Max Hay: 1.0 m/s (0.6-0.9m/s) PV Max P.7 mmHg [id number] Emma Galo MD, FACC Electronically signed on 08/01/2023 at 5:52:23 PM Final Normal [facility] Echocardiography Please click on the link to view the study images [facility] Work Phone: Consenton 05-21-2023 Consent [id number] 11 [id number] 0CD:127 [facility] Registrationon 05-21-2023 Registration [id number] 11 [id number] 0CD:127 [facility] Office Visit (Cardiology)on 05-07-2023 Follow-up visit [...] DR. 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 Yesterday she [...] abnormal R wave progression. Rate is 91 WV interval 140 ms QRS duration 94 ms [...] be done at [facility] in [place] by Dr. Sagastume. 2. Chest discomfort-etiology unclear 3. Abnormal R wave progression on EKG no prior EKG for comparison 4. Shortness of breath with activity 5. Not clinically volume overloaded 6. Patient denies symptoms of obstructive sleep apnea or a diagnosis of that 7. Hilar adenopathy, underwent biopsy, patient reports that her diagnosis is histoplasmosis. 8. 95-armu-urmd history of smoking, quit 2020. 9. History [...] information, it is okay to switch to [employer]. Follow-up after testing Patient is encouraged to abstain from cigarettes. Echocardiogram Thank you (more content not included)... Normal [facility] Tobacco Screening.on 023 Adult depression screening assessment No [facility] 250 DO Work Phone: Fall risk assessment a) No falls within the last year [facility] 250 DO Work Phone: Tobacco use status CPHS b) No [facility] 250 DO Work Phone: Video Visit - [...] NOTES/SUMMARY OF SESSION: Patient reported that her lpxneo-pa-wmb today. Her son was close to his [...] online (also named Otoniel) who lives in [place]. This man has 6-year-old twin boys. They have not met in person, yet. She is taking things slowly. Patient remains smoke-free since December. She met with her dietitian and was encouraged to lose 15 to 20 pounds before her bariatric surgery. She has been trying to get more exercise. She continues to work at [employer] in [place], and will be promoted to [employer], with a pay increase up to [...] active medications Allergies No active allergies Normal [facility] Comment on above: Result Comment: Elec tronically Signed By: [facility] MED[facility] CENTERClarisa, SHERI\.manisha\Date and Time Signed: 08/04/22 10:38 EDT [...] be effective. She continues to work at [employer] in [place]. She is being promoted to [employer], with a pay increase. Her 9-year-old son, [...] active medications Allergies No active allergies Normal [facility] Comment on above: Result Comment: Elec tronically Signed By: SHERI MCLEOD\.manisha\Date and Time Signed: 07/13/22 12:35 EDT Video [...] worked 8 days in a row at [employer] in [place]. She reported that she is being promoted to [employer]. Her 9-year-old son, Mohan, asked her about [...] active medications Allergies No active allergies Normal [facility] Comment on above: Result Comment: Elec tronically Signed By: SHERI MCLEOD\.manisha\Date and Time Signed: 06/20/22 12:28 EDT Video [...] visit. Video time spent with the patient keac-qx-nasy was greater than 50%, in addition to [...] feels is effective. She continues working at [email or web address] in [place]. She and her son, Mohan, continue to [...] active medications Allergies No active allergies Normal [facility] Comment on above: Result Comment: Elec tronically Signed By: [facility]HERI\.manisha\Date and Time Signed: 06/02/22 14:45 EDT Tobacco Screening.on 022 Fall risk assessment a) No falls within the last year [facility] Work Phone: Tobacco use status CP b) No [facility] Work Phone: Tobacco Screening. Adult [facility] Work Phone: Histoplasma Caps Abs CF+IDon 04-26-2021 Histoplasma Mycelia CF Ab. Negative Normal Neg:<1:2 [facility] Comment on above: Performed By: #### H ISTOPL GAL AG, HISTO ABS #### [facility] , Histoplasma Yeast CF Ab. 1:32 High Neg:<1:2 [facility] Comment on above: Result Comment: Perf ormed at: - [address] [id number] Maintenance Aide: Palomo Gutierrez MD, Phone: [phone] PERFORMED BY: [address] [address] PATHOLOGIST DOCK OR PIER LABORER SWETA SANDERS M.D. Performed By: #### H ISTOPL GAL AG, HISTO ABS #### [facility] , Histoplasma Galacto Ag EIAon 04-26-2021 Disclaimer: Normal . [facility] Comment on above: Result Comment: This test was developed and its performance characteristics determined by [employer]. It has not been cleared or approved by the Food and Drug Administration. Performed at: [facility] [address] [id number] Maintenance Aide: Palomo Gutierrez MD, Phone: [phone] Performed By: #### H ISTOPL GAL AG, HISTO ABS #### [facility] , Histoplasma Gal'hitchcock Ag, Ser <0.5 Normal <0.5 ng/mL [facility] Comment on above: Performed By: #### H ISTOPL GAL AG, HISTO ABS #### [facility] , Tobacco Screening.on 021 Fall risk assessment a) No falls within the last year [facility] [place] 1600 Work Phone: Tobacco use status CP b) No [facility] [place] 1600 Work Phone: QuantiFERON TB Goldon 2020 QFTB Criteria Normal . [facility] Comment on above: Result Comment: The QuantiFERON-TB Gold Plus result is determined by subtracting the Nil value from either TB antigen (Ag) tube. The mitogen tube serves as a control for the test. Performed By: #### Q UANT TB #### [facility] , Quant TB Ag Value 0.06 Normal . [facility] Comment on above: Performed By: #### Q UANT TB #### [facility] , Quant TB Gold Plus Negative Normal Negative [facility] Comment on above: Result Comment: The specimen received for QuantiFERON testing was incubated by the ordering institution. Specific procedures outlined in our Directory of Services and in the package insert for the QuantiFERON Gold (In Tube) test must be followed to enable for proper stimulation of cells for the production of interferon gamma. Chemiluminescence immunoassay methodology Performed at: [facility] [employer] [id number] Maintenance Aide: Kaushik Aragon PhD, Phone: [phone] PERFORMED BY: [address] [address] PATHOLOGIST DOCK OR PIER LABORER SWETA SANDERS M.D. Performed By: #### Q UANT TB #### [facility] , Quant TB2 Ag Value 0.07 Normal . [facility] Comment on above: Performed By: #### Q UANT TB #### [facility] , Quantiferon Nil Value 0.[address] Normal . [facility] Comment on above: Performed By: #### Q UANT TB #### [facility] , Quantiferon TB Mitogen >10.00 Normal . [facility] Comment on above: Performed By: #### Q UANT TB #### [facility] , [facility] echo transthoracicon [facility] echo transthoracic [facility] Main Mobile [address] [place], [place] [id number] Echocardiogram Signed Patient: Dinesh Selby MR#: [id number] : 1985 Acct:[id number] Age/Sex: 35 / F ADM Date: 01/12/21 Loc: Room: Type: [facility] Attending Dr: George Roland MD Ordering Provider: George Roland MD Date of Service: 01/12/21 [facility] echo transthoracic: [employer] Copies to: MD Emma Schultz MD, [facility] Weight: 336 lb Performed By: SEMAJ Valencia [...] 01/12/21 1402 Dictated By: Emma Galo MD, FACC 01/12/21 1320 Signed By: 01/12/21 1402 Normal [facility] Coagulation Profileon 2020 aPTT Coag (Bld) [Time] 32.9 s Normal 25.1-36.5 [facility] Comment on above: Result Comment: PERF ORMED BY: [place] [address] PATHOLOGIST DOCK OR PIER LABORER SWETA SANDERS M.D. Performed By: #### U R HISTOPLAS, HISTO ABS #### [facility] , #### PP #### [address] INR Coag (PPP) [Relative time] 1.1 {INR} Normal [facility] Comment on above: Result Comment: INR [...] ABS #### [facility] , #### PP #### [place] [address] [place] PT Coag (PPP) [Time] 12.0 s Normal 9.0-12.9 [facility] Comment on above: Performed By: #### U R HISTOPLAS, HISTO ABS #### [facility] , #### PP #### [address] Histoplasma Caps Abs CF+IDon 01-11-2021 Histoplasma Mycelia CF Ab. Negative Normal Neg:<1:2 [facility] Comment on above: Performed By: #### U R HISTOPLAS, HISTO ABS #### [facility] , #### PP #### [facility] [address] [place] [address] Histoplasma Yeast CF Ab. 1:8 High Neg:<1:2 [facility] Comment on above: Result Comment: Perf ormed at: - [facility] [id number] Maintenance Aide: Palomo Gutierrez MD, Phone: [phone] PERFORMED BY: [place] [address] PATHOLOGIST DOCK OR PIER LABORER SWETA SANDERS M.D. Performed By: #### U R HISTOPLAS, HISTO ABS #### [facility] , #### PP #### [facility] [address] [place] [address] Histoplasma Galacto Ag, Uron 01-11-2021 Histoplasma disclaimer Normal . [facility] Comment on above: Order Comment: SOURC E OF SPECIMEN: URINE Result Comment: This test was developed and its performance characteristics determined by [facility]. It has not been cleared or approved by the Food and Drug Administration. Performed at: [address] [id number] Maintenance Aide: Palomo Gutierrez MD, Phone: [phone] PERFORMED BY: [place] [address] PATHOLOGIST DOCK OR PIER LABORER SWETA SANDERS M.D. Performed By: #### U R HISTOPLAS, HISTO ABS #### [facility] , #### PP #### [facility] [address] [place] [address] Histoplasma GALACTOMANNAN, UR <0.5 Normal <0.5 ng/mL [facility] Comment on above: Order Comment: SOURC E OF SPECIMEN: URINE Performed By: #### U R HISTOPLAS, HISTO ABS #### [facility] , #### PP #### [address] Vital Signs Date Time Vital Sign Value Performing Clinician Facility 02-11-2025 08:57-0400 Body mass index (BMI) [Ratio] 64.2 kg/m2 Kacey CROSS Work Phone: [facility] 02-11-2025 [id number] Body weight 169.65 kg Kacey CROSS Work Phone: [facility] 02-11-2025 08:57-0400 Diastolic blood pressure 80 mm[Hg] Kacey Acworth PA Work Phone: [facility] 02-11-2025 08:57-0400 Systolic blood pressure 138 mm[Hg] Kacey Missy PA Work Phone: [facility] 01-08-2025 15:10-0500 Body mass index (BMI) [Ratio] 65.59 kg/m2 Kacey Missy PA Work Phone: [facility] 01-08-2025 15:10-0500 Body weight 173.33 kg Kacey Missy PA Work Phone: [facility] 01-08-2025 15:10-0500 Diastolic blood pressure 90 mm[Hg] Kacey Missy PA Work Phone: [facility] 01-08-2025 15:10-0500 Systolic blood pressure 136 mm[Hg] Kacey Missy PA Work Phone: [facility] 12-09-2024 09:19-0500 Body mass index (BMI) [Ratio] 65.23 kg/m2 Kacey Missy PA Work Phone: [facility] 12-09-2024 09:19-0500 Body weight 172.37 kg Kacey Acworth PA Work Phone: [facility] 12-09-2024 09:19-0500 Diastolic blood pressure 82 mm[Hg] Kacey Acworth PA Work Phone: [facility] 12-09-2024 09:19-0500 Systolic blood pressure 132 mm[Hg] Kacey Missy PA Work Phone: [facility] 10-30-2024 15:21-0500 Body mass index (BMI) [Ratio] 64.54 kg/m2 Kacey Acworth PA Work Phone: [facility] 10-30-2024 15:21-0500 Body weight 170.55 kg Kacey Missy PA Work Phone: [facility] 10-30-2024 15:21-0500 Diastolic blood pressure 80 mm[Hg] Kacey Acworth PA Work Phone: [facility] 10-30-2024 15:21-0500 Systolic blood pressure 130 mm[Hg] Kacey Monroe PA Work Phone: [facility] 10-03-2024 10:29-0500 Body height 162.6 cm Zeina Walter MD Work Phone: [facility] 10-03-2024 10:29-0500 Body mass index (BMI) [Ratio] 64.54 kg/m2 Zeina Walter MD Work Phone: [facility] 10-03-2024 10:29-0500 Body weight 170.55 kg Zeina Walter MD Work Phone: [facility] 10-03-2024 10:29-0500 Diastolic blood pressure 78 mm[Hg] Zeina Walter MD Work Phone: [facility] 10-03-2024 10:29-0500 Heart rate 88 /min Zeina Walter MD Work Phone: [facility] 10-03-2024 10:29-0500 Systolic blood pressure 118 mm[Hg] Zeina Walter MD Work Phone: [facility] 09-22-2024 11:43-0500 Body mass index (BMI) [Ratio] 63.87 kg/m2 Kacey Monroe PA Work Phone: [facility] 09-22-2024 11:43-0500 Body weight 168.79 kg Kacey Monroe PA Work Phone: [facility] 09-22-2024 11:43-0500 Diastolic blood pressure 70 mm[Hg] Kacey Acworth PA Work Phone: [facility] 09-22-2024 11:43-0500 Systolic blood pressure 112 mm[Hg] Kacey Missy PA Work Phone: [facility] 08-21-2024 16:16-0400 Body mass index (BMI) [Ratio] 63.51 kg/m2 Kacey Missy PA Work Phone: [facility] 08-21-2024 16:16-0400 Body weight 167.83 kg Kacey CROSS Work Phone: [facility] 07-09-2024 14:54-0400 Body height 162.6 cm Julian Asif DO Work Phone: [facility] 07-09-2024 14:54-0400 Body mass index (BMI) [Ratio] 64.37 kg/m2 Julian Asif DO Work Phone: [facility] 07-09-2024 14:54-0400 Body weight 170.1 kg Julian Asif DO Work Phone: [facility] 07-09-2024 14:54-0400 Diastolic blood pressure 80 mm[Hg] Julian Asif DO Work Phone: [facility] 07-09-2024 14:54-0400 Systolic blood pressure 130 mm[Hg] Julian Asif DO Work Phone: [facility] 08-13-2023 14:24-0400 Body height 162.6 cm Zeina Walter MD Work Phone: [facility] 08-13-2023 14:24-0400 Body mass index (BMI) [Ratio] 64.03 kg/m2 Zeina Walter MD Work Phone: [facility] 08-13-2023 14:24-0400 Body weight 169.19 kg Zeina Walter MD Work Phone: [facility] 08-13-2023 14:24-0400 Diastolic blood pressure 88 mm[Hg] Zeina Walter MD Work Phone: [facility] 08-13-2023 14:24-0400 Heart rate 82 /min Zeina Walter MD Work Phone: [facility] 08-13-2023 14:24-0400 Systolic blood pressure 126 mm[Hg] Zeina Walter MD Work Phone: [facility] 05-07-2023 11:28-0400 Diastolic blood pressure 80 mm[Hg] Emmie Curiel Teresa Work Phone: [facility] 250 DO Work Phone: 05-07-2023 11:28-0400 Systolic blood pressure 122 mm[Hg] Emmie Curiel Teresa Work Phone: [facility] 250 DO Work Phone: 05-07-2023 11:27-0400 Body height 162.56 cm Emmie Curiel Teresa Work Phone: [facility] 250 DO Work Phone: 05-07-2023 11:27-0400 Body mass index (BMI) [Ratio] 64.71 kg/m2 Emmie Curiel Teresa Work Phone: [facility] 250 DO Work Phone: 05-07-2023 11:27-0400 Body surface area Derived from formula 2.56 m2 Emmie Curiel Teresa Work Phone: [facility] 250 DO Work Phone: 05-07-2023 11:27-0400 Body weight 171.01 kg Emmie Herreramer Work Phone: [facility] 250 DO Work Phone: 05-07-2023 11:27-0400 Diastolic blood pressure 80 mm[Hg] Emmie Curiel Teresa Work Phone: [facility] 250 DO Work Phone: 05-07-2023 11:27-0400 Heart rate 91 /min Emmie Curiel Teresa Work Phone: [facility] 250 DO Work Phone: 05-07-2023 11:27-0400 Systolic blood pressure 118 mm[Hg] Emmie Curiel Teresa Work Phone: [facility] 250 DO Work Phone: 03-03-2023 10:15-0400 Body height 162.56 cm Didi Mendoza Other [facility] Other 03-03-2023 10:15-0400 Body mass index (BMI) [Ratio] 63.5 kg/m2 Didi Mendoza Other [facility] Other 03-03-2023 10:15-0400 Body temperature 98 [degF] Didi Mendoza Other [facility] Other 03-03-2023 10:15-0400 Body weight 167.83 kg Didi Mendoza Other [facility] Other 03-03-2023 10:15-0400 Respiratory rate 18 /min Didi Mendoza Other [facility] Other 03-03-2023 10:15-0400 SaO2% (BldA) [Mass fraction] 99 % Didi Mendoza Other [facility] Other 02-09-2022 11:42-0400 Body height 161.11 cm Emmie Herreramer Work Phone: [facility] Work Phone: 02-09-2022 11:42-0400 Body mass index (BMI) [Ratio] 65.42 kg/m2 Emmie Herrearmer Work Phone: [facility] Work Phone: 02-09-2022 11:42-0400 Body surface area Derived from formula 2.54 m2 Emmie Herreramer Work Phone: [facility] Work Phone: 02-09-2022 11:42-0400 Body temperature 97.9 [degF] Emmie S Teresa Work Phone: [facility] Work Phone: 02-09-2022 11:42-0400 Body weight 169.82 kg Emmie Herreramer Work Phone: [facility] Work Phone: 02-09-2022 11:42-0400 Diastolic blood pressure 80 mm[Hg] Emmie Herreramer Work Phone: [facility] Work Phone: 02-09-2022 11:42-0400 Heart rate 102 /min Emmie Herreramer Work Phone: [facility] Work Phone: 02-09-2022 11:42-0400 Respiratory rate 16 /min Emmie Herreramer Work Phone: [facility] Work Phone: 02-09-2022 11:42-0400 SaO2% (BldA) [Mass fraction] 98 % Emmie Herreramer Work Phone: [facility] Work Phone: 02-09-2022 11:42-0400 Systolic blood pressure 148 mm[Hg] Emmie Herreramer Work Phone: [facility] Work Phone: 02-09-2022 11:42-0400 0 1 Emmie Herreramer Work Phone: [facility] Work Phone: Comment on above: [facility] 04-22-2021 11:00-0400 Body height 162.56 cm Referring Provider Unknown AK-Fmxvmclpronar-KBA [place] [address] Work Phone: 04-22-2021 11:00-0400 Body mass index (BMI) [Ratio] 60.94 kg/m2 Referring Provider Unknown TM-Iipuluhkozaeh-AHE [place] [address] Work Phone: 04-22-2021 11:00-0400 Body surface area Derived from formula 2.5 m2 Referring Provider Unknown VL-Ikvsbmgrichyf-XZZ [place] [address] Work Phone: 04-22-2021 11:00-0400 Body weight 161.03 kg Referring Provider Unknown GH-Dmmadwtabmzhs-GZN [place] [address] Work Phone: 04-22-2021 11:00-0400 Diastolic blood pressure 84 mm[Hg] Referring Provider Unknown BF-Vniqedcnjctzz-EKR [place] [address] Work Phone: 04-22-2021 11:00-0400 Heart rate 111 /min Referring Provider Unknown MB-Bpmzrrieqywll-AOV [place] [address] Work Phone: 04-22-2021 11:00-0400 Systolic blood pressure 147 mm[Hg] Referring Provider Unknown FG-Octxpjvpzyxgy-DHE [place] [address] Work Phone: 04-22-2021 11:00-0400 0 1 Referring Provider Unknown PD-Hhhhgqgcsmfvj-PMZ [place] [address] Work Phone: Comment on above: [employer] Encounters Encounter Date Encounter Type Care Provider Facility Start: 02-11-2025 End: 02-11-2025 Bamboo flowsheet Kacey CROSS Work Phone: [facility] Start: 02-11-2025 End: 02-16-2025 Bamboo flowsheet Kacey CROSS Work Phone: [facility] Start: 02-11-2025 End: 02-16-2025 Clinisync Result Encounter Kacey CROSS Work Phone: [facility] Unsolicited Start: 02-11-2025 End: 02-11-2025 Patient encounter procedure Kacey CROSS Work Phone: [facility] Start: 02-11-2025 End: 02-11-2025 Periodic preventive med est patient 40-64yrs Kacey CROSS Work Phone: [facility] Comment on above: Well woman exam with routine gynecological exam; Breast cancer screening by mammogram Start: 02-11-2025 End: 02-11-2025 ambulatory KACEY MISSY Not Available Start: 01-08-2025 End: 01-08-2025 ambulatory KACEY MISSY Not Available Start: 01-08-2025 End: 01-08-2025 Office outpatient visit 15 minutes Kacey Monroe PA Work Phone: [facility] Comment on above: Vaginal discharge; STD exposure; Vaginitis due to Trichomonas Start: 01-08-2025 End: 01-08-2025 Bamboo flowsheet Kacey Monroe PA Work Phone: [facility] Start: 01-08-2025 End: 01-08-2025 Bamboo flowsheet Kacey Monroe PA Work Phone: [facility] Start: 12-10-2024 End: 12-10-2024 Telephone encounter Kacey Monroe PA Work Phone: [facility] Start: 12-09-2024 End: 12-09-2024 Bamboo flowsheet Kacey Monroe PA Work Phone: [facility] Start: 12-09-2024 End: 12-09-2024 Bamboo flowsheet Kacey Missy PA Work Phone: [facility] Start: 12-09-2024 End: 12-09-2024 Office outpatient visit 15 minutes Kacey Acworth PA Work Phone: [facility] Comment on above: Exposure to STD; Vaginitis due to Trichomonas Start: 12-09-2024 End: 12-09-2024 ambulatory KACEY MONROE Not Available Start: 10-30-2024 End: 10-30-2024 Office outpatient visit 15 minutes Kacey Monroe PA Work Phone: [facility] Comment on above: Trichomonas vaginali s (TV) infection Start: 10-30-2024 End: 10-30-2024 ambulatory KACEY KNUTSONEY Not Available Start: 10-30-2024 End: 10-30-2024 Bamboo flowsheet Kacey Monroe PA Work Phone: [facility] Start: 10-30-2024 End: 10-30-2024 Bamboo flowsheet Kacey CROSS Work Phone: [facility] Start: 10-03-2024 End: 10-03-2024 Office outpatient visit 15 minutes Zeina Walter MD Work Phone: [facility] Comment on above: Superior vena cava o cclusion (Multi); Severe sleep apnea; Incomplete left bundle branch block; BMI 60.0-69.9, adult (Multi); Former smoker; Obesity, morbid (Multi) Start: 10-03-2024 End: 10-03-2024 ambulatory [facility] Amb[facility] Start: 09-22-2024 End: 09-22-2024 Bamboo flowsheet Kacey CROSS Work Phone: [facility] Start: 09-22-2024 End: 09-22-2024 Bamboo flowsheet Kacey CROSS Work Phone: [facility] Start: 09-22-2024 End: 09-22-2024 Office outpatient visit 15 minutes Kacey CROSS Work Phone: [facility] Comment on above: Trichomonas vaginali s (TV) infection Start: 09-22-2024 End: 09-22-2024 ambulatory KACEY MONROE Not Available Start: 08-21-2024 End: 08-21-2024 ambulatory KACEY MONROE Not Available Start: 08-21-2024 End: 08-21-2024 Office outpatient visit 15 minutes Kacey CROSS Work Phone: [facility] Comment on above: Trichomonas vaginali s (TV) infection; Urinary tract infection without hematuria, site unspecified; Yeast infection Start: 08-21-2024 End: 08-21-2024 Bamboo flowsheet Kacey CROSS Work Phone: [facility] Start: 08-21-2024 End: 08-21-2024 Bamboo flowsheet Kacey CROSS Work Phone: [facility] Start: 07-09-2024 End: 07-09-2024 Office outpatient visit 15 minutes Julian Gold DO Work Phone: [facility] Comment on above: Exposure to STD; Vaginal irritation; Urethral irritation Start: 07-09-2024 End: 07-09-2024 ambulatory JULIAN FRYEO Not Available Start: 07-09-2024 End: 07-09-2024 Bamboo flowsheet Julian Fryeo DO Work Phone: [facility] Start: 07-09-2024 End: 07-10-2024 External Result Encounter Julian Fryeo DO Work Phone: [facility] Unsolicited Start: 07-09-2024 End: 07-10-2024 External Result Encounter Julian Fryeo DO Work Phone: [facility] Unsolicited Start: 08-13-2023 End: 08-13-2023 Office outpatient visit 15 minutes Zeina Walter MD Work Phone: [facility] Comment on above: Obesity, morbid (CMS /HCC) (Primary Dx); Pre-operative clearance; Severe sleep apnea; Encounter to discuss test results Start: 08-13-2023 End: 08-13-2023 Preoperative state Zeina Walter MD Work Phone: [facility] Work Phone: Start: 08-01-2023 Chart Update Emmie tyler Work Phone: [facility] 250 DO Work Phone: Start: 07-31-2023 Encounter for other preprocedural examination Zeina Walter [facility] Start: 07-31-2023 ambulatory Zeina Walter Facility:[id number] Start: 06-29-2023 ambulatory Zeina Walter Facility:[id number] Start: 06-25-2023 AUDIT Emmie tyler Work Phone: [facility] 250 DO Work Phone: Start: 05-21-2023 End: 05-22-[address] [facility] Facility:[facility] Start: 05-07-2023 Office consultation new/estab patient 60 min Emmie Lenz Work Phone: [facility] 250 DO Work Phone: Start: 05-07-2023 ambulatory MD ZEINA Treviño y: Start: 03-19-2023 End: 03-19-2023 ambulatory FELY ECHEVARRIA Facility:[facility] Start: 03-03-2023 End: 03-03-2023 ambulatory Didi Mendoza Other [facility] Rezzie Other Start: 03-03-2023 Office outpatient ne w 20 minutes Didi Mendoza [facility] Start: 08-28-2022 ambulatory SHERI THEODORE [facility] Start: 08-02-2022 End: 08-03-2022 ambulatory SHERI THEODORE [facility] Start: 08-02-2022 End: 08-02-2022 Patient encounter procedure SHERI THEODORE [facility] Start: 07-12-2022 End: 07-13-2022 ambulatory SHERI THEODORE Facility[facility] Start: 07-12-2022 End: 07-12-2022 Patient encounter procedure SHERI THEODORE [facility] Start: 06-19-2022 End: 06-20-2022 ambulatory SHERI THEODORE Facility[facility] Start: 06-19-2022 End: 06-19-2022 Patient encounter procedure SHERI THEODORE [facility] Start: 06-02-2022 End: 06-03-2022 ambulatory SHERI THEODORE Facility[facility] Start: 06-02-2022 End: 06-02-2022 Patient encounter procedure SHERI THEODORE [facility] Start: 05-18-2022 End: 05-18-2022 Patient encounter procedure SHERI THEODORE [facility] Start: 02-09-2022 Office outpatient vi sit 40 minutes Emmie Lenz Work Phone: [facility] Work Phone: Start: 05-03-2021 Patient encounter procedure Referring Provider Unknown AJ-Ivnrnwinyz-Mrmocw Work Phone: Start: 04-22-2021 Office consultation new/estab patient 60 min Referring Provider Unknown [facility]-Infectious Disease[facility] [place] [address] Work Phone: Start: 04-22-2021 Patient encounter procedure Referring Provider Unknown TR-Szsurbcioqudk-QPG [place] [address] Work Phone: Start: 03-22-2021 Office outpatient ne w 60 minutes Emmie Lenz Work Phone: [facility] Work Phone: Patient encounter status Emmie Lenz Work Phone: [facility] 250 DO Work Phone: Procedures Date Procedure Procedure Detail Performing Clinician Start: 02-11-2025 End: 02-11-2025 Urnls dip stick/tablet rgnt non-auto w/o micrscp Kacey CROSS Work Phone: Start: 02-11-2025 IGP,APTIMA HPV,AGE GDLN Kacey CROSS Work Phone: Start: 09-22-2024 Urnls dip stick/tabl et rgnt non-auto w/o micrscp Kacey CROSS Work Phone: Start: 08-21-2024 Urnls dip stick/tabl et rgnt non-auto w/o micrscp Kacey CROSS Work Phone: Start: 07-09-2024 URINARY TRACT INFECT ION (HTRX) Julian Asif DO Work Phone: Start: 07-31-2023 Echocardiography Emmie Lenz Work Phone: Biopsy of lung Emmie Parker er Work Phone: Operative procedure on foot Emmie Lenz Work Phone: Plan of Treatment Date Care Activity Detail Author Start: 02-22-2034 Zoster Vaccines (1 o f 2) Zoster Vaccines (1 of 2) [facility] Start: 07-13-2025 Influenza vaccination Influenz a Vaccine (Season Ended) [facility] Start: 02-11-2025 End: 04-13-2026 MG Breast - bilateral Screening Bilateral screening mammogram Imaging Routine Breast cancer screening by mammogram Expected: 02/11/2025 (Approximate), Expires: 04/13/2026 [facility] Work Phone: Comment on above: Expected: 02/11/2025 (Approximate), Expires: 04/13/2026 Start: 02-11-2025 End: 02-11-2025 Patient encounter procedure [facility] Comment on above: Arrived Start: 12-09-2024 End: 12-09-2024 Patient encounter procedure 12/09/2024 9:10 AM EST Office Visit [facility] [address] [place] [address] Kacey Monroe, PA [address] [place], [id number] Arrived [facility] Comment on above: Arrived Start: 10-30-2024 End: 10-30-2024 Patient encounter procedure 10/30/2024 3:10 PM EST Office Visit [facility] [address] [place] [id number] Kacey Monroe, PA [address] [place], [id number] Arrived [facility] Comment on above: Arrived Start: 10-22-2024 End: 10-22-2024 Patient encounter procedure 10/22/2024 1:10 PM EST Office Visit [facility] [address] [place] [address] Julian Gold DO [address] [place] [address] [facility] Start: 08-14-2024 End: 08-14-2024 Patient encounter procedure 08/14/2024 2:00 PM EDT Office Visit [facility] [address] [place] [phone] Zeina Walter MD [address] [place] [address] [facility] Start: 07-23-2024 End: 07-23-2024 Patient encounter procedure 07/23/2024 2:30 PM EDT Office Visit [facility] [address] [place] [phone] Julian Gold, DO [address] [place] [address] [facility] Start: 07-13-2024 COVID-19 Vaccine ( season) COVID-19 Vaccine ( season) [facility] Start: 07-13-2024 Influenza vaccination Influenza Vacc ine (#1) [facility] Start: 07-09-2024 End: 07-09-2024 Patient encounter procedure 07/09/2024 3:00 PM EDT Office Visit [facility] [address] [place] [phone] Julian Gold, DO [address] [place] [address] Arrived [facility] Comment on above: Arrived Start: 2024 Screening for malignant neoplasm of breast Mammogram [facility] Start: 08-13-2023 FUV, Provider: Zeina Walter, Status: Pen, Time: 2:15 PM FUV, Provider: Zeina Walter, Status: Pen, Time: 2:15 PM [facility] 250 DO Work Phone: Start: 07-31-2023 ECHO, Provider: [place] [facility] ULTRASOUND 01,[id number], Status: Pen, Time: 8:45 AM ECHO, Provider: [place] [facility] ULTRASOUND 01,[id number], Status: Pen, Time: 8:45 AM -[facility] 250 DO Work Phone: Start: 07-31-2023 STRESS NUC, Provider : [place] [facility] NUCLEAR 01,[id number], Status: Pen, Time: 8:00 AM STRESS NUC, Provider: [place] [facility] NUCLEAR 01,[id number], Status: Pen, Time: 8:00 AM -[facility] 250 DO Work Phone: Start: 07-13-2023 Influenza vaccination Influenza Vacc ine (#1) [facility] Start: 06-25-2023 FUV, Provider: Zeina Walter, Status: Pen, Time: 10:45 AM FUV, Provider: Zeina Walter, Status: Pen, Time: 10:45 AM -[facility] 250 DO Work Phone: Start: 06-21-2023 ECHO, Provider: [place] [facility] ULTRASOUND 01,[id number], Status: Pen, Time: 12:30 PM ECHO, Provider: [place] [facility] ULTRASOUND 01,[id number], Status: Pen, Time: 12:30 PM -[facility] 250 DO Work Phone: Start: 06-21-2023 STRESS SRIKANTH, Provider : [place] [facility] NUCLEAR 01,[id number], Status: Pen, Time: 11:30 AM STRESS SRIKANTH, Provider: [place] [facility] NUCLEAR 01,[id number], Status: Pen, Time: 11:30 AM -[facility] 250 DO Work Phone: Start: 05-03-2021 VIRFUVHOME, Provider : Dianna Acosta, Status: Pen, Time: 9:00 AM VIRFUVHOME, Provider: Dianna Acosta, Status: Pen, Time: 9:00 AM LH-Acxovanpl[facility]oun-[facility] [place] [address] Work Phone: Start: 02-22-2014 Screening for malignant neoplasm of cervix [facility] Start: 02-22-2006 DTaP/Tdap/Td Vaccine s (1 - Tdap) DTaP/Tdap/Td Vaccines (1 - Tdap) [facility] Start: 02-22-2005 Screening for malignant neoplasm of cervix [facility] Start: 02-22-2003 Hepatitis B Vaccines (1 of 3 - 19+ 3-dose series) Hepatitis B Vaccines (1 of 3 - 19+ 3-dose series) [facility] Start: 02-22-2002 Diabetes mellitus screening Diabetes Screening [facility] Start: 02-22-2002 Hepatitis C screening Hepatitis C Sc reening [facility] Start: 02-22-1997 Varicella vaccination Varicell a Vaccines (1 of 2 - 13+ 2-dose series) [facility] Start: 02-22-1985 MMR Vaccines (1 of 1 - Standard series) MMR Vaccines (1 of 1 - Standard series) [facility] Start: 02-22-1985 Varicella vaccination Varicell a Vaccines (1 of 2 - 2-dose childhood series) [facility] Start: 1984 COVID-19 Vaccine (#1) COVID-19 Vacci ne (#1) [facility] Start: 1984 Hepatitis B Vaccines (1 of 3 - 3-dose series) Hepatitis B Vaccines (1 of 3 - 3-dose series) [facility] Start: 1984 HIV screening HIV Screening [facility] Start: 1984 Lipid panel Lipid Panel [facility] Start: 1984 Yearly Adult Physical Yearly Adult P hysical [facility] Bacteria identified in Urine by Culture Urine culture Microbiology Routine Urinary tract infection without hematuria, site unspecified Ordered: 08/21/2024 [facility] Work Phone: Comment on above: Ordered: 08/21/2024 CHLAMYDIA TRACHOMATI S (GENITO/STI) CHLAMYDIA TRACHOMATIS (GENITO/STI) Lab Routine Trichomonas vaginalis (TV) infection Ordered: 09/22/2024 [facility] Comment on above: Ordered: 09/22/2024 CHLAMYDIA TRACHOMATI S (GENITO/STI) CHLAMYDIA TRACHOMATIS (GENITO/STI) Lab Routine Exposure to STD Ordered: 07/09/2024 [facility] Comment on above: Ordered: 07/09/2024 CHLAMYDIA TRACHOMATI S (GENITO/STI) CHLAMYDIA TRACHOMATIS (GENITO/STI) Lab Routine Trichomonas vaginalis (TV) infection Ordered: 10/30/2024 [facility] Comment on above: Ordered: 10/30/2024 CHLAMYDIA TRACHOMATI S (GENITO/STI) CHLAMYDIA TRACHOMATIS (GENITO/STI) Lab Routine Exposure to STD Vaginitis due to Trichomonas Ordered: 12/09/2024 [facility] Comment on above: Ordered: 12/09/2024 CHLAMYDIA TRACHOMATI S (GENITO/STI) CHLAMYDIA TRACHOMATIS (GENITO/STI) Lab Routine Vaginal discharge Ordered: 01/08/2025 [facility] Comment on above: Ordered: 01/08/2025 Neisseria gonorrhoea e DNA [Presence] in Unspecified specimen by MARYCARMEN with probe detection Neisseria gonorrhea DNA probe, direct Lab Routine Trichomonas vaginalis (TV) infection Ordered: 09/22/2024 [facility] Comment on above: Ordered: 09/22/2024 Neisseria gonorrhoea e DNA [Presence] in Unspecified specimen by MARYCARMEN with probe detection Neisseria gonorrhea DNA probe, direct Lab Routine Exposure to STD Ordered: 07/09/2024 [facility] Comment on above: Ordered: 07/09/2024 Neisseria gonorrhoea e DNA [Presence] in Unspecified specimen by MARYCARMEN with probe detection Neisseria gonorrhea DNA probe, direct Lab Routine Trichomonas vaginalis (TV) infection Ordered: 10/30/2024 [facility] Comment on above: Ordered: 10/30/2024 Neisseria gonorrhoea e DNA [Presence] in Unspecified specimen by MARYCARMEN with probe detection Neisseria gonorrhea DNA probe, direct Lab Routine Exposure to STD Ordered: 12/09/2024 [facility] Comment on above: Ordered: 12/09/2024 Neisseria gonorrhoea e DNA [Presence] in Unspecified specimen by MARYCARMEN with probe detection Neisseria gonorrhea DNA probe, direct Lab Routine Vaginal discharge Ordered: 01/08/2025 [facility] Comment on above: Ordered: 01/08/2025 SURESWAB(R) ADVANCED VAGINITIS PLUS, TMA SURESWAB(R) ADVANCED VAGINITIS PLUS, TMA Pathology and Cytology Routine Trichomonas vaginalis (TV) infection Ordered: 09/22/2024 [employer] [employer] Work Phone: Comment on above: Ordered: 09/22/2024 SURESWAB(R) ADVANCED VAGINITIS PLUS, TMA SURESWAB(R) ADVANCED VAGINITIS PLUS, TMA Pathology and Cytology Routine Exposure to STD Ordered: 07/09/2024 [facility] [employer] Work Phone: Comment on above: Ordered: 07/09/2024 SURESWAB(R) ADVANCED VAGINITIS PLUS, TMA SURESWAB(R) ADVANCED VAGINITIS PLUS, TMA Pathology and Cytology Routine Trichomonas vaginalis (TV) infection Ordered: 10/30/2024 [facility] [employer] Work Phone: Comment on above: Ordered: 10/30/2024 SURESWAB(R) ADVANCED VAGINITIS PLUS, TMA SURESWAB(R) ADVANCED VAGINITIS PLUS, TMA Pathology and Cytology Routine Exposure to STD Vaginitis due to Trichomonas Ordered: 12/09/2024 [facility] Comment on above: Ordered: 12/09/2024 SURESWAB(R) ADVANCED VAGINITIS PLUS, TMA SURESWAB(R) ADVANCED VAGINITIS PLUS, TMA Pathology and Cytology Routine Vaginal discharge Ordered: 01/08/2025 [facility] [employer] Work Phone: Comment on above: Ordered: 01/08/2025 THIN PREP TIS PAP AN D HR HPV DNA THIN PREP TIS PAP AND HR HPV DNA Pathology and Cytology Routine Well woman exam with routine gynecological exam Ordered: 02/11/2025 [facility] [employer] Comment on above: Ordered: 02/11/2025 Payers Date Payer Category Payer Medicaid [employer] [place] [id number] 2024-Present [address] [place] [address] [id number] 2023 [facility] (Private) [facility] [id number] 10-12-2023 Private Health Insurance [id number] 10-12-2023 Unknown [id number] 09-15-2020 Unknown [id number] 04-12-2018 Medicaid (Managed Care) CAREUR [id number]. [id number] 04-12-2018 Unknown 1984 Unknown [id number] 2..840.1.581171.3.579.2. 593 1984 Unknown [id number] 2.16.840.1.090650.3.579.2. 356 1984 Unknown [id number] 2.16.840.1.283113.3.579.2. 727 1984 Unknown [id number] 2.16.840.1.136307.3.579.2. 727 1984 Unknown [id number] 2.16.840.1.701607.3.579.2. 727 1984 Unknown [id number] 2.16.840.1.751576.3.579.2. 727 1984 Unknown [id number] 2.16.840.1.382359.3.579.2. 727 1984 Unknown [id number] 2.16.840.1.613503.3.579.2. 8 1984 Unknown [id number] 2.16.840.1.908101.3.579.2. 1068 1984 Unknown [id number] 2.16.840.1.173288.3.579.2. 1244 1984 Unknown [id number] 2.16.840.1.817463.3.579.2. 9 1984 Unknown [id number] 2.16.840.1.222476.3.579.2. 9 1984 Unknown [id number] 2.16.840.1.489800.3.579.2. 9 1984 Unknown [id number] 2.16.840.1.470522.3.579.2. 9 1984 Unknown [id number] 2.16.840.1.346675.3.579.2. 9 1984 Unknown [id number] 2.16.840.1.261283.3.579.2. 9 1984 Unknown [id number] 2.16.840.1.834341.3.579.2. 1259 11-12-1960 Medicaid [id number] 2.16.840.1.980857.19 Unknown [id number] Social History Date Type Detail Facility Start: 08-13-2023 End: 10-03-2024 Former smoker Former smoker [facility] Work Phone: Tobacco smoking status No Smokin g Status Entered [facility] Start: 08-13-2023 Sex Assigned At Female [facility] Start: 08-13-2023 End: 10-03-2024 Tobacco smoking status NHIS Ex-smoker [facility] Start: 11-12-2000 End: 11-12-2020 History of tobacco use Current smoker [facility] Work Phone: Start: 11-12-2000 End: 11-12-2020 History of tobacco use Cigarette Smoker [facility] Work Phone: Start: 08-13-2023 End: 10-03-2024 Tobacco use and exposure Smokeless tobacco non-user [facility] Work Phone: Start: 08-13-2023 Alcohol intake Ex-drinker (finding) [facility] Work Phone: Start: 1985 Sex Assigned At Not on file [facility] Work Phone: Start: 08-03-2023 End: 10-03-2024 Exposure to SARS-CoV-2 (event) Not sure [facility] Tobacco smoking stat us [facility] Tobacco smoking consumption unknown [facility] Start: 1985 Sex assigned at Female [facility] Start: 07-10-2024 Gender identity Identifies as female gender (finding) [facility] Start: 07-10-2024 Sexual orientation Heterosexual (finding) [facility] Start: 10-03-2024 Alcoholic beverage intake Lifetime non-drinker (finding) [facility] Work Phone: Medical Equipment Procedure Code Equipment Code Equipment Original Text Equipment Identifier Dates [facility] Pulmonary 22g Case [id number] Start: 02-20-2022 Comment on above: Description: Convert ed from [facility]. Please see archived information for full log information. Additional Information:per brenda ormeli west 03/10/2022 Clinical Notes 05-12-2020 to 02-11-2025 AMERICA Donahue - 02/11/2025 9:00 AM AMERICA Cobb - 01/08/2025 3:00 PM ESTTelephone Encounter - AMERICA Donahue - 12/10/2024 10:52 AM ESTTelephone Encounter - Kacey Monroe, AMERICA - 12/10/2024 10:52 AM EST Note Date [...] nursing note reviewed. Exam conducted with a secretary to board of commissioners present. Vitals: Estimated body mass index is [...] for annual unless needed otherwise. Documented by Jenfier Kay MA on behalf of: AMERICA Donahue documented in this encounter [facility] 01-08-2025 History of Presen t illness Narrative [...] nursing note reviewed. Exam conducted with a secretary to board of commissioners present. Vitals: Estimated body mass index is [...] of: AMERICA Donahue documented in this encounter [facility] 12-10-2024 Telephone encounter Note Patient notified of results. Patient not tolerating treatment of gel or oral flagyl previously. We will send in script for tinidazole 2g for 7 days [facility] 12-10-2024 Miscellaneous Notes Patient notified of results. Patient not tolerating treatment of gel or oral flagyl previously. We will send in script for tinidazole 2g for 7 days documented in this encounter [facility] 12-09-2024 History of Presen t illness Narrative [...] nursing note reviewed. Exam conducted with a secretary to board of commissioners present. Vitals: Estimated body mass index is [...] of: AMERICA Donahue documented in this encounter [facility] 10-30-2024 History of Presen t illness Narrative [...] nursing note reviewed. Exam conducted with a secretary to board of commissioners present. Vitals: Estimated body mass index is [...] of: AMERICA Donahue documented in this encounter [facility] 10-03-2024 History of Presen t illness Narrative [...] be done at [facility] in [place] by Dr. Sagastume. 2. Chest discomfort-etiology unclear 3. Abnormal R wave progression on EKG no prior EKG for comparison 4. Shortness of breath with activity 5. Not clinically volume overloaded 6. Patient denies symptoms of obstructive sleep apnea or a diagnosis of that 7. Hilar adenopathy, underwent biopsy, patient reports that her diagnosis is histoplasmosis. 8. 72-xboh-ivsg history of smoking, quit 2020. 9. History [...] Scribe Attestation By signing my name below, ISapphire LPN , Scribe attest that this documentation has been prepared under the direction and in the presence of Zeina Walter MD. documented in this encounter [facility] Work Phone: 10-03-2024 Instructions Sapphire [...] only documented in this encounter [facility] Work Phone: 09-22-2024 History of [...] nursing note reviewed. Exam conducted with a secretary to board of commissioners present. Vitals: Estimated body mass index is [...] of: AMERICA Donahue documented in this encounter [facility] 08-21-2024 History of Presen t illness Narrative [...] nursing note reviewed. Exam conducted with a secretary to board of commissioners present. Vitals: Estimated body mass index is [...] of: AMERICA Donahue documented in this encounter [facility] 07-09-2024 History of Presen t illness Narrative [...] nursing note reviewed. Exam conducted with a secretary to board of commissioners present. Vitals: Estimated body mass index is [...] Julian Gold DO documented in this encounter [facility] 08-13-2023 History of Presen t illness Narrative [...] be done at [facility] in [place] by Dr. Sagastume. 2. Chest discomfort-etiology unclear 3. Abnormal R wave progression on EKG no prior EKG for comparison 4. Shortness of breath with activity 5. Not clinically volume overloaded 6. Patient denies symptoms of obstructive sleep apnea or a diagnosis of that 7. Hilar adenopathy, underwent biopsy, patient reports that her diagnosis is histoplasmosis. 8. 40-dtcq-olnv history of smoking, quit 2020. 9. History [...] standpoint. documented in this encounter [facility] Work Phone: 08-13-2023 Instructions Sapphire [...] year. documented in this encounter [facility] Work Phone: 07-30-2023 History of Presen t illness Narrative 38-year-old without documented coronary artery disease or valvular heart disease is being seen in cardiology consultation at the request of Dr. 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 Yesterday she [...] abnormal R wave progression. Rate is 91 WV interval 140 ms QRS duration 94 ms2 [...] be done at [facility] in [place] by Dr. Sagastume.2. Chest discomfort-etiology unclear3. Abnormal R wave progression on EKG no prior EKG for comparison4. Shortness of breath with activity5. Not clinically volume overloaded6. Patient denies symptoms of obstructive sleep apnea or a diagnosis of that7. Hilar adenopathy, underwent biopsy, patient reports that her diagnosis is histoplasmosis.8. 50-wmkh-szhw history of smoking, quit 2020.9. History of [...] hesitate to call if further questions arise,Sincerely, [facility] Work Phone: 07-11-2023 History of Presen t illness Narrative 38-year-old without documented coronary artery disease or valvular heart disease is being seen in cardiology consultation at the request of Dr. 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 Yesterday she [...] abnormal R wave progression. Rate is 91 WV interval 140 ms QRS duration 94 ms2 [...] be done at [facility] in [place] by Dr. Sagastume.2. Chest discomfort-etiology unclear3. Abnormal R wave progression on EKG no prior EKG for comparison4. Shortness of breath with activity5. Not clinically volume overloaded6. Patient denies symptoms of obstructive sleep apnea or a diagnosis of that7. Hilar adenopathy, underwent biopsy, patient reports that her diagnosis is histoplasmosis.8. 80-njeq-gtdc history of smoking, quit 2020.9. History of [...] information, it is okay to switch to Swapferit.Follow-up after testingPatient is encouraged to abstain from cigarettes.EchocardiogramThank you for allowing us to participate in Dinesh's care, please do not hesitate to call if further questions arise,Sincerely, [facility] Work Phone: 05-17-2023 History of Presen t illness Narrative 38-year-old without documented coronary artery disease or valvular heart disease is being seen in cardiology consultation at the request of Dr. 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 Yesterday she [...] abnormal R wave progression. Rate is 91 WV interval 140 ms QRS duration 94 ms2 [...] be done at [facility] in [place] by Dr. Sagastume.2. Chest discomfort-etiology unclear3. Abnormal R wave progression on EKG no prior EKG for comparison4. Shortness of breath with activity5. Not clinically volume overloaded6. Patient denies symptoms of obstructive sleep apnea or a diagnosis of that7. Hilar adenopathy, underwent biopsy, patient reports that her diagnosis is histoplasmosis.8. 37-kytq-fkyl history of smoking, quit 2020.9. History of [...] information, it is okay to switch to [employer] Myoview.Follow-up after testingPatient is encouraged to abstain from cigarettes.EchocardiogramThank you for allowing us to participate in Dinesh's care, please do not hesitate to call if further questions arise,Sincerely, -[facility] [address] DO Work Phone: 05-06-2023 History of Presen t illness Narrative 38-year-old without documented coronary artery disease or valvular heart disease is being seen in cardiology consultation at the request of Dr. 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 Yesterday she [...] abnormal R wave progression. Rate is 91 WV interval 140 ms QRS duration 94 ms2 [...] be done at [facility] in [place] by Dr. Sagastume.2. Chest discomfort-etiology unclear3. Abnormal R wave progression on EKG no prior EKG for comparison4. Shortness of breath with activity5. Not clinically volume overloaded6. Patient denies symptoms of obstructive sleep apnea or a diagnosis of that7. Hilar adenopathy, underwent biopsy, patient reports that her diagnosis is histoplasmosis.8. 72-mfjv-fild history of smoking, quit 2020.9. History of [...] information, it is okay to switch to [employer] Myoview.Follow-up after testingPatient is encouraged to abstain from cigarettes.EchocardiogramThank you for allowing us to participate in Dinesh's care, please do not hesitate to call if further questions arise,Sincerely, [facility] 250 DO Work Phone: 03-03-2023 Evaluation note [...] understanding and is agreeable to treatment plan. [facility] Other 07-01-2020 History of Present illness Narrative* Patient is a 36-year-old woman referred by Sridevi Poe MD from thoracic surgery for possiblehistoplasmosis. * Patient was undergoing preoperative evaluation for gastric bypass surgery at [place]. Preoperative chest x-ray showed a chest shadow with everything else being fine. This occurred in May 2020. She was seen by her primary care provider for evaluation and a chest CT was performed that reveale d a mass . This further addressed by PET CT scan at [facility] where she was what was not cancer . She underwent a follow-up CAT scan 3 months following that showed questionable growth in a soft tissue mass. The recommendation was to repeat a CT in 9 months but she was sent to a physician in [place] whom she saw once. 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 She was referred to the [facility] however they never replied to the consult so nj sent them to Dr. Sonam Chu in [...] was never treated. This occurred at the [facility] in [facility]. She states that her vision changesbegan in 2012 after her son was born. She states that they began as floaters and then her centralvision began changing. She never noticed that she was unable to see well until she closed her left eye. She noted she had central vision . She was seen by an eye doctor in [facility]. She went to him for glasses [...] * She states she has lived in [place] only. She was born in [facility] and then moved to [place]. Her only travel has been to [place]. 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 She is set [employer] as well. She also helps with chores [...] Appointment Date:06/02/2022 02:00:00 PM Scheduled Provider:SHERI MCLEOD Location:[facility] Peds Appointment Type: Video Visit Therapy 60 [facility] evaluation + Plan note Future Appointments Appointment Date:08/02/2022 02:00:00 PM Scheduled Provider:SHERI MCLEOD Location:[facility]eds Appointment Type: Video Visit Therapy [facility] evaluation note* Diagnosis Obesity, morbid (CMS/[facility])- Primary Morbid obesity Pre-operative clearance Unspecified pre-operative examination Severe sleep apnea Encounter to discuss test results Other specified counseling documented in this encounter [facility] Work Phone: Evaluation note* Diagnosis Trichomonas vaginalis (TV) infection Urinary tract infection without hematuria, site unspecified Yeast infection documented in this encounter [facility]* Diagnosis Trichomonas vaginalis (TV) infection documented in this encounter [facility]* Diagnosis Superior vena cava occlusion (Multi) Compression of vein Severe sleep apnea Incomplete left bundle branch block BMI 60.0-69.9, adult (Multi) Former smoker Personal history of tobacco use, presenting hazards to health Obesity, morbid (Multi) Morbid obesity documented in this encounter [facility] Work Phone: Evaluation note* Diagnosis Exposure to STD Vaginal irritation Pruritus of genital organs Urethral irritation documented in this encounter [facility]* Diagnosis Trichomonas vaginalis (TV) infection documented in this encounter [facility] note* Diagnosis Exposure to STD Vaginitis due to Trichomonas documented in this encounter [facility]* Diagnosis Vaginitis due to Trichomonas- Primary documented in this encounter [facility]* Diagnosis Vaginal discharge Leukorrhea, not specified as infective STD exposure Vaginitis due to Trichomonas [facility] Diagnosis Well woman exam with routine gynecological exam Routine gynecological examination Breast cancer screening by mammogram documented in this encounter [facility] Narrative - Reported* Type Description Date Medical History restriction around superior vena cava [facility] Other History of Present illness Narrative* Ms. [...] neuro intact x 4 without focal deficits [facility] Work Phone: History of Present illness Narrative* [...] does report vertigo with sudden postural changes. [facility] Work Phone: History of Present illness Narrative* [...] notable for no relatives with histoplasmosis -[facility] Work Phone: Hospital course Narrative No data available for this section [facility] Discharge instructions No data available for this section [facility] progress note No data available for this section [facility] Chief Complaint Histplasmosis* The patient presents to the office today for a routine follow up exam. 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 * A telephone visit (audio only) between the patient (at the originating site) and the provider (at the distant site) was utilized to provide this telehealth service. * Verbal consent was requested and obtained from DINESH AVILALELLAN on this date, 05/03/2021 09:00 AM ,for [...] section and content) DATE CREATED AUTHOR 10/30/2021 [facility] DATE CREATED AUTHOR AUTHOR'S ORGANIZ ATION 03/22/2023 [facility] DATE CREATED AUTHOR AUTHOR'S ORGANIZ ATION 05/07/2023 [facility] DATE CREATED AUTHOR AUTHOR'S ORGANIZ ATION 05/08/2023 [facility] DATE CREATED AUTHOR AUTHOR'S ORGANIZ ATION 05/22/2023 [facility] DATE CREATED AUTHOR AUTHOR'S ORGANIZ ATION 08/03/2023 [facility] DATE CREATED AUTHOR AUTHOR'S ORGANIZ ATION 10/06/2024 [facility] DATE CREATED AUTHOR AUTHOR'S ORGANIZ ATION 02/14/2025 [facility] dical Specialists EPIC Care Team (unrecognized sect ion and content) Belt Splicer Relationship Specialty Start Date End Date Emmie Lenz, DOMINGO-LAW ENFORCEMENT INSTRUCTOR [address] [facility] [place] [address] PCP - General 05/07/23 Belt Splicer Relationship Specialty Start Date End Date Emmie Lenz APRN-LAW ENFORCEMENT INSTRUCTOR [address] [facility] [place] [address] PCP - General 05/07/23 Belt Splicer Relationship Specialty Start Date End Date Kacey Monroe PA [address] [place] [address] [place] [address] PCP - Medical [employer] 10/12/23 11/11/99 Belt Splicer Relationship Specialty Start Date End Date Kacey Monroe PA [address] [place] [address] [place] [address] PCP - Medical [employer] 10/12/23 11/11/99 Belt Splicer Relationship Specialty Start Date End Date Kacey Monroe PA [address] [place] [address] [place] [address] PCP - Medical [employer] 10/12/23 11/11/99 Belt Splicer Relationship Specialty Start Date End Date Kacey Monroe PA [address] [place], [place] [address] [address] PCP - Medical [employer] 10/12/23 11/11/99 Belt Splicer Relationship Specialty Start Date End Date Kacey Monroe PA [address] [place] [address] PCP - Medical [employer] 10/12/23 11/11/99 Belt Splicer Relationship Specialty Start Date End Date Kacey Monroe PA [address] [place] [address] PCP - Medical [employer] 10/12/23 11/11/99 REASON FOR VISIT (unrecogniz [...] BE BASED ON THE PRIMARY CLINICAL RECORDS. [employer] [facility]. provides no warranty or guarantee of the accuracy or completeness of information in this document.
--- OUTSIDE RECORDS SUMMARY | 2025-04-01 22:02 | XMS_ITS | Encounter Summary ---
Author Organization [facility] Address [address] [facility] [place] [address] Care Team Providers Care Office Associate Name Role Phone Kacey Louis Unavailable Encounter Details Date Type Department Care Team (Late st Contact Info) Description 02/17/2025 Orders Only [facility] [address] [place] [address] Aury Graff LPN [address] [facility] [id number] Social History Tobacco Use Types Packs/Day Years [...] Procedure Name Priority Date/Time Associated Diagnosis Comments PAP SMEAR Routine 02/11/2025 12:00 AM EDT documented in this encounter Results * Pap Smear (02/11/2025 12:00 AM EDT) Swab Cervical swab / Unknown us [facility] Asif Nurse LAB CYTOLOGY ORDERABLES Final Result EXTERNAL LAB documented in this encounter Visit Diagnoses Not on filedocumented in this encounter Care Teams Office Associate Relationship Specialty Start Date End Date Kacey Louis PA [address] [place], [place] [address] PCP - Medical [employer] 10/12/23 11/11/99 documented as of this encounter
--- OUTSIDE RECORDS SUMMARY | 2025-04-01 22:02 | XMS_ITS | Clinical Summary ---
Author Organization [facility] Address [address] [place] [address] Care Team Providers Care Product Engineering Manager Name Role Phone Kacey Louis Unavailable Allergies Active Allergy Reactions Criticality Noted Date Comments Amoxicillin Anaphylaxis,Angioedema High 08/08/2023 Metronidazole Anxiety Low 07/10/2024 Had weird taste in mouth and blacked out Nystatin 08/08/2023 Other Reaction(s): Other Adverse Reaction : skin infection Penicillin G Anaphylaxis High 08/21/2024 Sulfa Antibiotics 08/08/2023 Other Reaction(s): Other, Unknown Medications sertraline (Zoloft) 50 MG tablet Take 75 mg by mouth 1 (one) time each day at the same time Active Encounters Date Type Department Care Team Description 02/17/2025 Orders Only [facility] [address] [place] [address] Aury Graff LPN 02/11/2025 9:00 AM EDT Office Visit [facility] [address] [place] [address] Kacey Louis PA Well woman exam with routine gynecological exam; Breast cancer screening by mammogram 02/11/2025 Clinisync Result Encounter [facility] External Department Unsolicited Kacey Louis PA 02/11/2025 Bamboo flowsheet [facility] [address] [place] [address] Kacey Louis PA 02/10/2025 Travel 01/09/[address] [facility] [address] [place] [address] Jenifer Kay MA 01/08/2025 3:00 PM EST Office Visit [facility] [address] [place] [address] Kacey Louis PA Vaginal discharge; STD exposure; Vaginitis due to Trichomonas 01/08/2025 Bamboo flowsheet [facility] [address] [place] [address] Kacey Louis PA 01/07/2025 Travel from Last 3 Months Family History Medical History Relation Name Comments Cancer Other Diabetes Other Heart disease Other Relation Name Status Comments Other Social History Tobacco Use Types Packs/Day Years Used Date Smoking Tobacco: Never Assessed Comments No Sex and Gender Information Value Date Recorded Sex Assigned at Female 07/10/2024 9:26 AM EDT Legal Sex Female 6:52 PM EDT Gender Identity Female 07/10/2024 9:26 AM EDT Sexual Orientation Straight 07/10/2024 9: 26 AM EDT Last Filed Vital Signs Vital Sign Reading Time Taken Comments Blood Pressure 138/80 02/11/2025 8:57 AM EDT Pulse - - Temperature - - Respiratory Rate - - Oxygen Saturation - - Inhaled Oxygen Concentration - - Weight 170 kg (374 lb) 02/11/2025 8:57 AM EDT Height 162.6 cm (5' 4 ) 07/09/2024 2:54 PM EDT Body Mass Index 64.2 07/09/2024 2:54 PM EDT Plan of Treatment Health Maintenance Due Date Last Done Comments HPV/Cotest 02/22/2014 Mammogram 2024 Influenza Vaccine (Season Ended) 2025 Cervical Cancer Screening 02/12/2028 Pap Smear 02/12/2028 02/11/2025 Procedures Procedure Name Priority Date/Time Associated Diagnosis Comments POCT , URINE Routine 02/11/2025 9:11 AM EDT Well woman exam with routine gynecological exam POCT URINALYSIS DIPSTICK Routine 02/11/2025 9:04 AM EDT Well woman exam with routine gynecological exam IGP,APTIMA HPV,AGE GDLN Routine 02/11/2025 8:49 AM EDT PAP SMEAR Routine 02/11/2025 12:00 AM EDT RECURRENT VAGINITIS (HTRX) Routine 01/08/2025 3:17 PM EST from Last 3 Months Results * POCT , urine manually resulted (02/11/2025 9:11 AM EDT) Preg Test, Ur Negative Negative Urine 02/11/2025 9:11 AM EDT us Kacey CROSS POINT OF CARE TEST ENTER/EDIT OR DERABLES Final Result * POCT urinalysis dipstick manually resulted (02/11/2025 9:04 AM EDT) Color, UA Didi Clarity, UA Clear Glucose, UA Negative Negative - 2000(110) ++++ mg/dL Bilirubin, UA Negative Negative - 4(70) +++ mg/dL Ketones, UA Negative Negative - 160(16) ++++ mg/dL Spec Grav, UA 1.030 1 - 1.03 Blood, UA Positive Negative - 50 Estrada/mcL Comment:trace pH, UA 5.0 5 - 9 Protein, UA Negative Negative - 2000(20) ++++ mg/dL Urobilinogen, UA 0.2 0.2 - 12 mg/dL Leukocytes, UA Negative Negative - 500+++ Natanael/mcL Nitrite, UA Negative Negative - Positive Urine 02/11/2025 9:04 AM EDT us Kacey CROSS POINT OF CARE TEST ENTER/EDIT OR DERABLES Final Result * (ABNORMAL) IGP,APTIMA HPV,AGE GDLN (02/11/2025 8:49 AM EDT) AGE GDLN ACOG TESTING Note . [facility] Comment: TESTS RESULT FLAG UNITS REF RANGE LAB Clinician Provided Cytology Information Source.............Cervix;Endocervix No. of containers..01 ThinPrep Vial Age Fredrick PETERSON Rafaela... FLAG LEGEND: L-Low Normal,H-High Normal,LL-Alert Low,HH-Alert High <-Panic Low,>-Panic High,A-Abnormal,AA-Critical Abnormal Performed at: 01 [facility] [address] [place] [address] Alyssa Bah MD, IGP, APTIMA HPV, RFX 16/18,45 Note . [facility] Comment: TESTS RESULT FLAG UNITS REF RANGE LAB DIAGNOSIS: 02 NEGATIVE FOR INTRAEPITHELIAL LESION OR MALIGNANCY. Specimen adequacy: 02 Satisfactory for evaluation. Endocervical and/or squamous metaplastic cells (endocervical component) are present. Performed by: Kerry Griffin, Store Administrator ([facility]) . 02 Note: Note 03 [...] <-Panic Low,>-Panic High,A-Abnormal,AA-Critical Abnormal Performed at: 02 [facility] [address] [address] [place] [address] Maikel Alexander MD, [address] [address] Alyssa Bah MD, HPV APTIMA Positive(A) Negative [facility] Comment: This nucleic acid amplification test detects fourteen high- risk HPV types (16,18,31,33,35,39,45,51,52,56,58,59,66,68) without differentiation. HPV GENOTYPE 16 Negative Negative [facility] HPV GENOTYPE 18,45 Negative Negative [facility] Comment: Performed at: = - [address] [id number] Graphic Technician: Alyssa Bha MD, Phone: [phone] Performed at: [employer] ([employer])[facility] [address] [place] [id number] Graphic Technician: Maikel Alexander MD, Phone: [phone] 02/11/2025 8:49 AM EDT 02/11/2025 3:14 PM EDT Narrative [facility] - 02/16/2025 7:07 PM EDT BRUSH-SPATULA CERVIX ENDOCERVIX us Kacey Louis PA LAB BLOOD ORDERABLES Final Resul t [facility] * Pap Smear (02/11/2025 12:00 AM EDT) Swab Cervical swab / Unknown us [facility] As[facility] Nurse LAB CYTOLOGY ORDERABLES Final Result EXTERNAL LAB * (ABNORMAL) RECURRENT VAGINITIS (HTRX) (01/08/2025 3:17 PM EST) [facility] ATOPOBIUM VAGINAE 23.322(A) 19.961 - 24.689 ppm 01/09/2025 8:05 AM EST [facility] ATOPOBIUM VAGINAE Detected(A) 19.961 - 24.689 ppm 01/09/2025 8:05 AM EST [facility] BVAB 2,3 (BACTERIAL VAGINOSIS ASSOCIATED BACTERIA 2, 3); MOBILUNCUS SPP 15.786(A) 19.961 - 24.689 ppm 01/09/2025 8:05 AM EST [facility] BVAB 2,3 (BACTERIAL VAGINOSIS ASSOCIATED BACTERIA 2, 3); MOBILUNCUS SPP Detected(A) 19.961 - 24.689 ppm 01/09/2025 8:05 AM EST [facility] ELVIRA ALBICANS, PARAPSILOSIS, TROPICALIS 0.000 19.961 - 30.770 ppm 01/09/2025 8:05 AM EST [facility] ELVIRA ALBICANS, PARAPSILOSIS, TROPICALIS Not Detected 19.961 - 30.770 ppm 01/09/2025 8:05 AM EST [facility] ELVIRA GLABRATA 0.000 23.000 - 32.138 ppm 01/09/2025 8:05 AM EST [facility] ELVIRA GLABRATA Not Detected 23.000 - 32.138 ppm 01/09/2025 8:05 AM EST [facility] ELVIRA KRUSEI 0.000 23.000 - 32.271 ppm 01/09/2025 8:05 AM EST [facility] ELVIRA KRUSEI Not Detected 23.000 - 32.271 ppm 01/09/2025 8:05 AM EST [facility] CHLAMYDIA TRACHOMATIS 0.000 23.000 - 31.467 ppm 01/09/2025 8:05 AM EST [facility] CHLAMYDIA TRACHOMATIS Not Detected 23.000 - 31.467 ppm 01/09/2025 8:05 AM EST [facility] GARDNERELLA VAGINALIS 25.466(A) 19.961 - 24.689 ppm 01/09/2025 8:05 AM EST [facility] GARDNERELLA VAGINALIS Detected(A) 19.961 - 24.689 ppm 01/09/2025 8:05 AM EST [facility] MEGASPHAERA (TYPES 1, 2) 0.000 19.961 - 24.689 ppm 01/09/2025 8:05 AM EST [facility] MEGASPHAERA (TYPES 1, 2) Not Detected 19.961 - 24.689 ppm 01/09/2025 8:05 AM EST [facility] NEISSERIA GONORRHOEAE 0.000 23.000 - 32.117 ppm 01/09/2025 8:05 AM EST [facility] NEISSERIA GONORRHOEAE Not Detected 23.000 - 32.117 ppm 01/09/2025 8:05 AM EST [facility] TRICHOMONAS VAGINALIS 0.000 23.000 - 32.119 ppm 01/09/2025 8:05 AM EST [facility] TRICHOMONAS VAGINALIS Not Detected 23.000 - 32.119 ppm 01/09/2025 8:05 AM EST [facility] MYCOPLASMA GENITALIUM 0.000 19.961 - 24.689 ppm 01/09/2025 8:05 AM EST [facility] MYCOPLASMA GENITALIUM Not Detected 19.961 - 24.689 ppm 01/09/2025 8:05 AM EST [facility] ERMB, C; MEFA 20.349(A) 23.000 - 27.611 ppm 01/09/2025 8:05 AM EST [facility] ERMB, C; MEFA Detected(A) 23.000 - 27.611 ppm 01/09/2025 8:05 AM EST [facility] TET B, TET M 21.282(A) 23.000 - 27.778 ppm 01/09/2025 8:05 AM EST [facility] TET B, TET M Detected(A) 23.000 - 27.778 ppm 01/09/2025 8:05 AM EST [facility] Tissue 01/08/2025 3:17 PM EST 01/09/2025 2:37 AM EST us Kacey CROSS LAB BLOOD ORDERABLES Final Resul t [facility] [address] [place] [place] [address] from Last 3 Months Insurance [employer] Care Teams Product Engineering Manager Relationship Specialty Start Date End Date Kacey Louis PA [address] [place] [address] [place] [address] PCP - [facility] [place] [employer] 10/12/23 11/11/99
--- OUTSIDE RECORDS SUMMARY | 2025-04-01 22:02 | XMS_ITS | Clinical Summary ---
Author Organization Justino Dumas [facility] Address [address] [place] [address] Care Team Providers Care Affiliate Marketing Coordinator Name Role Phone Unavailable Primary Care Provider Unavailabl e Social History Tobacco Use Types Packs/Day Years Used Date Smoking Tobacco: Never Assessed Comments Unknown Sex and Gender Information Value Date Recorded Sex Assigned at Not on file Legal Sex Female 9:48 PM EST Gender Identity Not on file Sexual Orientation Not on file Plan of Treatment Not on file
[2025-04-01 22:10] VITALS: BP 145/88; PULSE 91; TEMP 36.7; O2SAT 93; BMI 65.2
--- NOTE | 2025-04-01 22:49 | ED.GENADUL1 ---
HPI HPI - General Adult General Chief complaint: GI Bleed Stated complaint: BLEEDING FROM RECTUM Time Seen by Provider: 04/01/25 22:08 Source: patient Mode of arrival: walk-in Limitations: no limitations History of Present Illness HPI narrative: This 40-year-old female presents for evaluation of some bright red blood after having bowel movements earlier today. The patient states that she is receiving lymphedema therapy for her abdominal pannus. She states that typically after a treatment she gets diarrhea. Today after the treatment she had a large hard bowel movement followed by some diarrhea. After that she wiped and had some bright red blood on the toilet paper. She then use the bathroom again and had another episode of diarrhea and there was more blood on the toilet paper. The blood is bright red in color. There is no melena. She has no abdominal pain. She denies any shortness of breath dizziness or syncope. She did take a bath prior to coming to the emergency department and there was no blood in the water. Related Data Home Medications ?Medication ?Instructions ?Recorded ?Confirmed sertraline 50 mg tablet 50 mg PO Q24H 02/16/24 04/01/25 Held on 04/01/25. Instructions: Doctor's Order tirzepatide (weight loss) 2.5 2.5 mg subcut .weekly 04/01/25 04/01/25 mg/0.5 mL subcutaneous pen injector (Zepbound) Previous Rx's ?Medication ?Instructions ?Recorded cephalexin 250 mg/5 mL oral 500 mg (10 mL) PO Q6H 7 days #280 01/04/25 suspension mL clindamycin HCl 150 mg capsule 300 mg (2 x 150 mg) PO Q6H 10 days 01/05/25 #80 caps hydroxyzine HCl 10 mg/5 mL oral 25 mg (12.5 mL) PO Q6H PRN 01/05/25 solution itching/rash #473 mL prednisolone 15 mg/5 mL oral 30 mg (10 mL) PO BID 3 days #60 mL 01/05/25 solution Allergies Allergy/AdvReac Type Severity Reaction Status Date / Time amoxicillin Allergy Severe Anaphylaxis Verified 04/01/25 22:10 Sulfa (Sulfonamide Allergy Severe Unknown Verified 04/01/25 22:10 Antibiotics) Opioid HPI Opioid Management Most Recent Opioid Data: Last Pain Scale 2 02/16/24, 07:59 Review of Systems ROS Status of ROS 10 or more systems reviewed and unremarkable except as noted in history and below [facility] Social History Little interest or pleasure in doing things: not at all Feeling down, depressed, or hopeless: not at all Exam Narrative Exam Narrative: Vital signs and Nursing Notes reviewed: Patient is afebrile with a normal pulse, blood pressure is mildly elevated 145 or 88, she is borderline hypoxic with pulse ox of 93% on room air General: Awake, alert, oriented, well-appearing obese female no acute distress, lying comfortably on the stretcher HEENT: Normocephalic atraumatic, mucous membranes are moist and pink, eyes are clear, normal conjunctiva, vision is grossly intact, Chest: Lungs are clear to auscultation with good air entry, there is no wheezing rhonchi or rales appreciated no accessory muscle use, patient is speaking in complete sentences-no chest wall tenderness to palpation CVS: Regular rate and rhythm S1-S2, no murmurs rubs or gallops, pulses are brisk and equal bilaterally ABD: Obese, soft, nondistended, there is a candidal skin rash between the folds on her abdominal wall, rectal exam was performed. There is a small anal fissure at approximately the 6 o'clock position. Pressure applied this causes some mild bleeding. There is no appreciable hemorrhoids or other notable abnormality Extremities: Moving all extremities, no lower extremity tenderness or swelling noted, negative Homans' sign, pulses are brisk and equal bilaterally Skin: Normal in appearance without rash,pallor, petechiae or purpura Neuro: No focal deficits Constitutional Vital Signs, click to edit/add: Last Vital Signs Temp 98.1 F 04/01/25 22:10 Pulse 91 H 04/01/25 22:10 Resp 18 04/01/25 22:10 BP 145/88 H 04/01/25 22:10 Pulse Ox 93 L 04/01/25 22:10 O2 Del Method Room Air 04/01/25 22:10 Course Vital Signs Vital signs: Vital Signs Temperature 98.1 F 04/01/25 22:10 Pulse Rate 91 H 04/01/25 22:10 Respiratory Rate 18 04/01/25 22:10 Blood Pressure 145/88 H 04/01/25 22:10 Pulse Oximetry 93 L 04/01/25 22:10 Oxygen Delivery Method Room Air 04/01/25 22:10 Temperature 98.1 F 04/01/25 22:10 Pulse Rate 91 H 04/01/25 22:10 Respiratory Rate 18 04/01/25 22:10 Blood Pressure 145/88 H 04/01/25 22:10 Pulse Oximetry 93 L 04/01/25 22:10 Oxygen Delivery Method Room Air 04/01/25 22:10 Medical Decision Making [facility] Narrative Medical decision making narrative: This 40-year-old female presents for evaluation of some bright red blood on the toilet paper and in the toilet after having a hard bowel movement earlier today followed by 2 episodes of diarrhea. She is getting lymphedema therapy for her lower abdomen and states she always gets some diarrhea after this treatment. She is not having any abdominal pain or rectal pain. She does not have any itching. She has had some hemorrhoids in the past. Her abdomen is soft with a candidal rash between the skin folds on the abdominal wall that she states she is taking medication for. She has a tiny skin tear/fissure at the 6 o'clock position on her rectum anus area. This is likely the etiology of her bleeding. The results of my findings were discussed with her. I suggested that she use sitz bath's. She will be given a prescription for Colace to prevent hard stools in the near future and Tucks, witch brenden impregnated discs were prescribed to her. Discharge Plan Discharge Chief Complaint: GI Bleed Clinical Impression: Anal fissure Patient Disposition: Home, Self-Care Time of Disposition Decision: 22:42 Condition: Good Prescriptions / Home Meds: No Action sertraline 50 mg tablet 50 mg PO Q24H cephalexin 250 mg/5 mL suspension for reconstitution 500 mg PO Q6H 7 Days Qty: 280 0RF Zepbound 2.5 mg/0.5 mL pen injector 2.5 mg SUBCUT .weekly clindamycin HCl 150 mg capsule 300 mg PO Q6H 10 Days Qty: 80 0RF hydroxyzine HCl 10 mg/5 mL solution 25 mg PO Q6H PRN (Reason: itching/rash) Qty: 473 0RF prednisolone 15 mg/5 mL solution 30 mg PO BID 3 Days Qty: 60 0RF Print Language: Zimbabwean Instructions: Rectal Bleeding (ED), Anal Fissure (ED) Referrals: ROGER LENZ [Primary Care Provider, Family Practice] - 1 week
== END 2025-04-01 22:54 | disposition home or self-care (01) ==
PROVIDERS: Emergency Provider Emergency Medicine; PCP Nurse Practitioner Family
DX: K60.2 Anal fissure, unspecified (principal); E65 Localized adiposity; B37.2 Candidiasis of skin and nail
CPT/HCPCS: 99283

== ENCOUNTER 2025-05-28 15:33 | Outpatient (RCR) | payer OTHER, SELFPAY | END 2025-06-19 06:53 | disposition home or self-care (01) | LOC: PT 15:33 | PROVIDERS: PCP Nurse Practitioner Family; Visit Provider Nurse Practitioner Family | DX: M54.50 Low back pain, unspecified (principal) | CPT/HCPCS: 97014; 97110; 97162 ==

== ENCOUNTER 2025-10-21 16:48 | Emergency (ER) | payer OTHER, SELFPAY ==
[2025-10-21 17:00] VITALS: BP 165/97; PULSE 110; TEMP 36.9; O2SAT 97; BMI 44.3
--- NOTE | 2025-10-21 17:05 | ED.GENADUL1 ---
HPI HPI - General Adult General Chief complaint: Nausea/Vomiting/Diarrhea Stated complaint: Nausea/Vomiting/Diarrhea Time Seen by Provider: 10/21/25 16:49 Source: patient Mode of arrival: walk-in History of Present Illness HPI narrative: 40-year-old female presents for diarrhea. She has had it for 3 days. No hematochezia. No vomiting. Occasionally she feels nauseous. She is worried about dehydration. She is on Mounjaro and has been for many months but has not had any issues like this previously. It is been about 5 weeks since she has been on antibiotics. No recent hospitalizations. Related Data Home Medications ?Medication ?Instructions ?Recorded ?Confirmed sertraline 50 mg tablet 50 mg PO Q24H 02/16/24 10/21/25 Held on 04/01/25. Instructions: Doctor's Order tirzepatide 7.5 mg/0.5 mL 7.5 mg subcut .Weekly 10/21/25 10/21/25 subcutaneous pen injector (Mounjaro) Allergies Allergy/AdvReac Type Severity Reaction Status Date / Time amoxicillin Allergy Severe Anaphylaxis Verified 10/21/25 16:59 Sulfa (Sulfonamide Allergy Severe Unknown Verified 10/21/25 16:59 Antibiotics) Opioid HPI Opioid Management Most Recent Opioid Data: Last Pain Scale 2 02/16/24, 07:59 Review of Systems ROS Narrative A ten point review of systems is negative except as noted above. PFSH PFSH Social History Little interest or pleasure in doing things: not at all Feeling down, depressed, or hopeless: not at all Exam Narrative Exam Narrative: Nurses note and vital signs reviewed General:The patient appears well and in no apparent distress.Patient is resting comfortably on cart. Skin:Warm, dry, no pallor noted.There is no rash noted. Head:Normocephalic, atraumatic Eye: Normal conjunctiva, no drainage Ears, Nose, Mouth, and Throat: oral mucosa is moist. Nares patent. Cardiovascular:Regular Rate and Rhythm Respiratory:Patient is in no distress, no accessory muscle use, lungs are clear to auscultation, no wheezing, rales or rhonchi Back:non-tender, no CVA tenderness bilaterally to percussion. GI: Obese and nontender Musculoskeletal: No joint swelling Neurological:A&O, normal speech Psychiatric:Cooperative Constitutional Vital Signs, click to edit/add: Last Vital Signs Temp 98.5 F 10/21/25 17:00 Pulse 110 H 10/21/25 17:00 Resp 20 10/21/25 17:00 BP 165/97 H 10/21/25 17:00 Pulse Ox 97 10/21/25 17:00 O2 Del Method Room Air 10/21/25 17:00 Course Vital Signs Vital signs: Vital Signs Temperature 98.5 F 10/21/25 17:00 Pulse Rate 110 H 10/21/25 17:00 Respiratory Rate 20 10/21/25 17:00 Blood Pressure 165/97 H 10/21/25 17:00 Pulse Oximetry 97 10/21/25 17:00 Oxygen Delivery Method Room Air 10/21/25 17:00 Temperature 98.5 F 10/21/25 17:00 Pulse Rate 110 H 10/21/25 17:00 Respiratory Rate 20 10/21/25 17:00 Blood Pressure 165/97 H 10/21/25 17:00 Pulse Oximetry 97 10/21/25 17:00 Oxygen Delivery Method Room Air 10/21/25 17:00 Medical Decision Making MDM Narrative Medical decision making narrative: The patient presented with diarrhea. Blood work is appropriate. Stool culture is ordered and pending and she was given IV fluids. Findings were discussed with the patient. Differential Diagnosis Differential Diagnosis: Diarrhea, gastroenteritis, C. difficile Lab Data Lab results reviewed: Yes I reviewed the patient's lab results Labs: Lab Results 10/21/25 Range/Units 17:39 WBC 13.7 H (4.0-11.0) 10^3/uL RBC 4.51 (4.20-5.40) 10^6/uL Hgb 13.1 (12.0-16.0) g/dL Hct 40.4 (36.0-48.0) % MCV 89.6 (81.0-99.0) fL MCH 29.0 (26.7-34.0) pg MCHC 32.4 (29.9-35.2) g/dL RDW 13.8 (11.0-15.0) % Plt Count 358 (150-450) 10^3/uL MPV 9.2 L (9.5-13.5) fL Neut % (Auto) 77.1 H (43.0-75.0) % Lymph % (Auto) 13.2 L (20.5-60.0) % [place] % (Auto) 6.5 (1.7-12.0) % Eos % (Auto) 2.3 (0.9-7.0) % Baso % (Auto) 0.5 (0.2-2.0) % Neut # (Auto) 10.6 H (1.4-6.5) 10^3/uL Lymph # (Auto) 1.8 (1.2-3.8) 10^3/uL [place] # (Auto) 0.9 H (0.3-0.8) 10^3/uL Eos # (Auto) 0.3 (0.0-0.7) 10^3/uL Baso # (Auto) 0.1 (0.0-0.1) 10^3/uL Abs Immat Gran (auto) 0.05 H (0.00-0.03) 10^3/uL Imm/Tot Granulo (auto) 0.4 (0.0-0.5) % Sodium 141 (136-145) mmol/L Potassium 3.2 L (3.5-5.1) mmol/L Chloride 107 (98-107) mmol/L Carbon Dioxide 25.1 (21.0-32.0) mmol/L Anion Gap 12.1 BUN 7.0 (7.0-18.0) mg/dL Creatinine 0.72 (0.55-1.02) mg/dL Est GFR ( Amer) >60 (>=60 mL/min/1.73m^2) Est GFR (Non-Af Amer) >60 (>=60 mL/min/1.73m^2) BUN/Creatinine Ratio 9.7 Glucose 129 H (74-106) mg/dL Calcium 8.7 (8.5-10.1) mg/dL Discharge Plan Discharge Chief Complaint: Nausea/Vomiting/Diarrhea Clinical Impression: Diarrhea Patient Disposition: Home, Self-Care Time of Disposition Decision: 18:41 Condition: Good Mode of Transportation: Private Vehicle Prescriptions / Home Meds: No Action sertraline 50 mg tablet 50 mg PO Q24H Mounjaro 7.5 mg/0.5 mL pen injector 7.5 mg SUBCUT .Weekly Print Language: Turkmen Instructions: Acute Diarrhea (ED) Referrals: ROGER LENZ [Primary Care Provider, Family Practice] - 1 week
[2025-10-21] MEDS: 0.9 % SODIUM CHLORIDE 1,000 ML 1000 ML IV (17:39)
[2025-10-21 17:44] LABS: Hematocrit 40.4 % (36.0-48.0); Hemoglobin 13.1 g/dL (12.0-16.0); Immature Granulocytes Abs Auto 0.05 10^3/uL (0.00-0.03); Immature Granulocytes Pct Auto 0.4 % (0.0-0.5); Lymphocytes Absolute Auto 1.8 10^3/uL (1.2-3.8); Mean Corpuscular HGB Conc 32.4 g/dL (29.9-35.2); Mean Corpuscular Hemoglobin 29.0 pg (26.7-34.0); Mean Corpuscular Volume 89.6 fL (81.0-99.0); Platelet Count 358 10^3/uL (150-450); Red Blood Count 4.51 10^6/uL (4.20-5.40); White Blood Count 13.7 10^3/uL (4.0-11.0)
--- OUTSIDE RECORDS SUMMARY | 2025-10-21 17:51 | XMS_ITS | CCD ---
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 Emmie Lenz Referring Unavailable SHERI THEODORE Attending Unavailable SHERI THEODORE Attending Unavailable SHERI THEODORE Attending Unavailable Rahat DUCKWORTH Attending Unavailable SHERI THEODORE Attending Unavailable SHERI THEODORE Attending Unavailable Zeina Walter Attending Unavailable Zeina Walter Attending Unavailable Emmie Fernandez Primary Care Provider Unavailable Primary Care Provider Unavailsara e ZEINA WALTER Attending Unavailable EMMIE LENZ Primary Care Unavailable Kacey Edge Unavailable KACEY MONROE Attending Unavailable KACEY MONROE Attending Unavailable JULIAN GOLD Attending Unavailable KACEY MONROE Attending Unavailable KACEY MONROE Attending Unavailable KACEY MONROE Attending Unavailable KACEY MONROE Attending Unavailable Allergies Allergy ClassificationReported Allergen(s)Allergy TypeDate of OnsetReaction(s) FacilityPenicillins (antibiotic) (3 sources)Amoxicillin; Translations: [amoxicillin]Drug AllergyAnaphylaxis BZ-Yqqqtgtteegje-RFC [employer] [address] Work Phone: sulfonamides (antibiotic) (3 sources)Sulfonamides (Antibiotic); Translations: [Sulfa Drugs]Drug Allergy YneicSW-Jdjkwapyufvso-HCJ [employer] [address] Work Phone: Unclassified (12 sources)Nystatin POWD; Translations: [Nystatin POWD]Allergy to drug (finding)CqgghUW-Psvlxlwtsdppt-VEP [employer] [address] Work Phone: (20 sources)Amoxicillin; Translations: [amoxicillin]Drug Mbbfhcp57-73-0550 Anaphylaxis, AngioedemaUnFirelands Regional Medical Center (9 sources)Sulfonamides (Antibiotic); Translations: [Sulfa Drugs]Allergy to drug (finding)Other-CT Surgery-[facility] Work Phone: (20 sources)Substance with sulfonamide structure and antibacterial mechanism of action (substance)Drug -48-5844Zamgl, [facility] HospitalNos[facility] [employer] Other (1 source)AmoxicillinDrug Spzcljp54-53-0329Oqc [facility] Repository (1 source)Sulfonamides (Antibiotic)Drug allergy (disorder)92-17-2293Quh [facility] Repository (3 sources)Nystatin; Translations: [NYSTATIN]Drug Cjztlgg43-27-0917Vsycp [facility] Work Phone: (20 sources)metroNIDAZOLE; Translations: [METRONIDAZOLE]Drug Qrqeciu50-56-4684 [facility] (19 sources)NystatinDrug Xmdktgo27-58-5852[facility] (19 sources)Penicillin GDrug Kmyfqzm44-65-3967DbutslsufiyEXJP Healthcare (1 source)Sulfonamides (Antibiotic); Translations: [SULFA (SULFONAMIDE ANTIBIOTICS)]Propensity to adverse reactions to drug (disorder)40-92-4928[facility] Repository Medications Current Medications MedicationDrug Class(es)DatesSig (Normalized)Sig (Original)ciprofloxacin 3 mg/ml ophthalmic solution (1 source)Quinolone AntimicrobialStart: 37-01-8741sqyg 1-2 drop(s) into the eye(s) every hourCiprofloxacin HCl 0.3 % 1-2 drops into affected eye Ophthalmic every4 hours for 7 days Feb,ctiveclotrimazole 10 mg/ml topical cream (7 sources)Azole AntifungalStart: 66-32-3344clxovxehfmej (Lotrimin) 1 % cream APPLY SPARINGLY TO AFFECTED AREA(S) TWICE DAILY as needed 05/11/2020 Active Start: 54-15-6455Tqnrxnvrahpa 1 % External Cream APPLY SPARINGLY TO AFFECTED AREA(S) TWICE DAILY as needed Quantity:1 Refills: 1 Ordered: 20-Sep-2020 DO Start : 11-May-2020 Activefluconazole 100 mg oral tablet (3 sources)Azole AntifungalStart: 07-09-2024 End: 40-53-7767movh 1 tablet by mouth once dailyfluconazole (Diflucan) 100 MG tablet Indications: Vaginal irritation Take 1 tablet (100 mg) by mouth Daily for 10 days 10 tablet 07/09/2024 07/19/2024 Activesertraline 50 mg oral tablet (20 sources)Serotonin Reuptake InhibitorStart: 62-83-9869qisv 1 tablet by mouth once dailysertraline (Zoloft) 50 mg tablet Take 1 tablet (50 mg) by mouth once daily. 06/02/2021 ActiveStart: 26-21-3243Qpkegt 50 MG Oral Tablet Quantity: 0 Refills: 0 Ordered: 02-Jun-2021 DO Start : 02-Jun-2021 Activesertraline (Zoloft) 50 MG tablet Take 75 mg by mouth 1 (one) time each day at the same time Active Zoloft Activeterconazole 4 mg/ml vaginal cream (5 sources)Azole AntifungalStart: 08-21-2024 End: 35-26-2944mnjzmflghbw (Terazol 7) 0.4 % vaginal cream Indications: Yeast infection Insert 1 applicator into the vagina at bedtime for 7 days 45 g 08/21/2024 08/28/2024 ActiveStart: 07-09-2024 End: 40-84-7402wazmsdizizn (Terazol 7) 0.4 % vaginal cream Indications: Vaginal irritation Insert 1 applicator into the vagina at bedtime for 7 days 45 g 07/09/2024 07/16/2024 Activetryptophan 500 mg oral tablet (3 sources)Start: 12-10-2024 End: 88-91-9128qavv 2 g by mouth once dailyL-Tryptophan 500 MG tablet Indications: Vaginitis due to Trichomonas Take 2 g by mouth Daily for 7 days 14 tablet 12/10/2024 12/17/2024 ActiveStart: 10-30-2024 End: 54-97-5469etab 4 tablets by mouth onceL-Tryptophan 500 MG tablet Indications: Trichomonas vaginalis (TV) infection Take 2,000 mg by mouth1 (one) time for 1 dose 4 tablet 10/30/2024 10/30/2024 Active Completed/Discontinued Medications MedicationDrug Class(es)DatesSig (Normalized)Sig (Original)metroNIDAZOLE 0.0075 mg/mg vaginal gel (5 sources)Nitroimidazole AntimicrobialStart: 08-06-2024 End: 06-47-7727uadvzNUCQTIFK (Metrogel) 0.75 % vaginal gel Indications: BV (bacterial vaginosis) Insert into the vagina Daily for 5 days 70 g 08/06/2024 08/21/2024 Discontinued (Therapy completed)Start: 07-09-2024 End: 81-79-0310gyzh 1 tablet by mouth in the morningmetroNIDAZOLE (Flagyl) 500 MG tablet Indications: Exposure to STD Take 1 tablet (500 mg) by mouth in the morning and 1 tablet (500 mg) before bedtime. Do all this for 7 days. Do not drink alcohol while taking this medication. 14 tablet 07/09/2024 07/16/2024 Active Problems Active Problems Problem ClassificationProblemDateDocumented DateEpisodic/ChronicAdjustment disorders (10 sources)Adjustment disorder; Translations: [Adjustment disorder with other symptoms]Onset: 88-23-2242QljobccGewkerhijr associated with dizziness or vertigo (7 sources)Dizziness; Translations: [Dizziness and giddiness]EpisodicConduction disorders (12 sources)Incomplete left bundle branch block; Translations: [Left bundle branch hemiblock]Onset: 331368-38-9535HfgmflxV Codes: Natural/environment (1 source)Exposure to other specified factors, initial encounter; Translations: [EXPOSURE OTHER SPEC FACTORS INITIAL]Onset: 15-73-4184QuzrroouWcxsjoozpzuos and screening for infectious disease (6 sources)Exposure to sexually transmissible disorder; Translations: [Contact with and (suspected) exposure to infections with a predominantly sexual mode of transmission]17-94-2603PmvckvblMhgzzaxldsha; infection of eye (except that caused by tuberculosis or sexually transmitteddisease) (1 source)Unspecified acute conjunctivitis, left eyeEpisodicOther aftercare (1 source)Other halfway (current) drug therapy; Translations: [OTH FULFILLMENT ASSOCIATE CURRENT DRUG THERAPY]Onset: 25-92-4575NeyyrrouMbfdl diseases of veins and lymphatics (15 sources)Occlusion of superior vena cava; 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] Onset: 367444-70-5993SdhbqhzeLldxr female genital disorders (2 sources)Vaginal discharge; Translations: [Other specified noninflammatory disorders of vagina]59-82-8377BtrmgmpiUznjp infections; including parasitic (6 sources)Infection by Trichomonas; Translations: [Trichomonal vulvovaginitis] 66-07-2635RbjhswotFfrsw infections; including parasitic (5 sources)Trichomonal vaginitis; Translations: [Trichomonal vulvovaginitis] 35-90-4976JmnoumocNxkwp lower respiratory disease (3 sources)Pleurodynia; Translations: [PLEURODYNIA]Onset: 50-38-6479Eeotocvz Other lower respiratory disease (7 sources)Dyspnea; Translations: [Shortness of breath]EpisodicOther lower respiratory disease (1 source)Shortness of breath; Translations: [Shortness of breath]Onset: 78-24-2001PnpcglugXadss nutritional; endocrine; and metabolic disorders (10 sources)Morbid obesity; Translations: [Morbid obesity]Onset: 08-08-2023 36-80-4776PikudxiUryur nutritional; endocrine; and metabolic disorders (7 sources)Body mass index 40+ - severely obese; Translations: [Morbid obesity] ChronicOther nutritional; endocrine; and metabolic disorders (2 sources)Body mass index (BMI) 60.0-69.9, adult; Translations: [Body mass index (BMI) 60.0-69.9, adult (Multi)]Onset: 69-54-2479QhbrclqOgxyx screening for suspected conditions (not mental disorders or infectious disease) (12 sources)Electrocardiogram abnormal; Translations: [Nonspecific abnormal electrocardiogram [ECG] [EKG]]Onset: 130399-85-7478UidtlytyRdzfeakcy; thrombophlebitis and thromboembolism (2 sources)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; Translations: [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 (Multi)]Onset: 08-08-2023 EpisodicResidual codes; unclassified (4 sources)Sleep apnea; Translations: [Sleep apnea, unspecified]Onset: 795772-55-1928GrwrdnzTmuctabz codes; unclassified (2 sources)Sleep apnea, unspecified; Translations: [Sleep apnea, unspecified] Onset: 34-10-3765DpxckxhDgycudujg and history of mental health and substance abuse codes (12 sources)Personal history of nicotine dependence; Translations: [Ex-smoker] Onset: 742558-19-7396XffollvnYrtgwnu and strains (1 source)Strain of muscle and tendon of front wall of thorax, initial encounter; Translations: [STRN MSC TENDON FRNT WALL THOR INIT]Onset: 03-21-2023 EpisodicUnclassified (1 source)COUGH, UNSPECIFIED; Translations: [COUGH, UNSPECIFIED]Onset: 56-36-6687Jnqydbe tract infections (2 sources)Urinary tract infectious disease; Translations: [Urinary tract infection, site not specified]09-02-2312Ymdywwjh Past or Other Problems Problem ClassificationProblemDateDocumented DateEpisodic/Chronic Administrative/social admission (3 sources)Follow-up status; Translations: [Person consulting for explanation of examination or test findings]Onset: 063309-42-8210GuhbfowzDfoxzjq (16 sources)Histoplasmosis; Translations: [Histoplasmosis, unspecified, without mention of manifestation]Onset: 449358-38-1568WxgasflnOluetvhmitv chest pain (10 sources)Chest pain; Translations: [Chest pain, unspecified]Onset: 07-31-2023 53-39-3587SghpenrhPqkey diseases of bladder and urethra (2 sources)Urethritis; Translations: [Other specified disorders of urethra] 58-82-5400OkblbnoiOurbg female genital disorders (2 sources)Vaginal irritation; Translations: [Other specified noninflammatory disorders of vagina]82-74-9206CjwsjywsEddkb lower respiratory disease (14 sources)Nodule of lung; Translations: [Solitary pulmonary nodule]Onset: 500078-09-4182CzlouczuFgggn skin disorders (14 sources)Mass of thoracic structure; Translations: [Swelling, mass, or lump in chest]Onset: 121022-03-5538TlijlwmhJiooderlmtjj (7 sources)Patient status finding; Translations: [Patient new to provider] Unclassified (2 sources)Onset: Results Test NameValueInterpretationReference RangeFacilityIGP,APTIMA HPV,AGE GDLNon 88-91-6411OEM GDLN ACOG TESTINGNote.NOMS HealthcareComment on above:TESTS RESULT FLAG UNITS REF RANGE LAB Clinician Provided Cytology Information Source.............Cervix;Endocervix No. of containers..01 ThinPrep Vial Age Algo ACOG Rafaela... 30-65 01 FLAG LEGEND: L-Low Normal,H-High Normal,LL-Alert Low,HH-Alert High <-Panic Low,>-Panic High,A-Abnormal,AA-Critical Abnormal Performed at: 01 =G Daniella [address] [address] Alyssa Bah MD, HPV APTIMAPositiveAbnormalNegativeNOMS HealthcareComment on above:This nucleic acid amplification test detects fourteen high- risk HPV types (16,18,31,33,35,39,45,51,52,56,58,59,66,68) without differentiation. HPV GENOTYPE 16NegativeNegativeNOMS HealthcareHPV GENOTYPE 18,45NegativeNegative NOMS HealthcareComment on above:Performed at: = - [facility] [id number] [place] Measurer: Alyssa Bah MD, Phone: [phone] Performed at: [facility] [address] [place], [place] [id number] [place] Measurer: Maikel Alexander MD, Phone: [phone] IGP, APTIMA HPV, RFX 16/18,45Note.NOMS HealthcareComment on above:TESTS RESULT FLAG UNITS REF RANGE LAB DIAGNOSIS: 02 NEGATIVE FOR INTRAEPITHELIAL LESION OR MALIGNANCY. Specimen adequacy: 02 Satisfactory for evaluation. Endocervical and/or squamous metaplastic cells (endocervical component) are present. Performed by: Kerry Griffin, Anesthesiology Medical Doctor (ASCP) . 02 Note: Note 03 The Pap [...] High,A-Abnormal,AA-Critical Abnormal Performed at: 02 [facility] [address] [address] [place] [address] Maikel Alexander MD, 03 WB [facility] [address] [address] Alyssa Bah MD, Interpretation and review of laboratory resultsAbnormalNOMN Healthcare BRUSH-SPATULA CERVIX ENDOCERVIX CLINISYNCNOMN HealthcareHCG ( test) Ql (U)on 76-44-9390Anyxpakispjrzs and review of laboratory resultsNormalNOMN HealthcarePreg Test, UrNegative NegativeNOMS HealthcareNOMS HealthcareUrinalysis macro (dipstick) panel (U)on 80-92-8518Lhonudbhs, UANegativeNegative - 4(70) +++ mg/dLNOMS HealthcareBlood, UAPositiveNegative - 50 Estrada/mcLNOMS HealthcareComment on above:traceClarity, UA ClearNOMS HealthcareColor, UAAmberNOMS HealthcareGlucose, UANegativeNegative - 2000(110) ++++ mg/dLNOMS HealthcareInterpretation and review of laboratory resultsNormalNOMN HealthcareKetones, UANegativeNegative - 160(16) ++++ mg/dLNOMS HealthcareLeukocytes, UANegativeNegative - 500+++ Natanael/mcLNOMS HealthcareNitrite, UANegativeNegative - PositiveNOMS HealthcarepH, UA55 - 9NOMS HealthcareProtein, UANegativeNegative - 2000(20) ++++ mg/dLNOMS HealthcareSpec Grav, UA1.031 - 1.03 NOMS HealthcareUrobilinogen, UA0.20.2 - 12 mg/dLNOMS HealthcareNOMS Healthcare Urinalysis macro (dipstick) panel (U)on 64-47-6830Qdjdyolwe, UANegativeNegative - 4(70) +++ mg/dLNOMS HealthcareBlood, UANegativeNegative - 50 Estrada/mcLNOMS HealthcareClarity, UAClearNOMS HealthcareColor, UAYellowNOMS HealthcareGlucose, UANegativeNegative - 1999(110) ++++ mg/dLNOMS HealthcareInterpretation and review of laboratory resultsAbnormalNOMS HealthcareKetones, UANegativeNegative - 160(16) ++++ mg/dLNOMS HealthcareLeukocytes, UATraceNegative - 500+++ Natanael/mcL [facility] HealthcareNitrite, UANegativeNegative - PositiveNOMS HealthcarepH, UA5.65 - 9NOMS HealthcareProtein, UAManyNegative - 1999(20) ++++ mg/dLNOMS HealthcareSpec Grav, UA1.0251 - 1.03NOMS HealthcareUrobilinogen, UA0.20.2 - 12 mg/dLNOMS HealthcareNOMN HealthcareUrinalysis macro (dipstick) panel (U)on 08-21-2024 Bilirubin, UANegativeNegative - 4(70) +++ mg/dLNOMS HealthcareBlood, UAPositive Negative - 50 Estrada/mcLNOMN HealthcareComment on above:traceClarity, UAClearNOMS HealthcareColor, UAYellowNOMS HealthcareGlucose, UANegativeNegative - 1999(110) ++++ mg/dLNOMS HealthcareInterpretation and review of laboratory resultsAbnormal NOMS HealthcareKetones, UANegativeNegative - 160(16) ++++ mg/dLNOMS Healthcare Leukocytes, UAPositiveNegative - 500+++ Natanael/mcLNOMS HealthcareComment on above: largeNitrite, UANegativeNegative - PositiveNOMS HealthcarepH, UA7.05 - 9NOMS HealthcareProtein, UATraceNegative - 1999(20) ++++ mg/dLNOMS HealthcareSpec Grav, UA1.0251 - 1.03NOMS HealthcareUrobilinogen, UA0.20.2 - 12 mg/dLNOMS HealthcareNOMS HealthcareNo Panel Informationon 04-75-1457BNBHMQXKLJSLIY EPIDERMIDIS, HAEMOLYTICUS, LUGDUNENSIS, SAPROPHYTICUS (URINA0.000N[facility] STAPHYLOCOCCUS EPIDERMIDIS, HAEMOLYTICUS, LUGDUNENSIS, SAPROPHYTICUS (URINANot detectedNOMN HealthcareURINARY TRACT INFECTION (HTRX)on 62-40-9942WKDJOOACHRIXK BAUMANII0.000NOMS HealthcareACINETOBACTER BAUMANIINot detectedNOMS Healthcare ELVIRA ALBICANS, PARAPSILOSIS, TROPICALIS0.000NOMS HealthcareCANDIDA ALBICANS, PARAPSILOSIS, TROPICALISNot detectedNOMS HealthcareCANDIDA GLABRATA0.000NOMS HealthcareCANDIDA GLABRATANot detectedNOMS HealthcareCANDIDA KRUSEI0.000NOMS HealthcareCANDIDA KRUSEINot detectedNOMS HealthcareCITROBACTER FREUNDII0.000NOMS HealthcareCITROBACTER FREUNDIINot detectedNOMS HealthcareENTEROBACTER AEROGENES, CLOACAE0.000NOMS HealthcareENTEROBACTER AEROGENES, CLOACAENot detectedNOMS HealthcareENTEROCOCCUS FAECALIS, FAECIUM0.000NOMS HealthcareENTEROCOCCUS FAECALIS, FAECIUMNot detectedNOMS HealthcareERMB, C; MEFA20.660AbnormalNOMS HealthcareERMB, C; MEFADetectedAbnormalNOMS HealthcareESCHERICHIA COLI0.000NOMS HealthcareESCHERICHIA COLINot detectedNOMS HealthcareInterpretation and review of laboratory resultsAbnormalNOMS HealthcareKLEBSIELLA PNEUMONIAE, OXYTOCA0.000 NOMS HealthcareKLEBSIELLA PNEUMONIAE, OXYTOCANot detectedNOMS Healthcare MORGANELLA MORGANII0.000NOMS HealthcareMORGANELLA MORGANIINot detectedNOMS HealthcarePROTEUS MIRABILIS, VULGARIS0.000NOMS HealthcarePROTEUS MIRABILIS, VULGARISNot detectedNOMS HealthcarePSEUDOMONAS AERUGINOSA0.000[facility] PSEUDOMONAS AERUGINOSANot detectedNOMS HealthcareSERRATIA MARCESCENS0.000NOMS HealthcareSERRATIA MARCESCENSNot detectedNOMS HealthcareSTAPHYLOCOCCUS AUREUS 0.000NOMS HealthcareSTAPHYLOCOCCUS AUREUSNot detectedNOMS Healthcare STREPTOCOCCUS AGALACTIAE (GROUP B STREP)23.779AbnormalNOMS Healthcare STREPTOCOCCUS AGALACTIAE (GROUP B STREP)DetectedAbnormalNOMS Healthcare STREPTOCOCCUS PYOGENES (GROUP A STREP)0.000NOMS HealthcareSTREPTOCOCCUS PYOGENES (GROUP A STREP)Not detectedNOMS HealthcareTET B, TET M25.402AbnormalNOMS HealthcareTET B, TET MDetectedAbnormalNOMS HealthcareNOMS HealthcareCardiac Stress Teston 70-60-0057Nfficwn Stress TestNort[address], [address] [place] [address] Exercise Stress Test Patient Name: DINESH SELBY Ordering Physician: [id number] Zeina Walter MD Study Date: 07/31/2023 Reading Physician: [id number] Galo MD, [facility] MRN/PID: [id number] Supervising Physician: [id number] Emma Galo MD, [facility] Accession/Order#: [id number] Referring Physician: ZEINA WALTER Date of : 1985 PCP: Gender: F Fellow: Height: 162.56 cm Nurse: Jhon Vaughn RN Weight: 171.01 kg Forensic Chemist: TJ BSA: 2.56 m2 Technologist: BMI: 64.71 kg/m2 Additional Staff: Age: 38 years cc report to: Patient Location: cc report to: [id number] Zeina Walter MD Study Type: Cardiac Stress Test Diagnosis/ICD: R07.1-Chest pain on breathing (pleuritic chest pain); R06.02-Shortness of breath Indication: Chest Pain Procedure/CPT: Stress Test Interpretation-88660; Stress Test Supervision-40155 Falls Risk: Low: Patient has low risk [...] 118/80 mmHg with a heart rate of 84bpm. The standing blood pressure was 116/82 mmHg with a heart rate of 91 bpm. The patient's functional capacity was below average. The patient developed shortness of breath during the stress exam. The symptoms resolved with rest. The blood pressure response was normal. The test was terminated due to: dyspnea. Baseline ECG: Resting ECG showed normal sinus rhythm. Stress Stage Data: + +---+------+-------+ HR Sys BP Ackerman BP + +---+------+-------+ Baseline Resting 84 118 80 + +---+------+-------+ Baseline Standing 91 116 82 + +---+------+-------+ Stage I 166 138 84 + +---+------+-------+ Recovery ECG: The heart rate recovery was normal. + +---+------+-------+ HR Sys BP Ackerman BP + +---+------+-------+ Recovery I 164 128 84 + +---+------+-------+ Recovery II 151 128 86 + +---+------+-------+ Recovery III 111 124 82 + +---+------+-------+ Recovery IV 98 122 84 + +---+------+-------+ Summary: 1. 1_patient was exercised on a Dominic protocol for 2 minutes and 41 seconds achieving maximum heartrate of 166 bpm which represented 91% of predicted maximal heart rate and workload of 4.6 METS. Blood pressure payal to 128/86 mmHg. The test ended due to dyspnea 2_no ischemic EKG changes, chest pain or cardiac arrhythmias at a very low workload which could reduce the sensitivity of the treadmill stress test in detecting myocardial ischemia. 2. Submaximal level of stress achieved. [id number] Emma Galo MD, FACC Electronically signed on 08/01/2023 at 5:29:58 PM Final NormalYampa Valley Medical CenterCardiac Stress TestPlease click on the link to view the study imagesNormalUniversProMedica Tol[facility] Hospital Work Phone: Cardiac Stress TestMP-St. Elizabeths Medical CenterSeal Rock 250 DO Work Phone: Echocardiogramon [phone] [facility] [address] [place] [address], [address] [place] [address] TRANSTHORACIC ECHOCARDIOGRAM REPORT Patient Name: DINESH RUBEN Reading Physician: [id number] Emma Galo MD, [facility] Study Date: 07/31/2023 Referring Physician: ZEINA WALTER MRN/PID: [id number] PCP: [id number] Tay Lenz DO Accession/Order#: [id number] Department Location: [facility] Date of : 1985 Fellow: Gender: F Nurse: Jhon Vaughn RN Admit Date: Forensic Chemist: Kathy Quinones RDCS, RT(R), RDMS, RVT Height: 162.56 cm CC Report to: Weight: 171.01 kg Study Type: Echocardiogram BSA: 2.56 m2 Diagnosis/ICD: Z01.818-Encounter for other preprocedural examination; R07.9-Chest pain, unspecified; R94.31-Abnormal electrocardiogram [ECG] [EKG] Indication: INcomplete RBBB Chest pain SOB Pre-op for Bariatric Surgery Procedure/CPT: Echo Complete w Full Doppler-25426 Patient History: Pertinent History: Histoplasmosis. Study Detail: [...] visualized. There is no indication of pulmonic valveregurgitation. Pericardium: There is no pericardial effusion noted. [...] 1.0 m/s (0.6-0.9m/s) PV Max P.7 mmHg [id number] Emma Galo MD, [facility] Electronically signed on 08/01/2023 at 5:52:23 PM Final NormalYampa Valley Medical CenterEchocardiographyPlease click on the link to view the study imagesNoBaylor Scott & [facility] Work Phone: [place] [phone] [id number]#1.00CD:127[facility] HospitalRegistrationon 38-33-5882Fwciknpzpbtq [id number]#1.00CD:127[facility] HospitalOffice Visit (Cardiology)on 69-37-1825Nfdcin-up visitDiagnoses/Problems Assessed Preoperative cardiovascular examination (V72.81) (Z01.810) Patient [...] Shortness of breath Echocardiogram; Status:Hold For - Scheduling,Retrospective By Protocol Authorization; Requested for:07May2023; [place] Cardiac Stress/Rest Nuclear Med Order; Status:Hold For - Scheduling,Retrospective By Protocol Authorization; Requested for:07May2023; Radiologist to [...] DR. SONG PRUITT FOR GASTRIC BYPASS @ [facility], PENDING TESTING Follow up after testing Chief Complaint DINESH SELBY is being seen for pre-operative clearance. History of Present Illness 38-year-old without documented coronary artery disease or valvular heart disease is being seen in cardiology consultation at the request of Dr. Pruitt or for preoperative cardiac risk assessment priorto bariatric surgery, nature of surgery unclear at this time. 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 She does complain of chest discomfort a pressure sensation that lasts a few minutes, usually brought on by activity. She also has shortness of breathwith activity her symptoms are not new and they are not accelerating. Does not have nocturnal chestdiscomfort, denies orthopnea PND lower extremity edema GERD symptoms palpitations lightheadedness presyncope syncope or falls. Her EKG is abnormal and that there is abnormal R wave progression. Rate is 91 MI interval 140 ms QRS duration 94 ms [...] not available procedure to be done at [facility] in [place] by Dr. Sagastume. 2. Chest discomfort-etiology unclear 3. Abnormal R wave progression on EKG no prior EKG for comparison 4. Shortness of breath with activity 5. Not clinically volume overloaded 6. Patient denies symptoms of obstructive sleep apnea or a diagnosis of that 7. Hilar adenopathy, underwent biopsy, patient reports that her diagnosis is histoplasmosis. 8. 63-ntni-sign history of smoking, quit 2020. 9. History of anxiety/panic attacks characterized by elevations in heart rate sweaty palms shortness of breath and chest discomfort-significant improvement on Zoloft. Recommendations: We talked about lifestyle modification. She says she is very frustrated, she gained weight after she quit smoking, she has had prior efforts at weight loss, and she had made progress but then she hadsetbacks, this is quite frustrating for her. She says she does not eat anything till late morning, I suggested intermittent fasting, which mightwork for her. Prior to completely assessing her cardiac risk for bariatric surgery, we will proceed with an echocardiogram and a treadmill perfusion imaging study. Patient says she can walk on a treadmill. If however treadmill stress test does not give us diagnostic information, it is okay to switch to Lexiscan Myoview. Follow-up after testing Patient is encouraged to abstain from cigarettes. Echocardiogram Thank you (more content not included)...NormalUH TouchworksTobacco Screening.on 97-04-8214Jvixb depression screening assessmentNo-[facility]yl 250 DO Work Phone: Fall risk assessmenta) No falls within the last year [facility]-Vasyl 250 DO Work Phone: Tobacco use status CPHSb) NoMP-[facility]- Vasyl 250 DO Work Phone: bh Video Visit - Telehealthon 41-31-8725ZO Video Visit - TelehealthStart Time 2pm Stop Time 2:54pm Patient Reported Issues No qualifying data available. CSSRS Risk Assessment No qualifying data available. CSSRS Frequent Screener No qualifying data available. CSSRS Screen No qualifying data available. Mini Mental State Examination No qualifying data available. Diagnosis/Assessment/Treatment Plan 1. Adjustment disorder with mixed emotional [...] smoking cessation Explored family dynamics THEME OF SESSION/TOPIC/TREATMENT GOALS: Exploration of Thoughts/Feelings Smoking cessation Medical Issues Relationship issues Work issues Family dynamics NOTES/SUMMARY OF SESSION: Patient reported that her rrpfzz-pj-zka today. Her son was close to his [...] online (also named Otoniel) who lives in [place]. This man has 6-year-old twin boys. They have not met in person, yet. She is taking things slowly. Patient remains smoke-free since December. She met with her dietitian and was encouraged to lose 15 to 20 pounds before her bariatric surgery. She has been trying to get more exercise. She continues to work at [employer] in [place], and will be promoted to [address] [employer] [...] Medications No active medications Allergies No active allergiesrmalTwin City HospitalComment on above:Result Comment: Electronically Signed By: ARBEN DUMONT, SHERI\.manisha\Date and Time Signed: 08/04/2210:38 [facility] - Telehealthon [id number] Video Visit - TelehealthStart Time 2pm Stop Time 2:54pm Patient Reported Issues No qualifying data available. CSSRS Risk Assessment No qualifying data available. CSSRS Frequent Screener No qualifying data available. CSSRS Screen No qualifying data available. Mini Mental State Examination No qualifying data available. Diagnosis/Assessment/Treatment Plan 1. Adjustment disorder with mixed emotional [...] smoking cessation Explored family dynamics THEME OF SESSION/TOPIC/TREATMENT GOALS: Exploration of Thoughts/Feelings Smoking cessation Gastric bypass surgery Medical Issues Psychotropic medication Work issues Family dynamics NOTES/SUMMARY OF SESSION: Patient received the results for her medical testing, and has been okayed for bariatric surgery. She will be expected to lose some weight before the surgery which will not take place until after the first of the year. She remains smoke- free since December. She continues to take 50 mg of Zoloft for anxiety, which seems to be effective. She continues to work at [employer] in [place]. She is beingpromoted to [employer], with a pay increase. Her 9-year-old son, [...] Medications No active medications Allergies No active allergiesrmGerman HospitalComment on above:Result Comment: Electronically Signed By: ARBEN IZAGUIRRE-SHERI Curiel\.manisha\Date and Time Signed: 07/13/2212:35 [facility] Video Visit - Telehealthon [id number] Video Visit - TelehealthStart Time 4pm Stop Time 4:40pm Patient Reported Issues No qualifying data available. CSSRS Risk Assessment No qualifying data available. CSSRS Frequent Screener No qualifying data available. CSSRS Screen No qualifying data available. Mini Mental State Examination No qualifying data available. Diagnosis/Assessment/Treatment Plan 1. Adjustment disorder with mixed emotional [...] smoking cessation HEXACO Personality Inventory THEME OF SESSION/TOPIC/TREATMENT GOALS: Exploration of Thoughts/Feelings Smoking cessation Gastric bypass surgery Medical Issues Psychotropic medication Work issues Personality assessment NOTES/SUMMARY OF SESSION: Patient continues to await the results of some medical testing. She remains smoke-free since December. She continues to take 50 mg of Zoloft for anxiety, which she feels is effective. She recently worked 8 days in a row at [employer] in [place]. She reported that she is being promoted to [employer]. Her 9-year-old son, Mohan, asked her about [...] Medications No active medications Allergies No active allergiesNormGerman HospitalComment on above:Result Comment: Electronically Signed By: SHERI MCLEOD\.manisha\Date and Time Signed: 06/20/2212:28 [facility] Video Visit - Telehealthon [id number] Video Visit - TelehealthStart Time 2pm Stop Time 2:40pm Patient Reported Issues No qualifying data available. CSSRS Risk Assessment No qualifying data available. CSSRS Frequent Screener No qualifying data available. CSSRS Screen No qualifying data available. Mini Mental State Examination No qualifying data available. Diagnosis/Assessment/Treatment Plan 1. Adjustment disorder with mixed emotional features (F43.29: Adjustment disorder with other symptoms) Assessment and Plan No qualifying data available. Follow-up No qualifying data available Other Information This visit was conducted via 2-way video communications due to the restrictions of the COVID-19 pandemic. All issues, below, were discussed and addressed but no physical exam was conducted other thanthose areas of the body visible to telecommunications. If it is deemed that the patient should be evaluated in the clinic, the patient will be directed to the appropriate clinic or venue. The patientand/or their guardian verbally consented to this visit. Video time spent with the patient sqll-xr-curi was greater than 50%, in addition to [...] family dynamics HEXACO Personality Inventory THEME OF SESSION/TOPIC/TREATMENT GOALS: Exploration of Thoughts/Feelings Family dynamics Smoking [...] feels is effective. She continues working at [employer] in [place]. She and her son, Mohan, continue to [...] Medications No active medications Allergies No active allergiesNormalNovant Health Thomasville Medical Centerer Johns Hopkins HospitalComment on above:Result Comment: Electronically Signed By: ARBEN [facility] HEALTH NETWORKClarisa, SHERI\.manisha\Date and Time Signed: 06/02/2214:45 EDTTobacco Screening.on 16-23-7625Ileb risk assessmenta) No falls within the last year-CT Surgery-[facility] Work Phone: Tobacco use status CPHSb) NoMG-[facility]KALE[facility] Work Phone: Tobacco Screening.Adult-AL SurgeryKALEIDA [facility]ALTH Work Phone: Histoplasma Caps Abs CF+IDon 33-21-6779Srsgzpigdlw Mycelia CF Ab.NegativeNormalNeg:<1:2FCleveland Clinic Children's Hospital for RehabilitationComment on above:Performed By: #### HISTOPL GAL AG, HISTO ABS #### [facility] ,Histoplasma Yeast CF Ab.1:32HighNeg:<1:2FCleveland Clinic Children's Hospital for Rehabilitation Comment on above:Result Comment: Performed at: [address] [id number] [place] Measurer: Palomo Gutierrez MD, Phone: [phone] PERFORMED BY: [place] [address] [place] [address] PATHOLOGIST LAB SUPPORT TECHNICIAN SWETA SANDERS M.D.Performed By: #### HISTOPL GAL AG, HISTO ABS #### [facility] ,Histoplasma Galacto Ag EIAon 32-43-8740Zoivtrbteb:Normal.[facility] Tripoint Medical CenterComment on above:Result Comment: This test was developed and its performance characteristics determined by [employer]. It has not been cleared or approved by the Food and Drug Administration. Performed at: [address] [id number] [place] Measurer: Palomo Gutierrez MD, Phone: [phone] By: #### HISTOPL GAL AG, HISTO ABS #### [facility] ,Histoplasma Gal'hitchcock Ag, Ser<0.5Normal<0.5 ng/mLUniversity Hospitals Tripoint Medical CenterComment on above:Performed By: #### HISTOPL GAL AG, HISTO ABS #### [facility] ,Tobacco Screening.on 89-99-5583Nsrr risk assessmenta) No falls within the last zcwzPE-Caxcurdvkebkn-[employer] [employer] 1600 Work Phone: Tobacco use status CPHSb) WbDZ-Zuodcenmhiqhs-ZAS [employer] 1600 Work Phone: QuantiFERON TB Goldon 85-14-5768LDSA CriteriaNormal. [facility] Tripoint Medical CenterComment on above:Result Comment: The QuantiFERON-TB Gold Plus result is determined by subtracting the Nil value from either TB antigen (Ag) tube. The mitogen tube serves as a control for the test.Performed By: #### QUANT TB #### [facility] ,Quant TB Ag Value0.06Normal.[facility] Tripoint Medical CenterComment on above: Performed By: #### QUANT TB #### [facility] ,Quant TB Gold PlusNegativeNormalNegativeUniversity Hospitals Tripoint Medical Center Comment on above:Result Comment: The specimen received for QuantiFERON testing was incubated by the ordering institution. Specific procedures outlined in our Directory of Services and in the package insert for the QuantiFERON Gold (In Tube) test must be followed to enable for proper stimulation of cells for the production of interferon gamma. Chemiluminescence immunoassay methodology Performed at: [facility] [id number] [place] Measurer: Kaushik Aragon PhD, Phone: [phone] PERFORMED BY: [place] [address] PATHOLOGIST LAB SUPPORT TECHNICIAN SWETA SANDERS M.D.Performed By: #### QUANT TB #### [facility] ,Quant TB2 Ag Value0.07Normal.[facility] Tri[facility] Medical CenterComment on above: Performed By: #### QUANT TB #### [facility] ,Quantiferon Nil Value0.04Normal.[facility] Medical CenterComment on above:Performed By: #### QUANT TB #### [facility] ,Quantiferon TB Mitogen>10.00Normal.[facility] Tripoint Medical CenterComment on above:Performed By: #### QUANT TB #### [facility] ,ECH echo transthoracicon 30-09-8585TUR echo transthoracicTHE SURGICAL H[facility] [place] [address] Echocardiogram Signed Patient: Dinesh Selby MR#: [id number] : 1985 Acct:[id number] Age/Sex: 35 / F ADM Date: 01/12/21 Loc: Room: Type: REG CLI Attending Dr: George Roland MD Ordering Provider: George Roland MD Date of Service: 01/12/21 ECH/[facility] echo transthoracic: SU[employer] Copies to: MD Emma Schultz MD, [facility] Weight: 336 lb Performed By: SEMAJ Valencia [...] 548.7 cm/sec2 E/E' med: 10.1 Transcribed By: [facility] 01/12/21 1402 Dictated By: Emma Galo MD, [facility] 01/12/21 1320 Signed By: 01/12/21 1402NoMary Rutan HospitalCoagulation Profileon 23-02-8834sIBQ Coag (Bld) [Time]32.9 yPoksnn96.1-36.5FCleveland Clinic Children's Hospital for RehabilitationComment on above:Result Comment: PERFORMED BY: [place] [address] PATHOLOGIST LAB SUPPORT TECHNICIAN SWETA SANDERS M.D.Performed By: #### UR HISTOPLAS, HISTO ABS #### [facility] , #### PP #### [place] [address] USAINR Coag (PPP) [Relative time]1.1 {INR}K[facility]tering Memorial HospitalComment on above:Result Comment: INR Therapeutic Range A) Pre- and [...] patients with mechanical heart valves: 3 - 4.5Performed By: #### UR HISTOPLAS, HISTO ABS #### [facility] , #### PP #### [facility] [address] [place] [address] USAPT Coag (PPP) [Time]12.0 sNormal9.0-12.9[facility] Medical CenterComment on above:Performed By: #### UR HISTOPLAS, HISTO ABS #### [facility] , #### PP #### [place] [address] USAHistoplasma Caps Abs CF+IDon 69-35-2271Wkonltttbnb Mycelia CF Ab.NegativeNormalNeg:<1:2FCleveland Clinic Children's Hospital for RehabilitationComment on above: Performed By: #### UR HISTOPLAS, HISTO ABS #### [facility] , #### PP #### [facility] [address] [place] [address] USAHistoplasma Yeast CF Ab.1:8HighNeg:<1:2FCleveland Clinic Children[facility] Hospital for RehabilitationComment on above:Result Comment: Performed at: [address] [id number] [place] Measurer: Palomo Gutierrez MD, Phone: [phone] PERFORMED BY: [place] [address] PATHOLOGIST LAB SUPPORT TECHNICIAN SWETA SANDERS M.D.Performed By: #### UR HISTOPLAS, HISTO ABS #### [facility] , #### PP #### [place] [address] USAHistoplasma Galacto Ag, Uron 83-35-2182Roaldepqpzl disclaimerNormal.[facility] Medical CenterComment on above:Order Comment: SOURCE OF SPECIMEN: URINEResult Comment: This test was developed and its performance characteristics determined by [facility]. It has not been cleared or approved by the Food and Drug Administration. Performed at: [facility] Lab[address] [id number] [place] Measurer: Palomo Gutierrez MD, Phone: [phone] PERFORMED BY: [place] [address] PATHOLOGIST LAB SUPPORT TECHNICIAN SWETA SANDERS M.D.Performed By: #### UR HISTOPLAS, HISTO ABS #### [facility] , #### PP #### [facility] [address] [place] [address] USAHistoplasma GALACTOMANNAN, UR<0.5Normal<0.5 ng/mLUniversity Hospitals Tripoint Medical CenterComment on above:Order Comment: SOURCE OF SPECIMEN: URINEPerformed By: #### UR HISTOPLAS, HISTO ABS #### [facility] , #### PP #### [facility] [address] [place] [address] Vital Signs Date TimeVital SignValuePerforming QqnywrkjmVbckyzjf70-77-8016 08:57-0400Body mass index (BMI) [Ratio]64.2 kg/m2Kacey CROSS Work Phone: [facility] CenterYbildndcgi64-96-5836 08:57-0400Body bqluer868.65 kgKacey CROSS Work Phone: [facility] CenterBvedcywrkz63-86-3453 08:57-0400Diastolic blood qikptmgx38 mm[Hg]Kacey CROSS Work Phone: [facility] CenterAjgdahhmpg48-01-9213 08:57-0400Systolic blood cyphtppm451 mm[Hg]Kacey CROSS Work Phone: [facility] CenterQbqkhuhjlm95-00-7514 15:10-0500Body mass index (BMI) [Ratio]65.59 kg/m2Kacey CROSS Work Phone: [facility] CenterRubbvfergu71-14-8951 15:10-0500Body cedcxx441.33 kgAmy [place] PA Work Phone: [phone] [place], [place] [address]Xjcmbszmts72-35-6927 15:10-0500Diastolic blood rvijxsda38 mm[Hg]Kacey Missy PA Work Phone: 1(074)504-[facility] CenterAjxdjqcqhi52-52-8149 15:10-0500Systolic blood nntqcaax282 mm[Hg]Kacey Missy PA Work Phone: [phone] [place], [place] [address]Gogfwxjboc95-72-6532 09:19-0500Body mass index (BMI) [Ratio]65.23 kg/m2Amy Missy PA Work Phone: [phone] [place], [place] [address]Vaqobxidod12-18-5407 09:19-0500Body lmvedl002.37 kgAmy [place] PA Work Phone: [phone] [place], [place] [address]Rnquxqcjwi68-81-2084 09:19-0500Diastolic blood loznwbpj57 mm[Hg]Kacey Missy PA Work Phone: [phone] [place], [place] [address]Wqmliiyykw57-23-3079 09:19-0500Systolic blood kehwihgj870 mm[Hg]Kacey [place] PA Work Phone: [phone] [place], [place] [address]Zxywuepmnq53-55-3037 15:21-0500Body mass index (BMI) [Ratio]64.54 kg/m2Amy [place] PA Work Phone: [phone] [place], [place] [address]Tiniwkfptm66-06-5733 15:21-0500Body vgdizt460.55 kgAmy Missy PA Work Phone: [phone] [place], [place] [address]Mnsorsauuq44-10-0394 15:21-0500Diastolic blood oquxbzrh57 mm[Hg]Kacey Missy PA Work Phone: [phone] [place], [place] [address]Wvtutlgvbh02-78-4341 15:21-0500Systolic blood kduftdhg036 mm[Hg]Kacey Missy PA Work Phone: [phone] [place], [place] [address]Oroelfrmbe28-16-9918 10:29-0500Body .6 cmZeina Walter MD Work Phone: [facility]11-22-2024 10:29-0500 Body mass index (BMI) [Ratio]64.54 kg/j1YbkvglZeina Walter MD Work Phone: [phone]11-22-2024 10:29-0500 Body fksnle920.55 kgZeina Walter MD Work Phone: [phone])949-[address] [place], [place] [address]11-22-2024 10:29-0500 Diastolic blood yyiywuoh26 mm[Hg]Zeina Walter MD Work Phone: 1(655)971-[address] [place], [place] 2187211-22-2024 10:29-0500 Heart rate88 /minZeina Walter MD Work Phone: 3([phone])007-[address] [place], [place] [address]11-22-2024 10:29-0500 Systolic blood dueygihv806 mm[Hg]Zeina Walter MD Work Phone: 1([phone])751-[address] [place], [place] 2187211-11-2024 11:43-0500 Body mass index (BMI) [Ratio]63.87 kg/m2Amy Missy PA Work Phone: [phone] [place], [place] [address]Qucuzsbnpl85-40-8490 11:43-0500Body techdj476.79 kgAmy [place] PA Work Phone: [phone] [place], [place] [address]Rtclrpqhsn56-21-3036 11:43-0500Diastolic blood mmdliwbr17 mm[Hg]Kacey Monroe PA Work Phone: [phone])138-[address] [place], [place] [address]Ertltfrntd99-68-4325 11:43-0500Systolic blood thfmeodi440 mm[Hg]Kacey Monroe PA Work Phone: [phone] [place], [place] [address]Ojtvtdkgnm55-66-7252 16:16-0400Body mass index (BMI) [Ratio]63.51 kg/m2Amy Missy PA Work Phone: [phone])576-[facility] CenterR[facility] CenterQghgpspjof56-68-2475 16:16-0400Body nzihzb871.83 kgAmy Missy PA Work Phone: 1(646)676-[facility] CenterDvpgzvztsu63-31-6572 14:54-0400Body okcmad918.6 Vinnie Asifalayna MACARIO Work Phone: [facility] CenterDstahcidje21-23-8074 14:54-0400Body mass index (BMI) [Ratio]64.37 kg/h7Gozgk Asif DO Work Phone: [facility] CenterDopxkhulqq95-81-5114 14:54-0400Body .1 kgCorey Asif DO Work Phone: [facility] CenterNwxmdcaxyj16-72-9043 14:54-0400Diastolic blood btpggxci53 mm[Hg]Julian Asif DO Work Phone: [facility] CenterQzkufofjvx99-43-0994 14:54-0400Systolic blood qlaemyqo092 mm[Hg]Julian Asif DO Work Phone: [facility] CenterWricqcxdqi67-35-8037 14:24-0400Body .6 cmZeina Walter MD Work Phone: 1(896)344-[address] [place], [place] 2187210-02-2023 14:24-0400 Body mass index (BMI) [Ratio]64.03 kg/z3HgilssZeina Walter MD Work Phone: 1(507)298-[address] [place], [place] 2187210-02-2023 14:24-0400 Body edoikz653.19 kgZeina Walter MD Work Phone: 1(872)614-[address] [place], [place] 2187210-02-2023 14:24-0400 Diastolic blood avzbhuha84 mm[Hg]Zeina Walter MD Work Phone: [phone])[address]10-02-2023 14:24-0400 Heart rate82 /minZeina Walter MD Work Phone: 4(364)876-[address] [place], [place] 2187210-02-2023 14:24-0400 Systolic blood bnrypsoj410 mm[Hg]Zeina Walter MD Work Phone: 9(906)729-[address] [place], [place] 2187206-26-2023 11:28-0400 Diastolic blood mm[Hg]Emmie Lenz Work Phone: 1(992) [phone]-Sbbmm [place] [facility]-Vasyl 250 DO Work Phone: 1(459) 277-596506-26-2023 11:28-0400Systolic blood clekxdyu507 mm[Hg] Emmie Lenz Work Phone: mp728-4390NI-Vqdrq [place] [facility]-Vasyl 250 DO Work Phone: 1(126)[phone]665 11:27-0400Body .56 cmPamela S Teresa Work Phone: [phone]-FagjuSandstone Critical Access Hospital-V[facility]yl 250 DO Work Phone: 1(232) 538-201806-26-2023 11:27-0400Body mass index (BMI) [Ratio] 64.71 kg/u9Ieugbh S Teresa Work Phone: 1([phone]-ZkdctOlivia Hospital and ClinicsVasyl 250 DO Work Phone: 1(832) 107-363106-26-2023 11:27-0400Body surface area Derived from formula2.56 t1Qppmsd S Teresa Work Phone: [phone]-DogclOlivia Hospital and ClinicsVasyl 250 DO Work Phone: 1(754) 283-889806-26-2023 11:27-0400Body nijegt821.01 kgPamela S Teresa Work Phone: [phone]-OylbdOlivia Hospital and ClinicsVasyl 250 DO Work Phone: 1(107) 206-601806-26-2023 11:27-0400Diastolic blood qprhxykv58 mm[Hg] Emmie S Teresa Work Phone: [phone]-FxahnOlivia Hospital and ClinicsVasyl 250 DO Work Phone: 1(790) 572-879406-26-2023 11:27-0400Heart rate91 /minPamela S Teresa Work Phone: 1(762)[phone]-FzzajOlivia Hospital and ClinicsVasyl 250 DO Work Phone: [phone] 11:27-0400Systolic blood eagzyjtn196 mm[Hg] Emmie S Teresa Work Phone: [phone]-YpjdcOlivia Hospital and ClinicsVasyl 250 DO Work Phone: 1(299) 149-896204-22-2023 10:15-0400Body hvylvx793.56 Brittaney Mendoza Other [employer] Other 04-22-2023 10:15-0400Body mass index (BMI) [Ratio]63.5 kg/k6CyqckDidi Mendoza Other [employer] Other 04-22-2023 10:15-0400Body ammzuivoisf60 [degF]Didi Mendoza Other [employer] Other 04-22-2023 10:15-0400Body bxomtx286.83 kgDidi Mendoza Other [employer] Other 04-22-2023 10:15-0400Respiratory rate18 /minDidi Mendoza Other [employer] Other 04-22-2023 10:15-1673LxM9% (BldA) [Mass fraction]99 % Didi Mendoza Other [employer] Other 03-31-2022 11:42-0400Body viykew618.11 cmPamela Veena Teresa Work Phone: [phone]-HN Surgery-[facility] Work Phone: 1(496) 320-494303-31-2022 11:42-0400Body mass index (BMI) [Ratio] 65.42 kg/p9Irrcps S Teresa Work Phone: [phone]-TP Surgery-[facility] Work Phone: 1(246) 244-491603-31-2022 11:42-0400Body surface area Derived from formula2.54 u2Ngtohq S Teresa Work Phone: [phone]-SW Surgery-[facility] Work Phone: 1(829) 861-284103-31-2022 11:42-0400Body oibtnjjitjd84.9 [degF]Emmierosy Herreramer Work Phone: [phone]-ZD Surgery-[facility] Work Phone: 1(600) 318-636203-31-2022 11:42-0400Body iofvnk162.82 kgPamela S Teresa Work Phone: [phone]-DS [facility] Work Phone: 1(498) 294-313803-31-2022 11:42-0400Diastolic blood weehtunl10 mm[Hg] Emmie Herreramer Work Phone: 1([phone]-IH [facility] Work Phone: 1(882) 435-345503-31-2022 11:42-0400Heart xknr643 /minEmmie S Teresa Work Phone: [phone]-VJ [facility] Work Phone: 1(877) [phone] 11:42-0400Respiratory rate16 /minPadonaa S Teresa Work Phone: [phone]-ZU Surgery-[facility] Work Phone: 1(268) 340-856203-31-2022 11:42-5841GhQ3% (BldA) [Mass fraction]98 % Emmie Herreramer Work Phone: [phone]-CP [facility] Work Phone: 1(243) 273-156503-31-2022 11:42-0400Systolic blood hfftjsga305 mm[Hg] Emmie Herreramer Work Phone: 1([phone]-LX [facility] Work Phone: 1(713) 243-460603-31-2022 11:42-18105 1Pamelmaksim Herreramer Work Phone: [phone]-GY [facility] Work Phone: comment on above:XvhlBxkei48-40-2523 11:00-0400Body kuntzi264.56 cmReferring Provider BcbqfbcSR-Qarqqirrpvegj-ZMH [address] Work Phone: [phone]1-7024 11:00-0400Body mass index (BMI) [Ratio] 60.94 kg/a4Ffsctdigs Provider JvnydkeLQ-Wkrtdwbejexwk-MPK [address] Work Phone: 1(927) 397-701506-11-2021 11:00-0400Body surface area Derived from formula2.5 i7Iyxtgzuec Provider VyxekiuTO-Bndjnrqfjvdvn-LUQ [address] Work Phone: 1(555) 109-191206-11-2021 11:00-0400Body ksyyup834.03 kgReferring Provider CrhngsvLG-Xgbxhyzyyqpvr-VRX [facility] [address] Work Phone: 1(325)[phone]3-1005 11:00-0400Diastolic blood lcrsdqoh22 mm[Hg] Referring Provider LgprvcuNA-Lsekibgbsruhf-RTZ [address] Work Phone: 1([phone])[phone]8-1464 11:00-0400Heart ornv876 /minReferring Provider UrlmvgmQH-Igivkdcijsdlt-QLH [address] Work Phone: 1([phone])[phone] 11:00-0400Systolic blood ctenkofo310 mm[Hg] Referring Provider LtdujatJN-Mqswngeahaklr-GVI [address] Work Phone: 1([phone] 11:00-98738 1Referring Provider Unknown TH-Akagtfvypkjjy-FMN [address] Work Phone: comment on above:[employer] Encounters Encounter DateEncounter Type[facility] ProviderFacilityStart: 02-11-2025 End: 78-64-2840Gwadzl flowsApril CROSS Work Phone: noms BCP OBStart: 02-11-2025 End: 92-30-0975Mypuwf flowsApril CROSS Work Phone: noms BCP OBStart: 02-11-2025 End: 24-45-9259Dsualajsh Result EncounterKacey CROSS Work Phone: noms External Department UnsolicitedStart: 02-11-2025 End: 03-27-0892Ktxqmfk encounter procedureKacey CROSS Work Phone: noms HealthcareStart: 02-11-2025 End: 31-64-5523Ifcfnypc preventive med est patient 40-64yrsAkimberli CROSS Work Phone: noms BCP OBComment on above:Well woman exam with routine gynecological exam; Breast cancer screening by mammogramStart: 02-11-2025 End: 46-74-2986mgqqiwjobzWUR RAMEYNot AvailableStart: 01-08-2025 End: 80-84-3266okyfmdccpxDWK RAMEYNot AvailableStart: 01-08-2025 End: 35-99-5366Radazw outpatient visit 15 minutesAmy Missy PA Work Phone: NOMS BCP OBComment on above:Vaginal discharge; STD exposure; Vaginitis due to TrichomonasStart: 01-08-2025 End: 74-94-3752Ztzlvp flowsheetAmy [place] PA Work Phone: [facility]OMS BCP OBStart: 01-08-2025 End: 35-10-1883Pcrwcx flowsheetAmy [place] PA Work Phone: [facility] BCP OBStart: 12-10-2024 End: 16-73-4751Gxyhkmxbd encounterAmy [place] PA Work Phone: [facility] BCP OBStart: 12-09-2024 End: 42-42-1120Pepuew flowsheetKacey Missy PA Work Phone: [facility]S BCP OBStart: 12-09-2024 End: 55-71-3808Lmnsxs flowsheetAmy [place] PA Work Phone: [facility] BCP OBStart: 12-09-2024 End: 49-98-3973Sprbom outpatient visit 15 minutesAmy [place] PA Work Phone: NOMS BCP OBComment on above:Exposure to STD; Vaginitis due to TrichomonasStart: 12-09-2024 End: 20-35-1690itebssewerVRW RAMEYNot AvailableStart: 10-30-2024 End: 85-01-1014Bapubv outpatient visit 15 minutesAmy Missy PA Work Phone: NOMS BCP OBComment on above:Trichomonas vaginalis (TV) infectionStart: 10-30-2024 End: 70-03-7768ejfsqolattFYR RAMEYNot AvailableStart: 10-30-2024 End: 47-18-6466Amjpmb flowsheetAmy Missy PA Work Phone: [facility]S BCP OBStart: 10-30-2024 End: 26-78-3552Rjswuq flowsheetKacey Alcantaraey PA Work Phone: [facility] BCP OBStart: 10-03-2024 End: 61-47-0031Vgnike outpatient visit 15 minutesZeina Walter MD Work Phone: [facility] HospitallandsComment on above:Superior vena cava occlusion (Multi); Severe sleep apnea; Incomplete left bundle branch block; BMI 60.0-69.9, adult (Multi); Former smoker; Obesity, morbid (Multi)Start: 10-03-2024 End: 36-57-4942lntrwzwyryNYLZCGPiedmont [facility] AmbulatoryStart: 09-22-2024 End: 77-30-0494Estcny flowsheetKacey Monroe PA Work Phone: noms BCP OBStart: 09-22-2024 End: 86-87-4449Kljbyt flowsheetKacey Monroe PA Work Phone: noms BCP OBStart: 09-22-2024 End: 05-39-9876Msqxoy outpatient visit 15 minutesAmy Missy CROSS Work Phone: noms BCP OBComment on above:Trichomonas vaginalis (TV) infectionStart: 09-22-2024 End: 89-07-4083yyaahfezzrLLT RAMEYNot AvailableStart: 08-21-2024 End: 19-77-4556ayiafjbguuRII RAMEYNot AvailableStart: 08-21-2024 End: 59-44-2127Yjbuvg outpatient visit 15 minutesAmy Missy PA Work Phone: noms BCP OBComment on above:Trichomonas vaginalis (TV) infection; Urinary tract infection without hematuria, site unspecified; Yeast infectionStart: 08-21-2024 End: 73-60-1694Thfsjs flowsheetKacey Monroe PA Work Phone: noms BCP OBStart: 08-21-2024 End: 99-61-0602Mvxgso flowsheetKacey Monroe PA Work Phone: noms BCP OBStart: 07-09-2024 End: 19-43-7334Gzdjss outpatient visit 15 minutesCorekeshia Asif DO Work Phone: noms BCP OBComment on above:Exposure to STD; Vaginal irritation; Urethral irritationStart: 07-09-2024 End: 02-08-4261lbjwazolqiZQPKK FAZIONot AvailableStart: 07-09-2024 End: 46-54-8087Oseaix flowsheetCorey Asif DO Work Phone: noms BCP OBStart: 07-09-2024 End: 26-71-5991Vqlhrgti Result EncounterCorey Asif DO Work Phone: noms External Department UnsolicitedStart: 07-09-2024 End: 59-67-1539Faanjdgv Result EncounterCorey Asif DO Work Phone: noms External Department UnsolicitedStart: 08-13-2023 End: 55-87-1896Pbtnai outpatient visit 15 minutesZeina Walter MD Work Phone: [facility] HospitalComment on above:Obesity, morbid (CMS/HCC) (Primary Dx); Pre-operative clearance; Severe sleep apnea; Encounter to discuss test resultsStart: 08-13-2023 End: 68-27-8488Zfoqxnrbpnst stateZeina Walter MD Work Phone: [facility] Work Phone: Start: 11-93-5708Jqyfr Winifred Lenz Work Phone: [phone]-ErpskAllina Health [facility] 250 DO Work Phone: Start: 52-06-8828Jilsbqxcr for other preprocedural examinationZeina WalterHealthSouth Rehabilitation Hospital of Colorado Springstart: 90-61-3940stovjrxlcpPazeww MohanFacility:9844Start: 77-93-3448vcohdkyrbqZlpczw MohanFacility:9844Start: 71-16-1731SQLHTUgdkxg S Cramer Work Phone: [phone]-ZlubvAllina Health [facility]ibault [facility] 250 DO Work Phone: Start: 05-21-2023 End: 54-72-8103gfbtxdsjkzKaqjpjy INVERNESSFacility:Occupational Health and WellnessStart: 77-41-8834Giyhyk consultation new/estab patient 60 minEmmie S Teresa Work Phone: [phone]-Gjmjt [facility] 250 DO Work Phone: Start: 29-10-6805fptgwwvfloKK ZEINA WALTER Facility:408[address]Whbqw: 03-19-2023 End: 94-22-3586lvbigosbpwXMKWP ELIZABETH WALEFacility:Z5Rvdfe: 03-03-2023 End: 38-07-8002aryqruygnrWuxkr Mendoza Other [facility] [employer] Other Start: 53-73-0819Tuakxo outpatient new 20 Chemo MendozaFPG Urgent Care ClydeStart: 95-66-3323hizbnkbedtSRRRMYQ MURRAY Facility:Behavioral HealthStart: 08-02-2022 End: 61-95-6458frhuixzulsYILSMPX MURRAYFacility:Behavioral HealthStart: 08-02-2022 End: 65-27-7310Gouazbo encounter procedureSHERI THEODORE [phone]-ZalrqAvita Health [facility] start: 07-12-2022 End: 29-52-8381kvloqstjvaXRDVYDN MURRAYFacility:Behavioral HealthStart: 07-12-2022 End: 56-61-5063Rworagu encounter Jim THEODORE [phone]-KovejAvita Health [facility] start: 06-19-2022 End: 29-82-5726mgtwucigsxXZKHSJP MURRAYFacility:Behavioral HealthStart: 06-19-2022 End: 80-08-4880Yglgvej encounter Jmi THEODORE [phone]-AqccpAvita Health [facility] start: 06-02-2022 End: 13-80-4630ichkjgzgxxNWDPLLM MURRAYFacility:Behavioral HealthStart: 06-02-2022 End: 86-65-7901Rwitclt encounter procedureSHERI THEODORE [phone]-TpdomAvita Health [facility] start: 05-18-2022 End: 89-78-9126Lxqwaee encounter procedureSHERI THEODORE [phone]-YbfjsAvita Health System [facility] Behavioral Health start: 41-60-4866Dpxmth outpatient visit 40 minutes Emmie Lenz Work Phone: [phone]-VM Surgery-[facility] Work Phone: Start: 32-35-2768Wvlaxkv encounter procedureReferring Provider YiiteaaSP-Mzxsbworlz-Ukeuab Work Phone: Start: 41-79-8521Dxhwon consultation new/estab patient 60 minReferring Provider Unknown-Infectious Disease-Admin Reg[address] 411 Work Phone: Start: 05-01-0230Otkurgm encounter procedureReferring Provider KaubjexKM-Jjartgjqqgtfy-DVA [address] Work Phone: start: 19-35-3839Emkffg outpatient new 60 minutes Emmie Lenz Work Phone: [phone]-FH Surgery-[facility] Work Phone: patient encounter statusPadonamaksim Lenz Work Phone: [phone]-Hzbrr [facility] 250 DO Work Phone: Procedures DateProcedureProcedure DetailPerforming ClinicianStart: 02-11-2025 End: 89-50-0813Nufyk dip stick/tablet rgnt non-auto w/o micrscpAmy Missy CROSS Work Phone: Start: 28-94-7843WDH,APTIMA HPV,AGE GDLNKacey CROSS Work Phone: Start: 72-95-1460Xowvv dip stick/tablet rgnt non-auto w/o micrscpAmy Missy CROSS Work Phone: Start: 57-47-3284Yfwvx dip stick/tablet rgnt non-auto w/o micrscpAmy Missy CROSS Work Phone: Start: 79-32-8388QFINUQE TRACT INFECTION (HTRX)Julian Gold DO Work Phone: Start: 54-96-7644GpksswgrpjqcancrOxvlyo S Teresa Work Phone: Biopsy of lungPadonaa S Teresa Work Phone: Operative procedure on footPamela S Teresa Work Phone: Plan of Treatment DateCare ActivityDetailAuthorStart: 15-24-6808Qofdzc Vaccines (1 of 2)Zoster Vaccines (1 of 2)[facility] CenterStart: 49-89-8353Ifhqwoksh vaccinationInfluenza Vaccine (Season Ended)[facility] HealthcareStart: 02-11-2025 End: 40-43-0130WP Breast - bilateral ScreeningBilateral screening mammogram Imaging Routine Breast cancer screening by mammogram Expected: 02/11/2025 (Approximate), Expires: 04/13/2026[facility] Work Phone: comment on above:Expected: 02/11/2025 (Approximate), Expires: 04/13/2026Start: 02-11-2025 End: 74-77-6649Fklcgmn encounter procedureNOMS BCP OBComment on above:Arrived Start: 12-09-2024 End: 12-12-0544Mwessjn encounter oavxtosvz89/28/2025 9:10 AM EST Office Visit [facility] [address] [facility] [place] [place] [address] Kacey Monroe PA [address] [place] [address] ArrivedNOMS BCP OBComment on above:ArrivedStart: 10-30-2024 End: 53-36-2979Sgvdnet encounter ycalzuvoi57/19/2024 3:10 PM EST Office Visit [facility] [address] [place] [address] Kacey Monroe PA [address] [place], [place] [id number] ArrivedNOMS BCP OBComment on above:ArrivedStart: 10-22-2024 End: 26-38-3543Jnrjrop encounter jdersmzkb35/11/2024 1:10 PM EST Office Visit [facility] [address] [place] [address] Julian Gold DO [address] [place], [place] [address] [facility]OM[facility] BCP OBStart: 08-14-2024 End: 40-85-2164Zmxegyv encounter /03/2024 2:00 PM EDT Office Visit [place] [address] [facility] [address] [place] [address] Zeina Walter MD [address] [place] [address] [address] [place] [address] [facility]Start: 07-23-2024 End: 61-43-2356Klmkqll encounter ucrcmznov96/11/2024 2:30 PM EDT Office Visit [facility] [address] [place] [address] Julian Gold DO [address] [place] [address] [place] [address] NOMS BCP OBStart: 98-29-6744MBTHM-19 Vaccine ( season)COVID-19 Vaccine ( season)[facility] Start: 26-35-2557Yhceagjns vaccinationInfluenza Vaccine (#1)[facility] CenterStart: 07-09-2024 End: 27-76-5239Eqldblb encounter ysyuyudni02/28/2024 3:00 PM EDT Office Visit [facility] [address] [place] [address] Julian Gold DO [address] [place] [address] Dr Kieran Cesarevue, [facility]11 ArrivedNOCHINO VALLEY [facility] OBComment on above:ArrivedStart: 43-17-4421Kohjuzdor for malignant neoplasm of breastMammogramCleveland Clinic: 00-29-9772PWA, Provider: Zeina Walter, Status: Pen, Time: 2:15 PMFUV, Provider: Zeina Walter, Status: Pen, Time: 2:15 PMMP-[facility]-Vasyl 250 DO Work Phone: Start: 90-82-5364UZYX, Provider: VASYL HHVI ULTRASOUND 01,[id number], Status: Pen, Time: 8:45 AMECHO, Provider: VASYL HHVI ULTRASOUND 01,[id number], Status: Pen, Time: 8:45 AMMP-[facility] 250 DO Work Phone: Start: 62-94-0734AUDWQN NUC, Provider: VASYL [facility]VI NUCLEAR 01,[id number], Status: Pen, Time: 8:00 AMSTRESS NUC, Provider: VASYL HHVI NUCLEAR 01,[id number], Status: Pen, Time: 8:00 AMMP-[facility] 250 DO Work Phone: Start: 36-11-1948Qnmigbezx vaccinationInfluenza Vaccine (#1)[facility]: 76-80-5051UQA, Provider: Zeina Walter, Status: Pen, Time: 10:45 AMFUV, Provider: Zeina Walter, Status: Pen, Time: 10:45 AMMP-[facility] 250 DO Work Phone: Start: 03-40-6972JKCR, Provider: VASYL HHVI ULTRASOUND 01,[id number], Status: Pen, Time: 12:30 PMECHO, Provider: VASYL HHVI ULTRASOUND 01,[id number], Status: Pen, Time: 12:30 PMMP-[facility] [place] 250 DO Work Phone: Start: 47-32-2115ELHBEN SRIKANTH, Provider: VASYL [facility]VI NUCLEAR 01,[id number], Status: Pen, Time: 11:30 AMSTRESS SRIKANTH, Provider: VASYL HHVI NUCLEAR 01,[id number], Status: Pen, Time: 11:30 AMMultiCare [facility] [place] 250 DO Work Phone: Start: 81-20-6983PBXCFWQXWG, Provider: Dianna Acosta, Status: Pen, Time: 9:00 AMVIRFUVHOME, Provider: Dianna Acosta, Status: Pen, Time: 9:00 ADAQ-Ktcdjblnixevz-OBF [address] Work Phone: start: 61-92-6283Msllrxmjj for malignant neoplasm of cervixNOMS HealthcareStart: 93-92-5606RHqK/Tdap/Td Vaccines (1 - Tdap) DTaP/Tdap/Td Vaccines (1 - Tdap)[facility]: 44-75-7380Nnbqvgbtj for malignant neoplasm of cervixUnUC [facility]: 20-81-6020Tvdxittmc B Vaccines (1 of 3 - 19+ 3-dose series) Hepatitis B Vaccines (1 of 3 - 19+ 3-dose series)[facility]: 76-88-6112Jdwgqzvn mellitus screeningDiabetes Screening [facility]: 62-76-9791Rdszrghsp C screeningHepatitis C ScreeningUnUC [facility]: 95-64-0156Hmycaishx vaccinationVaricella Vaccines (1 of 2 - 13+ 2-dose series)[facility]: 99-21-7086UZE Vaccines (1 of 1 - Standard series)MMR Vaccines (1 of 1 - Standard series)[facility]: 02-22-1986 Varicella vaccinationVaricella Vaccines (1 of 2 - 2-dose childhood series) [facility]: 03-83-7997FLCDG-19 Vaccine (#1)COVID-19 Vaccine (#1)[facility]: 25-73-6199Nxmrbihut B Vaccines (1 of 3 - 3-dose series)Hepatitis B Vaccines (1 of 3 - 3-dose series) [facility]: 26-66-0081WGT screeningHIV Screening [facility]: 39-10-5626Ufbwh panelLipid Panel [facility]: 11-27-6811Vnkyuz Adult PhysicalYearly Adult PhysicalUnFirelands Regional Medical CenterBacteria identified in Urine by CultureUrine culture Microbiology Routine Urinary tract infection without hematuria, site unspecified Ordered: 08/21/2024[facility] Healthcare Work Phone: comment on above:Ordered: 08/21/2024HLAMYDIA TRACHOMATIS (GENITO/STI)CHLAMYDIA TRACHOMATIS (GENITO/STI) Lab Routine Trichomonas vaginalis (TV) infection Ordered: 09/22/2024[facility] HealthcareComment on above:Ordered: 09/22/2024HLAMYDIA TRACHOMATIS (GENITO/STI)CHLAMYDIA TRACHOMATIS (GENITO/STI) Lab Routine Exposure to STD Ordered: 07/09/2024[facility] HealthcareComment on above:Ordered: 07/09/2024HLAMYDIA TRACHOMATIS (GENITO/STI) CHLAMYDIA TRACHOMATIS (GENITO/STI) Lab Routine Trichomonas vaginalis (TV) infection Ordered: 10/30/2024[facility] HealthcareComment on above:Ordered: 10/30/2024 CHLAMYDIA TRACHOMATIS (GENITO/STI)CHLAMYDIA TRACHOMATIS (GENITO/STI) Lab Routine Exposure to STD Vaginitis due to Trichomonas Ordered: 12/09/2024[facility] Healthcare Comment on above:Ordered: 12/09/2024HLAMYDIA TRACHOMATIS (GENITO/STI)CHLAMYDIA TRACHOMATIS (GENITO/STI) Lab Routine Vaginal discharge Ordered: 01/08/2025[facility] HealthcareComment on above:Ordered: 01/08/2025Neisseria gonorrhoeae DNA [Presence] in Unspecified specimen by MARYCARMEN with probe detectionNeisseria gonorrhea DNA probe, direct Lab Routine Trichomonas vaginalis (TV) infection Ordered: 09/22/2024[facility] HealthcareComment on above:Ordered: 09/22/2024Neisseria gonorrhoeae DNA [Presence] in Unspecified specimen by MARYCARMEN with probe detection Neisseria gonorrhea DNA probe, direct Lab Routine Exposure to STD Ordered: 07/09/2024[facility] HealthcareComment on above:Ordered: 07/09/2024Neisseria gonorrhoeae DNA [Presence] in Unspecified specimen by MARYCARMEN with probe detection Neisseria gonorrhea DNA probe, direct Lab Routine Trichomonas vaginalis (TV) infection Ordered: 10/30/2024[facility] CenterComment [facility] above:Ordered: 10/30/2024 Neisseria gonorrhoeae DNA [Presence] in Unspecified specimen by MARYCARMEN with probe detectionNeisseria gonorrhea DNA probe, direct Lab Routine Exposure to STD Ordered: 12/09/2024[facility] CenterComment on above:Ordered: 12/09/2024Neisseria gonorrhoeae DNA [Presence] in Unspecified specimen by MARYCARMEN with probe detection Neisseria gonorrhea DNA probe, direct Lab Routine Vaginal discharge Ordered: 01/08/2025[facility] CenterComment on above:Ordered: 01/08/2025SURESWAB(R) ADVANCED VAGINITIS PLUS, TMASURESWAB(R) ADVANCED VAGINITIS PLUS, TMA Pathology and Cytology Routine Trichomonas vaginalis (TV) infection Ordered: 09/22/2024 [facility] Healthcare Work Phone: comment on above:Ordered: 09/22/2024SURESWAB(R) ADVANCED VAGINITIS PLUS, TMASURESWAB(R) ADVANCED VAGINITIS PLUS, TMA Pathology and Cytology Routine Exposure to STD Ordered: 07/09/2024[facility] Healthcare Work Phone: comluhh on above:Ordered: 07/09/2024SURESWAB(R) ADVANCED VAGINITIS PLUS, TMASURESWAB(R) ADVANCED VAGINITIS PLUS, TMA Pathology and Cytology Routine Trichomonas vaginalis (TV) infection Ordered: 10/30/2024 [facility] Healthcare Work Phone: comupep on above:Ordered: 10/30/2024SURESWAB(R) ADVANCED VAGINITIS PLUS, TMASURESWAB(R) ADVANCED VAGINITIS PLUS, TMA Pathology and Cytology Routine Exposure to STD Vaginitis due to Trichomonas Ordered: 12/09/2024[facility] Healthcare Work Phone: combijb on above:Ordered: 12/09/2024SURESWAB(R) ADVANCED VAGINITIS PLUS, TMASURESWAB(R) ADVANCED VAGINITIS PLUS, TMA Pathology and Cytology Routine Vaginal discharge Ordered: 01/08/2025[facility] [employer] Work Phone: comment on above:Ordered: 01/08/2025THIN PREP TIS PAP AND HR HPV DNATHIN PREP TIS PAP AND HR HPV DNA Pathology and Cytology Routine Well woman exam with routine gynecological exam Ordered: 02/11/2025[facility] CenterComment on above:Ordered: 02/11/2025 Payers DatePayer CategoryPayerPolicy [id number]SOURCE MEDICAID CARESOURCE MEDICAID [place] [id number] 2024-Present [address] [place] [address] [id number] Care ([facility] [id number] Health [id number] [id number] [id number] 2018Medicaid (Managed Care) [facility] [id number] [id number] 2.16.840.1.684641.3.57[id number] 2.16840.1.891917.3.57[id number] 2.16840.1.049433.3.57[id number] 2.16840.1.228270.3.57[id number] 2.16840.1.758816.3.57[id number] 2.16840.1.170334.3.57[id number] 2.16840.1.265838.3.57[id number] 2.840.1.541322.3.57[id number] 2.840.1.103641.3.57[id number] 2.16840.1.152301.3.57[id number] 2.16840.1.708280.3.57[id number] 2.16840.1.952634.3.57[id number] 2.16840.1.513996.3.57[id number] 2.16.840.1.769105.3.579.[id number] 2.16.840.1.900710.3.57[id number] 2.16.840.1.816095.3.57[id number] 2.16.840.1.083902.3.579.2.1259 [id number] 2..[id number] Social History DateTypeDetailFacilityStart: 08-13-2023 End: 75-22-3881Sticjl smokerFormer smokerMG-CT Surgery-[facility] Work Phone: Tobacco smoking statusNo Smoking Status [facility] start: 80-32-3714Cwa Assigned At BirthFeAult[facility] start: 08-13-2023 End: 34-36-3972Zhtaynf smoking status NHISEx-smokerUnFirelands Regional Medical CenterStart: 11-12-2000 End: 39-03-4446Asqirmn of tobacco useCurrent smokerUnFirelands Regional Medical Center Work Phone: Start: 11-12-2000 End: 73-22-8017Jrqbern of tobacco useCigarette SmokerUnFirelands Regional Medical Center Work Phone: Start: 08-13-2023 End: 16-53-2109Ccvwumm use and exposureSmokeless tobacco non-userUnFirelands Regional Medical Center Work Phone: Start: 34-62-3446Vpmqgkq intakeEx-drinker (finding) [facility] Work Phone: Start: 13-31-5174Cue Assigned At BirthNot on file [facility] Work Phone: Start: 08-03-2023 End: 44-29-4949Mscpxepp to SARS-CoV-2 (event)Not [facility] HospitalTobacornerstone [facility] smoking status NHISTobacco smoking consumption unknownNOMN HealthcareStart: 32-80-7504Nre assigned at birthFemaleNOMN HealthcareStart: 53-61-5553Txvtyl identityIdentifies as female gender (finding)[facility] Healthcare Start: 83-03-0256Zbydos orientationHeterosexual (finding)[facility] HealthcareStart: 89-59-4053Sfukmbbdf beverage intakeLifetime non-drinker (finding)[facility] Work Phone: Medical Equipment Procedure CodeEquipment CodeEquipment Original TextEquipment IdentifierDates Acquiree Pulmonary 22g Case [id number]: 82-68-4382Wovtbar on above: Description: Converted from [facility] Acute. Please see archived information for full log information. Additional Information:per [place] [facility] 03/10/2022 Clinical Notes 05-12-2020 to 02-11-2025 Note Date & UofvJsnrXhggzxjr24-95-7838 History of Present illness Narrative* AMERICA Donahue - 02/11/2025 9:00 AM EDT Reason for Appointment: Patient ID: Dinesh Selby [...] nursing note reviewed. Exam conducted with a quality control scientist present. Vitals: Estimated body mass index is [...] behalf of: AMERICA Donahue documented in this encounterRusk Rehabilitation CenterMprmjxzusb71-42-4982 History of Present illness Narrative* AMERICA Donahue - 01/08/2025 3:00 PM EST Answers submitted by the patient for this [...] and frequency. Negative for dysuria, hematuria, pelvic pain,urgency and vaginal discharge. Musculoskeletal: Negative for back [...] nursing note reviewed. Exam conducted with a quality control scientist present. Vitals: Estimated body mass index is [...] for trichomonas. Patient voiced that she feels asthough symptoms have improved from last visit. Patient stated that pharmacy was only able to give her 5 days worth of antibiotic instead of a week long therapy. Vaginal cultures obtained without difficulty and patient to return to clinic for annual appointment and PRN. Documented by Kandice Shah LPN on behalf of: AMERICA Donahue documented in this encounterRusk Rehabilitation [id number] Telephone encounter Note* Telephone Encounter - AMERICA Donahue - 12/10/2024 10:52 AM EST Patient notified of results. Patient not tolerating treatment of gel or oral flagyl previously. We will send in script for tinidazole 2g for 7 days [facility] [id number] Miscellaneous Notes* Telephone Encounter - AMERICA Donahue - 12/10/2024 10:52 AM EST Patient notified of results. Patient not tolerating treatment of gel or oral flagyl previously. We will send in script for tinidazole 2g for 7 days documented in this encounterRusk Rehabilitation CenterByiauqjmtj93-76-7070 History of Present illness Narrative* AMERICA Donahue - 12/09/2024 9:10 AM EST Reason for Appointment: Patient ID: Dinesh Selby [...] nursing note reviewed. Exam conducted with a quality control scientist present. Vitals: Estimated body mass index is 64.54 kg/m as calculated from the following: Height as of 07/09/24: 5' 4 . Weight as of 10/30/24: 376 lb. BP: No LMP recorded. ASSESSMENT & PLAN ICD-10-CM 1. Exposure to STD Z20.2 2. Vaginitis due to Trichomonas A59.01 Pt present for std visit. Pt tested positive for BV/Trichomonas on 10/30/2024. Pt to have cx's doneat today's visit for JOSE L. Cx's were collected by Kacey Monroe and advised results may take up to 2 days to return. Pt verbally understood. Documented by Jenifer Kay MA on behalf of: AMERICA Donahue documented in this encounterRusk Rehabilitation [id number] History of Present illness Narrative* AMERICA Donahue - 10/30/2024 3:10 PM EST Reason for Appointment: Patient ID: Dinesh Selby [...] nursing note reviewed. Exam conducted with a quality control scientist present. Vitals: Estimated body mass index is [...] behalf of: AMERICA Donahue documented in this encounterRusk Rehabilitation [id number] History of Present illness Narrative* Zeina Walter MD - 10/03/2024 10:30 AM EST Patient was last seen by me in [...] not available procedure to be done at [facility] in [place] by Dr. Sagastume. 2. Chest discomfort-etiology unclear 3. Abnormal R wave progression on EKG no prior EKG for comparison 4. Shortness of breath with activity 5. Not clinically volume overloaded 6. Patient denies symptoms of obstructive sleep apnea or a diagnosis of that 7. Hilar adenopathy, underwent biopsy, patient reports that her diagnosis is histoplasmosis. 8. 64-wyrr-khzw history of smoking, quit 2020. 9. History [...] my direction and personally dictated by me. Ihave reviewed the chart and agree that the record accurately reflects my personal performance of the history, physical exam, discussion and plan. Scribe Attestation By signing my name below, I, Sheri Good LPN attest that this documentation has been prepared under the direction and in the presence of Zeina Walter MD. documented in this [facility] Work Phone: 1(820) 971-780411-22-2024 Instructions* Patient Instructions* Sapphire Pickard LPN - 10/03/2024 10:30 AM [...] ordered as needed only documented in this [facility] Work Phone: 1(376) 211-568311-11-2024 History of Present illness Narrative* AMERICA Donahue - 09/22/2024 11:30 AM EST Reason for Appointment: Patient ID: Dinesh Selby [...] nursing note reviewed. Exam conducted with a quality control scientist present. Vitals: Estimated body mass index is [...] behalf of: AMERICA Donahue documented in this encounterRusk [facility] [id number] History of Present illness Narrative* AMERICA Donahue - 08/21/2024 3:30 PM EDT Reason for Appointment: Patient ID: Dinesh Selby [...] nursing note reviewed. Exam conducted with a quality control scientist present. Vitals: Estimated body mass index is [...] behalf of: AMERICA Donahue documented in this encounterRusk Rehabilitation [id number] History of Present illness Narrative* Sonam Carrillo LPN - 07/09/2024 3:00 PM EDT Reason for Appointment: Patient ID: Dinesh Selby [...] nursing note reviewed. Exam conducted with a quality control scientist present. Vitals: Estimated body mass index is [...] of: Julian Gold DO documented in this encounterRusk Rehabilitation [id number] History of Present illness Narrative* Zeina Walter MD - 08/13/2023 2:15 PM EDT Subjective Patient ID: Dinesh Selby is a 38 y.o. female HPI Dinesh is in for follow-up after testing. She continues to have some exertional shortness of breath and decreased functional capacity relatedto her weight. She has to go through [...] not available procedure to be done at [facility] in [place] by Dr. Sagastume. 2. Chest discomfort-etiology unclear 3. Abnormal R wave progression on EKG no prior EKG for comparison 4. Shortness of breath with activity 5. Not clinically volume overloaded 6. Patient denies symptoms of obstructive sleep apnea or a diagnosis of that 7. Hilar adenopathy, underwent biopsy, patient reports that her diagnosis is histoplasmosis. 8. 86-rvwh-wsbe history of smoking, quit 2020. 9. History [...] from a cardiac standpoint. documented in [facility] Work Phone: 1(813) 442-727910-02-2023 Instructions* Patient Instructions* Sapphire Pickard LPN - 08/13/2023 2:15 PM [...] up in one year. documented in this encounterUniversity [facility] Work Phone: 1(226) 963-515109-18-2023 History of Present illness Narrative* 38-year-old without documented coronary artery disease or valvular heart disease is being seen in cardiology consultation at the request of Dr. Pruitt or for preoperative cardiac risk assessment priorto bariatric surgery, nature of surgery unclear at this time. 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 She does complain of chest discomfort a pressure sensation that lasts a few minutes, usually brought on by activity. She also has shortness of breathwith activity her symptoms are not new and they are not accelerating. Does not have nocturnal chestdiscomfort, denies orthopnea PND lower extremity edema GERD symptoms palpitations lightheadedness presyncope syncope or falls. * Her EKG is abnormal and that there is abnormal R wave progression. Rate is 91 MI interval 140 ms QRS duration 94 ms * 2 pack/day smoker for 25 years quit 2 years ago. 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 * She reports occasional lightheadedness, no presyncope or syncope. * Blood pressure is at target. * Laboratory data February 2022-hemoglobin 11.8 hematocrit 36 platelets 316, sodium 139 potassium 3.9 GFR greater than 90 * Assessment: * 1. Patient is here for preoperative cardiac risk assessment prior to bariatric surgery details of surgery not available procedure to be done at [facility] in [place] by Dr. Sagastume. * 2. Chest discomfort-etiology unclear * 3. Abnormal R wave progression on EKG no prior EKG for comparison * 4. Shortness of breath with activity * 5. Not clinically volume overloaded * 6. Patient denies symptoms of obstructive sleep apnea or a diagnosis of that * 7. Hilar adenopathy, underwent biopsy, patient reports that her diagnosis is histoplasmosis. * 8. 81-kzcs-xxwz history of smoking, quit 2020. * 9. History of anxiety/panic attacks characterized by elevations in heart rate sweaty palms shortness of breath and chest discomfort-significant improvement on Zoloft. * Recommendations: * We talked about lifestyle modification. She says she is very frustrated, she gained weight after she quit smoking, she has had prior efforts at weight loss, and she had made progress but then she hadsetbacks, this is quite frustrating for her. * She says she does not eat anything till late morning, I suggested intermittent fasting, which mightwork for her. * Prior to completely assessing her cardiac risk for bariatric surgery, we will proceed with an echocardiogram and a treadmill perfusion imaging study. Patient says she can walk on a treadmill. If however treadmill stress test does not give us diagnostic information, it is okay to switch to Shahrzad pereyra. * Follow-up after testing * Patient is encouraged to abstain from cigarettes. * Echocardiogram * Thank you for allowing us to participate in Dinesh's care, please do not hesitate to call if further questions arise, * Sincerely, [facility] Work Phone: [phone]) 506-157308-30-2023 History of Present illness Narrative* 38-year-old without documented coronary artery disease or valvular heart disease is being seen in cardiology consultation at the request of Dr. Pruitt or for preoperative cardiac risk assessment priorto bariatric surgery, nature of surgery unclear at this time. 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 She does complain of chest discomfort a pressure sensation that lasts a few minutes, usually brought on by activity. She also has shortness of breathwith activity her symptoms are not new and they are not accelerating. Does not have nocturnal chestdiscomfort, denies orthopnea PND lower extremity edema GERD symptoms palpitations lightheadedness presyncope syncope or falls. * Her EKG is abnormal and that there is abnormal R wave progression. Rate is 91 MI interval 140 ms QRS duration 94 ms * 2 pack/day smoker for 25 years quit 2 years ago. 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 * She reports occasional lightheadedness, no presyncope or syncope. * Blood pressure is at target. * Laboratory data February 2022-hemoglobin 11.8 hematocrit 36 platelets 316, sodium 139 potassium 3.9 GFR greater than 90 * Assessment: * 1. Patient is here for preoperative cardiac risk assessment prior to bariatric surgery details of surgery not available procedure to be done at [facility] in [place] by Dr. Sagastume. * 2. Chest discomfort-etiology unclear * 3. Abnormal R wave progression on EKG no prior EKG for comparison * 4. Shortness of breath with activity * 5. Not clinically volume overloaded * 6. Patient denies symptoms of obstructive sleep apnea or a diagnosis of that * 7. Hilar adenopathy, underwent biopsy, patient reports that her diagnosis is histoplasmosis. * 8. 57-rdgz-wfzv history of smoking, quit 2020. * 9. History of anxiety/panic attacks characterized by elevations in heart rate sweaty palms shortness of breath and chest discomfort-significant improvement on Zoloft. * Recommendations: * We talked about lifestyle modification. She says she is very frustrated, she gained weight after she quit smoking, she has had prior efforts at weight loss, and she had made progress but then she hadsetbacks, this is quite frustrating for her. * She says she does not eat anything till late morning, I suggested intermittent fasting, which mightwork for her. * Prior to completely assessing her cardiac risk for bariatric surgery, we will proceed with an echocardiogram and a treadmill perfusion imaging study. Patient says she can walk on a treadmill. If however treadmill stress test does not give us diagnostic information, it is okay to switch to Shahrzad pereyra. * Follow-up after testing * Patient is encouraged to abstain from cigarettes. * Echocardiogram * Thank you for allowing us to participate in Dinesh's care, please do not hesitate to call if further questions arise, * Sincerely, [facility] Work Phone: [phone]) 554-952007-06-2023 History of Present illness Narrative* 38-year-old without documented coronary artery disease or valvular heart disease is being seen in cardiology consultation at the request of Dr. Pruitt or for preoperative cardiac risk assessment priorto bariatric surgery, nature of surgery unclear at this time. 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 She does complain of chest discomfort a pressure sensation that lasts a few minutes, usually brought on by activity. She also has shortness of breathwith activity her symptoms are not new and they are not accelerating. Does not have nocturnal chestdiscomfort, denies orthopnea PND lower extremity edema GERD symptoms palpitations lightheadedness presyncope syncope or falls. * Her EKG is abnormal and that there is abnormal R wave progression. Rate is 91 MI interval 140 ms QRS duration 94 ms * 2 pack/day smoker for 25 years quit 2 years ago. 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 * She reports occasional lightheadedness, no presyncope or syncope. * Blood pressure is at target. * Laboratory data February 2022-hemoglobin 11.8 hematocrit 36 platelets 316, sodium 139 potassium 3.9 GFR greater than 90 * Assessment: * 1. Patient is here for preoperative cardiac risk assessment prior to bariatric surgery details of surgery not available procedure to be done at [facility] in [place] by Dr. Sagastume. * 2. Chest discomfort-etiology unclear * 3. Abnormal R wave progression on EKG no prior EKG for comparison * 4. Shortness of breath with activity * 5. Not clinically volume overloaded * 6. Patient denies symptoms of obstructive sleep apnea or a diagnosis of that * 7. Hilar adenopathy, underwent biopsy, patient reports that her diagnosis is histoplasmosis. * 8. 07-yoha-pjmv history of smoking, quit 2020. * 9. History of anxiety/panic attacks characterized by elevations in heart rate sweaty palms shortness of breath and chest discomfort-significant improvement on Zoloft. * Recommendations: * We talked about lifestyle modification. She says she is very frustrated, she gained weight after she quit smoking, she has had prior efforts at weight loss, and she had made progress but then she hadsetbacks, this is quite frustrating for her. * She says she does not eat anything till late morning, I suggested intermittent fasting, which mightwork for her. * Prior to completely assessing her cardiac risk for bariatric surgery, we will proceed with an echocardiogram and a treadmill perfusion imaging study. Patient says she can walk on a treadmill. If however treadmill stress test does not give us diagnostic information, it is okay to switch to Shahrzad pereyra. * Follow-up after testing * Patient is encouraged to abstain from cigarettes. * Echocardiogram * Thank you for allowing us to participate in Dinesh's care, please do not hesitate to call if further questions arise, * Sincerely, -[facility]Vasyl Bowman DO Work Phone: 1([phone]) [phone] History of Present illness Narrative* 38-year-old without documented coronary artery disease or valvular heart disease is being seen in cardiology consultation at the request of Dr. Pruitt or for preoperative cardiac risk assessment priorto bariatric surgery, nature of surgery unclear at this time. 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 She does complain of chest discomfort a pressure sensation that lasts a few minutes, usually brought on by activity. She also has shortness of breathwith activity her symptoms are not new and they are not accelerating. Does not have nocturnal chestdiscomfort, denies orthopnea PND lower extremity edema GERD symptoms palpitations lightheadedness presyncope syncope or falls. * Her EKG is abnormal and that there is abnormal R wave progression. Rate is 91 MI interval 140 ms QRS duration 94 ms * 2 pack/day smoker for 25 years quit 2 years ago. 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 * She reports occasional lightheadedness, no presyncope or syncope. * Blood pressure is at target. * Laboratory data February 2022-hemoglobin 11.8 hematocrit 36 platelets 316, sodium 139 potassium 3.9 GFR greater than 90 * Assessment: * 1. Patient is here for preoperative cardiac risk assessment prior to bariatric surgery details of surgery not available procedure to be done at [facility] in [place] by Dr. Sagastume. * 2. Chest discomfort-etiology unclear * 3. Abnormal R wave progression on EKG no prior EKG for comparison * 4. Shortness of breath with activity * 5. Not clinically volume overloaded * 6. Patient denies symptoms of obstructive sleep apnea or a diagnosis of that * 7. Hilar adenopathy, underwent biopsy, patient reports that her diagnosis is histoplasmosis. * 8. 47-uswj-xsza history of smoking, quit 2020. * 9. History of anxiety/panic attacks characterized by elevations in heart rate sweaty palms shortness of breath and chest discomfort-significant improvement on Zoloft. * Recommendations: * We talked about lifestyle modification. She says she is very frustrated, she gained weight after she quit smoking, she has had prior efforts at weight loss, and she had made progress but then she hadsetbacks, this is quite frustrating for her. * She says she does not eat anything till late morning, I suggested intermittent fasting, which mightwork for her. * Prior to completely assessing her cardiac risk for bariatric surgery, we will proceed with an echocardiogram and a treadmill perfusion imaging study. Patient says she can walk on a treadmill. If however treadmill stress test does not give us diagnostic information, it is okay to switch to [employer] Stacey pereyra. * Follow-up after testing * Patient is encouraged to abstain from cigarettes. * Echocardiogram * Thank you for allowing us to participate in Dinesh's care, please do not hesitate to call if further questions arise, * Sincerely, [facility] [address] DO Work Phone: 1([phone]) [phone] Evaluation note* Encounter Date Diagnosis Assessment Notes Treatment Notes Treatment Clinical Notes Feb, Acute bacterial conjunctivitis o f left eye (ICD-10 - H10.32) Monica diagnosis [...] understanding and is agreeable to treatment plan. [facility] Other 07-01-2020 History of Present illness Narrative* Patient is a 36-year-old woman referred by Sridevi Poe MD from thoracic surgery for possiblehistoplasmosis. * Patient was undergoing preoperative evaluation for gastric bypass surgery at [place]. Preoperative chest x-ray showed a chest shadow with everything else being fine. This occurred in May 2020. She was seen by her primary care provider for evaluation and a chest CT was performed that reveale d a mass . This further addressed by PET CT scan at [facility] where she was what was not cancer . She underwent a follow-up CAT scan 3 months following that showed questionable growth in a soft tissue mass. The recommendation was to repeat a CT in 9 months but she was sent to a physician in [place] whom she saw once. 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 She was referred to the [facility] however they never replied to the consult [...] was never treated. This occurred at [facility] in [facility]. She states that her vision changesbegan in 2012 after her son was born. She states that they began as floaters and then her centralvision began changing. She never noticed that she was unable to see well until she closed her left eye. She noted she had central vision . She was seen by an eye doctor in [facility]. She went to him for glasses after [...] * She states she has lived in [place] only. She was born in [facility] and then moved to [place]. Her only travel has been to [place]. 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 She is set [employer] as well. She also helps with [...] the computer for comparison. [facility]-Infectious Disease-Admin [facility] Work Phone: Evaluation + Plan note Future Appointments Appointment Date:06/02/2022 02:00:00 PM Scheduled Provider:SHERI MCLEOD Location:[facility] Peds Appointment Type: Video Visit Therapy [facility] evaluation + Plan note Future Appointments Appointment Date:08/02/2022 02:00:00 PM Scheduled Provider:SHERI MCLEOD Location:[facility]eds Appointment Type: Video Visit Therapy [facility] evaluation note* Diagnosis Obesity, morbid (CMS/FORMERLY [facility])- Primary Morbid obesity Pre-operative clearance Unspecified pre-operative [...] organs Urethral irritation documented [facility] encounter [facility]* Diagnosis Trichomonas vaginalis (TV) infection documented in this encounter [facility]* Diagnosis Exposure to STD Vaginitis due to Trichomonas documented in this encounter [facility]* Diagnosis Vaginitis due to Trichomonas- Primary documented in this encounter [facility]* Diagnosis Vaginal discharge Leukorrhea, not [...] Medical History restriction around superior vena cava [facility] Other History of Present illness Narrative* Ms. Selby is following up - she has since had a visit with Dr. Poe and Dr. Tang - currently in midst of work up for chronic histoplasmosis - titers back and awaiting Dr. Tang recommendations but will likely need treatment for this chronic histo infection. [facility] but she was unable to get this [...] neuro intact x 4 without focal deficits [facility] Work Phone: History of Present illness Narrative* [...] report vertigo with sudden postural changes. -CT Surgery-[facility] Work Phone: History of Present illness Narrative* [...] notable for no relatives with histoplasmosis -CT Surgery-[facility] Work Phone: Hospital course Narrative No data available for this section [facility] Hospital Discharge instructions No data available for this section [facility] progress note No data available for this section [facility] Chief Complaint Histplasmosis* The patient [...] is being seen for pre-operative clearance. DINESH ESLBY is being seen for pre-operative clearance. Summary [...] section and content) DATE CREATED AUTHOR 10/30/2021 [facility] DATE CREATED AUTHOR AUTHOR'S ORGANIZ ATION 03/22/2023 [facility] DATE CREATED AUTHOR AUTHOR'S ORGANIZ ATION 05/07/2023 [facility] DATE CREATED AUTHOR AUTHOR'S ORGANIZ ATION 05/08/2023 [facility] DATE CREATED AUTHOR AUTHOR'S ORGANIZ ATION 05/22/2023 [facility] DATE CREATED AUTHOR AUTHOR'S ORGANIZ ATION 08/03/2023 [facility] DATE CREATED AUTHOR AUTHOR'S ORGANIZ ATION 10/06/2024 [facility] DATE CREATED AUTHOR AUTHOR'S ORGANIZ ATION 02/14/2025 [facility] EPIC Care Team (unrecognized sect ion and content) Team MemberRelationshipSpecialtyStart DateEnd Date Emmie Lenz APRN-DIRECTOR OF NATIONAL SALES [address] [place] [address] PCP - General05/07/23Team MemberRelationshipSpecialtyStart DateEnd Date Emmie Lenz APRN-DIRECTOR OF NATIONAL SALES [address] [place] [address] PCP - General05/07/23Team MemberRelationshipSpecialtyStart DateEnd Date Kacey Monroe PA [address] [place] [address] PCP - [facility] [place] Outpkefegv53/1/2312Team MemberRelationshipSpecialty Start DateEnd Date Kacey Monroe PA [address] [place] [address] PCP - [facility] [place] Ktwstvbika30/1/2312Team MemberRelationshipSpecialty Start DateEnd Date Kacey Monroe PA [address] [place] [address] PCP - [facility] [place] Pzjqhncthe53/1/2312Te MemberRelationshipSpecialty Start DateEnd Date Kacey Monroe PA [address] [place] [address] PCP - [facility]10/12/2312Te MemberRelationshipSpecialty Start DateEnd Date Kacey Monroe PA [address] [place] [address] [place] [address] PCP - [facility]10/12/2312Te MemberRelationshipSpecialty Start DateEnd Date Kacey Monroe PA [address] [place] [address] PCP - [facility]10/12/2312 REASON FOR VISIT (unrecogniz ed section and content) ReasonCommentsResultsReasonCommentsSTI ScreeningPt present today for JOSE L visit. Pt tested + for Trichomoniasis.ReasonCommentsSTI ScreeningReasonCommentsAnnual ExamReasonCommentsvaginal issuesReasonCommentsSTI ScreeningPT present for JOSE L. Pt tested +for BV/Trich.ReasonCommentsTOCReasonCommentsGynecologic Exam FOR RECORDS PERTAINING TO PATIENTS WHO [...] BE BASED ON THE PRIMARY CLINICAL RECORDS. [id number] [facility]. provides no warranty or guarantee of the accuracy or completeness of information in this document.
[2025-10-21 18:04] LABS: Anion Gap 12.1; Blood Urea Nitrogen 7.0 mg/dL (7.0-18.0); Calcium 8.7 mg/dL (8.5-10.1); Carbon Dioxide 25.1 mmol/L (21.0-32.0); Chloride 107 mmol/L (98-107); Estimated GFR (African America >60 (>=60 mL/min/1.73m^2); Estimated GFR (Non-African Ame >60 (>=60 mL/min/1.73m^2); Glucose 129 mg/dL (74-106); Potassium 3.2 mmol/L (3.5-5.1); Sodium 141 mmol/L (136-145)
[2025-10-21 20:12] LABS: C. Difficile PCR NEGATIVE
== END 2025-10-21 20:25 | disposition home or self-care (01) ==
PROVIDERS: Emergency Provider Emergency Medicine; PCP Nurse Practitioner Family
DX: R19.7 Diarrhea, unspecified (principal)
CPT/HCPCS: 36415; 80048; 85025; 87045; 87046; 87427; 87493; 99283